=== PATIENT | female | born 1940 | race Caucasian/White ===

== ENCOUNTER → 2016-05-04 | Outpatient (CLI) | payer OTHER, BC ==
[~2016-05-04] MED LIST: ACET1TAB84 PO; ADVIN10/60 INH; ALBU0.08 INH; ALBU1AER9 INH; AMOX875T PO; ASPEC81 PO; CALC-5 PO; CIPR-255 PO; CMD2 PO; DEXL60CA4 PO; DONE10TA12 PO; DONE5TAB9 PO; HYZ/10015 PO; LVNIS100 SQ; NTRSLP4 SL; POTA10CA28 PO; PRAV20TA PO; PREG1CAP70 PO; SERT50TA PO; TAUR500C PO; VNTHFA/IN INH; WARF2TAB PO; WARF4TAB PO; WARF4TAB8 PO
[2016-05-04 13:30] LABS: BASO ABS # 0.06 K/uL (0-0.2); COMPLETE YES; EOS % 0.9 %; HEMATOCRIT 40.6 % (37-47); IG% 0.3 %; LYMPH ABS # 1.05 K/uL (1.2-3.4); MEAN CELL VOLUME 86.2 fL (80-100); MEAN CORPUSCULAR HEMOGLOBIN 28.9 pg (25-34); MEAN CORPUSCULAR HGB CONC 33.5 g/dl (32-36); MEAN PLATELET VOLUME 10.4 fL (7.4-10.4); MONO % 10.5 %; NEUT % 69.3 %; PLATELET COUNT 269 K/uL (130-400); RED BLOOD COUNT 4.71 M/uL (4.2-5.4); WHITE BLOOD COUNT 5.83 K/uL (4.8-10.8)
[2016-05-04 14:28] LABS: ALB/GLOB RATIO 0.8 (0.9-2); ALKALINE PHOSPHATASE 95 U/L (45-117); ALT/SGPT 22 U/L (12-78); AST/SGOT 16 U/L (15-37); BLOOD UREA NITROGEN 18 mg/dl (7-18); BUN/CREATININE RATIO 23.5 (10-20); CALCIUM 9.1 mg/dl (8.5-10.1); CARBON DIOXIDE 30 mmol/L (21-32); CHLORIDE 104 mmol/L (98-107); CHOLESTEROL 250 mg/dl (0-200); CHOLESTEROL/HDL RATIO 4.1; CREATININE 0.76 mg/dl (0.60-1.20); GLUCOSE 80 mg/dl (70-99); HDL CHOLESTEROL 61 mg/dl; LDL CHOLESTEROL CALCULATED 174 mg/dl; POTASSIUM 3.6 mmol/L (3.5-5.1); SODIUM 142 mmol/L (136-145); TRIGLYCERIDES 73 mg/dl (0-150); VERY LOW DENSITY LIPOPROT CALC 15 mg/dl
== END | disposition home or self-care (01) ==
LOC: C.LABMFLN 07:54
PROVIDERS: ATTEND Family Medicine
DX: J45.909 Unspecified asthma, uncomplicated (principal); E78.5 Hyperlipidemia, unspecified

== ENCOUNTER → 2016-07-29 | Outpatient (CLI) | payer OTHER, BC ==
--- NOTE | 2016-07-29 13:28 | DIAGNOSTIC IMAGING REPORT ---
CT OF THE LEFT ANKLE CT DOSE: 160.61 mGy.cm HISTORY: Pain operative fusion TECHNIQUE: Multiaxial CT images of the left ankle were performed and reformatted in the sagittal and coronal plane without the use of contrast. COMPARISON: 11/17/2014 FINDINGS: Lungs consistent with considerable arthritic changes of the tibiotalar joint. Considerable subchondral cyst formation is present. There are operative changes consistent with a hindfoot fusion. It specifically is consistent with a tibiotalar fusion and cannulated screw positioning. Fusion appears to be solid. There are superimposed arthritic changes. This includes the base of the metatarsal. A well-defined fracture is not appreciated. There are considerable degenerative changes of the intertarsal as well as tarsometatarsal joints. IMPRESSION: 1. Operative changes consistent with a hindfoot fusion. 2. Considerable superimposed degenerative change. 3. No evidence for fracture. 4. Moderate generalized soft tissue edema Electronically signed by: Gordon Edouard M.D. 07/29/2016 1:27 PM Dictated Date/Time: 07/29/2016 1:18 PM
== END | disposition home or self-care (01) ==
LOC: C.CTS 12:38
PROVIDERS: ATTEND Orthopaedic Surgery Sports Medicine
DX: M25.572 Pain in left ankle and joints of left foot (principal)

== ENCOUNTER 2016-08-20 13:25 | Inpatient (IN) | payer OTHER, BC ==
[~2016-08-20] VITALS: Ht 167.6 cm; Wt 85.6 kg
[~2016-08-20 13:25] MED LIST changes: -AMOX875T PO; -ASPEC81 PO; -DONE5TAB9 PO; -LVNIS100 SQ; -NTRSLP4 SL; -PRAV20TA PO; -VNTHFA/IN INH; -WARF2TAB PO; -WARF4TAB8 PO
[2016-08-20] MEDS ORDERED: ONDANSETRON INJ 2 MG/ML 2 ML VIAL IV STA (13:43)
[2016-08-20] MEDS ORDERED: MoRPHine SULFATE 4 MG/ML 1 ML CARP\\VIAL IV STA (13:43)
[2016-08-20 13:52] LABS: BASO % 0.1 %; BASO ABS # 0.01 K/uL (0-0.2); COMPLETE YES; HEMATOCRIT 42.3 % (37-47); IG% 0.4 %; LYMPH % 11.1 %; LYMPH ABS # 1.12 K/uL (1.2-3.4); MEAN CELL VOLUME 87.4 fL (80-100); MEAN CORPUSCULAR HEMOGLOBIN 29.1 pg (25-34); MEAN CORPUSCULAR HGB CONC 33.3 g/dl (32-36); MEAN PLATELET VOLUME 9.9 fL (7.4-10.4); MONO % 6.3 %; NEUT % 82.1 %; PLATELET COUNT 264 K/uL (130-400); RED BLOOD COUNT 4.84 M/uL (4.2-5.4); WHITE BLOOD COUNT 10.08 K/uL (4.8-10.8)
[2016-08-20] MEDS ORDERED: DONE5TAB9 PO (13:52)
[2016-08-20] MEDS ORDERED: WARF2TAB PO (13:52)
[2016-08-20] MEDS ORDERED: VNTHFA/IN INH (13:52)
[2016-08-20 14:01] LABS: INR 2.6 (0.9-1.1); PARTIAL THROMBOPLASTIN RATIO 1.4; PROTHROMBIN TIME (PATIENT) 29.2 SECONDS (9.0-12.0)
--- NOTE | 2016-08-20 14:06 | DIAGNOSTIC IMAGING REPORT ---
CHEST ONE VIEW PORTABLE CLINICAL HISTORY: Atypical chest pain COMPARISON STUDY: 07/17/2015 FINDINGS: The heart is mildly enlarged. There is no failure. There is no focal pulmonary consolidation. There are no pleural effusions.[ IMPRESSION: No active disease in the chest. Electronically signed by: Edgard Diego M.D. 08/20/2016 2:04 PM Dictated Date/Time: 08/20/2016 2:03 PM
[2016-08-20 14:09] LABS: BUN/CREATININE RATIO 23.5 (10-20); CALCIUM 9.2 mg/dl (8.5-10.1); CREATININE 0.8 mg/dl (0.60-1.20); POTASSIUM 3.4 mmol/L (3.5-5.1)
--- NOTE | 2016-08-20 14:20 | DIAGNOSTIC IMAGING REPORT ---
CT HEAD WITHOUT CONTRAST (CT) CLINICAL HISTORY: Severe headache. COMPARISON STUDY: No previous studies for comparison. TECHNIQUE: Axial CT of the brain is performed from the vertex to the skull base. IV contrast was not administered for this examination. CT DOSE: 614.27 mGy.cm FINDINGS: No intra or extra-axial mass lesions are visualized. There is no CT evidence of acute cortical infarction. There is no evidence of midline shift. There is no acute hemorrhage. No calvarial fractures are visualized. There are patchy white matter hypodensities likely on a small vessel basis. There is moderate cortical atrophy. There is no evidence of pathologic ventricular dilatation. There is no evidence of acute sinusitis IMPRESSION: No acute intracranial findings Electronically signed by: Edgard Diego M.D. 08/20/2016 2:18 PM Dictated Date/Time: 08/20/2016 2:17 PM
[2016-08-20] MEDS ORDERED: MoRPHine SULFATE 2 MG/ML CARP IV STA (14:43)
[2016-08-20] MEDS ORDERED: ONDANSETRON INJ 2 MG/ML 2 ML VIAL IV PRN (15:15)
[2016-08-20] MEDS ORDERED: ACETAMINOPHEN 325 MG TAB PO PRN (15:15)
[2016-08-20] MEDS ORDERED: ZOLPIDEM TARTRATE 5 MG TAB PO PRN (15:15)
[2016-08-20] MEDS ORDERED: NITROGLYCERIN 0.4 MG SL PER TAB CHARGE SL PRN (15:15)
[2016-08-20] MEDS ORDERED: ACETAMINOPHEN IV 100 ML IV PRN (15:45)
--- NOTE | 2016-08-20 16:04 | EMERGENCY ROOM VISIT NOTE ---
History Report prepared by Alondra: [place] Under the Supervision of: Dr. Carlin Fish M.D. First contact with patient: 13:34 Chief Complaint: CHEST PAIN Stated Complaint: CHEST PAINS,HYPERTENSION,ROSS History of Present Illness The patient is a 75 year old female who presents to the Emergency Room with complaints of improving chest pain beginning 1.5 hours ago. She states that her pain began while she was watching her grandson's game. The patient denies any pain radiation. She denies any shortness of breath or abdominal pain. She also complains of lightheadedness, and nausea. The patient states that she has developed a severe headache as well. She states that the headache she has feels similarly to her previous hypertension induced headaches. She notes that she has some left ankle swelling that is unchanged from her baseline. She states "I need an ankle replacement". Per family, the patient has a history of cardiac catheterizations which have all been normal. Her most recent catheterization was around 10 years ago. Source of History: patient, family Onset: 1.5 hours ago Position: chest Quality: other (tightness) Timing: other (improving) Associated Symptoms: + headache, + nausea, No SOB, No abdominal pain Note: The patient also complains of lightheadedness. Review of Systems See HPI for pertinent positives & negatives. A total of 10 systems reviewed and were otherwise negative. Past Medical & Surgical Medical Problems: (1) Abdominal pain (2) Achilles tendon contracture, left (3) Bradycardia (4) Chest pain (5) Degenerative joint disease of left hindfoot (6) Foot pain, left (7) History of DVT (deep vein thrombosis) (8) History of pulmonary embolus (PE) (9) HTN (hypertension) (10) Intractable headache (11) Pes planus Surgical Problems: (1) Hx of hysterectomy Family History Blood clots Heart disease Hypertension Social History Smoking Status: Never Smoker Alcohol Use: none Drug Use: none Marital Status: Housing Status: lives with family Occupation Status: unemployed Current/Historical Medications Scheduled Albuterol Hfa (Ventolin Hfa), 2 PUFFS INH Q4H Calcium-Magnesium W/ Vitamin D (Calcium 500), 1,500 MG PO BID Donepezil HCl (Aricept), 5 MG PO HS Fluticasone Prop/Salmeterol (Advair Diskus 100/50 60 Dose), 1 PUFF INH BID Hctz/Losartan (Hyzaar 25MG/100MG), 1 TAB PO HS Potassium Chloride (Micro-K Ext Rel), 10 MEQ PO BID Pregabalin (Lyrica), 150 MG PO HS Sertraline (Zoloft), 50 MG PO DAILY Warfarin Sodium (Coumadin), 4 MG PO 2XWK Warfarin Sodium (Coumadin), 2 MG PO 5XWK Scheduled PRN Acetaminophen (Tylenol Arthritis Ext Rel), 1,300 MG PO for Pain Allergies Coded Allergies: Sulfamethoxazole w/Trimethoprim (Unverified Allergy, Severe, STOMACH SICKNESS, 08/20/16) Physical Exam Vital Signs Date Time Temp Pulse Resp B/P Pulse Ox O2 Delivery O2 Flow Rate FiO2 08/20/16 14:25 53 16 127/75 97 Room Air 08/20/16 13:38 58 08/20/16 13:33 58 21 164/91 97 Room Air 08/20/16 13:33 97 Room Air Physical Exam Constitutional: Vital signs reviewed. Eyes: Pupils are equal round reactive to light. Conjunctiva are noninjected. ENT: Pharynx is clear without erythema or exudate. Mucous membranes are moist. Neck supple without meningeal signs. Respiratory: Clear to auscultation bilaterally. Breath sounds are equal bilaterally. Cardiovascular: Regular rate and rhythm. No rubs or gallops. GI: Soft, nondistended and nontender. Bowel sounds are present. Musculoskeletal: No peripheral edema. No lower extremity tenderness. Brace on left lower extremity. Integumentary: No cyanosis. Neurological: The patient is awake and alert. Cranial nerves II-XII are intact. Motor is 5 out of 5 all extremities. Sensation is intact to light touch all extremities. Normal speech. No pronator drift. Psychiatric: Normal affect. Medical Decision & Procedures ER Provider Diagnostic Interpretation: X-ray results as stated below per interpretation by me and the radiologist. CT results as stated below per my review and the radiologist's interpretation: CT HEAD WITHOUT CONTRAST (CT) FINDINGS: No intra or extra-axial mass lesions are visualized. There is no CT evidence of acute cortical infarction. There is no evidence of midline shift. There is no acute hemorrhage. No calvarial fractures are visualized. There are patchy white matter hypodensities likely on a small vessel basis. There is moderate cortical atrophy. There is no evidence of pathologic ventricular dilatation. There is no evidence of acute sinusitis IMPRESSION: No acute intracranial findings Electronically signed by: Edgard Diego M.D. CHEST ONE VIEW PORTABLE FINDINGS: The heart is mildly enlarged. There is no failure. There is no focal pulmonary consolidation. There are no pleural effusions.[ IMPRESSION: No active disease in the chest. Electronically signed by: Edgard Diego M.D. Laboratory Results 08/20/16 13:39 Red Blood Count 4.84, Mean Corpuscular Volume 87.4, Mean Corpuscular Hemoglobin 29.1, Mean Corpuscular Hemoglobin Concent 33.3, Mean Platelet Volume 9.9, Neutrophils (%) (Auto) 82.1, Lymphocytes (%) (Auto) 11.1, Monocytes (%) (Auto) 6.3, Eosinophils (%) (Auto) 0.0, Basophils (%) (Auto) 0.1, Neutrophils # (Auto) 8.28, Lymphocytes # (Auto) 1.12, Monocytes # (Auto) 0.63, Eosinophils # (Auto) 0.00, Basophils # (Auto) 0.01 08/20/16 13:39 Test 08/20/16 13:39 08/20/16 13:43 White Blood Count 10.08 K/uL (4.8-10.8) Red Blood Count 4.84 M/uL (4.2-5.4) Hemoglobin 14.1 g/dL (12.0-16.0) Hematocrit 42.3 % (37-47) Mean Corpuscular Volume 87.4 fL (80-100) Mean Corpuscular Hemoglobin 29.1 pg (25-34) Mean Corpuscular Hemoglobin Concent 33.3 g/dl (32-36) Platelet Count 264 K/uL (130-400) Mean Platelet Volume 9.9 fL (7.4-10.4) Neutrophils (%) (Auto) 82.1 % Lymphocytes (%) (Auto) 11.1 % Monocytes (%) (Auto) 6.3 % Eosinophils (%) (Auto) 0.0 % Basophils (%) (Auto) 0.1 % Neutrophils # (Auto) 8.28 K/uL (1.4-6.5) Lymphocytes # (Auto) 1.12 K/uL (1.2-3.4) Monocytes # (Auto) 0.63 K/uL (0.11-0.59) Eosinophils # (Auto) 0.00 K/uL (0-0.5) Basophils # (Auto) 0.01 K/uL (0-0.2) RDW Standard Deviation 43.8 fL (36.4-46.3) RDW Coefficient of Variation 13.8 % (11.5-14.5) Immature Granulocyte % (Auto) 0.4 % Immature Granulocyte # (Auto) 0.04 K/uL (0.00-0.02) Prothrombin Time 29.2 SECONDS (9.0-12.0) Prothromb Time International Ratio 2.6 (0.9-1.1) Activated Partial Thromboplast Time 36.6 SECONDS (21.0-31.0) Partial Thromboplastin Ratio 1.4 Anion Gap 9.0 mmol/L (3-11) Est Creatinine Clear Calc Drug Dose 69.2 ml/min Estimated GFR () 83.6 Estimated GFR (Non- 72.1 BUN/Creatinine Ratio 23.5 (10-20) Calcium Level 9.2 mg/dl (8.5-10.1) Magnesium Level 2.0 mg/dl (1.8-2.4) Bedside Troponin I 0.000 ng/ml (0-0.045) Laboratory results as reviewed by me. Medications Administered Medications (Trade) Dose Ordered Sig/Martín Route Start Time Stop Time Status Last Admin Dose Admin Morphine Sulfate (MoRPHine SULFATE INJ) 4 mg NOW STAT IV 08/20/16 13:43 08/20/16 13:45 DC 08/20/16 14:20 4 MG Ondansetron HCl (Zofran Inj) 4 mg NOW STAT IV 08/20/16 13:43 08/20/16 13:45 DC 08/20/16 14:20 4 MG ECG Indication: chest pain Rate (beats per minute): 52 Rhythm: sinus bradycardia Findings: PAC, other (Slight depression in leads V4 and V5.) Change: Repeat ECG reveals a sinus bradycardia with PACs. No ST depressions or elevations seen. ED Course 1336: The patient was evaluated in room B5. A complete history and physical exam was performed. 1343: Ordered Zofran Inj 4 mg IV, Morphine Sulfate 4 mg IV. 1443: I reassessed the patient. She still has a headache, but her chest pain is nearly gone. I recommended that she stay in the hospital. The patient verbalized agreement and understanding of the treatment plan. Ordered Morphine Sulfate 2 mg IV. 1502: The patient will be evaluated for further management. Medical Decision This is a 75-year-old female who presents with chest discomfort and headache. Differential diagnosis includes unstable angina, [place], GERD, intracranial mass, intracranial hemorrhage. I did perform a limited focused review of portions of the patient's old chart on the electronic medical record. The patient has had no recent pertinent visits to this hospital. I did evaluate the patient as noted above. Patient is presenting with chest tightness about an hour and a half ago. She also developed a headache at that time. She is neurologically intact. IV access was established. The patient was placed on a continuous manager validation. I did order and personally review the patient's 12-lead EKG and chest x-ray as described above. Her twelve-lead EKG does show some less than [address] depressions in the precordial leads. I did treat the patient with morphine and Zofran IV. I did wish to avoid nitroglycerin because of her headache. I did order and review the patient's blood work as noted in the electronic medical record. Her troponin is negative. Her INR is therapeutic. I did order a CT of the head. I did review the images myself as well as the radiology report as described above. There is no evidence of intracranial hemorrhage. I did reassess the patient. She states her chest pain is almost completely gone. She does continue to have a headache although it is improved as well. I did repeat another twelve-lead EKG which did not show any ST depressions. She was given morphine 2 mg IV. I did recommend hospitalization for further evaluation of her symptoms that she has dynamic EKG changes. I did discuss the case with the hospitalist and mattress spring encaser. Consults Time Called: [id number] Consulting Physician: [place]. [place] [place] [phone] [place] [facility] [place] discussed the patient and her results. The patient will be further evaluated by [facility] [place] Impression Primary Impression: Precordial chest pain Additional Impressions: Headache Bradycardia Abnormal ECG Anticoagulated on Coumadin Scribe Attestation The scribe's documentation has been prepared under my direct and personally reviewed by me in its entirety. I confirm that the note above accurately reflects all work, treatment, procedures, and medical decision making performed by me. Departure Information Dispostion Being Evaluated By Hospitalist Referrals Ella Esquivel M.D. (PCP) Patient Instructions My [facility] Problem Qualifiers Additional Impressions: Headache Headache type: unspecified Headache chronicity pattern: acute headache
[2016-08-20 16:46] VITALS: Ht 167.6 cm; Wt 85.6 kg
[2016-08-20 18:29] VITALS: BP 120/74; PULSE 48; TEMP 36.4; O2SAT 96
[2016-08-20] MEDS: NSS + 20MEQ KCL 1000ML 1,000 ML IV SCH (19:07)
[2016-08-20 19:29] VITALS: BP 116/71; PULSE 54; TEMP 36.6; O2SAT 94
[2016-08-20] MEDS ORDERED: WARFARIN SOD 2 MG TAB PO ONE (20:15)
[2016-08-20] MEDS: ALBUTEROL HFA 8 GM INHALER INH SCH ×2 (20:35→20:40)
[2016-08-20] MEDS: FLUTICASONE/SALMETEROL 100/50 (ADVAIR) 14 PUFF/1 INHALER INH SCH (20:36)
[2016-08-20] MEDS: PREGABALIN 150 MG CAP PO SCH (20:38)
[2016-08-20] MEDS: DONEPEZIL HCL 5 MG TAB PO SCH (20:39)
[2016-08-20] MEDS: POTASSIUM CHLORIDE 10 MEQ TABCR PO SCH (20:39)
[2016-08-20] MEDS ORDERED: CALCIUM MAGNESIUM PO SCH (21:00)
[2016-08-20] MEDS ORDERED: VITAMIN D PO SCH (21:00)
[2016-08-20 21:20] VITALS: PULSE 55; O2SAT 93
--- NOTE | 2016-08-20 22:10 | History and Physical ---
History & Physical Date & Time of Service: Aug 20, 2016 at 22:10 Chief Complaint: Bradycardia, Intractable Headache Primary Care Physician: Ella Esquivel M.D. History of Present Illness Source: patient, spouse The patient is a 75-year-old female who presents to the emergency department with report of chest pain that developed about 1 1/2 hours ago while she was watching her grandson's baseball game, and also developed severe headache as well. She feels that the headache is related to hypertension induced headaches. Patient does have a history of cardiac catheterizations which have been normal, with the last catheterization being around 10 years ago. 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 (4) Foot pain, left Status: Resolved (5) History of DVT (deep vein thrombosis) Status: Resolved (6) History of pulmonary embolus (PE) Status: Resolved (7) HTN (hypertension) Status: Chronic (8) Pes planus Status: Resolved Surgical Problems: (1) Hx of hysterectomy Status: Resolved Family History Blood clots Heart disease Hypertension Social History Smoking Status: Former Smoker Smokeless Tobacco Use: No Alcohol Use: none Drug Use: none Marital Status: Housing status: lives with family Occupational Status: unemployed Multi-Drug Resistant Organisms History of MDRO: No Allergies Coded Allergies: Sulfamethoxazole w/Trimethoprim (Verified Adverse Reaction, Intermediate, STOMACH SICKNESS, 08/20/16) Home Medications Scheduled Albuterol Hfa (Ventolin Hfa), 2 PUFFS INH Q4H Calcium-Magnesium W/ Vitamin D (Calcium 500), 1,500 MG PO BID Donepezil HCl (Aricept), 5 MG PO HS Fluticasone Prop/Salmeterol (Advair Diskus 100/50 60 Dose), 1 PUFF INH BID Hctz/Losartan (Hyzaar 25MG/100MG), 1 TAB PO HS Potassium Chloride (Micro-K Ext Rel), 10 MEQ PO BID Pregabalin (Lyrica), 150 MG PO HS Sertraline (Zoloft), 50 MG PO DAILY Warfarin Sodium (Coumadin), 4 MG PO 2XWK Warfarin Sodium (Coumadin), 2 MG PO 5XWK Scheduled PRN Acetaminophen (Tylenol Arthritis Ext Rel), 1,300 MG PO for Pain Review of Systems The patient denies chest pain, shortness of breath, lower extremity swelling, vision change, hearing change, sore throat, fevers, chills, sweats, weight change, fatigue, nausea, vomiting, abdominal pain, pelvic pain, blood in urine or stool, dysuria, urinary frequency or urgency, lightheadedness, memory loss, rash, abnormal bruising or bleeding, imbalance, focal or generalized weakness, numbness or tingling in arms or legs, arthralgias or myalgias, back or neck pain , night sweats, or allergy symptoms. The review of systems is otherwise negative other than for that already noted above, and at least 10 systems have been reviewed. Physical Exam Vital Signs Date Time Temp Pulse Resp B/P Pulse Ox O2 Delivery O2 Flow Rate FiO2 08/20/16 21:20 55 93 08/20/16 20:14 Room Air 08/20/16 19:29 36.6 54 18 116/71 94 Room Air 08/20/16 18:29 36.4 48 16 120/74 96 Room Air 08/20/16 17:43 36.9 51 14 126/71 95 08/20/16 17:42 51 14 126/71 95 Room Air 08/20/16 17:00 51 14 132/71 95 08/20/16 16:46 Room Air 08/20/16 16:30 48 12 08/20/16 16:00 55 18 95 08/20/16 15:55 46 12 94 08/20/16 15:25 52 14 97 08/20/16 14:55 47 15 97 08/20/16 14:25 53 16 127/75 97 Room Air 08/20/16 14:25 51 15 94 08/20/16 14:23 127/75 08/20/16 13:55 52 19 94 08/20/16 13:38 58 08/20/16 13:33 58 21 164/91 97 Room Air 08/20/16 13:33 97 Room Air 08/20/16 13:32 164/91 The patient is awake, well-developed and adequately nourished, alert and oriented 3, normocephalic and atraumatic, lying in bed and in no acute distress. HEENT--PERRL, EOMI, mucous membranes and oropharynx dry. Neck--supple, no JVD or bruits, thyroid normal, trachea midline, no adenopathy. Heart--normal S1 and S2, no extra beats, no murmurs, rubs or gallops. Lungs--clear bilaterally, no respiratory distress, no accessory muscle use. Abdomen--normal bowel sounds and soft, nontender and nondistended, no hernias or masses, no organomegaly. Extremities--no cyanosis, clubbing or edema. There are good distal pulses b/l. Dermatologic--normal skin turgor, normal color, warm and dry, no abnormal lymph nodes, no rash. Neurologic--cranial nerves II through XII grossly intact, motor and sensory examination normal. Rheumatologic--normal range of motion, nontender, muscles and joints. Psychiatric--normal affect. Diagnostics Laboratory Results Results Past 24 Hours Test 08/20/16 13:39 08/20/16 13:43 Range/Units White Blood Count 10.08 4.8-10.8 K/uL Red Blood Count 4.84 4.2-5.4 M/uL Hemoglobin 14.1 12.0-16.0 g/dL Hematocrit 42.3 37-47 % Mean Corpuscular Volume 87.4 80-100 fL Mean Corpuscular Hemoglobin 29.1 25-34 pg Mean Corpuscular Hemoglobin Concent 33.3 32-36 g/dl Platelet Count 264 130-400 K/uL Mean Platelet Volume 9.9 7.4-10.4 fL Neutrophils (%) (Auto) 82.1 % Lymphocytes (%) (Auto) 11.1 % Monocytes (%) (Auto) 6.3 % Eosinophils (%) (Auto) 0.0 % Basophils (%) (Auto) 0.1 % Neutrophils # (Auto) 8.28 1.4-6.5 K/uL Lymphocytes # (Auto) 1.12 1.2-3.4 K/uL Monocytes # (Auto) 0.63 0.11-0.59 K/uL Eosinophils # (Auto) 0.00 0-0.5 K/uL Basophils # (Auto) 0.01 0-0.2 K/uL RDW Standard Deviation 43.8 36.4-46.3 fL RDW Coefficient of Variation 13.8 11.5-14.5 % Immature Granulocyte % (Auto) 0.4 % Immature Granulocyte # (Auto) 0.04 0.00-0.02 K/uL Prothrombin Time 29.2 9.0-12.0 SECONDS Prothromb Time International Ratio 2.6 0.9-1.1 Activated Partial Thromboplast Time 36.6 21.0-31.0 SECONDS Partial Thromboplastin Ratio 1.4 Sodium Level 143 136-145 mmol/L Potassium Level 3.4 3.5-5.1 mmol/L Chloride Level 104 98-107 mmol/L Carbon Dioxide Level 30 21-32 mmol/L Anion Gap 9.0 3-11 mmol/L Blood Urea Nitrogen 19 7-18 mg/dl Creatinine 0.80 0.60-1.20 mg/dl Est Creatinine Clear Calc Drug Dose 69.2 ml/min Estimated GFR () 83.6 Estimated GFR (Non- 72.1 BUN/Creatinine Ratio 23.5 10-20 Random Glucose 112 70-99 mg/dl Calcium Level 9.2 8.5-10.1 mg/dl Magnesium Level 2.0 1.8-2.4 mg/dl Total Bilirubin 0.4 0.2-1 mg/dl Direct Bilirubin 0.1 0-0.2 mg/dl Aspartate Amino Transf (AST/SGOT) 34 15-37 U/L Alanine Aminotransferase (ALT/SGPT) 37 12-78 U/L Alkaline Phosphatase 112 45-117 U/L Total Protein 7.9 6.4-8.2 gm/dl Albumin 3.7 3.4-5.0 gm/dl Bedside Troponin I 0.000 0-0.045 ng/ml Diagnostic Radiology Patient Name: TIA ALONZO Unit Number: [id number] Dictated: 08/20/161416 Transcribed: 08/20/161416 ARG Printed Date/Time: [~ rep prt dt]/[~ rep prt tm] [~ rep ct labl] - [~ rep ct ivnm] [facility] [place] [address] Dictated: 08/20/161416 Transcribed: 08/20/161416 ARG Printed Date/Time: [~ rep prt dt]/[~ rep prt tm] [~ rep ct labl] - [~ rep ct ivnm] [~ rep ct add3]] CT HEAD WITHOUT CONTRAST (CT) CLINICAL HISTORY: Severe headache. COMPARISON STUDY: No previous studies for comparison. TECHNIQUE: Axial CT of the brain is performed from the vertex to the skull base. IV contrast was not administered for this examination. CT DOSE: 614.27 mGy.cm FINDINGS: No intra or extra-axial mass lesions are visualized. There is no CT evidence of acute cortical infarction. There is no evidence of midline shift. There is no acute hemorrhage. No calvarial fractures are visualized. There are patchy white matter hypodensities likely on a small vessel basis. There is moderate cortical atrophy. There is no evidence of pathologic ventricular dilatation. There is no evidence of acute sinusitis IMPRESSION: No acute intracranial findings Electronically signed by: Edgard Diego M.D. 08/20/2016 2:18 PM Dictated Date/Time: 08/20/2016 2:17 PM The status of this report is Signed. Draft = Not yet reviewed or approved by Radiologist. Signed = Reviewed and approved by Radiologist. <AttendingPhy></AttendingPhy> <FamilyPhy>Ella Esquivel M.D.</FamilyPhy> < PrimaryPhy>Ella Esquivel M.D.</PrimaryPhy> <UnitNumber>[id number]</ UnitNumber> <VisitNumber>[id number]</VisitNumber> <PatientName>TIA ALONZO</PatientName> <DateOfBirth>1940</DateOfBirth> <Location>[facility]</ Location> <ServiceDate>08/20/16</ServiceDate> <MNE>ESINDI</MNE> <OrderingPhy> Carlin Fish MD</OrderingPhy> <OrderingPhyMNE>f rep ord dr austin</OrderingPhyMNE > <DictatingPhyMNE>f rep dict dr austin</DictatingPhyMNE> <CCListMNE>f rep ct geovanna</ CCListMNE> <AdmittingPhyMNE>f pt admit dr austin</AdmittingPhyMNE> <AttendingPhyMNE >f pt attend dr austin</AttendingPhyMNE> <ConsultingPhyMNE>f pt consult dr austin</ConsultingPhyMNE> <FamilyPhyMNE>f pt fam dr austin</FamilyPhyMNE> <OtherPhyMNE>f pt other dr austin</OtherPhyMNE> < PrimaryPhyMNE>f pt prim care dr austin</PrimaryPhyMNE> <ReferringPhyMNE>f pt referring dr austin</ReferringPhyMNE> Patient Name: TIA ALONZO Unit Number: [id number] Dictated: 08/20/161402 Transcribed: 08/20/161402 ARG Printed Date/Time: [~ rep prt dt]/[~ rep prt tm] [~ rep ct labl] - [~ rep ct ivnm] [facility] [place] [address] Dictated: 08/20/161402 Transcribed: 08/20/161402 ARG Printed Date/Time: [~ rep prt dt]/[~ rep prt tm] [~ rep ct labl] - [~ rep ct ivnm] [~ rep ct add3]] CHEST ONE VIEW PORTABLE CLINICAL HISTORY: Atypical chest pain COMPARISON STUDY: 07/17/2015 FINDINGS: The heart is mildly enlarged. There is no failure. There is no focal pulmonary consolidation. There are no pleural effusions.[ IMPRESSION: No active disease in the chest. Electronically signed by: Edgard Diego M.D. 08/20/2016 2:04 PM Dictated Date/Time: 08/20/2016 2:03 PM The status of this report is Signed. Draft = Not yet reviewed or approved by Radiologist. Signed = Reviewed and approved by Radiologist. <AttendingPhy></AttendingPhy> <FamilyPhy>Ella Esquivel M.D.</FamilyPhy> < PrimaryPhy>Ella Esquivel M.D.</PrimaryPhy> <UnitNumber>[id number]</ UnitNumber> <VisitNumber>[id number]</VisitNumber> <PatientName>TIA ALONZO</PatientName> <DateOfBirth>1940</DateOfBirth> <Location>[facility]</ Location> <ServiceDate>08/20/16</ServiceDate> <MNE>ESINDI</MNE> <OrderingPhy> Carlin Fish MD</OrderingPhy> <OrderingPhyMNE>f rep ord dr austin</OrderingPhyMNE > <DictatingPhyMNE>f rep dict dr austin</DictatingPhyMNE> <CCListMNE>f rep ct mne</ CCListMNE> <AdmittingPhyMNE>f pt admit dr austin</AdmittingPhyMNE> <AttendingPhyMNE >f pt attend dr austin</AttendingPhyMNE> <ConsultingPhyMNE>f pt consult dr austin</ConsultingPhyMNE> <FamilyPhyMNE>f pt fam dr austin</FamilyPhyMNE> <OtherPhyMNE>f pt other dr austin</OtherPhyMNE> < PrimaryPhyMNE>f pt prim care dr austin</PrimaryPhyMNE> <ReferringPhyMNE>f pt referring dr austin</ReferringPhyMNE> EKG EKG #1 shows sinus bradycardia at 52 bpm, with no acute ST-T changes. EKG #2 shows sinus bradycardia at 47 bpm, with no acute ST-T changes. Impression Assessment and Plan Chest pain/elevated blood pressure/headache/bradycardia--the patient will be admitted to the telemetry unit for serial cardiac enzymes, cardiac rhythm monitoring and a 2-D echocardiogram with Dopplers. We'll hold HCTZ 25 mg by mouth daily. Continue losartan 100 mg by mouth daily, potassium chloride 10 mEq by mouth twice a day and warfarin. Her bradycardia did become quite pronounced but asymptomatic while in the emergency department. Headache--patient feels that the headache began shortly after getting bilateral knee injections, and is advised to not have this done again. Dementia--continue donepezil 5 mg by mouth at bedtime. Depression/anxiety--continue sertraline 50 mg by mouth daily and Lyrica 150 mg by mouth at bedtime. Asthma--hold Advair Diskus and albuterol HFA. Level of Care Telemetry Advanced Directives Existing Advance Directive: No Existing Living Will: Yes Existing Power of Valet Service Attendant: Yes Resuscitation Status FULL RESUSCITATION VTE Prophylaxis VTE Risk Assessment Done? Y/N: Yes Risk Level: Moderate Given or contraindicated: Warfarin (Coumadin)
[2016-08-20 23:33] VITALS: BP 118/61; PULSE 53; TEMP 36.4; O2SAT 94
[2016-08-21] VITALS (7 sets, daily range): BP systolic 99–148; BP diastolic 58–87; PULSE 52–67; TEMP 36.4–36.9; O2SAT 93–96
[2016-08-21 00:11] LABS: CKMB/CK RATIO 3.1 (0-3.0)
[2016-08-21] MEDS: ALBUTEROL HFA 8 GM INHALER INH SCH ×7 (00:56→23:25)
[2016-08-21] MEDS: NSS + 20MEQ KCL 1000ML 1,000 ML IV SCH ×3 (04:20→23:24)
[2016-08-21 07:42] LABS: BASO % 0.4 %; BASO ABS # 0.03 K/uL (0-0.2); COMPLETE YES; EOS % 0.1 %; HEMATOCRIT 38.1 % (37-47); IG% 0.3 %; LYMPH % 17.9 %; MEAN CORPUSCULAR HEMOGLOBIN 28.5 pg (25-34); MEAN PLATELET VOLUME 9.7 fL (7.4-10.4); NEUT % 73.3 %; PLATELET COUNT 215 K/uL (130-400); RED BLOOD COUNT 4.28 M/uL (4.2-5.4); WHITE BLOOD COUNT 6.72 K/uL (4.8-10.8)
[2016-08-21 07:54] LABS: INR 2.3 (0.9-1.1); PARTIAL THROMBOPLASTIN RATIO 1.3; PROTHROMBIN TIME (PATIENT) 25.3 SECONDS (9.0-12.0)
[2016-08-21] MEDS: LOSARTAN POTASSIUM 50 MG TAB PO SCH (08:05)
[2016-08-21] MEDS: FLUTICASONE/SALMETEROL 100/50 (ADVAIR) 14 PUFF/1 INHALER INH SCH ×2 (08:05→20:43)
[2016-08-21] MEDS: SERTRALINE HCL 50 MG TAB PO SCH (08:06)
[2016-08-21] MEDS: POTASSIUM CHLORIDE 10 MEQ TABCR PO SCH ×2 (08:06→20:43)
[2016-08-21 08:13] LABS: BUN/CREATININE RATIO 24.6 (10-20); CREATININE 0.72 mg/dl (0.60-1.20); MAGNESIUM 1.9 mg/dl (1.8-2.4); POTASSIUM 4.2 mmol/L (3.5-5.1)
[2016-08-21 08:22] LABS: CKMB/CK RATIO 3.6 (0-3.0)
[2016-08-21 08:33] LABS: CALCIUM 8.6 mg/dl (8.5-10.1)
[2016-08-21] MEDS: WARFARIN SOD 2 MG TAB PO SCH (16:16)
--- NOTE | 2016-08-21 18:27 | Hospitalist Progress Note ---
Hospitalist Progress Note Date of Service Aug 21, 2016. Subjective Pt evaluation today including: conversation w/ patient, physical exam, chart review, lab review, review of studies patient denies any chest pressure at this time. She had yesterday when leaving her grandson's baseball game. the chest tightness lasted until she came to the hospital and received morphine. she has been free of chest tightness. All Other Systems: Reviewed and Negative Objective Vital Signs Date Time Temp Pulse Resp B/P Pulse Ox O2 Delivery O2 Flow Rate FiO2 08/21/16 15:35 Room Air 08/21/16 15:14 36.9 67 16 116/66 93 Room Air 08/21/16 12:04 Room Air 08/21/16 11:06 36.8 59 18 99/61 94 Room Air 08/21/16 08:47 Room Air 08/21/16 07:34 36.5 52 18 127/66 93 CPAP 08/21/16 04:16 36.4 55 18 105/58 95 BiPAP 08/21/16 04:00 Room Air 08/21/16 00:00 Room Air 08/20/16 23:33 36.4 53 18 118/61 94 BiPAP 08/20/16 21:20 55 93 08/20/16 20:14 Room Air 08/20/16 19:29 36.6 54 18 116/71 94 Room Air 08/20/16 18:29 36.4 48 16 120/74 96 Room Air Physical Exam General Appearance: no apparent distress Eyes: normal inspection ENT: hearing grossly normal Neck: supple, trachea midline Respiratory/Chest: lungs clear Cardiovascular: + irregularly irregular Abdomen: normal bowel sounds, non tender Extremities: normal range of motion Neurologic/Psychiatric: no motor/sensory deficits, alert, normal mood/affect Laboratory Results Last 24 Hours Test 08/20/16 23:15 08/21/16 07:17 Total Creatine Kinase 98 U/L 67 U/L Creatine Kinase MB 3.0 ng/ml 2.4 ng/ml Creatine Kinase MB Ratio 3.1 3.6 Troponin I 0.352 ng/ml 0.380 ng/ml White Blood Count 6.72 K/uL Red Blood Count 4.28 M/uL Hemoglobin 12.2 g/dL Hematocrit 38.1 % Mean Corpuscular Volume 89.0 fL Mean Corpuscular Hemoglobin 28.5 pg Mean Corpuscular Hemoglobin Concent 32.0 g/dl Platelet Count 215 K/uL Mean Platelet Volume 9.7 fL Neutrophils (%) (Auto) 73.3 % Lymphocytes (%) (Auto) 17.9 % Monocytes (%) (Auto) 8.0 % Eosinophils (%) (Auto) 0.1 % Basophils (%) (Auto) 0.4 % Neutrophils # (Auto) 4.92 K/uL Lymphocytes # (Auto) 1.20 K/uL Monocytes # (Auto) 0.54 K/uL Eosinophils # (Auto) 0.01 K/uL Basophils # (Auto) 0.03 K/uL RDW Standard Deviation 46.2 fL RDW Coefficient of Variation 14.2 % Immature Granulocyte % (Auto) 0.3 % Immature Granulocyte # (Auto) 0.02 K/uL Prothrombin Time 25.3 SECONDS Prothromb Time International Ratio 2.3 Activated Partial Thromboplast Time 33.9 SECONDS Partial Thromboplastin Ratio 1.3 Sodium Level 142 mmol/L Potassium Level 4.2 mmol/L Chloride Level 108 mmol/L Carbon Dioxide Level 29 mmol/L Anion Gap 5.0 mmol/L Blood Urea Nitrogen 18 mg/dl Creatinine 0.72 mg/dl Est Creatinine Clear Calc Drug Dose 76.8 ml/min Estimated GFR () 94.9 Estimated GFR (Non- 81.9 BUN/Creatinine Ratio 24.6 Random Glucose 109 mg/dl Calcium Level 8.6 mg/dl Magnesium Level 1.9 mg/dl Assessment and Plan (1) Unstable angina pectoris Assessment & Plan: trop are elevated and in the context of her story and the risk factor of advanced age I will ask Cardiology to see and order and Echo. Her last cath was 10 years ago and at that time had reportedly no disease. (2) Advance care planning (3) Anticoagulated on Coumadin Assessment & Plan: Patient states this is for atrial fibrillition however she also has history of PE. Will leave on coumadin and follow pt inr (4) HTN (hypertension) (5) History of pulmonary embolus (PE)
[2016-08-21] MEDS: DONEPEZIL HCL 5 MG TAB PO SCH (20:42)
[2016-08-21] MEDS: PREGABALIN 150 MG CAP PO SCH (20:42)
[2016-08-22] MEDS: ALBUTEROL HFA 8 GM INHALER INH SCH ×5 (03:50→20:32)
[2016-08-22 04:10] VITALS: BP 129/70; PULSE 52; TEMP 36.6; O2SAT 96
[2016-08-22 06:14] LABS: BASO % 0.5 %; BASO ABS # 0.03 K/uL (0-0.2); COMPLETE YES; EOS % 0.7 %; HEMATOCRIT 37.9 % (37-47); IG% 0.7 %; LYMPH % 22.4 %; LYMPH ABS # 1.36 K/uL (1.2-3.4); MEAN CELL VOLUME 89.4 fL (80-100); MEAN CORPUSCULAR HEMOGLOBIN 29.2 pg (25-34); MEAN CORPUSCULAR HGB CONC 32.7 g/dl (32-36); MEAN PLATELET VOLUME 9.8 fL (7.4-10.4); MONO % 9.2 %; NEUT % 66.5 %; PLATELET COUNT 195 K/uL (130-400); RED BLOOD COUNT 4.24 M/uL (4.2-5.4); WHITE BLOOD COUNT 6.08 K/uL (4.8-10.8)
[2016-08-22 06:24] LABS: INR 2.5 (0.9-1.1); PARTIAL THROMBOPLASTIN RATIO 1.3; PROTHROMBIN TIME (PATIENT) 27.4 SECONDS (9.0-12.0)
[2016-08-22 06:56] LABS: BUN/CREATININE RATIO 22.7 (10-20); CALCIUM 8.3 mg/dl (8.5-10.1); CREATININE 0.67 mg/dl (0.60-1.20); MAGNESIUM 2.2 mg/dl (1.8-2.4); POTASSIUM 4.6 mmol/L (3.5-5.1)
[2016-08-22] MEDS: POTASSIUM CHLORIDE 10 MEQ TABCR PO SCH ×2 (08:03→20:32)
[2016-08-22] MEDS: LOSARTAN POTASSIUM 50 MG TAB PO SCH (08:03)
[2016-08-22] MEDS: SERTRALINE HCL 50 MG TAB PO SCH (08:03)
[2016-08-22] MEDS: FLUTICASONE/SALMETEROL 100/50 (ADVAIR) 14 PUFF/1 INHALER INH SCH ×2 (08:03→20:32)
[2016-08-22] MEDS: NSS + 20MEQ KCL 1000ML 1,000 ML IV SCH (09:32)
--- NOTE | 2016-08-22 11:11 | ECHOCARDIOGRAM REPORT ---
*NOTICE TO RECEIVING REPUBLICAN AGENCY This information is strictly Confidential and protected under [place] law. [place] law prohibits you from making any further disclosure of this information unless further disclosure is expressly permitted by the written consent of the person to whom it pertains or is authorized by law. A general authorization for the release of medical or other information is not sufficient for this purpose. Hospital accepts no responsibility if the information is made available to any other person, INCLUDING THE PATIENT. Interpretation Summary * Name: TIA ALONZO Study Date: 08/21/2016 03:33 PM BP: 99/61 mmHg * Patient Location: .2E\S\E204\S\1 HR: 70 * : 1940 (M/d/yyyy) Gender: Female Height: 66 in * Age: 75 yrs Ethnicity: [place] Weight: 201 lb * Ordering Physician: Esau Jimenez * Referring Physician: Self, Referred * Performed By: Jose Ferrell RDCS * * Reason For Study: Bradycardia * BSA: 2.0 m2 * -- Conclusions -- * Left ventricular systolic function is normal. * Grade I diastolic dysfunction, (abnormal relaxation pattern). * The left atrium is mildly dilated. * Trace aortic regurgitation. * There is mild to moderate mitral regurgitation. * There is mild to moderate tricuspid regurgitation. * Right ventricular systolic pressure is elevated at 30-40mmHg. * Compared to an echocardiogram from 06/2015, there has been slight progression of the valvular disease Procedure Details * A complete two-dimensional transthoracic echocardiogram was performed (2D, M-mode, Doppler and color flow Doppler). * The study was technically adequate. Left Ventricle * The left ventricle is normal in size. * There is normal left ventricular wall thickness. * Left ventricular systolic function is normal. * Ejection Fraction = 60-65%. * Grade I diastolic dysfunction, (abnormal relaxation pattern). Right Ventricle * The right ventricle is normal in size and function. Atria * The left atrium is mildly dilated. * Right atrial size is normal. Mitral Valve * The mitral valve is grossly normal. * There is mild to moderate mitral regurgitation. Tricuspid Valve * The tricuspid valve is not well visualized, but is grossly normal. * There is mild to moderate tricuspid regurgitation. * Right ventricular systolic pressure is elevated at 30-40mmHg. Aortic Valve * The aortic valve is tricuspid. The leaflet thickness if normal. There is no aortic stenosis, and no significant insufficiency. * No hemodynamically significant valvular aortic stenosis. * Trace aortic regurgitation. Great Vessels * The aortic root is normal size. Pericardium/Pleural * There is no pericardial effusion. MMode 2D Measurements and Calculations IVSd 1.1 cm IVSs 1.7 cm LVIDd 4.3 cm LVIDs 2.7 cm LVPWd 1.1 cm LVPWs 1.7 cm IVS/LVPW 1.0 FS 36.3 % EDV(Teich) 81.4 ml ESV(Teich) 27.5 ml EF(Teich) 66.3 % EDV(cubed) 77.5 ml ESV(cubed) 20.1 ml EF(cubed) 74.1 % % IVS thick 51.2 % % LVPW thick 56.5 % LV mass(C)d 158.3 grams LV mass(C)dI 79.0 grams/m\S\2 LV mass(C)s 169.5 grams LV mass(C)sI 84.6 grams/m\S\2 SV(Teich) 54.0 ml SI(Teich) 26.9 ml/m\S\2 SV(cubed) 57.5 ml SI(cubed) 28.7 ml/m\S\2 EPSS 0.66 cm Ao root diam 3.1 cm Ao root area 7.7 cm\S\2 ACS 2.0 cm LA dimension 4.4 cm asc Aorta Diam 2.6 cm LA/Ao 1.4 LVOT diam 1.9 cm LVOT area 2.9 cm\S\2 LVAd ap4 20.6 cm\S\2 LVLd ap4 6.6 cm EDV(MOD-sp4) 53.0 ml LVAs ap4 11.0 cm\S\2 LVLs ap4 5.6 cm ESV(MOD-sp4) 18.0 ml EF(MOD-sp4) 66.0 % LVAd ap2 24.5 cm\S\2 LVLd ap2 7.4 cm EDV(MOD-sp2) 66.0 ml LVAs ap2 12.3 cm\S\2 LVLs ap2 5.5 cm ESV(MOD-sp2) 23.0 ml EF(MOD-sp2) 65.2 % SV(MOD-sp4) 35.0 ml SI(MOD-sp4) 17.5 ml/m\S\2 SV(MOD-sp2) 43.0 ml SI(MOD-sp2) 21.5 ml/m\S\2 Doppler Measurements and Calculations MV E max nick 75.7 cm/sec MV A max nick 66.9 cm/sec MV E/A 1.1 MV dec time 0.22 sec Ao V2 max 159.3 cm/sec Ao max PG 10.1 mmHg Ao max PG (full) 4.6 mmHg VIKY(V,A) 2.2 cm\S\2 VIKY(V,D) 2.2 cm\S\2 AI max nick 357.5 cm/sec AI max PG 51.1 mmHg AI dec slope 114.4 cm/sec\S\2 AI P1/2t 915.7 msec LV V1 max PG 5.6 mmHg LV V1 max 117.9 cm/sec PA V2 max 100.3 cm/sec PA max PG 4.0 mmHg PI end-d nick 129.4 cm/sec TR max nick 255.8 cm/sec
[2016-08-22 12:06] VITALS: BP 149/86; PULSE 66; TEMP 36.5; O2SAT 95
[2016-08-22 15:34] VITALS: BP 137/88; PULSE 59; TEMP 36.9; O2SAT 95
[2016-08-22] MEDS: WARFARIN SOD 2 MG TAB PO SCH ×2 (16:00→16:23)
[2016-08-22] MEDS ORDERED: MoRPHine SULFATE 2 MG/ML CARP ONE (16:24)
[2016-08-22] MEDS ORDERED: ONDANSETRON INJ 2 MG/ML 2 ML VIAL IV STA (16:27)
[2016-08-22] MEDS ORDERED: MoRPHine SULFATE 2 MG/ML CARP IV STA (16:27)
[2016-08-22] MEDS ORDERED: NURSING VERBAL MED ORDER ONE ×3 (16:30→18:15)
[2016-08-22] MEDS ORDERED: ASPIRIN/ALUM/MAGNES/CAL CARB 325 MG TAB PO STA (17:30)
--- NOTE | 2016-08-22 19:29 | Hospitalist Progress Note ---
Hospitalist Progress Note Date of Service Aug 22, 2016. Subjective Pt evaluation today including: conversation w/ patient, physical exam, lab review, conversation w/ showroom sales consultant (cardiology) Patient denies any further chest pain at the time I saw her this morning, however later in the day she was having some when seen by cardiology. She reports mild substernal chest pain every few days perhaps for years with a normal dobutamine stress echo in June 2015. However, the episode that brought her in here was much more severe of a substernal tightness and was associated with intractable headache. Constitutional: No fever Respiratory: No shortness of breath Cardiovascular: + chest pain, No edema, No palpitations Abdomen: No nausea, No pain All Other Systems: Reviewed and Negative Objective Vital Signs Date Time Temp Pulse Resp B/P Pulse Ox O2 Delivery O2 Flow Rate FiO2 08/22/16 16:00 Room Air 08/22/16 15:34 36.9 59 18 137/88 95 Room Air 08/22/16 12:06 36.5 66 20 149/86 95 Room Air 08/22/16 12:00 Room Air 08/22/16 08:00 Room Air 08/22/16 04:10 36.6 52 20 129/70 96 BiPAP 08/22/16 04:00 Room Air 08/22/16 00:00 Room Air 08/21/16 23:49 36.5 61 20 133/87 95 BiPAP 08/21/16 23:38 95 08/21/16 20:00 Room Air 08/21/16 19:45 36.7 60 18 148/80 96 Room Air Physical Exam General Appearance: WD/WN, no apparent distress Eyes: normal inspection, sclerae normal ENT: hearing grossly normal Neck: trachea midline Respiratory/Chest: lungs clear, normal breath sounds, no respiratory distress, no accessory muscle use Cardiovascular: regular rate, rhythm, no edema, no gallop, no murmur Abdomen: normal bowel sounds, non tender, soft, no organomegaly, no pulsatile mass Extremities: non-tender, normal inspection, no pedal edema, no calf tenderness Neurologic/Psychiatric: alert, normal mood/affect, oriented x 3 Skin: normal color, warm/dry, no rash Laboratory Results Last 24 Hours Test 08/22/16 05:35 White Blood Count 6.08 K/uL Red Blood Count 4.24 M/uL Hemoglobin 12.4 g/dL Hematocrit 37.9 % Mean Corpuscular Volume 89.4 fL Mean Corpuscular Hemoglobin 29.2 pg Mean Corpuscular Hemoglobin Concent 32.7 g/dl Platelet Count 195 K/uL Mean Platelet Volume 9.8 fL Neutrophils (%) (Auto) 66.5 % Lymphocytes (%) (Auto) 22.4 % Monocytes (%) (Auto) 9.2 % Eosinophils (%) (Auto) 0.7 % Basophils (%) (Auto) 0.5 % Neutrophils # (Auto) 4.05 K/uL Lymphocytes # (Auto) 1.36 K/uL Monocytes # (Auto) 0.56 K/uL Eosinophils # (Auto) 0.04 K/uL Basophils # (Auto) 0.03 K/uL RDW Standard Deviation 46.8 fL RDW Coefficient of Variation 14.2 % Immature Granulocyte % (Auto) 0.7 % Immature Granulocyte # (Auto) 0.04 K/uL Prothrombin Time 27.4 SECONDS Prothromb Time International Ratio 2.5 Activated Partial Thromboplast Time 35.0 SECONDS Partial Thromboplastin Ratio 1.3 Sodium Level 145 mmol/L Potassium Level 4.6 mmol/L Chloride Level 111 mmol/L Carbon Dioxide Level 28 mmol/L Anion Gap 6.0 mmol/L Blood Urea Nitrogen 15 mg/dl Creatinine 0.67 mg/dl Est Creatinine Clear Calc Drug Dose 82.3 ml/min Estimated GFR () 99.7 Estimated GFR (Non- 86.0 BUN/Creatinine Ratio 22.7 Random Glucose 101 mg/dl Calcium Level 8.3 mg/dl Magnesium Level 2.2 mg/dl Troponin I 0.189 ng/ml Assessment and Plan (1) Unstable angina pectoris (2) Advance care planning (3) Anticoagulated on Coumadin (4) HTN (hypertension) (5) History of pulmonary embolus (PE) Unstable angina pectoris/headache/bradycardia/mitral regurgitation/suspected pulmonary hypertension/chronic diastolic dysfunction/hypertension- Assessment & Plan: trops are elevated with peak at 0.38 and in the context of her story and the risk factor of advanced age, I discussed the case with Cardiology and plan is to perform cardiac catheterization when INR is less than 1.7. Blood pressures are within normal range. ECHO:Conclusions -- * Left ventricular systolic function is normal. * Grade I diastolic dysfunction, (abnormal relaxation pattern). * The left atrium is mildly dilated. * Trace aortic regurgitation. * There is mild to moderate mitral regurgitation. * There is mild to moderate tricuspid regurgitation. * Right ventricular systolic pressure is elevated at 30-40mmHg. * Compared to an echocardiogram from 06/2015, there has been slight progression of the valvular disease -Start heparin drip with no bolus now given recurrent chest pain -Hold Coumadin and follow INR in the morning -Morphine when necessary chest pain, hold on nitroglycerin given headaches -continue to hold HCTZ 25 mg by mouth daily. -Continue losartan 100 mg by mouth daily, potassium chloride 10 mEq by mouth twice a day -Start aspirin daily Anticoagulated on Coumadin Assessment & Plan: has history of multiple DVTs and PE. -Holding as above but will need to restart with a possible bridge of Lovenox after cardiac catheterization Dementia--continue donepezil 5 mg by mouth at bedtime. Depression/anxiety--continue sertraline 50 mg by mouth daily and Lyrica 150 mg by mouth at bedtime. Asthma--continue Advair Diskus and albuterol HFA. Prophylaxis-heparin drip Disposition-full code
[2016-08-22 19:41] VITALS: BP 130/73; PULSE 95; TEMP 36.5; O2SAT 95
[2016-08-22] MEDS: DONEPEZIL HCL 5 MG TAB PO SCH (20:31)
[2016-08-22] MEDS: PREGABALIN 150 MG CAP PO SCH (20:31)
[2016-08-22 22:02] VITALS: PULSE 54; O2SAT 96
[2016-08-22 23:39] VITALS: BP 131/84; PULSE 61; TEMP 36.8; O2SAT 94
[2016-08-23 01:44] LABS: PARTIAL THROMBOPLASTIN RATIO 2.3
--- NOTE | 2016-08-23 02:27 | CARDIOLOGY CONSULTATION ---
DATE OF CONSULTATION: 08/22/2016 REFERRING PHYSICIAN: Alejandrina Kent MD CHIEF COMPLAINT: Chest pain. HISTORY OF PRESENT ILLNESS: Mrs. Carmen Heredia is a 75-year-old woman, without a known history of coronary artery disease who was attending a baseball awards presentation for her grandson on Monday afternoon. The patient experienced the spontaneous onset of severe chest discomfort associated with a headache. This did not produce any significant visual changes and there was no radiation of her chest pain. This was precordial in nature. It did not appear to involve any significant breathing difficulties; there may have been an element of mild diaphoresis and nausea. The symptoms themselves persisted unabated for over an hour and a half before the patient sought medical attention at [facility]. Her symptoms had abated to some degree by the time of arrival. She was also given narcotics and ondansetron with eventual relief of her chest pain, but some persistence of her headache. A head CT performed at that time did not reveal any acute intracranial process. The patient's symptoms eventually abated entirely. At the time of the interview, the patient had recurrence of these symptoms; these were identical in character, but slightly less painful Overall. The intensity was less than that experienced during presentation. Once again, she did not have any significant breathing difficulty or there was no visual disturbance. There was no diaphoresis. There was some mild nausea, but no sense of vomiting. The patient also had an element of left flank pain. This seemed to improve with sitting upright and transferring to a chair. Once again, the administration of narcotics and ondansetron seemed to alleviate her chest pain with mild persistence of the headache afterwards. In general, the patient is a sedentary individual secondary to left ankle trouble. She is scheduled to undergo an ankle and possibly a knee surgery on the left side to improve her mobility. She is able to perform routine household activities without other limitations and does not report significant chest discomfort with these activities. It seems that approximately one year ago, she was also having some chest pain. She reports these have differed in character; however, they occurred on the left side of her chest and involved the left arm. She underwent an outpatient stress testing for this malady which was reportedly normal. 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 PAST SURGICAL HISTORY: Includes; surgery on the ankle, history of cataract surgery, nasal surgery and abdominal hysterectomy. FAMILY HISTORY: Significant for coronary artery disease in her brother. 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 No history of smoking or significant alcohol abuse. OUTPATIENT MEDICATIONS: Included Advair, albuterol, donepezil, losartan, Lyrica, potassium supplementation, sertraline and warfarin. MEDICAL ALLERGIES: INCLUDE BACTRIM. REVIEW OF SYSTEMS: A complete 10-system review of systems was performed and the pertinent positives are noted in the history of present illness; the remainder being negative. She denied any recent constitutional symptoms. She has not had any difficulty with eating. She denies significant heart burn. She has not had any notable change in her bowel or bladder habits. She does have discomfort involving the left ankle and knee which limits her mobility. There does not appear to be any pleuritic component associated with her current chest pain. PHYSICAL EXAMINATION: GENERAL: She appeared to be mildly uncomfortable at the time of the initial interview. She was alert and oriented; however and answered all questions appropriately. VITAL SIGNS: Include blood pressure 137/88 with a pulse of 59. HEENT: Her sclerae are anicteric. Pupils are equal and reactive to light and accommodation. Extraocular movements were intact. Palpation of submandibular region did not reveal any significant lymphadenopathy. The carotids are palpable bilaterally. There are no bruits on auscultation. I cannot appreciate any evidence of jugular venous distention. Thyroid is not enlarged. LUNGS: Auscultation of both lung hoskins revealed them to be clear. There were no rales, wheezes or rhonchi. It showed good respiratory effort without use of accessory muscles. CARDIAC: Revealed her to be in a regular rhythm. There was a holosystolic murmur that was soft, but heard best at the apex. S1-S2 were otherwise normal. PMI was not markedly displaced. ABDOMEN: Soft and nontender. EXTREMITIES: Evaluation of both wrists revealed radial pulses that were equal in intensity. There was no evidence of cyanosis or clubbing. Evaluation of lower extremities did not reveal any significant peripheral edema. I did not appreciate any rashes on exam today. LABORATORY STUDIES: Obtained today include a white cell count of 6, hemoglobin of 12.4, platelet count was 195. Sodium is 145, potassium of 4.3, BUN was 15 and creatinine was 0.67. Serial cardiac biomarkers that were drawn throughout the course of this admission include an initial 0.35 on the , 0.38 on the and 0.18 today. The patient did undergo echocardiogram earlier today which revealed preserved left ventricular systolic function and evidence of some [id number] mitral regurgitation, pulmonary pressures slightly elevated at [address] scan of the patient's head was done at the time of admission which did not reveal any intracranial abnormalities. Chest x-ray was also obtained which did not reveal any significant active cardiopulmonary disease. Serial 12-lead EKGs were also obtained; these were normal without notable T-wave or ST segment changes. ASSESSMENT AND PLAN: Non-ST elevation myocardial infarction. The patient had a fairly extended episode of severe chest pain and headache that lasted 1-1/2 to 2 hours on Monday. She did have elevation in cardiac biomarkers which are fairly minimal considering the severity and duration of her symptoms. EKG is unchanged. She has risk factors for coronary artery disease and has undergone coronary angiography remotely for symptoms of chest pain; this was reportedly normal one decade ago. She recently underwent noninvasive testing approximately one year ago, that did not demonstrate any inducible ischemia; however, given her presentation of elevated biomarkers I think it would reasonable to perform an invasive testing despite the presence of symptoms and absence of concurrent EKG changes, she could have a circumflex lesion producing symptoms which would not be as obvious on a standard 12-lead EKG. She does have a history of venous thrombosis and is fully anticoagulated currently and I think we should hold her warfarin and start heparin. I think she should be administered a daily aspirin and when her INR drops below 2, we can consider radial angiography for evaluation. In the interim, it will be prudent to treat her symptoms with either narcotics or nitrates. Nitrates have been avoided so far, as they may exacerbate any headaches type symptoms. What is unclear is whether her symptoms currently are related entirely to coronary artery disease or if there is another explanation for her symptoms in the presence of concurrent coronary artery disease. FINAL RECOMMENDATIONS: 1. Hold warfarin. 2. Start systemic heparinization. 3. Daily, aspirin including administered now. 4. Treatment of symptoms with narcotics and possibly nitrates if necessary. 5. Plan for coronary angiography. [facility] HOSPITALJoyce
[2016-08-23] MEDS: ALBUTEROL HFA 8 GM INHALER INH SCH ×5 (04:00→16:28)
[2016-08-23 04:02] VITALS: BP 142/82; PULSE 57; TEMP 36.3; O2SAT 96
[2016-08-23 06:19] LABS: BASO % 0.4 %; BASO ABS # 0.03 K/uL (0-0.2); COMPLETE YES; EOS % 1.9 %; HEMATOCRIT 38.7 % (37-47); IG% 0.6 %; LYMPH % 20.3 %; LYMPH ABS # 1.41 K/uL (1.2-3.4); MEAN CELL VOLUME 89.6 fL (80-100); MEAN CORPUSCULAR HEMOGLOBIN 28.7 pg (25-34); MEAN PLATELET VOLUME 9.7 fL (7.4-10.4); MONO % 9.9 %; NEUT % 66.9 %; PLATELET COUNT 193 K/uL (130-400); RED BLOOD COUNT 4.32 M/uL (4.2-5.4); WHITE BLOOD COUNT 6.96 K/uL (4.8-10.8)
[2016-08-23 06:54] LABS: BUN/CREATININE RATIO 16.4 (10-20); CALCIUM 8.6 mg/dl (8.5-10.1); CREATININE 0.76 mg/dl (0.60-1.20); INR 2.1 (0.9-1.1); MAGNESIUM 2.3 mg/dl (1.8-2.4); PARTIAL THROMBOPLASTIN RATIO 3.2; POTASSIUM 4.5 mmol/L (3.5-5.1); PROTHROMBIN TIME (PATIENT) 22.9 SECONDS (9.0-12.0)
[2016-08-23] MEDS ORDERED: PHYTONADIONE 5 MG TAB PO STA (07:45)
[2016-08-23] MEDS: FLUTICASONE/SALMETEROL 100/50 (ADVAIR) 14 PUFF/1 INHALER INH SCH ×2 (09:11→21:08)
[2016-08-23] MEDS: LOSARTAN POTASSIUM 50 MG TAB PO SCH (09:12)
[2016-08-23] MEDS: POTASSIUM CHLORIDE 10 MEQ TABCR PO SCH ×2 (09:12→21:10)
[2016-08-23] MEDS: ASPIRIN 81 MG ECTAB PO SCH (09:12)
[2016-08-23] MEDS: SERTRALINE HCL 50 MG TAB PO SCH (09:12)
[2016-08-23 11:28] VITALS: BP 111/66; PULSE 60; TEMP 36.7; O2SAT 95
[2016-08-23 14:21] LABS: PARTIAL THROMBOPLASTIN RATIO 2.8
[2016-08-23 15:34] VITALS: BP 129/75; PULSE 61; TEMP 36.7; O2SAT 97
[2016-08-23] MEDS ORDERED: WARFARIN SOD 4 MG TAB PO SCH (16:00)
[2016-08-23] MEDS: HEPARIN 25,000 UNIT/500ML D5W 500 ML IV PRN ×2 (16:41→16:59)
--- NOTE | 2016-08-23 17:46 | CARDIOLOGY PROGRESS NOTE ---
DATE: 08/23/2016 SUBJECTIVE: This morning, Mrs. Heredia says that her headache and chest pain from last evening have resolved. She had a very slight headache earlier today that was transient in nature and not as severe as that one she experienced yesterday. She has been ambulatory around the room, and expressed some frustration related to pending diagnosis. She has no further complaints. PHYSICAL EXAMINATION: GENERAL: She was alert and oriented, mood and affect appeared normal. She answered all questions appropriately. VITAL SIGNS: Her current blood pressure was 129/75 with a pulse of 61. LUNGS: Auscultation of the lung apices revealed them to be clear. CARDIAC: Revealed her to be in a regular rhythm. EXTREMITIES: Evaluation both wrists revealed radial pulses that were easily palpable bilaterally. There was no cyanosis or clubbing. LABORATORY STUDIES: Obtained today included a white cell count of 6.9, hemoglobin of 12.4 and a platelet count of 193. Sodium is 141, potassium is 4.5, BUN was 12, creatinine was 0.76. Cardiac troponin this morning was 0.076. Echocardiogram performed yesterday revealed preserved left ventricular systolic function and stage I diastolic dysfunction with some mild to moderate mitral regurgitation as well. ASSESSMENT AND PLAN: 1. Non-ST elevation myocardial infarction. The patient has not had any recurrent episodes of chest discomfort since yesterday evening and her cardiac biomarkers continue to trend downward. She has been placed on heparin and aspirin in the hopes that we can perform angiography tomorrow as her INR continues to trend downward. Would continue to hold her warfarin tonight in order to facilitate this procedure tomorrow. We have not initiated beta blockade due to some transient bradycardia that she experienced during initial hospitalization and present on her telemetry. I described the risks, benefits and alternatives to the patient in the presence of her family today. She signed a consent form and will plan on proceeding with angiography tomorrow. 2. Valvular heart disease. The patient does have an element of mitral regurgitation that is compromised her cardiac function nor produced any symptoms. This can be followed longitudinally. [facility]
[2016-08-23 19:52] VITALS: BP 131/69; PULSE 62; TEMP 37; O2SAT 96
[2016-08-23 21:07] LABS: PARTIAL THROMBOPLASTIN RATIO 1.9
[2016-08-23] MEDS: DONEPEZIL HCL 5 MG TAB PO SCH (21:09)
[2016-08-23] MEDS: SIMETHICONE 80 MG CHEW PO PRN (21:13)
--- NOTE | 2016-08-23 21:18 | Hospitalist Progress Note ---
Hospitalist Progress Note Date of Service Aug 23, 2016. Subjective Pt evaluation today including: conversation w/ patient, physical exam, lab review, review of inpatient medication list Patient is feeling well today. Had a mild headache this morning, but no substernal chest tightness. Cardiac catheterization was put on hold today due to her INR still being 2.1. All Other Systems: Reviewed and Negative Objective Vital Signs Date Time Temp Pulse Resp B/P Pulse Ox O2 Delivery O2 Flow Rate FiO2 08/23/16 19:52 37.0 62 18 131/69 96 Room Air 08/23/16 16:00 Room Air 08/23/16 15:34 36.7 61 18 129/75 97 Room Air 08/23/16 12:00 Room Air 08/23/16 11:28 36.7 60 20 111/66 95 Room Air 08/23/16 09:00 Room Air 08/23/16 04:02 36.3 57 16 142/82 96 BiPAP 08/23/16 04:00 Room Air 08/23/16 00:00 Room Air 08/22/16 23:39 36.8 61 20 131/84 94 BiPAP 08/22/16 22:02 54 96 Physical Exam General Appearance: WD/WN, no apparent distress Eyes: normal inspection, sclerae normal ENT: hearing grossly normal Neck: trachea midline Respiratory/Chest: lungs clear, normal breath sounds, no respiratory distress, no accessory muscle use Cardiovascular: regular rate, rhythm, no edema, no gallop, no murmur Abdomen: normal bowel sounds, non tender, soft Extremities: non-tender, normal inspection, no pedal edema, no calf tenderness Neurologic/Psychiatric: alert, normal mood/affect, oriented x 3 Skin: normal color, warm/dry, no rash Laboratory Results Last 24 Hours Test 08/23/16 01:15 08/23/16 06:00 08/23/16 13:45 08/23/16 20:35 Activated Partial Thromboplast Time 60.5 SECONDS 82.9 SECONDS 72.4 SECONDS 48.5 SECONDS Partial Thromboplastin Ratio 2.3 3.2 2.8 1.9 White Blood Count 6.96 K/uL Red Blood Count 4.32 M/uL Hemoglobin 12.4 g/dL Hematocrit 38.7 % Mean Corpuscular Volume 89.6 fL Mean Corpuscular Hemoglobin 28.7 pg Mean Corpuscular Hemoglobin Concent 32.0 g/dl Platelet Count 193 K/uL Mean Platelet Volume 9.7 fL Neutrophils (%) (Auto) 66.9 % Lymphocytes (%) (Auto) 20.3 % Monocytes (%) (Auto) 9.9 % Eosinophils (%) (Auto) 1.9 % Basophils (%) (Auto) 0.4 % Neutrophils # (Auto) 4.66 K/uL Lymphocytes # (Auto) 1.41 K/uL Monocytes # (Auto) 0.69 K/uL Eosinophils # (Auto) 0.13 K/uL Basophils # (Auto) 0.03 K/uL RDW Standard Deviation 47.5 fL RDW Coefficient of Variation 14.3 % Immature Granulocyte % (Auto) 0.6 % Immature Granulocyte # (Auto) 0.04 K/uL Prothrombin Time 22.9 SECONDS Prothromb Time International Ratio 2.1 Sodium Level 141 mmol/L Potassium Level 4.5 mmol/L Chloride Level 108 mmol/L Carbon Dioxide Level 30 mmol/L Anion Gap 3.0 mmol/L Blood Urea Nitrogen 12 mg/dl Creatinine 0.76 mg/dl Est Creatinine Clear Calc Drug Dose 71.7 ml/min Estimated GFR () 88.9 Estimated GFR (Non- 76.7 BUN/Creatinine Ratio 16.4 Random Glucose 102 mg/dl Calcium Level 8.6 mg/dl Magnesium Level 2.3 mg/dl Troponin I 0.076 ng/ml Assessment and Plan (1) Unstable angina pectoris (2) Advance care planning (3) Anticoagulated on Coumadin (4) HTN (hypertension) (5) History of pulmonary embolus (PE) Unstable angina pectoris/headache/bradycardia/mitral regurgitation/suspected pulmonary hypertension/chronic diastolic dysfunction/hypertension- Assessment & Plan: trops are elevated with peak at 0.38 and in the context of her story and the risk factor of advanced age, I discussed the case with Cardiology and plan is to perform cardiac catheterization when INR is less than 1.7. Blood pressures are within normal range. INR 2.1 today and vitamin K 2.5 mg by mouth 1 was given. ECHO:Conclusions -- * Left ventricular systolic function is normal. * Grade I diastolic dysfunction, (abnormal relaxation pattern). * The left atrium is mildly dilated. * Trace aortic regurgitation. * There is mild to moderate mitral regurgitation. * There is mild to moderate tricuspid regurgitation. * Right ventricular systolic pressure is elevated at 30-40mmHg. * Compared to an echocardiogram from 06/2015, there has been slight progression of the valvular disease -Continue heparin drip and continue to hold Coumadin -follow INR in the morning and proceed with cardiac catheterization when INR less than 1.7 -Morphine when necessary for chest pain, hold on nitroglycerin given headaches -continue to hold HCTZ 25 mg by mouth daily. -Continue losartan 100 mg by mouth daily, potassium chloride 10 mEq by mouth twice a day -Started aspirin daily -Cannot tolerate metoprolol due to bradycardia -Will need statin if CAD found on catheterization Anticoagulated on Coumadin Assessment & Plan: has history of multiple DVTs and PE. -Holding as above but will need to restart with a possible bridge of Lovenox after cardiac catheterization Mild cognitive impairment--stable -continue donepezil 5 mg by mouth at bedtime. Depression/anxiety-stable --continue sertraline 50 mg by mouth daily and Lyrica 150 mg by mouth at bedtime. Asthma--no issues -continue Advair Diskus and albuterol HFA. Prophylaxis-heparin drip Disposition-full code
[2016-08-23] MEDS: PREGABALIN 150 MG CAP PO SCH (21:20)
[2016-08-23 22:10] VITALS: O2SAT 96
[2016-08-23] MEDS: SODIUM CHLORIDE 0.9% 1000ML 1,000 ML IV SCH (23:30)
[2016-08-23 23:51] VITALS: BP 131/70; PULSE 56; TEMP 36.5; O2SAT 94
[2016-08-24] VITALS (16 sets, daily range): BP systolic 126–172; BP diastolic 61–95; PULSE 57–76; TEMP 36.2–37.2; O2SAT 95–97
[2016-08-24] MEDS: HEPARIN 25,000 UNIT/500ML D5W 500 ML IV PRN (00:11)
[2016-08-24 03:59] LABS: BASO % 0.3 %; BASO ABS # 0.02 K/uL (0-0.2); COMPLETE YES; LYMPH % 18.1 %; LYMPH ABS # 1.33 K/uL (1.2-3.4); MEAN CELL VOLUME 88.6 fL (80-100); MEAN CORPUSCULAR HEMOGLOBIN 29.8 pg (25-34); MEAN CORPUSCULAR HGB CONC 33.7 g/dl (32-36); MEAN PLATELET VOLUME 9.7 fL (7.4-10.4); MONO % 13.2 %; NEUT % 65.4 %; PLATELET COUNT 187 K/uL (130-400); RED BLOOD COUNT 4.29 M/uL (4.2-5.4); WHITE BLOOD COUNT 7.35 K/uL (4.8-10.8)
[2016-08-24 04:17] LABS: BUN/CREATININE RATIO 20.9 (10-20); CALCIUM 8.8 mg/dl (8.5-10.1); CREATININE 0.8 mg/dl (0.60-1.20); INR 1.2 (0.9-1.1); MAGNESIUM 2.2 mg/dl (1.8-2.4); PARTIAL THROMBOPLASTIN RATIO 1.9; POTASSIUM 4.5 mmol/L (3.5-5.1)
[2016-08-24] MEDS: POTASSIUM CHLORIDE 10 MEQ TABCR PO SCH ×2 (09:00→20:57)
[2016-08-24] MEDS: FLUTICASONE/SALMETEROL 100/50 (ADVAIR) 14 PUFF/1 INHALER INH SCH ×2 (10:08→20:57)
[2016-08-24] MEDS: ALBUTEROL HFA 8 GM INHALER INH SCH ×3 (10:08→20:56)
[2016-08-24] MEDS: SERTRALINE HCL 50 MG TAB PO SCH (10:09)
[2016-08-24] MEDS: ASPIRIN 81 MG ECTAB PO SCH (10:09)
[2016-08-24] MEDS: LOSARTAN POTASSIUM 50 MG TAB PO SCH (10:10)
[2016-08-24] MEDS: SODIUM CHLORIDE 0.9% 1000ML 1,000 ML IV SCH (10:10)
--- NOTE | 2016-08-24 12:03 | Clinical Documentation Query ---
MEENU Sanchez : CLINICAL DOCUMENTATION QUERY Patient is a 75 year old female admitted for the evaluation and treatment of chest pain. Subsequent documentation includes unstable angina pectoris. Cardiology consultation and progress note includes a diagnosis of NSTEMI. She has been placed on Heparin, ASA, and is pending cardiac catheterization with appropriate INR. As appropriate, please reconcile attending and career development consultant documentation so as to avoid analysis intern uncertainty at time of discharge. Thank you. In your clinical opinion is this patient being managed for: ( ) Non-ST elevation (NSTEMI) myocardial infarction ( ) Other explanation of clinical findings (Please Explain) ( ) Unable to determine (Please Define) ( ) Need to Discuss ( ) Not Agree The medical record reflects the following clinical findings, treatment, and risk factors. Clinical Indicators: Chest pain, positive biomarkers, Treatment: Telemetry, cardiac enzymes, ASA, Heparin, cardiology consultation, cardiac catheterization Risk Factors: Age, hyperlipidemia, hypertension, coagulopathy Please clarify and document your clinical opinion in the progress notes and discharge summary. Terms such as "probable", "suspected", "likely", "questionable", "possible", or "still to be ruled out" are acceptable. IF IN AGREEMENT, YOU MUST DOCUMENT ABOVE DIAGNOSTIC STATEMENT IN DAILY PROGRESS NOTES AND DISCHARGE SUMMARY. This document is not part of the patient's record. Thank You, Esau Claros RN [phone]
[2016-08-24] MEDS ORDERED: HEPARIN SOD (PORCINE) 1000 UNIT/ML 10 ML VIAL ONE (12:37)
[2016-08-24] MEDS ORDERED: NiCARDipine HCL INJ 2.5 MG/ML 10 ML AMP ONE (12:37)
[2016-08-24] MEDS ORDERED: MIDAZOLAM HCL 1 MG/ML 2ML VIAL ONE (12:38)
[2016-08-24] MEDS ORDERED: NITROGLYCERIN/D5W 100MCG/ML 20ML SYR ONE (12:38)
[2016-08-24] MEDS ORDERED: FENTANYL CITRATE INJ 50 MCG/1 ML 2 ML VIAL ONE (12:38)
--- NOTE | 2016-08-24 13:47 | Procedure Note ---
Pre-Mod Sedation Assessment General Date of Moderate Sedation: Aug 24, 2016. Vital Signs: Vital Signs Past 12 Hours Date Time Temp Pulse Resp B/P Pulse Ox O2 Delivery O2 Flow Rate FiO2 08/24/16 13:40 62 16 148/77 96 Room Air 08/24/16 12:14 36.7 66 18 132/78 96 Room Air 08/24/16 12:00 Room Air 08/24/16 11:26 36.7 64 20 137/74 97 Room Air 08/24/16 08:27 37.2 57 20 143/65 96 Room Air 08/24/16 08:00 97 Room Air 08/24/16 04:00 Room Air 08/24/16 03:55 36.2 62 18 141/95 97 BiPAP Review Cardiovascular: regular rate, rhythm Airway Class: III Pre-Sedation Airway Assessment Oral Cavity: WNL Able to Visualize Vocal Cords: No Short Thick Neck: Yes Hx of Sleep Apnea: Yes Smoking Status: Former Smoker Mallampati Classification: Class III ASA Classification: Class II Procedure Planning Contraindications-for Mod Sed: None Yes Notes The planned sedation has been discussed with the patient and consent obtained. I have identified the patient, determined the appropriateness of sedation and have assessed the patient immediately prior to the procedure. All medicine(s) and interventions are by my order.
[2016-08-24] MEDS ORDERED: SODIUM CHLORIDE 0.9% 1000ML 1,000 ML IV SCH (13:49)
--- NOTE | 2016-08-24 13:49 | Cardiology Procedure Brief Nt ---
Preliminary Cardiology Note Procedure Date Aug 24, 2016. Pre-Procedure Diagnosis nstemi Post-Procedure Diagnosis Normal coronaries Procedure(s) Performed LHC, coronary angiography Garden Tractor Mechanic Ryan Floor Director(s) None Estimated Blood Loss 10cc Medication(s) Fentanyl, versed Preliminary Findings Normal coronaries without obstruction or evidence of ACS Recommendations Continued aggressive primary prevention of CAD Complication(s) None Disposition PCU
[2016-08-24] MEDS ORDERED: WARFARIN SOD 5 MG TAB PO SCH (16:00)
--- NOTE | 2016-08-24 17:43 | Hospitalist Progress Note ---
Hospitalist Progress Note Date of Service Aug 24, 2016. Subjective Pt evaluation today including: conversation w/ patient Patient feeling well this morning, is awaiting cardiac catheterization when I saw her. No chest pain or shortness of breath. Constitutional: No fever Respiratory: No shortness of breath Cardiovascular: No chest pain Abdomen: + problem reported (abdominal bloating, feels like having gas pains ) All Other Systems: Reviewed and Negative Objective Vital Signs Date Time Temp Pulse Resp B/P Pulse Ox O2 Delivery O2 Flow Rate FiO2 08/24/16 15:21 36.9 62 18 139/78 95 Room Air 08/24/16 14:08 36.5 59 20 145/79 95 Room Air 08/24/16 13:55 68 16 152/72 96 Room Air 08/24/16 13:50 64 16 150/76 96 Room Air 08/24/16 13:40 62 16 148/77 96 Room Air 08/24/16 12:14 36.7 66 18 132/78 96 Room Air 08/24/16 12:00 Room Air 08/24/16 11:26 36.7 64 20 137/74 97 Room Air 08/24/16 08:27 37.2 57 20 143/65 96 Room Air 08/24/16 08:00 97 Room Air 08/24/16 04:00 Room Air 08/24/16 03:55 36.2 62 18 141/95 97 BiPAP 08/24/16 00:01 Room Air 08/23/16 23:51 36.5 56 18 131/70 94 Room Air 08/23/16 22:10 96 08/23/16 19:52 37.0 62 18 131/69 96 Room Air 08/23/16 19:12 Room Air Physical Exam General Appearance: WD/WN, no apparent distress Eyes: normal inspection, sclerae normal ENT: hearing grossly normal Neck: trachea midline Respiratory/Chest: lungs clear, normal breath sounds, no respiratory distress, no accessory muscle use Cardiovascular: regular rate, rhythm, no edema, no gallop, no murmur Abdomen: normal bowel sounds, non tender, soft Extremities: non-tender, normal inspection, no pedal edema, no calf tenderness Neurologic/Psychiatric: alert, normal mood/affect, oriented x 3 Skin: normal color, warm/dry, no rash Laboratory Results Last 24 Hours Test 08/23/16 20:35 08/24/16 03:45 Activated Partial Thromboplast Time 48.5 SECONDS 48.7 SECONDS Partial Thromboplastin Ratio 1.9 1.9 White Blood Count 7.35 K/uL Red Blood Count 4.29 M/uL Hemoglobin 12.8 g/dL Hematocrit 38.0 % Mean Corpuscular Volume 88.6 fL Mean Corpuscular Hemoglobin 29.8 pg Mean Corpuscular Hemoglobin Concent 33.7 g/dl Platelet Count 187 K/uL Mean Platelet Volume 9.7 fL Neutrophils (%) (Auto) 65.4 % Lymphocytes (%) (Auto) 18.1 % Monocytes (%) (Auto) 13.2 % Eosinophils (%) (Auto) 2.0 % Basophils (%) (Auto) 0.3 % Neutrophils # (Auto) 4.81 K/uL Lymphocytes # (Auto) 1.33 K/uL Monocytes # (Auto) 0.97 K/uL Eosinophils # (Auto) 0.15 K/uL Basophils # (Auto) 0.02 K/uL RDW Standard Deviation 46.4 fL RDW Coefficient of Variation 14.3 % Immature Granulocyte % (Auto) 1.0 % Immature Granulocyte # (Auto) 0.07 K/uL Prothrombin Time 13.0 SECONDS Prothromb Time International Ratio 1.2 Sodium Level 144 mmol/L Potassium Level 4.5 mmol/L Chloride Level 109 mmol/L Carbon Dioxide Level 34 mmol/L Anion Gap 1.0 mmol/L Blood Urea Nitrogen 17 mg/dl Creatinine 0.80 mg/dl Est Creatinine Clear Calc Drug Dose 68.1 ml/min Estimated GFR () 83.6 Estimated GFR (Non- 72.1 BUN/Creatinine Ratio 20.9 Random Glucose 114 mg/dl Calcium Level 8.8 mg/dl Magnesium Level 2.2 mg/dl Assessment and Plan (1) Unstable angina pectoris (2) Advance care planning (3) Anticoagulated on Coumadin (4) HTN (hypertension) (5) History of pulmonary embolus (PE) Unstable angina pectoris/headache/bradycardia/mitral regurgitation/suspected pulmonary hypertension/chronic diastolic dysfunction/hypertension- Assessment & Plan: trops are elevated with peak at 0.38 and in the context of her story and the risk factor of advanced age, I discussed the case with Cardiology and plan is to perform cardiac catheterization now that INR is less than 1.7. Blood pressures are within normal range. Vitamin K 2.5 mg by mouth 1 was given to reverse her anticoagulation. ECHO:Conclusions -- * Left ventricular systolic function is normal. * Grade I diastolic dysfunction, (abnormal relaxation pattern). * The left atrium is mildly dilated. * Trace aortic regurgitation. * There is mild to moderate mitral regurgitation. * There is mild to moderate tricuspid regurgitation. * Right ventricular systolic pressure is elevated at 30-40mmHg. * Compared to an echocardiogram from 06/2015, there has been slight progression of the valvular disease Cardiac catheterization-normal coronary arteries without evidence of obstruction -Restart heparin drip and restart Coumadin -Can discharge to home tomorrow with a Lovenox bridge -follow INR -Okay to restart HCTZ 25 mg by mouth daily. -Continue losartan 50 mg by mouth daily, potassium chloride 10 mEq by mouth twice a day -Started on aspirin 81 mg daily -Cannot tolerate metoprolol due to bradycardia -No statin needed at this time Anticoagulated on Coumadin Assessment & Plan: has history of multiple DVTs and PE. -Held Coumadin and reversed with vitamin K as above, will need to restart with a bridge of Lovenox upon discharge Mild cognitive impairment--stable -continue donepezil 5 mg by mouth at bedtime. Depression/anxiety-stable --continue sertraline 50 mg by mouth daily and Lyrica 150 mg by mouth at bedtime. Asthma--no issues -continue Advair Diskus and albuterol HFA. Prophylaxis-heparin drip Disposition-full code, to home tomorrow
[2016-08-24] MEDS ORDERED: HYDROCHLOROTHIAZIDE 25 MG TAB PO ONE (18:00)
[2016-08-24] MEDS ORDERED: *HEPARIN DRIP*STOP ORDER ONE (18:15)
[2016-08-24] MEDS: PREGABALIN 150 MG CAP PO SCH (20:57)
[2016-08-24] MEDS: DONEPEZIL HCL 5 MG TAB PO SCH (20:57)
[2016-08-24] MEDS: ENOXAPARIN 100 MG/1ML SYR SQ SCH (20:58)
[2016-08-24] MEDS: SIMETHICONE 80 MG CHEW PO PRN (22:03)
[2016-08-25 03:53] VITALS: BP 130/55; PULSE 64; TEMP 37.1; O2SAT 96
[2016-08-25] MEDS: ALBUTEROL HFA 8 GM INHALER INH SCH ×3 (04:00→08:36)
[2016-08-25 06:16] LABS: BUN/CREATININE RATIO 16.1 (10-20); CALCIUM 9.4 mg/dl (8.5-10.1); CREATININE 0.75 mg/dl (0.60-1.20); MAGNESIUM 2.2 mg/dl (1.8-2.4); POTASSIUM 4.1 mmol/L (3.5-5.1)
[2016-08-25 06:17] LABS: BASO % 0.4 %; BASO ABS # 0.03 K/uL (0-0.2); COMPLETE YES; EOS % 3.1 %; HEMATOCRIT 41.2 % (37-47); LYMPH % 14.9 %; LYMPH ABS # 1.22 K/uL (1.2-3.4); MEAN CELL VOLUME 88.4 fL (80-100); MEAN CORPUSCULAR HEMOGLOBIN 29.2 pg (25-34); MEAN PLATELET VOLUME 10.4 fL (7.4-10.4); MONO % 12.2 %; NEUT % 68.4 %; PLATELET COUNT 209 K/uL (130-400); RED BLOOD COUNT 4.66 M/uL (4.2-5.4); WHITE BLOOD COUNT 8.18 K/uL (4.8-10.8)
[2016-08-25 06:30] LABS: INR 1.1 (0.9-1.1); PROTHROMBIN TIME (PATIENT) 11.4 SECONDS (9.0-12.0)
[2016-08-25 07:11] VITALS: BP 128/74; PULSE 64; TEMP 36.8; O2SAT 93
[2016-08-25] MEDS: FLUTICASONE/SALMETEROL 100/50 (ADVAIR) 14 PUFF/1 INHALER INH SCH (08:36)
[2016-08-25] MEDS: ENOXAPARIN 100 MG/1ML SYR SQ SCH (08:37)
[2016-08-25] MEDS: ASPIRIN 81 MG ECTAB PO SCH (08:38)
[2016-08-25] MEDS: POTASSIUM CHLORIDE 10 MEQ TABCR PO SCH (08:38)
[2016-08-25] MEDS: SERTRALINE HCL 50 MG TAB PO SCH (08:38)
[2016-08-25] MEDS: SIMETHICONE 80 MG CHEW PO PRN (08:39)
[2016-08-25] MEDS: LOSARTAN POTASSIUM 50 MG TAB PO SCH (08:42)
[2016-08-25] MEDS ORDERED: HYDROCHLOROTHIAZIDE 25 MG TAB PO SCH (09:00)
[2016-08-25] MEDS ORDERED: LVNIS100 SQ (09:59)
[2016-08-25] MEDS ORDERED: ACET1TAB84 PO (09:59)
[2016-08-25] MEDS ORDERED: ASPEC81 PO (09:59)
[2016-08-25] MEDS ORDERED: NTRSLP4 SL (09:59)
[2016-08-25] MEDS ORDERED: WARF4TAB PO (09:59)
[2016-08-25] MEDS ORDERED: POLYETHYLENE (MIRALAX) 17 GM PACK ONE (10:01)
--- NOTE | 2016-08-25 10:13 | Discharge Instructions ---
Discharge Instructions Date of Service Aug 25, 2016. Admission Reason for Admission: Bradycardia, Intractable Headache Discharge Discharge Diagnosis / Problem: NSTEMI,Chest pain Discharge Goals Goal(s): Improve disease control, Diagnostic testing, Therapeutic intervention Activity Recommendations Activity Limitations: as noted below . Instructions / Follow-Up Instructions / Follow-Up You were admitted with chest pain and your heart muscle blood tests were mildly elevated indicating some mild damage to the heart. You had a cardiac catheterization which showed no significant blockages in the major arteries of the heart. You may have some minor blockages in the smaller vessels causing your pain and the elevated blood tests. You should take a baby aspirin daily. Your cholesterol from May 2016 was also quite high and because of your heart disease, you should start on a statin drug. Because of your history of severe muscle aches in the past, I will start you on pravastatin which has the least chance of causing you to have muscle aches. You will need to have your cholesterol and liver tests checked while on this medication. Your coumadin was held and you will need to inject yourself with Lovenox until your coumadin level is back up to where it should be. Please have your INR checked Saturday 08/26 and await instructions from your doctor on what to do with your dosage of coumadin. Continue the Lovenox injections until your INR is in the appropriate range and you are told to stop it as per your doctor's instructions. Home Care: * Take your medications exactly as directed. Don't skip doses. * Remember that recovery after a heart attack takes time. Plan to rest for at lease 4-8 weeks while you recover. Then return to normal activity when your doctor says it's okay. * Ask your doctor about joining a heart rehabilitation program. * Tell your doctor if you are feeling depressed. Feelings of sadness are common after a heart attack, but it is important that you speak to someone if you are feeling overwhelmed by these feelings. * If you are having chest pain, call 911 for an ambulance. Do NOT drive yourself to the hospital. * Ask your family members to learn CPR. * Learn to take your own blood pressure and pulse. Keep a record of your results. Ask your doctor when you should seek emergency medical attention. He or she will tell you which blood pressure reading is dangerous. Lifestyle Changes: * Maintain a healthy weight. Get help to lose any extra pounds. * Cut back on salt. * Limit canned, dried, packaged, and fast foods. * Don't add salt to your food. * Season foods with herbs instead of salt when you cook. * Limit fatty foods. * Check your lipid levels regularly. (Your doctor can show you how to do this.) * Build up your activity according to your doctor's recommendation. * Ask your doctor when it's okay to resume sexual activity. * Tell your doctor about any erectile dysfunction (ED) medication you are taking. Some ED medications are not safe if you take certain heart medications. * Try to manage stress. Follow Up: It is important for you to keep your follow up appointments with your medical provider. Please see your PCP within 1 week. Current Hospital Diet Patient's current hospital diet: AHA Diet (Heart Healthy) Discharge Diet Recommended Diet: AHA Diet (Heart Healthy) Procedures Procedures Performed: Cardiac catheterization Echocardiogram CT head Chest xray Pending Studies Studies pending at discharge: no Medical Emergencies . Who to Call and When: Medical Emergencies: If at any time you feel your situation is an emergency, please call 911 immediately. Call 911 immediately or go to your nearest Emergency Room if you experience any of the following: Warning Signs and Symptoms of a Heart Attack * Chest pain that is not relieved by medication * Shortness of breath . Non-Emergent Contact Non-Emergency issues call your: Primary Care Provider Call Non-Emergent contact if: your pain is not controlled, your pain is worsening, your pain is unusual for you, your pain is concerning you, you have any medication questions . . "Provider Documentation" section prepared by Alejandrina Kent. . AMI Core Measures Reason no ASA as I/P: Treatment provided - N/A Reason no ASA at D/C: Treatment provided - N/A Reason no statin as I/P: Drug intolerance Reason no statin at D/C: Treatment provided - N/A VTE Core Measure Inpt VTE Proph given/why not?: Enoxaparin (Lovenox)SQ, Unfractionated heparin SQ, Warfarin (Coumadin)
[2016-08-25] MEDS ORDERED: PRAV20TA PO (10:14)
[2016-08-25 11:21] VITALS: BP 128/74; PULSE 64; TEMP 36.8; O2SAT 93
--- NOTE | 2016-08-25 11:32 | Procedure Note ---
Post-Mod Sedation Assessment General Date of Moderate Sedation Aug 25, 2016. Vital Signs: Vital Signs Past 12 Hours Date Time Temp Pulse Resp B/P Pulse Ox O2 Delivery O2 Flow Rate FiO2 08/25/16 11:21 36.8 64 20 93 Room Air 08/25/16 08:00 Room Air 08/25/16 07:11 36.8 64 20 128/74 93 Room Air 08/25/16 04:00 Room Air 08/25/16 03:53 37.1 64 18 130/55 96 Room Air 08/24/16 23:59 Room Air 08/24/16 23:34 36.9 76 19 126/61 97 CPAP Review - Discharge Criteria Vital Signs Stable: Yes Alert/Oriented/Conversant: Yes Returned to Baseline Mental St: Yes Nausea Absent/Minimal: Yes Pain/Discomfort/Absent/Minimal: Yes Normal/Baseline Respirations: Yes Active Bleeding?: No Pt Received D/C Instructions: N/A Prescriptions Given: None Specific Proced. D/C Criteria Distal Pulses Present (Cardiac: Yes Groin site assessed-Card Cath: N/A Voided Prior To Discharge: N/A Discharged Patients Adult Escort/Transportation: N/A
--- NOTE | 2016-08-25 12:06 | CARDIOLOGY PROGRESS NOTE ---
DATE: 08/25/2016 DATE: 08/25/2016. SUBJECTIVE: This morning patient feels quite well. She was able to rest last evening and has not had any recurrence of headache or chest pain in the past 24 hours. She states that her right wrist and right arm feel good and she is having no pain or difficulty with use. PHYSICAL EXAMINATION: GENERAL: She was alert and oriented, mood and affect appeared normal. She answered all questions appropriately. CURRENT VITAL SIGNS: Include blood pressure 128/74 with pulse of 64. HEAD, EYES, EARS, NOSE, AND THROAT: Sclerae are anicteric. LUNGS: Auscultation of lungs reveal them to be clear. CARDIAC EXAMINATION: Revealed her to be in a regular rhythm. EXTREMITIES: Evaluation of her right wrist did not reveal any significant ecchymosis. It was warm to the touch and she has full range of motion. LABORATORY STUDIES: Today include a white cell count of 8, hemoglobin of 13.6, platelet count of 209. Sodium is 139, potassium is 4.1, BUN was 12, creatinine was 0.75. The patient underwent coronary angiography yesterday which did not reveal any significant obstructive disease or acute lesions. ASSESSMENT AND PLAN: 1. Non-ST elevation myocardial infarction. The etiology of her infarction is unclear. This may have been related to hypertensive urgency or perhaps a very small plaque rupture event involving a distal branch vessel. The constellation of symptoms is unusual with respect to headache and chest pain, both of which were severe at the time of presentation. At this point, she does not appear to require any coronary intervention and should simply be advised to continue aggressive primary prevention of coronary disease including management of her lipids, hypertension and perhaps a daily aspirin for 1 month given her elevated biomarkers. The patient has been restarted on oral anticoagulation and will be bridged with Lovenox. 2. Hypertension. The patient did have elevated blood pressures during this admission. She is continuing on losartan and was started on hydrochlorothiazide as well.
--- NOTE | 2016-08-25 14:14 | CARDIAC CATH REPORT ---
DATE OF SERVICE: 08/24/2016. PROCEDURE PERFORMED: Left heart catheterization, selective coronary angiography. STAFF SALES LEDGER CLERK: Dr. Esvin Davis. INDICATIONS: Mrs. Heredia is a 75-year-old woman without a known history of coronary disease who presented to [facility] with an episode of sustained chest discomfort. This was in the setting of a severe headache as well. The patient was noted to have elevated cardiac biomarkers and therefore had a non-ST elevation myocardial infarction. Based on her symptoms and elevated biomarkers she was felt to be a good candidate for coronary angiography. PROCEDURE IN DETAIL: The patient was informed of the risks, benefits and alternative to the intended procedure. She understands such and wished to proceed. She was taken to the cardiac catheterization suite in a fasting state. Conscious sedation was administered per protocol and the patient was monitored electrocardiographically throughout today's procedure. The right wrist area was prepped and draped in the usual sterile fashion. The right radial artery was subsequently accessed using modified Seldinger technique and a 5 Barbadian arterial sheath was placed at this site over a guidewire. This sheath was used to facilitate passage of the cardiac catheters for left heart catheterization and selective coronary angiography. Angiography was performed in multiple orthogonal views prior to removal of the sheaths and catheters. Hemostasis was achieved at the access site using manual pressure and a hemostasis device. The patient tolerated the procedure well. There were no immediate complications. EQUIPMENT USED: 5 Barbadian Melvin catheter. HEMODYNAMICS: Opening aortic pressure was 159/83. Left ventricular pressure was 157/10. Left ventricular end diastolic pressure was 13. CORONARY ANGIOGRAPHY: 1. LEFT MAIN. Left main coronary artery was normal in size and caliber. It essentially trifurcated into the left anterior descending over a large ramus intermedius and the circumflex vessel. 2. LEFT ANTERIOR DESCENDING. Left anterior descending artery was a large transapical vessel that produced 2 medium sized diagonal branches. This vessel was free of angiographically significant disease. 3. RAMUS INTERMEDIUS: There was a large ramus intermedius branch which produced to parallel relatively small vessels. The more medial vessel did have some tapering in its mid portion but the overall diameter of the vessel was relatively small. There were no discrete lesions. 4. LEFT CIRCUMFLEX. The left circumflex artery was a nondominant vessel. I produced essentially 1 large OM branch and its distribution was free of angiographically significant disease. There was evidence of hypertensive arteriopathy however. 5. RIGHT CORONARY ARTERY. The right coronary artery was a dominant vessel. It produced the PDA. It was essentially free of any significant obstructive disease however very distal branch was subtotally occluded but this was a very small vessel towards the apex measuring approximately 1 mm in greatest dimension. IMPRESSIONS: 1. No significant epicardial coronary disease. 2. Normal coronary anatomy. 3. Minimal disease in very small distal branch vessels. 4. Normal intracardiac pressures. PLAN: The patient will be returned to the loja where she will be advised to continue aggressive primary prevention of coronary disease. OSCAR
--- NOTE | 2016-08-29 10:15 | Discharge Summary ---
Discharge Summary Date of Service August 29, 2016. Discharge Summary Admission Date: Aug 20, 2016 at 15:36 Discharge Date: Aug 25, 2016 Discharge Disposition: Home Principal Diagnosis: NSTEMI Problems/Secondary Diagnoses: HTN Depression/anxiety Asthma MCI H/o DVTs/PE on nursing home anticoagulation Headache Sinus bradycardia Mitral regurgitation Suspected pulmonary hypertension Chronic diastolic dysfunction Trace aortic regurgitation Procedures: Left heart cardiac catheterization ECHO CT Head Chest xray Consultations: Cardiology Medication Reconciliation New Medications: Pravastatin (Pravachol ) 20 Mg Tab 20 MG PO HS for 30 Days, #30 TAB Aspirin (Aspirin EC Low Dose) 81 Mg Ectab 81 MG PO QAM for 30 Days Enoxaparin (Enoxaparin Sodium) 100 Mg/Ml Inj 90 MG SQ Q12H, #8 SYR 1 Refill Nitroglycerin (Nitrostat) 0.4 Mg/1 Tab Subl 0.4 MG SL Q5MIN PRN for Chest Pain, #15 TAKE EVERY 5 MIN X 3 DOSES FOR CHEST PAIN AND CALL YOUR DOCTOR OR 911 Changed Medications: Acetaminophen (Tylenol Arthritis Ext Rel) 650 Mg Cplt 650 MG PO Q6 PRN for Pain, #30 CAP (Changed from: 1300 MG) Warfarin Sodium (Coumadin) 4 Mg Tab 4 MG PO QPM for 30 Days, TAB (Changed from: 2XWK; ,TH) DAILY AND DOSE TO BE ADJUSTED BY YOUR MD BASED ON INR RESULTS Continued Medications: Albuterol Hfa (Ventolin Hfa) 200 Puffs/84543 Mcg Aers 2 PUFFS INH Q4H, #1 INHALER Calcium-Magnesium W/ Vitamin D (Calcium 500) 1 Tab Tab 1500 MG PO BID Donepezil HCl (Aricept) 5 Mg Tab 5 MG PO HS for 90 Days, TAB 3 Refills Fluticasone Prop/Salmeterol (Advair Diskus 100/50 60 Dose) 1 Ea Aerp 1 PUFF INH BID, INHALER Hctz/Losartan (Hyzaar 25MG/100MG) Tab 1 TAB PO HS, TAB Potassium Chloride (Micro-K Ext Rel) 10 Meq Cap 10 MEQ PO BID, CAP Pregabalin (Lyrica) 150 Mg Cap 150 MG PO HS, CAP Sertraline (Zoloft) 50 Mg Tab 50 MG PO DAILY, 0 Refills Discontinued Medications: Warfarin Sodium (Coumadin) 2 Mg Tab 2 MG PO 5XWK, TAB MON,WEDS,FRI,SAT,SUN Referrals At Discharge Follow up Referrals: Customer Retention Representative Referral - Within a Month with Esvin Davis MD Family Practice Referral - Within 1-2 Weeks with Ella Esquivel M.D. Discharge Exam Review of Systems: Constitutional: No fever Eyes: No problem reported ENT: No problem reported Respiratory: No problem reported Cardiovascular: No problem reported Abdomen: No problem reported Musculoskeletal: No problem reported Genitourinary - Female: No problem reported Neurologic: No problem reported Psychiatric: No problem reported Endocrine: No problem reported Hematologic / Lymphatic: No problem reported Integumentary: No problem reported Physical Exam: General Appearance: WD/WN, no apparent distress Eyes: normal inspection, sclerae normal ENT: hearing grossly normal, pharynx normal Neck: no JVD, trachea midline Respiratory/Chest: lungs clear, normal breath sounds, no respiratory distress, no accessory muscle use Cardiovascular: regular rate, rhythm, no edema, no gallop, no murmur, normal peripheral pulses Abdomen / GI: normal bowel sounds, non tender, soft, no organomegaly, no pulsatile mass Extremities: normal inspection, no calf tenderness, no pedal edema Neurologic/Psychiatric: alert, normal mood/affect, oriented x 3 Skin: normal color, warm/dry, no rash Lymphatic: no adenopathy Hospital Course (1) Unstable angina pectoris (2) Advance care planning (3) Anticoagulated on Coumadin (4) HTN (hypertension) (5) History of pulmonary embolus (PE) The patient is a 75-year-old female with a h/o HTN, depression/anxiety, asthma, MCI, h/o DVTs/PE, on tank terminal gauger AC, who presents to the emergency department with report of chest pain that developed 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 She feels that the headache is related to hypertension induced headaches. Patient does have a history of cardiac catheterizations which have been normal, with the last catheterization being around 10 years ago. NSTEMI/Unstable angina pectoris/headache/bradycardia/mitral regurgitation/ suspected pulmonary hypertension/chronic diastolic dysfunction/hypertension- Assessment & Plan: troponins are elevated with peak at 0.38 and in the context of her story and the risk factor of advanced age, I discussed the case with Cardiology and she underwent cardiac catheterization once her INR was less than 1.7. Blood pressures are within normal range. Vitamin K 2.5 mg by mouth 1 was given to reverse her anticoagulation. The etiology of her infarction is unclear. Possibly related to hypertensive urgency or perhaps a very small plaque rupture event involving a distal branch vessel. The constellation of symptoms is unusual with respect to headache and chest pain, both of which were severe at the time of presentation. At this point,she does not appear to require any coronary intervention. ECHO:Conclusions -- * Left ventricular systolic function is normal. * Grade I diastolic dysfunction, (abnormal relaxation pattern). * The left atrium is mildly dilated. * Trace aortic regurgitation. * There is mild to moderate mitral regurgitation. * There is mild to moderate tricuspid regurgitation. * Right ventricular systolic pressure is elevated at 30-40mmHg. * Compared to an echocardiogram from 06/2015, there has been slight progression of the valvular disease Cardiac catheterization-normal coronary arteries without evidence of obstruction -was on heparin drip while reversing coumadin prior to the cath, then started on Lovenox for bridging after catheterization until Coumadin at a therapeutic level INR at 1.1 on day of discharge -follow INR on Monday and stop Lovenox once INR between 2-3 -continue HCTZ 25 mg by mouth daily. -Continue losartan 50 mg by mouth daily, potassium chloride 10 mEq by mouth twice a day -Started on aspirin 81 mg daily -continue aggressive primary prevention of coronary disease including management of her lipids, hypertension and daily aspirin for 1 month given her elevated biomarkers -Cannot tolerate metoprolol due to bradycardia -start pravastatin 20mg daily as she was intolerant to unknown statin in the past -f/u with Cardiology within 1 month-Dr. Jori Davis [facility] Anticoagulated on Coumadin Assessment & Plan: has history of multiple DVTs and PE. -Held Coumadin and reversed with vitamin K as above, restart with a bridge of Lovenox upon discharge Mild cognitive impairment--stable -continue donepezil 5 mg by mouth at bedtime. Depression/anxiety-stable --continue sertraline 50 mg by mouth daily and Lyrica 150 mg by mouth at bedtime. Asthma--no issues -continue Advair Diskus and albuterol HFA. Prophylaxis-heparin drip, Lovenox Disposition-full code, to home today Total Time Spent: Greater than 30 minutes This includes examination of the patient, discharge planning, medication reconciliation, and communication with other providers. Discharge Instructions Please refer to the electronic Patient Visit Report (Discharge Instructions) for additional information. Follow-Up PCP within 1 week Cardiology within 1 month Additional Copies To Esvin Davis MD; Ella Esquivel M.D.
== END 2016-08-25 11:50 | disposition home or self-care (01) | DRG 282 ==
LOC: ENRESERVTM → ENRESERVDT → C.EDB 13:26 → C.2E 15:36
PROVIDERS: ADMIT Hospitalist; ATTEND Family Medicine
PROC: B2151ZZ Fluoroscopy of Left Heart using Low Osmolar Contrast (ICD-10-PCS; principal; 2016-08-25)
PROC: 4A023N7 Measurement of Cardiac Sampling and Pressure, Left Heart, Percutaneous Approach (ICD-10-PCS; principal; 2016-08-25)
PROC: B2111ZZ Fluoroscopy of Multiple Coronary Arteries using Low Osmolar Contrast (ICD-10-PCS; principal; 2016-08-25)
DX: I21.4 Non-ST elevation (NSTEMI) myocardial infarction (principal); R00.1 Bradycardia, unspecified; I10 Essential (primary) hypertension; Z86.718 Personal history of other venous thrombosis and embolism; Z86.711 Personal history of pulmonary embolism; Z90.710 Acquired absence of both cervix and uterus; Z82.49 Family history of ischemic heart disease and other diseases of the circulatory system; Z87.891 Personal history of nicotine dependence; Z88.2 Allergy status to sulfonamides; Z79.899 Other long term (current) drug therapy; Z79.01 Long term (current) use of anticoagulants; J45.909 Unspecified asthma, uncomplicated; G47.33 Obstructive sleep apnea (adult) (pediatric); F32.9 Major depressive disorder, single episode, unspecified; K21.9 Gastro-esophageal reflux disease without esophagitis; E78.5 Hyperlipidemia, unspecified; M19.90 Unspecified osteoarthritis, unspecified site; G62.9 Polyneuropathy, unspecified; I25.110 Atherosclerotic heart disease of native coronary artery with unstable angina pectoris; F03.90 Unspecified dementia, unspecified severity, without behavioral disturbance, psychotic disturbance, mood disturbance, and anxiety; I08.3 Combined rheumatic disorders of mitral, aortic and tricuspid valves

== ENCOUNTER 2017-01-08 08:57 | Emergency (ER) | payer OTHER, BC ==
[~2017-01-08] VITALS: Ht 167.6 cm; Wt 91.4 kg
[~2017-01-08 08:57] MED LIST changes: -ALBU0.08 INH; -ALBU1AER9 INH; +ASPEC81 PO; -CIPR-255 PO; -CMD2 PO; -DEXL60CA4 PO; -DONE10TA12 PO; +DONE5TAB9 PO; +LVNIS100 SQ; +NTRSLP4 SL; -TAUR500C PO; +VNTHFA/IN INH
[2017-01-08 09:00] VITALS: TEMP 36.7; Ht 167.6 cm; Wt 91.4 kg
[2017-01-08] MEDS ORDERED: WARF4TAB8 PO ×2 (09:33)
[2017-01-08] MEDS ORDERED: SODIUM CHLORIDE 0.9% 250ML 250 ML IV STA (09:45)
[2017-01-08] MEDS ORDERED: SODIUM CHLORIDE 0.9% 1000ML 1,000 ML IV STA (09:45)
[2017-01-08] MEDS ORDERED: OPTIRAY 320 IV PRN (10:00)
--- NOTE | 2017-01-08 10:12 | DIAGNOSTIC IMAGING REPORT ---
CHEST ONE VIEW PORTABLE CLINICAL HISTORY: abd pain, syncope, ROSS, coumadin COMPARISON STUDY: No previous studies for comparison. FINDINGS: The bones soft tissues and hemidiaphragms are normal. The cardiomediastinal silhouette is normal. The lungs are clear. The pulmonary vasculature is normal. IMPRESSION: Negative chest. The above report was generated using voice recognition software. It may contain grammatical, syntax or spelling errors. Electronically signed by: Gordon Edouard M.D. 01/08/2017 10:10 AM Dictated Date/Time: 01/08/2017 10:10 AM
[2017-01-08 10:20] LABS: ISTAT CREATININE 0.9 mg/dl (0.6-1.3); ISTAT HEMOGLOBIN 13.6 g/dl (12.0-16.0); ISTAT IONIZED CALCIUM 1.25 mmol/l (1.12-1.32)
[2017-01-08 10:30] LABS: BASO % 0.2 %; BASO ABS # 0.02 K/uL (0-0.2); COMPLETE YES; EOS % 0.5 %; HEMATOCRIT 39.5 % (37-47); IG% 0.4 %; LYMPH % 4.8 %; LYMPH ABS # 0.53 K/uL (1.2-3.4); MEAN CELL VOLUME 87.8 fL (80-100); MEAN CORPUSCULAR HEMOGLOBIN 28.9 pg (25-34); MEAN CORPUSCULAR HGB CONC 32.9 g/dl (32-36); MEAN PLATELET VOLUME 9.9 fL (7.4-10.4); MONO % 9.8 %; NEUT % 84.3 %; PLATELET COUNT 185 K/uL (130-400); WHITE BLOOD COUNT 10.93 K/uL (4.8-10.8)
[2017-01-08 10:41] LABS: INR 2.9 (0.9-1.1); PARTIAL THROMBOPLASTIN RATIO 1.7; PROTHROMBIN TIME (PATIENT) 32.7 SECONDS (9.0-12.0)
--- NOTE | 2017-01-08 10:41 | DIAGNOSTIC IMAGING REPORT ---
HEAD WITHOUT CONTRAST (CT) CT DOSE: HISTORY: Headache ROSS, coumadin TECHNIQUE: Multiaxial CT images of the head were performed without the use of intravenous contrast. A dose lowering technique was utilized adhering to the principles of ALARA. Comparison: None. Findings: The paranasal sinuses and mastoid air cells are clear. The calvarium and skull base are intact. The ventricles and sulci are within normal limits. There is no mass, hematoma, midline shift, or acute infarct. Age-related atrophy and chronic small vessel change Impression: No acute intracranial abnormality. Age-related change The above report was generated using voice recognition software. It may contain grammatical, syntax or spelling errors. Electronically signed by: Gordon Edouard M.D. 01/08/2017 10:40 AM Dictated Date/Time: 01/08/2017 10:39 AM
--- NOTE | 2017-01-08 10:45 | DIAGNOSTIC IMAGING REPORT ---
ABD/PELVIS IV CONTRAST ONLY CT DOSE: 1296.16 mGy.cm HISTORY: Pain abd pain, lower TECHNIQUE: Multiaxial CT images of the abdomen and pelvis were performed following the use of intravenous contrast. A dose lowering technique was utilized adhering to the principles of ALARA. COMPARISON STUDY: None. FINDINGS: Minimal basilar dependent atelectasis. Liver spleen and pancreas are unremarkable. Several renal as well as hepatic cysts. The bowel pattern overall is nonobstructive. There are findings of wall thickening and infiltrative change of the pericolonic fat involving the distal transverse colon. This consistent with that of focal diverticulitis. No evidence for drainable abscess or collection. Mild chronic descending colonic diverticulosis. Bladder is midline. No significant free fluid within the cul-de-sac. IMPRESSION: 1. Acute distal transverse colonic diverticulitis with moderate pericolonic infiltrative change. 2. No evidence for abscess collection or obstruction. 3. Several hepatic as well as renal cysts. The above report was generated using voice recognition software. It may contain grammatical, syntax or spelling errors. Electronically signed by: Gordon Edouard M.D. 01/08/2017 10:44 AM Dictated Date/Time: 01/08/2017 10:40 AM
[2017-01-08 10:47] LABS: BUN/CREATININE RATIO 19.3 (10-20); CALCIUM 9.1 mg/dl (8.5-10.1); CREATININE 0.85 mg/dl (0.60-1.20); MAGNESIUM 1.9 mg/dl (1.8-2.4); POTASSIUM 3.8 mmol/L (3.5-5.1)
--- NOTE | 2017-01-08 11:29 | EMERGENCY ROOM VISIT NOTE ---
History Report prepared by Alondra: Liana Ricks Under the Supervision of: Dr. Shanti Salvador M.D. First contact with patient: 09:36 Chief Complaint: HEADACHE Stated Complaint: BACK PAIN/HEADACHE History of Present Illness The patient is a 76 year old female who presents to the Emergency Room with complaints of persistent headache starting this morning. She present to the ED by EMS. She was given morphine in route. She had an oxycodone prior to EMS. She notes that she had a headache prior to her previous HI 4 months ago. Her daughter reports that the patient passed out this morning. Her eyes seemed into rolled back into her head. The patient does not remember this happening. She has also has lower abdominal pain which started last evening. She states that her abdomen feels sore. The pain worsens with movement. Her last bowel movement was this morning. It was espinoza than usual. She has pain in the back of her neck. She denies any chest pain. The patient slept later than usual last night, but otherwise well. She is on Coumadin. She has a history of DVT and PE. Source of History: patient, family Onset: this morning Position: head Quality: ache Timing: other (persistent) Associated Symptoms: + neck pain, + abdominal pain, No chest pain Review of Systems See HPI for pertinent positives & negatives. A total of 10 systems reviewed and were otherwise negative. Past Medical & Surgical Medical Problems: (1) Abdominal pain (2) Achilles tendon contracture, left (3) Advance care planning (4) Bradycardia (5) Chest pain (6) Degenerative joint disease of left hindfoot (7) Foot pain, left (8) History of DVT (deep vein thrombosis) (9) History of pulmonary embolus (PE) (10) HTN (hypertension) (11) Intractable headache (12) NSTEMI (non-ST elevated myocardial infarction) (13) Pes planus (14) Unstable angina pectoris Surgical Problems: (1) Hx of hysterectomy Family History Blood clots Heart disease Hypertension Social History Smoking Status: Never Smoker Alcohol Use: none Drug Use: none Marital Status: Housing Status: lives with family Occupation Status: retired Current/Historical Medications Scheduled Albuterol Hfa (Ventolin Hfa), 2 PUFFS INH Q4H Amoxicillin & Pot Clavulanate (Augmentin 875-125 mg), 875 MG PO BID Calcium-Magnesium W/ Vitamin D (Calcium 500), 1,500 MG PO BID Donepezil HCl (Aricept), 5 MG PO HS Fluticasone Prop/Salmeterol (Advair Diskus 100/50 60 Dose), 1 PUFF INH BID Hctz/Losartan (Hyzaar 25MG/100MG), 1 TAB PO HS Potassium Chloride (Micro-K Ext Rel), 10 MEQ PO BID Pregabalin (Lyrica), 150 MG PO HS Sertraline (Zoloft), 50 MG PO DAILY Warfarin Sod (Jantoven), 4 MG PO 3XWK Warfarin Sod (Jantoven), 2 MG PO 4XWK Scheduled PRN Acetaminophen (Tylenol Arthritis Ext Rel), 650 MG PO Q6 PRN for Pain Nitroglycerin (Nitrostat), 0.4 MG SL Q5MIN PRN for Chest Pain Allergies Coded Allergies: Sulfamethoxazole w/Trimethoprim (Verified Adverse Reaction, Intermediate, STOMACH SICKNESS, 01/08/17) Physical Exam Vital Signs Date Time Temp Pulse Resp B/P (MAP) Pulse Ox O2 Delivery O2 Flow Rate FiO2 01/08/17 12:39 68 17 127/79 96 Room Air 01/08/17 11:27 67 13 140/82 97 01/08/17 10:57 72 22 97 01/08/17 10:47 72 17 143/86 96 Room Air 01/08/17 10:44 143/86 01/08/17 10:16 70 24 143/85 99 Room Air 01/08/17 10:10 143/85 01/08/17 09:57 71 10 96 01/08/17 09:27 69 15 94 01/08/17 09:01 133/73 01/08/17 09:00 36.7 70 16 133/73 95 Room Air Physical Exam Vital signs reviewed. General: Well-appearing female, in no significant distress. HEENT: No scleral icterus, pupils are 3 mm and reactive bilaterally, neck supple. No meningeal signs. Atraumatic. Cardiovascular: Regular rate and rhythm, no extra sounds. Pulmonary: Clear to auscultation bilaterally, normal work of breathing. Abdomen: Soft, mild diffuse abdominal tenderness, no rebound, no guarding, no tympany, nondistended, positive bowel sounds. Musculoskeletal: Atraumatic, no peripheral edema. Neurologic: Patient awake alert and oriented x 3, full strength in all 4 extremities. Cranial nerves 2 through 12 grossly intact. Skin: Warm, dry, no rash Medical Decision & Procedures ER Provider Diagnostic Interpretation: X-ray results as stated below per interpretation by me and the radiologist. Radiology results as stated below per my review and radiologist interpretation: CHEST ONE VIEW PORTABLE CLINICAL HISTORY: abd pain, syncope, ROSS, coumadin COMPARISON STUDY: No previous studies for comparison. FINDINGS: The bones soft tissues and hemidiaphragms are normal. The cardiomediastinal silhouette is normal. The lungs are clear. The pulmonary vasculature is normal. IMPRESSION: Negative chest. The above report was generated using voice recognition software. It may contain grammatical, syntax or spelling errors. Electronically signed by: Gordon Edouard M.D. 01/08/2017 10:10 AM Dictated Date/Time: 01/08/2017 10:10 AM HEAD WITHOUT CONTRAST (CT) CT DOSE: HISTORY: Headache ROSS, coumadin TECHNIQUE: Multiaxial CT images of the head were performed without the use of intravenous contrast. A dose lowering technique was utilized adhering to the principles of ALARA. Comparison: None. Findings: The paranasal sinuses and mastoid air cells are clear. The calvarium and skull base are intact. The ventricles and sulci are within normal limits. There is no mass, hematoma, midline shift, or acute infarct. Age-related atrophy and chronic small vessel change Impression: No acute intracranial abnormality. Age-related change The above report was generated using voice recognition software. It may contain grammatical, syntax or spelling errors. Electronically signed by: Gordon Edouard M.D. 01/08/2017 10:40 AM Dictated Date/Time: 01/08/2017 10:39 AM ABD/PELVIS IV CONTRAST ONLY CT DOSE: 1296.16 mGy.cm HISTORY: Pain abd pain, lower TECHNIQUE: Multiaxial CT images of the abdomen and pelvis were performed following the use of intravenous contrast. A dose lowering technique was utilized adhering to the principles of ALARA. COMPARISON STUDY: None. FINDINGS: Minimal basilar dependent atelectasis. Liver spleen and pancreas are unremarkable. Several renal as well as hepatic cysts. The bowel pattern overall is nonobstructive. There are findings of wall thickening and infiltrative change of the pericolonic fat involving the distal transverse colon. This consistent with that of focal diverticulitis. No evidence for drainable abscess or collection. Mild chronic descending colonic diverticulosis. Bladder is midline. No significant free fluid within the cul-de-sac. IMPRESSION: 1. Acute distal transverse colonic diverticulitis with moderate pericolonic infiltrative change. 2. No evidence for abscess collection or obstruction. 3. Several hepatic as well as renal cysts. The above report was generated using voice recognition software. It may contain grammatical, syntax or spelling errors. Electronically signed by: Gordon Edouard M.D. 01/08/2017 10:44 AM Dictated Date/Time: 01/08/2017 10:40 AM Laboratory Results 01/08/17 10:01 Red Blood Count 4.50, Mean Corpuscular Volume 87.8, Mean Corpuscular Hemoglobin 28.9, Mean Corpuscular Hemoglobin Concent 32.9, Mean Platelet Volume 9.9, Neutrophils (%) (Auto) 84.3, Lymphocytes (%) (Auto) 4.8, Monocytes (%) (Auto) 9.8, Eosinophils (%) (Auto) 0.5, Basophils (%) (Auto) 0.2, Neutrophils # (Auto) 9.22, Lymphocytes # (Auto) 0.53, Monocytes # (Auto) 1.07, Eosinophils # (Auto) 0.05, Basophils # (Auto) 0.02 01/08/17 10:01 Test 01/08/17 10:01 01/08/17 10:07 White Blood Count 10.93 K/uL (4.8-10.8) Red Blood Count 4.50 M/uL (4.2-5.4) Hemoglobin 13.0 g/dL (12.0-16.0) Hematocrit 39.5 % (37-47) Mean Corpuscular Volume 87.8 fL (80-100) Mean Corpuscular Hemoglobin 28.9 pg (25-34) Mean Corpuscular Hemoglobin Concent 32.9 g/dl (32-36) Platelet Count 185 K/uL (130-400) Mean Platelet Volume 9.9 fL (7.4-10.4) Neutrophils (%) (Auto) 84.3 % Lymphocytes (%) (Auto) 4.8 % Monocytes (%) (Auto) 9.8 % Eosinophils (%) (Auto) 0.5 % Basophils (%) (Auto) 0.2 % Neutrophils # (Auto) 9.22 K/uL (1.4-6.5) Lymphocytes # (Auto) 0.53 K/uL (1.2-3.4) Monocytes # (Auto) 1.07 K/uL (0.11-0.59) Eosinophils # (Auto) 0.05 K/uL (0-0.5) Basophils # (Auto) 0.02 K/uL (0-0.2) RDW Standard Deviation 43.7 fL (36.4-46.3) RDW Coefficient of Variation 13.7 % (11.5-14.5) Immature Granulocyte % (Auto) 0.4 % Immature Granulocyte # (Auto) 0.04 K/uL (0.00-0.02) Prothrombin Time 32.7 SECONDS (9.0-12.0) Prothromb Time International Ratio 2.9 (0.9-1.1) Activated Partial Thromboplast Time 44.3 SECONDS (21.0-31.0) Partial Thromboplastin Ratio 1.7 Est Creatinine Clear Calc Drug Dose 64.1 ml/min Estimated GFR () 77.1 Estimated GFR (Non- 66.6 BUN/Creatinine Ratio 19.3 (10-20) Calcium Level 9.1 mg/dl (8.5-10.1) Magnesium Level 1.9 mg/dl (1.8-2.4) Total Bilirubin 0.5 mg/dl (0.2-1) Direct Bilirubin 0.1 mg/dl (0-0.2) Aspartate Amino Transf (AST/SGOT) 25 U/L (15-37) Alanine Aminotransferase (ALT/SGPT) 26 U/L (12-78) Alkaline Phosphatase 111 U/L (45-117) Total Creatine Kinase 140 U/L (26-192) Creatine Kinase MB 1.4 ng/ml (0.5-3.6) Creatine Kinase MB Ratio 1.0 (0-3.0) Total Protein 7.0 gm/dl (6.4-8.2) Albumin 3.2 gm/dl (3.4-5.0) Lipase 162 U/L (73-393) Bedside Hemoglobin 13.6 g/dl (12.0-16.0) Bedside Hematocrit 40 % (37-47) Bedside Sodium 140 mEq/L (135-144) Bedside Potassium 3.7 mEq/L (3.3-5.0) Bedside Chloride 102 mEq/L (101-112) Bedside Total CO2 27 mEq/l (24-31) Anion Gap 17.0 mmol/L (16-25) Bedside Blood Urea Nitrogen 17 mg/dl (7-18) Bedside Creatinine 0.9 mg/dl (0.6-1.3) Bedside Glucose (other) 107 mg/dl (70-99) Bedside Ionized Calcium (Serjio) 1.25 mmol/l (1.12-1.32) Laboratory results per my review. Medications Administered Medications (Trade) Dose Ordered Sig/Martín Route Start Time Stop Time Status Last Admin Dose Admin Sodium Chloride 250 ml @ 999 mls/hr Q16M STAT IV 01/08/17 09:45 01/08/17 10:00 DC 01/08/17 10:44 999 MLS/HR Sodium Chloride 1,000 ml @ 125 mls/hr Q8H STAT IV 01/08/17 09:45 01/08/17 13:37 DC 01/08/17 09:45 125 MLS/HR Ampicillin Sodium/ Sulbactam Sodium 3000 mg/Sodium Chloride 108 ml @ 200 mls/hr ONE ONCE IV 01/08/17 11:45 01/08/17 12:17 DC 01/08/17 11:42 200 MLS/HR ECG Indication: back/shoulder pain Rate (beats per minute): 67 Rhythm: normal sinus Findings: no acute ischemic change, no ectopy Change: Repeat EKG: NSR, 67, no acute ischemia, no ectopy. ED Course 0940: Past medical records reviewed. The patient was evaluated in room B4B. A complete history and physical examination was performed. 0945: NSS 1000 ml @ 125 mls/hr IV, NSS 250 ml @ 999 mls/hr IV. 1132: I reevaluated the patient. She is now having chest pain. She will have a repeat EKG. 1145: Ampicillin Sodium/Sulbactam Sodium 3000 mg/Sodium Chloride 108 ml @ 200 mls/hr IV. 1223: Upon reevaluation, the patient was resting comfortably. I discussed findings with her. She verbalized agreement of the treatment plan. She was discharged home. Medical Decision Differential diagnosis: Etiologies such as appendicitis, diverticulitis, PUD, biliary pathology, UTI, pancreatitis, obstruction, mesenteric ischemia, aortic pathology, infections, inflammatory bowel disease, renal colic, intracranial hemorrhage, intracranial mass, migraine headache as well as others were entertained. This patient was evaluated and appeared to be in no significant distress. IV access was obtained and laboratory work was drawn. Patient was placed on the environmental monitoring specialist and found to be in no distress. EKG reveals a normal sinus rhythm without anemia or dysrhythmia. Patient was hydrated with normal saline solution. The patient has multiple complaints therefore CT scan of the head reveals no evidence of acute intracranial pathology. CT scan abdomen and pelvis was performed and reveals acute diverticulitis. INR is 2.9. Patient was given Unasyn 3.0 g IV. My findings were explained to the patient. She was placed on Augmentin 875 mg twice daily for 7 days. She will follow-up with her primary care physician this week and return to the ER for worsening of symptoms or any medical concerns. Medication Reconcilliation Current Medication List: was personally reviewed by me Blood Pressure Screening Patient's blood pressure: Elevated blood pressure Blood pressure disposition: Elevated BP felt to be situational Impression Primary Impression: Diverticulitis Additional Impression: Headache Scribe Attestation The scribe's documentation has been prepared under my direction and personally reviewed by me in its entirety. I confirm that the note above accurately reflects all work, treatment, procedures, and medical decision making performed by me. Departure Information Dispostion Home / Self-Care Prescriptions Amoxicillin & Pot Clavulanate (Augmentin 875-125 mg) 1 Tab Tab 875 MG PO BID for 7 Days, #14 TAB Prov: Shanti Salvador M.D. 01/08/17 Referrals Ella Esquivel M.D. (PCP) Forms HOME CARE DOCUMENTATION FORM, IMPORTANT VISIT INFORMATION Patient Instructions Diverticulitis Volodymyr, My [facility] Additional Instructions Diagnosis: Diverticulitis, headache Augmentin 875 mg twice daily for 7 days. Drink plenty of clear fluids. Eat a low fiber diet for the next week, then resume your regular diet as tolerated. Follow-up with your physician this week for reevaluation. Return to the ER for worsening of symptoms or any medical concerns. Problem Qualifiers
[2017-01-08] MEDS ORDERED: AMPICILLIN/SULBACTAM SOD INJ 3,000 MG in SODIUM CHLORIDE 0.9% 100ML 100 ML IV ONE (11:45)
[2017-01-08 12:39] VITALS: BP 127/79; PULSE 68; O2SAT 96
[2017-01-08] MEDS ORDERED: AMOX875T PO (12:43)
== END 2017-01-08 12:52 | disposition home or self-care (01) ==
LOC: EDBD 08:57 → C.EDB 08:58
DX: K57.92 Diverticulitis of intestine, part unspecified, without perforation or abscess without bleeding (principal); R51 Headache; I10 Essential (primary) hypertension; I21.4 Non-ST elevation (NSTEMI) myocardial infarction; Z82.49 Family history of ischemic heart disease and other diseases of the circulatory system; Z79.01 Long term (current) use of anticoagulants

== ENCOUNTER → 2017-05-26 | Outpatient (CLI) | payer OTHER, BC ==
[~2017-05-26] MED LIST changes: -ASPEC81 PO; -LVNIS100 SQ; -WARF4TAB PO; +WARF4TAB8 PO
--- NOTE | 2017-05-26 13:26 | MAMMOGRAPHY REPORT ---
BILATERAL DIGITAL SCREENING MAMMOGRAM TOMOSYNTHESIS WITH CAD: 05/26/2017 CLINICAL HISTORY: Routine screening. TECHNIQUE: Breast tomosynthesis in addition to standard 2D mammography was performed. Current study was also evaluated with a Computer Aided Detection (CAD) system. COMPARISON: Comparison is made to exams dated: 11/09/2015 mammogram - [facility], mammogram, 04/14/2015 mammogram - [facility], 11/09/2015 ultrasound - [facility], and 05/11/2015 ultrasound - [facility]. BREAST COMPOSITION: The tissue of both breasts is heterogeneously dense, which may obscure small mas ses. FINDINGS: No suspicious masses, calcifications, or areas of architectural distortion are noted in ei ther breast. There has been no significant interval change compared to prior exams. IMPRESSION: ACR BI-RADS CATEGORY 1: NEGATIVE There is no mammographic evidence of malignancy. A 1 year screening mammogram is recommended. The pa tient will receive written notification of the results. Approximately 10% of breast cancers are not detected with mammography. A negative mammographic report should not delay biopsy if a clinically suggestive mass is present. Bharti Juarez M.D. /:05/26/2017 12:38:02 Radio Station Operator: Saúl ALVARADO(R)(Danya), [facility] letter sent: Normal 1/2 BI-RADS Code: ACR BI-RADS Category 1: Negative
== END | disposition home or self-care (01) ==
LOC: C.MAMM 11:59
PROVIDERS: ATTEND Family Medicine
DX: Z12.31 Encounter for screening mammogram for malignant neoplasm of breast (principal)

== ENCOUNTER → 2017-07-27 | Outpatient (CLI) | payer OTHER, BC | END | disposition home or self-care (01) | LOC: C.PATHSPEC 13:12 | PROVIDERS: ATTEND Dermatology | DX: H02.826 Cysts of left eye, unspecified eyelid (principal) ==

== ENCOUNTER 2020-03-24 11:26 | Inpatient (IN) ==
[2020-03-24] MEDS ORDERED: ONDANSETRON INJ 2 MG/ML 2 ML VIAL IV STA (11:55)
[2020-03-24] MEDS ORDERED: MoRPHine SULFATE 2 MG/ML CARP IV STA (11:55)
--- NOTE | 2020-03-24 12:02 | Emergency Department Note ---
History of Present Illness General Chief complaint: Abdominal Pain Stated complaint: DIVERTICULITIS Time Seen by Provider: 03/24/20 11:36 Source: patient Mode of arrival: ambulatory Limitations: no limitations History of Present Illness Maximum Pain Intensity: 6 This patient comes in with abdominal pain been going on for about 2 weeks. She had seen her primary provider about a week ago and had a CAT scan done here which showed diverticulitis she was started on Augmentin and says she has not gotten any better and she is felt significantly worse last couple days the pain is in her lower abdomen hurts worse when she eats she got nauseated last night when eating no vomiting no diarrhea no fever no Covid exposure no respiratory symptoms. No chest pain shortness of breath or cough. She has been on Coumadin for 25 years and her INR checked recently was 2.4. She does have a history of rheumatoid arthritis as well as a clotting disorder Home Medications Medication Instructions Recorded Confirmed Type calcium carbonate 600 mg (1,500 1 tab PO QAM tab 10/19/18 03/24/20 History mg)-vitamin D3 200 unit tablet albuterol sulfate 90 mcg/actuation 2 puffs INH Q6H PRN #18 gm 10/28/18 03/24/20 Rx aerosol inhaler nitroglycerin 0.4 mg sublingual 0.4 mg SL Q5M tab 10/28/18 03/24/20 History tablet folic acid 1 mg tablet 2 mg PO QDD tab 02/26/19 03/24/20 History potassium chloride 10 mEq 10 meq PO BID #180 cap 10/28/19 03/24/20 Rx capsule,extended release warfarin 2 mg tablet See Rx Instructions PO DAILY #120 12/19/19 03/24/20 Rx tab methotrexate sodium 2.5 mg tablet 15 mg PO .WE@QDD tab 01/20/20 03/24/20 History Oxygenic G 1 cap PO BIDM 03/24/20 03/24/20 History cholecalciferol (vitamin D3) 25 mcg PO BID 03/24/20 03/24/20 History [Vitamin D3] donepezil 5 mg PO HS 03/24/20 03/24/20 History losartan-hydrochlorothiazide 1 tab PO HS 03/24/20 03/24/20 History prednisone 1 mg PO QAM 03/24/20 03/24/20 History sertraline 50 mg PO HS 03/24/20 03/24/20 History vitamin B complex 1 tab PO QAM 03/24/20 03/24/20 History Allergies Allergy/AdvReac Type Severity Reaction Status Date / Time [id number] Reductase Allergy Verified 03/24/20 12:49 Inhibitor tramadol Allergy Verified 03/24/20 12:49 Bactrim AdvReac Intermediate STOMACH Verified 01/08/17 09:31 SICKNESS sulfamethoxazole AdvReac Intermediate STOMACH Verified 03/24/20 12:49 SICKNESS trimethoprim AdvReac Intermediate STOMACH Verified 03/24/20 12:49 SICKNESS Past Med/Surg History Medical History Allergic rhinitis Anticoagulant long-term use Asthma Atypical nevi Degenerative joint disease of left hindfoot (07/17/13) Depression Esophageal reflux Generalized osteoarthritis of multiple sites Heart attack History of blood clots History of bronchitis History of pulmonary embolus (PE) HTN (hypertension) Hyperlipidemia Hypokalemia Memory loss Non-occlusive coronary artery disease NSTEMI (non-ST elevated myocardial infarction) Obstructive sleep apnea Osteoarthritis of both knees Osteoporosis Peripheral neuropathy Polymyalgia rheumatica Primary hypercoagulable state Recurrent deep vein thrombosis (DVT) Stomach ulcer Surgical History History of ankle surgery Hx of hysterectomy S/P cardiac cath S/P cataract extraction S/P colonoscopy Status post mastoidectomy Family History Unknown Pulmonary embolism Brother Coronary heart disease Myocardial infarction Stroke Mother Myocardial infarction Father Stroke Denies family history of Ovarian cancer Prostate cancer Breast cancer Lung cancer Colorectal cancer Social History Smoking Status: Former smoker Age Started Using Tobacco: 18; Age Quit Using Tobacco: 28; Years Smoked: 10; Cigarettes Per Day: 1-2; Second Hand Exposure: No; Hx Alcohol Use: No Hx Substance Use: No Preferred Language: Macedonian Communication Ability: Effective Visual Impairment: Partially Limited Hearing Ability: Normal Gas Prover Required: No Beliefs That Will Affect Care: None marital status: Current Living Situation: Spouse current occupational status: retired How many Children do You have: 3 Feels Safe at Home: Yes Childhood Exposure to Second-Hand Smoke: Yes Diet Comment: Regular caffeine: Yes (2 cups of coffee a day) during the past year weight has: remained stable Dental Care, Regularly: Yes Physical Activity Frequency: Daily Physical Activity Frequency Comment: light household activity Seatbelt Use: always Sunscreen Use: No (Doesn't go out much) Do you think of yourself as: straight/heterosexual Assistive Devices: Walker Review of Systems A total of 10 systems reviewed and were otherwise negative Physical Exam Vital Signs Vital Signs - 24 hr 03/24/20 11:31 03/24/20 11:43 03/24/20 11:45 Temperature 36.8 C Temperature Source Oral Pulse Rate 58 L 68 Pulse Rate [Apical] 68 Pulse Rate from SpO2 Sensor 68 Pulse Rhythm Regular Pulse Strength Normal Respiratory Rate 20 18 20 Respiratory Effort / Characteristics Non-Labored Spontaneous Non-Labored Spontaneous Respiratory Depth Normal Normal Respiratory Pattern Regular Regular Blood Pressure 119/71 131/71 Blood Pressure [Right Arm] 131/71 Blood Pressure Mean 87 82 Blood Pressure Mean [Right Arm] 91 Blood Pressure Position Sitting Pulse Oximetry 94 94 99 Oxygen Delivery Method Room Air Room Air Sepsis Recent Fever Within 48 Hours No Sepsis New/Unexplained Change in Mental Status No Sepsis Action Taken by Nursing No Action Required 03/24/20 11:54 03/24/20 11:56 03/24/20 12:00 Temperature Temperature Source Pulse Rate 67 70 67 Pulse Rate [Apical] Pulse Rate from SpO2 Sensor 70 67 Pulse Rhythm Pulse Strength Respiratory Rate 20 18 14 Respiratory Effort / Characteristics Respiratory Depth Respiratory Pattern Blood Pressure 137/74 Blood Pressure [Right Arm] Blood Pressure Mean 81 Blood Pressure Mean [Right Arm] Blood Pressure Position Pulse Oximetry 95 96 97 Oxygen Delivery Method Room Air Sepsis Recent Fever Within 48 Hours Sepsis New/Unexplained Change in Mental Status Sepsis Action Taken by Nursing 03/24/20 12:01 03/24/20 12:30 03/24/20 12:31 Temperature Temperature Source Pulse Rate 67 61 65 Pulse Rate [Apical] Pulse Rate from SpO2 Sensor 68 62 64 Pulse Rhythm Pulse Strength Respiratory Rate 17 13 14 Respiratory Effort / Characteristics Respiratory Depth Respiratory Pattern Blood Pressure 129/75 Blood Pressure [Right Arm] Blood Pressure Mean 83 Blood Pressure Mean [Right Arm] Blood Pressure Position Pulse Oximetry 97 94 95 Oxygen Delivery Method Sepsis Recent Fever Within 48 Hours Sepsis New/Unexplained Change in Mental Status Sepsis Action Taken by Nursing 03/24/20 13:09 03/24/20 13:10 03/24/20 13:30 Temperature Temperature Source Pulse Rate 70 72 64 Pulse Rate [Apical] Pulse Rate from SpO2 Sensor 68 72 64 Pulse Rhythm Pulse Strength Respiratory Rate 16 18 12 Respiratory Effort / Characteristics Respiratory Depth Respiratory Pattern Blood Pressure 137/88 136/80 Blood Pressure [Right Arm] Blood Pressure Mean 117 100 Blood Pressure Mean [Right Arm] Blood Pressure Position Pulse Oximetry 96 98 94 Oxygen Delivery Method Sepsis Recent Fever Within 48 Hours Sepsis New/Unexplained Change in Mental Status Sepsis Action Taken by Nursing 03/24/20 13:31 Temperature Temperature Source Pulse Rate 65 Pulse Rate [Apical] Pulse Rate from SpO2 Sensor 65 Pulse Rhythm Pulse Strength Respiratory Rate 15 Respiratory Effort / Characteristics Respiratory Depth Respiratory Pattern Blood Pressure Blood Pressure [Right Arm] Blood Pressure Mean Blood Pressure Mean [Right Arm] Blood Pressure Position Pulse Oximetry 96 Oxygen Delivery Method Sepsis Recent Fever Within 48 Hours Sepsis New/Unexplained Change in Mental Status Sepsis Action Taken by Nursing General: Well developed well nourished not ill-appearing older female who appears in no acute distress, breathing comfortably on room air. Normal speech HEENT: Normal cephalic atraumatic. Pupils are equal round and reactive to light. Extraocular movements are intact. Oropharynx is pink with moist mucous membranes. No swelling of the mouth lips or tongue. Neck: Supple with a midline trachea. No meningeal signs or stiffness, no JVD or bruits. No Stridor. Chest: Clear to auscultation bilaterally. No wheezes or rhonchi. No increased work of breathing. Heart: Regular rate and rhythm without murmurs or gallops. Abdomen: Soft, moderately tender in the lower abdomen bilaterally nondistended without rebound guarding or rigidity. Extremities: No cyanosis clubbing or edema. No calf tenderness or assymetry Spine/Back. Non tender to palpation. No CVA tenderness Skin: Good turgor without rashes. Neurologic exam: Cranial nerves two through 12 are intact. Motor and sensation are intact and symmetrical throughout. Course Administered Medications Metronidazole (Flagyl) 500 mg in 100 mls @ 100 mls/hr IV NOW STA Stop: 03/24/20 14:24 Last Admin: 03/24/20 13:43 Dose: 100 mls/hr Documented by: [id number] Discontinued Medications Cefepime HCl (Cefepime 2,000 Mg/20 Ml Vial) Confirm Administered Dose 2,000 mg .ROUTE .STK-MED ONE Stop: 03/24/20 13:41 Last Admin: 03/24/20 13:43 Dose: 2,000 mg Documented by: [id number] Cefepime HCl 2,000 mg/ Syringe 20 mls @ 5 mls/min IV NOW STA; Protocol Stop: 03/24/20 13:28 Last Admin: 03/24/20 13:42 Dose: Not Given Documented by: [id number] Ioversol (Optiray 320 125ml) 94 ml IV ONCE ONE Stop: 03/24/20 12:54 Last Admin: 03/24/20 12:53 Dose: 94 ml Documented by: [id number] Morphine Sulfate (Morphine Sulfate 2 Mg/Ml Carp) 2 mg IV NOW STA Stop: 03/24/20 11:56 Last Admin: 03/24/20 12:11 Dose: 2 mg Documented by: [id number] Ondansetron HCl (Ondansetron Inj 2 Mg/Ml 2 Ml Vial) 4 mg IV NOW STA Stop: 03/24/20 11:56 Last Admin: 03/24/20 12:11 Dose: 4 mg Documented by: [id number] Medical Decision Making Differential Diagnosis Diverticulitis, diverticular abscess, colitis, bowel obstruction, hernia, electrolyte or metabolic abnormality, Covid, coagulopathy Medical Records Attestation: I reviewed the patient's medical records. Home Medications Current Medication List: was personally reviewed by me Laboratory Data Attestation: I reviewed the patient's lab results. Result diagrams: 03/24/20 12:02 03/24/20 12:02 Lab Results 03/24/20 03/24/20 03/24/20 Range/Units 12:02 12:02 13:07 WBC 8.64 (4.8-10.8) K/uL RBC 4.31 (4.2-5.4) M/uL Hgb 13.3 (12.0-16.0) g/dL Hct 40.6 (37-47) % MCV 94.2 (80-100) fL MCH 30.9 (25-34) pg MCHC 32.8 (32-36) g/dL RDW Std Deviation 48.5 H (36.4-46.3) fL RDW Coeff of Wilfredo 14.4 (11.5-14.5) % Plt Count 237 (130-400) K/uL MPV 10.3 (7.4-10.4) fL Immature Gran % (Auto) 0.2 % Neut % (Auto) 78.1 % Lymph % (Auto) 10.3 % [place] % (Auto) 10.2 % Eos % (Auto) 0.9 % Baso % (Auto) 0.3 % Neut # (Auto) 6.74 H (1.4-6.5) K/uL Lymph # (Auto) 0.89 L (1.2-3.4) K/uL [place] # (Auto) 0.88 H (0.11-0.59) K/uL Eos # (Auto) 0.08 (0-0.5) K/uL Baso # (Auto) 0.03 (0-0.2) K/uL Immature Gran # (Auto) 0.02 (0.00-0.02) K/uL Sodium 138 (136-145) mmol/L Potassium 3.3 L (3.5-5.1) mmol/L Chloride 104 (98-107) mmol/L Carbon Dioxide 28 (21-32) mmol/L Anion Gap 6.0 (3-11) BUN 15 (7-18) mg/dl Creatinine 0.87 (0.6-1.2) mg/dl Est Cr Clr Drug Dosing 57.4 ml/min Est GFR ( Amer) 73.4 Est GFR (Non-Af Amer) 63.4 BUN/Creatinine Ratio 17.6 (10-20) Glucose 92 (70-99) mg/dl Calcium 8.9 (8.5-10.1) mg/dl Total Bilirubin 0.6 (0.2-1) mg/dl AST 23 (15-37) U/L ALT 26 (12-78) U/L Alkaline Phosphatase 106 (45-117) U/L Total Protein 7.3 (6.4-8.2) gm/dl Albumin 3.3 L (3.4-5.0) gm/dl Globulin 4.0 (2.5-4.0) gm/dl Albumin/Globulin Ratio 0.8 L (0.9-2) Lipase 141 (73-393) U/L Urine Color Yellow Urine Appearance Clear (Clear) Urine pH 6.5 (4.5-7.5) Ur Specific [place] 1.016 (1.000-1.030) Urine Protein Negative (Negative) Urine Glucose (UA) Negative (Negative) Urine Ketones Negative (Negative) Urine Blood Trace H (Negative) Urine Nitrite Negative (Negative) Urine Bilirubin Negative (Negative) Urine Urobilinogen Negative (Negative) Ur Leukocyte Esterase 1+ H (Negative) Urine WBC (Auto) 1-5 (0-5) /hpf Urine RBC (Auto) 0-4 (0-4) /hpf U Hyaline Cast (Auto) 0 (0-5) /lpf U Epithel Cells (Auto) 0-5 (0-5) /lpf Urine Bacteria (Auto) Negative (Negative) Imaging Data Radiologist's Impression: ABDOMEN AND PELVIS CT WITH IV CONTRAST CT DOSE: 798.96 mGy.cm HISTORY: Acute left lower quadrant abdominal pain eval for diverticulits/abcess TECHNIQUE: Multiaxial CT images of the abdomen and pelvis were performed following the IV administration of 94 cc of Optiray 320, A dose lowering technique was utilized adhering to the principles of ALARA. COMPARISON STUDY: CT abdomen and pelvis 03/11/2020, 01/08/2017. FINDINGS: 4 mm solid nodule of the basal right lower lobe. Minimal dependent subsegmental bibasilar atelectasis. No pneumatosis or pneumoperitoneum. Imaged inferior cardiac chambers are unremarkable. The spleen, pancreas and adrenal glands are unremarkable. The gallbladder is also within normal limits. Calcifications of the right hepatic lobe. Right hepatic lobe cysts measure up to 2.7 cm. Indeterminate hypodensity of the left hepatic lobe, 4 mm may reflect additional cysts. Patency of the hepatic and portal veins. Left renal cysts measure up to 4.6 cm. Additional tiny hypodensities of the kidneys are too small to characterize. Possible punctate calculus of the inferior pole right kidney. No ureteral calculi or obstructive uropathy. Unremarkable urinary bladder. Calcifications of the uterus are suggestive of calcified uterine fibroids. Calcified plaque the abdominal aorta without aneu rysm. Unremarkable IVC. No adenopathy. Small fat filled right inguinal hernia contains a small nonobstructed loop of small bowel. Tiny hiatal hernia. There is no bowel obstruction. Severe colonic div erticulosis. Progressively worsened acute sigmoid diverticulitis with associated colonic wall thickening and pericolonic stranding with trace free fluid. The area of inflamed colon is now noted to be more distal compared to the prior area of acute inflammation. No discrete fluid collection or perforation. Terminal ileum is unremarkable. Visualized appendix appears noninflamed. Unremarkable soft tissues. Degenerative changes of the spine, pelvis and hips. Probable bone island of the left sacral ala. IMPRESSION: 1. Acute sigmoid diverticulitis, progressively worsened from comparison. No evidence of perforation or abscess. 2. No bowel obstruction. 3. Small right inguinal hernia containing mesenteric fat and a small loop of nonobstructed small bowel redemonstrated. 4. Additional findings as above. MDM Narrative This patient comes in as described above. She was placed on a painter drum in room B6. IV access established and she was hydrated with IV normal saline bolus. She is not driving. She seems uncomfortable and offered pain m edication. She tells me she had morphine before without any difficulties. She was given morphine 2 mg IV and Zofran 4 mg IV. Blood testing was obtained as well as a repeat CAT scan with IV contrast. She was feeling better with the morphine. Her white count is not elevated. She has no significant electrolyte or metabolic abnormalities. Her CAT scan does show worsening of diverticulitis compared to the previous however she has no diverticular abscess. Given the fact that she has been on outpatient therapy for over a week and she has immunocompromise state with prednisone and Coumadin, I do think she needs to be admitted for IV antibiotics. She was given IV cefepime as well as IV Flagyl for broad-spectrum coverage. I have consulted Dr. Petit to see her in the ER for admission. Continuous cardiac monitoring. An order was placed in the EMR for continuous cardiac monitoring. 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, Failure of outpatient treatment Forms Stand Alone Forms: My [facility] Prescriptions Prescriptions: No Action potassium chloride 10 mEq capsule, extended release 10 meq PO BID Qty: 180 RF: 3 warfarin 2 mg tablet See Rx Instructions mg PO DAILY Qty: 120 RF: 3 calcium carbonate-vitamin D3 600 mg(1,500mg) -200 unit tablet 1 tab PO QAM RF: 0 nitroglycerin 0.4 mg tablet, sublingual 0.4 mg SL Q5M RF: 0 albuterol sulfate [ProAir HFA] 90 mcg/actuation HFA aerosol inhaler 2 puffs INH Q6H PRN (Reason: shortness of breath or wheezing) Qty: 18 RF: 0 methotrexate sodium 2.5 mg tablet 15 mg PO .WE@QDD RF: 0 folic acid 1 mg tablet 2 mg PO QDD RF: 0 prednisone 1 mg Tablet 1 mg PO QAM RF: 0 vitamin B complex Tablet 1 tab PO QAM RF: 0 cholecalciferol (vitamin D3) [Vitamin D3] 25 mcg (1,000 unit) Tablet 25 mcg PO BID RF: 0 Oxygenic G 1 cap PO BIDM RF: 0 donepezil 5 mg tablet 5 mg PO HS RF: 0 losartan-hydrochlorothiazide 100-25 mg tablet 1 tab PO HS RF: 0 sertraline 50 mg tablet 50 mg PO HS RF: 0 Discharge Problem: Abdominal pain Qualifiers: Abdominal location: lower abdomen, unspecified Qualified Code(s): R10.30 - Lower abdominal pain, unspecified
[2020-03-24 12:13] LABS: Basophils # (auto) 0.03 K/uL (0-0.2); Basophils % (auto) 0.3 %; Eosinophils # (auto) 0.08 K/uL (0-0.5); Eosinophils % (auto) 0.9 %; Hematocrit (blood only) 40.6 % (37-47); Hemoglobin 13.3 g/dL (12.0-16.0); Immature Granulocytes # (auto) 0.02 K/uL (0.00-0.02); Immature Granulocytes % (auto) 0.2 %; Lymphocytes # (auto) 0.89 K/uL (1.2-3.4); Lymphocytes % (auto) 10.3 %; Mean Corpuscular Hemoglobin 30.9 pg (25-34); Mean Corpuscular Hgb Conc 32.8 g/dL (32-36); Mean Corpuscular Volume 94.2 fL (80-100); Mean Platelet Volume 10.3 fL (7.4-10.4); Monocytes # (auto) 0.88 K/uL (0.11-0.59); Monocytes % (auto) 10.2 %; Neutrophils # (auto) 6.74 K/uL (1.4-6.5); Neutrophils % (auto) 78.1 %; Platelet Count 237 K/uL (130-400); RDW Coefficient of Variation 14.4 % (11.5-14.5); RDW Standard Deviation 48.5 fL (36.4-46.3); Red Blood Count 4.31 M/uL (4.2-5.4); White Blood Count 8.64 K/uL (4.8-10.8)
[2020-03-24 12:30] LABS: Albumin Level 3.3 gm/dl (3.4-5.0); BUN Creatinine Ratio 17.6 (10-20); Calcium 8.9 mg/dl (8.5-10.1); Creatinine Clr Calc Pharmacy 57.4 ml/min; Est GFR (African American) 73.4; Est GFR (Non-African American) 63.4; Potassium 3.3 mmol/L (3.5-5.1)
[2020-03-24 12:32] LABS: Albumin Globulin Ratio 0.8 (0.9-2); Bilirubin,Total 0.6 mg/dl (0.2-1); Total Protein 7.3 gm/dl (6.4-8.2)
[2020-03-24] MEDS ORDERED: OPTIRAY 320 125ml IV ONE (12:53)
--- NOTE | 2020-03-24 13:19 | CT Scan Report ---
ABDOMEN AND PELVIS CT WITH IV CONTRAST CT DOSE: 798.96 mGy.cm HISTORY: Acute left lower quadrant abdominal pain eval for diverticulits/abcess TECHNIQUE: Multiaxial CT images of the abdomen and pelvis were performed following the IV administrat ion of 94 cc of Optiray 320, A dose lowering technique was utilized adhering to the principles of AL ANATOLY. COMPARISON STUDY: CT abdomen and pelvis 03/11/2020, 01/08/2017. FINDINGS: 4 mm solid nodule of the basal right lower lobe. Minimal dependent subsegmental bibasilar a telectasis. No pneumatosis or pneumoperitoneum. Imaged inferior cardiac chambers are unremarkable. Th e spleen, pancreas and adrenal glands are unremarkable. The gallbladder is also within normal limits. Calcifications of the right hepatic lobe. Right hepatic lobe cysts measure up to 2.7 cm. Indetermina te hypodensity of the left hepatic lobe, 4 mm may reflect additional cysts. Patency of the hepatic an d portal veins. Left renal cysts measure up to 4.6 cm. Additional tiny hypodensities of the kidneys are too small to characterize. Possible punctate calculus of the inferior pole right kidney. No ureteral calculi or ob structive uropathy. Unremarkable urinary bladder. Calcifications of the uterus are suggestive of calc ified uterine fibroids. Calcified plaque the abdominal aorta without aneurysm. Unremarkable IVC. No a denopathy. Small fat filled right inguinal hernia contains a small nonobstructed loop of small bowel. Tiny hiatal hernia. There is no bowel obstruction. Severe colonic diverticulosis. Progressively worse [place] acute sigmoid diverticulitis with associated colonic wall thickening and pericolonic stranding wi th trace free fluid. The area of inflamed colon is now noted to be more distal compared to the prior area of acute inflammation. No discrete fluid collection or perforation. Terminal ileum is unremarkab le. Visualized appendix appears noninflamed. Unremarkable soft tissues. Degenerative changes of the s pine, pelvis and hips. Probable bone island of the left sacral ala. IMPRESSION: 1. Acute sigmoid diverticulitis, progressively worsened from comparison. No evidence of perforation o r abscess. 2. No bowel obstruction. 3. Small right inguinal hernia containing mesenteric fat and a small loop of nonobstructed small kristel l redemonstrated. 4. Additional findings as above. ACT 112: Negative or not required by law. The above report was generated using voice recognition software. It may contain grammatical, syntax o r spelling errors. Electronically signed by: Kobi Aguirre M.D. 03/24/2020 1:17 PM
[2020-03-24] MEDS ORDERED: metroNIDAZOLE 500 MG/100 ML BAG IV STA (13:25)
[2020-03-24] MEDS ORDERED: CEFEPIME 2,000 MG in SYRINGE 0 ML IV STA (13:25)
[2020-03-24 13:27] LABS: Appearance Urine Clear (Clear); Bacteria Urine Automated Negative (Negative); Bilirubin Urine Negative (Negative); Blood Urine Trace (Negative); Cast Urine Automated 0 /lpf (0-5); Color Urine Yellow; Epithelial Cell Urine Auto 0-5 /lpf (0-5); Glucose Urine UA Negative (Negative); Ketones Urine Negative (Negative); Leukocyte Esterase Urine 1+ (Negative); Nitrite Urine Negative (Negative); Protein Urine Negative (Negative); RBC Urine Automated 0-4 /hpf (0-4); Specific Gravity Urine 1.016 (1.000-1.030); Urobilinogen Urine Negative (Negative); pH Urine 6.5 (4.5-7.5)
[2020-03-24] MEDS ORDERED: CEFEPIME 2,000 MG/20 ML VIAL ONE (13:40)
--- NOTE | 2020-03-24 14:11 | History & Physical Report ---
Date of Service March 24, 2020 Assessment & Plan (1) Acute diverticulitis: Continue cefepime and metronidazole started in ER. Failed outpatient Augmentin. NPO except meds, ice chips and sips (2) Polymyalgia rheumatica: Continue prednisone 1mg PO daily Continue methotrexate 15mg PO weekly with folic acid supplementation (3) HTN (hypertension): Continue lisinopril/HCTZ home dosing (4) Sleep apnea: May use own CPAP (5) Peripheral neuropathy: Pregabalin 75mg PO BID (6) Recurrent deep vein thrombosis (DVT): Continue warfarin at reduced 2mg PO daily dosing. Monitor INR daily as likely to increased with metronidazole use. (7) Depression: Continue sertraline 50mg PO HS (8) DVT prophylaxis: Continue warfarin dosing and monitor INR closely with metronidazole use Admission and Anticipated Discharge Date Admission Date: 03/24/2020 History of Present Illness Primary Care Provider: Ella Esquivel MD Codi Heredia is a 79 year old female who presents to the ER with lower abdominal pain. Symptoms approximately 1 month intermittently. Last 2 weeks pain has been more constant ache. Across lower abdomen (not one sided), no radiation. No change with bowel movements or urination. No dysuria. No melena, bright red blood in stool, nausea or vomiting. She notes problems with chronic constipation which is no worse than usual which she treats herself with a laxative capsule over the counter (unknown exactly which). She initially presented to her PCP and underwent CT on showing mild acute diverticulitis and right inguinal hernia. She was started on Augmentin due to concern for interaction of metronidazole with her warfarin, despite completing a course of this her pain has increased therefore decided to come to the ER today. 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 In the ER repeat CT was concerning for worsening diverticulitis. WBC within normal limits. UA not concerning for infection. She was referred to medicine for failed outpatient management for acute diverticulitis. Allergies Allergy/AdvReac Type Severity Reaction Status Date / Time Riylzys-Fsa-Spy Reductase Allergy Verified 03/24/20 12:49 Inhibitor tramadol Allergy Verified 03/24/20 12:49 Bactrim AdvReac Intermediate STOMACH Verified 01/08/17 09:31 SICKNESS sulfamethoxazole AdvReac Intermediate STOMACH Verified 03/24/20 12:49 SICKNESS trimethoprim AdvReac Intermediate STOMACH Verified 03/24/20 12:49 SICKNESS Home Medications Medication Instructions Recorded Confirmed Type calcium carbonate 600 mg (1,500 1 tab PO QAM tab 10/19/18 03/24/20 History mg)-vitamin D3 200 unit tablet albuterol sulfate 90 mcg/actuation 2 puffs INH Q6H PRN #18 gm 10/28/18 03/24/20 Rx aerosol inhaler nitroglycerin 0.4 mg sublingual 0.4 mg SL Q5M tab 10/28/18 03/24/20 History tablet folic acid 1 mg tablet 2 mg PO QDD tab 02/26/19 03/24/20 History potassium chloride 10 mEq 10 meq PO BID #180 cap 10/28/19 03/24/20 Rx capsule,extended release warfarin 2 mg tablet See Rx Instructions PO DAILY #120 12/19/19 03/24/20 Rx tab methotrexate sodium 2.5 mg tablet 15 mg PO .WE@QDD tab 01/20/20 03/24/20 History Oxygenic G 1 cap PO BIDM 03/24/20 03/24/20 History cholecalciferol (vitamin D3) 25 mcg PO BID 03/24/20 03/24/20 History [Vitamin D3] donepezil 5 mg PO HS 03/24/20 03/24/20 History losartan-hydrochlorothiazide 1 tab PO HS 03/24/20 03/24/20 History prednisone 1 mg PO QAM 03/24/20 03/24/20 History pregabalin 75 mg PO BID 03/24/20 03/24/20 History sertraline 50 mg PO HS 03/24/20 03/24/20 History vitamin B complex 1 tab PO QAM 03/24/20 03/24/20 History Past Med/Surg History Medical History Allergic rhinitis Anticoagulant long-term use Asthma Atypical nevi Degenerative joint disease of left hindfoot (07/17/13) Depression Esophageal reflux Generalized osteoarthritis of multiple sites Heart attack History of blood clots History of bronchitis History of pulmonary embolus (PE) HTN (hypertension) Hyperlipidemia Hypokalemia Memory loss Non-occlusive coronary artery disease NSTEMI (non-ST elevated myocardial infarction) Obstructive sleep apnea Osteoarthritis of both knees Osteoporosis Peripheral neuropathy Polymyalgia rheumatica Primary hypercoagulable state Recurrent deep vein thrombosis (DVT) Stomach ulcer Surgical History History of ankle surgery Hx of hysterectomy S/P cardiac cath S/P cataract extraction S/P colonoscopy Status post mastoidectomy Family History Unknown Pulmonary embolism Brother Coronary heart disease Myocardial infarction Stroke Mother Myocardial infarction Father Stroke Denies family history of Ovarian cancer Prostate cancer Breast cancer Lung cancer Colorectal cancer Social History Smoking Status: Former smoker Age Started Using Tobacco: 18; Age Quit Using Tobacco: 28; Years Smoked: 10; Cigarettes Per Day: 1-2; Smoking End Date: 40 years ago; Second Hand Exposure: No; Hx Alcohol Use: No Hx Substance Use: No Preferred Language: Irish Communication Ability: Effective Visual Impairment: Partially Limited Hearing Ability: Normal Esl Instructor Required: No Beliefs That Will Affect Care: None marital status: Current Living Situation: Spouse current occupational status: retired How many Children do You have: 3 Other Information That Helps Us Care for You: No Feels Safe at Home: Yes Safety Concerns: Feels Safe At This Time Childhood Exposure to Second-Hand Smoke: Yes Diet Comment: Regular caffeine: Yes (2 cups of coffee a day) during the past year weight has: remained stable Dental Care, Regularly: Yes Physical Activity Frequency: Daily Physical Activity Frequency Comment: light household activity Seatbelt Use: always Sunscreen Use: No (Doesn't go out much) Do you think of yourself as: straight/heterosexual Assistive Devices: Cane Review of Systems Review of Systems: All systems reviewed & are unremarkable except as noted in HPI & below Physical Exam Constitutional: well developed and well nourished; no acute distress Eyes: + anicteric sclerae; normal pupil size Neck: trachea midline, no thyromegaly Respiratory: normal respiratory effort, lungs clear to auscultation Cardiovascular: RRR, no murmur, no edema Gastrointestinal (Abdomen): Inspection/Auscultation: abdomen normal to inspection and normal bowel sounds; abdomen not distended Percussion/Palpation: + abdomen tender (lower abdomen) and abdomen soft; no guarding and abdomen not rigid Musculoskeletal: no cyanosis or clubbing, extremities motor strength 5/5 Skin: no rashes, warm and dry Neurologic: moves all extremities and awake; not confused Psychiatric: A+Ox3, euthymic affect Genitourinary: no CVA tenderness Results & Data Results & Data ([facility]) Vital Signs (Past 12 Hours) Vital Signs Temp Pulse Pulse Resp BP BP Pulse Ox 03/24/20 13:31 65 15 96 03/24/20 13:30 64 12 136/80 94 03/24/20 13:10 72 18 98 03/24/20 13:09 70 16 137/88 96 03/24/20 12:31 65 14 95 03/24/20 12:30 61 13 129/75 94 03/24/20 12:01 67 17 97 03/24/20 12:00 67 14 137/74 97 03/24/20 11:56 70 18 96 03/24/20 11:54 67 20 95 03/24/20 11:45 68 20 131/71 99 03/24/20 11:43 68 18 131/71 94 03/24/20 11:31 36.8 C 58 L 20 119/71 94 Diagnostic Findings ABDOMEN AND PELVIS CT WITH IV CONTRAST IMPRESSION: 1. Acute sigmoid diverticulitis, progressively worsened from comparison. No evidence of perforation or abscess. 2. No bowel obstruction. 3. Small right inguinal hernia containing mesenteric fat and a small loop of nonobstructed small bowel redemonstrated. 4. Additional findings as above. Medications Administered ER medications given: Metronidazole 500 mg IV Morphine 2 mg IV Ondansetron 4 mg IV Cefepime 2 g IV Code Status & VTE Plan Code Status Full VTE Prophylaxis Plan VTE Prophylaxis will be ordered: Yes PG Care Time/CCT Total # of Minutes Spent Total Time Spent with Patient: Total time spent is greater than 50% in coordination of care (as documented) at patient's floor/unit and/or counseling patient: Coding Level of Care Code 22580 Initial Inpt Care Lvl 2 Diagnoses Acute diverticulitis K57.92 Polymyalgia rheumatica M35.3 HTN (hypertension) I10 Sleep apnea G47.30 Peripheral neuropathy G62.9 Recurrent deep vein thrombosis (DVT) I82.409 Depression F32.9 DVT prophylaxis Z29.9
[2020-03-24 14:48] LABS: INR 3.3 (0.9-1.1); Partial Thromboplastin Ratio 1.9; Prothrombin Time 32.6 Seconds (9.0-12.0)
[2020-03-24 14:50] LABS: Partial Thromboplastin Time 51.8 Seconds (21.0-31.0)
[2020-03-24] MEDS ORDERED: CEFEPIME CONSULT ACTIVE PRN (16:26)
[2020-03-24] MEDS ORDERED: PNEUMOCOCCAL POLYSACCHARIDES 25 MCG/0.5 ML VIAL/SYR IM ONE (16:40)
[2020-03-24] MEDS ORDERED: PNEUMOCOCCAL ADMINISTRATION CHARGE ONE (16:40)
[2020-03-24] MEDS: ACETAMINOPHEN 325 MG TAB PO PRN ×2 (16:50→21:05)
[2020-03-24] MEDS ORDERED: metroNIDAZOLE 500 MG/100 ML BAG IV SCH (17:00)
[2020-03-24] MEDS: POTASSIUM CHLORIDE 30 MEQ in SODIUM CHLORIDE 0.45 % 1,000 ML IV SCH (18:21)
[2020-03-24] MEDS ORDERED: MoRPHine SULFATE 2 MG/ML CARP IV PRN (20:21)
[2020-03-24] MEDS: SERTRALINE HCL 50 MG TABLET PO SCH (20:56)
[2020-03-24] MEDS: LOSARTAN/HCTZ 50/12.5MG TAB PO SCH (20:58)
[2020-03-24] MEDS: CEFEPIME 2,000 MG in SYRINGE 0 ML IV SCH (20:59)
[2020-03-24] MEDS: metroNIDAZOLE 500 MG/100 ML BAG IV SCH (20:59)
[2020-03-24] MEDS: PREGABALIN 75 MG CAP PO SCH (21:06)
[2020-03-25] MEDS: POTASSIUM CHLORIDE 30 MEQ in SODIUM CHLORIDE 0.45 % 1,000 ML IV SCH ×2 (02:25→11:17)
[2020-03-25] MEDS: metroNIDAZOLE 500 MG/100 ML BAG IV SCH ×3 (05:46→22:10)
[2020-03-25] MEDS: predniSONE 1 MG TAB PO SCH (07:40)
[2020-03-25] MEDS: CEFEPIME 2,000 MG in SYRINGE 0 ML IV SCH ×2 (07:41→20:38)
[2020-03-25] MEDS: ACETAMINOPHEN 325 MG TAB PO PRN ×2 (07:41→20:43)
[2020-03-25 08:50] LABS: Basophils # (auto) 0.02 K/uL (0-0.2); Basophils % (auto) 0.3 %; Eosinophils # (auto) 0.11 K/uL (0-0.5); Eosinophils % (auto) 1.5 %; Hemoglobin 12.8 g/dL (12.0-16.0); Immature Granulocytes # (auto) 0.02 K/uL (0.00-0.02); Immature Granulocytes % (auto) 0.3 %; Lymphocytes # (auto) 0.59 K/uL (1.2-3.4); Lymphocytes % (auto) 7.8 %; Mean Corpuscular Hemoglobin 31.1 pg (25-34); Mean Corpuscular Hgb Conc 32.8 g/dL (32-36); Mean Corpuscular Volume 94.7 fL (80-100); Mean Platelet Volume 10.1 fL (7.4-10.4); Monocytes # (auto) 1.05 K/uL (0.11-0.59); Neutrophils # (auto) 5.73 K/uL (1.4-6.5); Neutrophils % (auto) 76.1 %; Platelet Count 220 K/uL (130-400); RDW Coefficient of Variation 14.5 % (11.5-14.5); RDW Standard Deviation 48.9 fL (36.4-46.3); Red Blood Count 4.12 M/uL (4.2-5.4); White Blood Count 7.52 K/uL (4.8-10.8)
[2020-03-25 09:15] LABS: INR 3.9 (0.9-1.1); Prothrombin Time 37.8 Seconds (9.0-12.0)
[2020-03-25 09:26] LABS: BUN Creatinine Ratio 16.4 (10-20); Calcium 9.1 mg/dl (8.5-10.1); Creatinine Clr Calc Pharmacy 63.7 ml/min; Est GFR (African American) 86.5; Est GFR (Non-African American) 74.6; Magnesium 1.8 mg/dl (1.8-2.4); Potassium 3.7 mmol/L (3.5-5.1)
--- NOTE | 2020-03-25 10:03 | Hospitalist Progress Note ---
Date of Service March 25, 2020 Assessment & Plan (1) Acute diverticulitis: Codi Heredia is a 79 year old female who presents to the ER with lower abdominal pain. Symptoms approximately 1 month. She went to her PCP and underwent CT on 03/11 showing mild acute diverticulitis and right inguinal hernia. She was started on Augmentin due to concern for interaction of metronidazole with her warfarin. 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 In the ER repeat CT was concerning for worsening diverticulitis. WBC within normal limits. UA not concerning for infection. Acute diverticulitis - Failed outpt treatment with Augmentin--concern for metronidazole interaction with metronidazole - CT in ER concerning for worsening sigmoid diverticulitis - Started on cefepime 2g IV daily & metronidazole 500mg IV q8h - Was made NPO on admission--diet advanced to clear liquids this AM, tolerated well - Advance diet as tolerated - PRN pain meds ordered - Will likely be d/c home with oral abx (cipor + flagyl)--will need to monitor INR closely DVT prophylaxis - Pt with h/o DVT/PE on chronic Coumadin - INR 3.9 today--on hold per hospital protocol - She will probably go home with cipro and flagyl--will likely lower coumadin dose to 1mg while being treated Right inguinal hernia - CT on 03/11 showed right inguinal hernia - She was evaluated by surgery--Dr. Carroll recommended holding off on surgical intervention - Per patient, plan is to reevaluate in May Hypertension - Normotensive today - Continue Hyzaar 50/12.5mg PO HS Polymyalgia Rheumatica - Continue home prednisone 1mg PO daily FENGI: Clear liquid, advance as tolerated DVT ppx: Coumadin 2mg PO daily--currently on hold due to elevated INR Dispo: Med/surg Code: Full Code (2) DVT prophylaxis: (3) HTN (hypertension): (4) Right inguinal hernia: (5) Polymyalgia rheumatica: Admission and Anticipated Discharge Date Admission Date: March 24, 2020 Supervising Physician Co-Signing Physician Notes Resident Physician Supervision Note: I was present with Dr. Best Ortiz during the history and exam. I discussed the case with the resident and agree with the findings and plan as documented in the note. Any exceptions or clarifications are listed here: none Patient is here with diverticulitis failing outpatient therapy. Her white blood cell count was not significant elevated on presentation but she is on chronic prednisone therapy which might suppress her white blood cell response. Patient was having a liquid diet in the morning but throughout the later morning hours was complaining of some abdominal pain which likely means we will not pursue advancement of her diet. Patient was placed on cefepime as an intravenous antibiotic choice due to concerns of metronidazole may interact with her Coumadin. However this makes outpatient antibiotic choices more challenging. We discussed various options during rounds about how we can manage her Coumadin will have her on medications that may affect her INR. Patient appeared comfortable she is having no abdominal distress at this time although however as a mention later the nurses had called and stated that she was having increased abdominal pain. We will continue cefepime dosing parenteral and oral pain medications and evaluate her clinically to determine when she improves to go home Documented By: Carlin Garcia MD Subjective Patient is overall doing well this morning. Still does complain of some mild lower abdominal pain but denies fever, chills, n/v, diarrhea, constipation. Has not had any cardiac or respiratory symptoms. She is eager to advance her diet and after starting clear liquids she is tolerating well. Review of Systems Review of Systems: All systems reviewed & are unremarkable except as noted in Subjective Physical Exam Constitutional: WD/WN, vitals as above no acute distress Respiratory: normal respiratory effort, lungs clear to auscultation Cardiovascular: RRR, no murmur, no edema Heart Sounds: normal S1 and normal S2 Gastrointestinal (Abdomen): Inspection/Auscultation: normal bowel sounds; abdomen not distended Percussion/Palpation: + abdomen tender (mild, at lower abdomen) Results & Data Results & Data ([facility]) Vital Signs (Past 12 Hours) Vital Signs Temp Pulse Resp BP Pulse Ox 03/25/20 07:26 37.0 C 73 18 110/72 95 03/24/20 23:12 36.6 C 56 L 16 124/68 93 Resident Activity Tracking Resident Involvement: Resident Care Provided Care Provided: Adult Hospital Medicine
[2020-03-25] MEDS ORDERED: Nursing to Pharmacy Communication SCH (10:15)
[2020-03-25] MEDS: PREGABALIN 75 MG CAP PO SCH ×3 (11:17→20:38)
[2020-03-25] MEDS ORDERED: oxyCODONE HCL SOLN 5 MG/5 ML UDC PO PRN (11:24)
--- NOTE | 2020-03-25 12:40 | Billing Data ---
Date of Service March 25, 2020 Coding Level of Care Code 62103 Subseq Hosp Care Lvl 2
[2020-03-25] MEDS ORDERED: WARFARIN SOD 2 MG TAB PO SCH ×2 (16:00)
[2020-03-25] MEDS: ONDANSETRON INJ 2 MG/ML 2 ML VIAL IV PRN (17:08)
[2020-03-25] MEDS: LOSARTAN/HCTZ 50/12.5MG TAB PO SCH (20:38)
[2020-03-25] MEDS: SERTRALINE HCL 50 MG TABLET PO SCH (20:39)
[2020-03-26] MEDS: metroNIDAZOLE 500 MG/100 ML BAG IV SCH ×3 (05:33→22:30)
[2020-03-26 07:06] LABS: Basophils # (auto) 0.02 K/uL (0-0.2); Basophils % (auto) 0.3 %; Eosinophils # (auto) 0.14 K/uL (0-0.5); Eosinophils % (auto) 2.3 %; Hematocrit (blood only) 37.1 % (37-47); Immature Granulocytes # (auto) 0.02 K/uL (0.00-0.02); Immature Granulocytes % (auto) 0.3 %; Lymphocytes # (auto) 0.95 K/uL (1.2-3.4); Lymphocytes % (auto) 15.9 %; Mean Corpuscular Hemoglobin 30.7 pg (25-34); Mean Corpuscular Hgb Conc 32.3 g/dL (32-36); Mean Corpuscular Volume 94.9 fL (80-100); Mean Platelet Volume 10.2 fL (7.4-10.4); Monocytes # (auto) 0.85 K/uL (0.11-0.59); Monocytes % (auto) 14.3 %; Neutrophils # (auto) 3.98 K/uL (1.4-6.5); Neutrophils % (auto) 66.9 %; Platelet Count 235 K/uL (130-400); RDW Coefficient of Variation 14.3 % (11.5-14.5); RDW Standard Deviation 48.5 fL (36.4-46.3); Red Blood Count 3.91 M/uL (4.2-5.4); White Blood Count 5.96 K/uL (4.8-10.8)
[2020-03-26 07:26] LABS: INR 4.8 (0.9-1.1); Prothrombin Time 46.8 Seconds (9.0-12.0)
[2020-03-26 08:05] LABS: Calcium 8.5 mg/dl (8.5-10.1); Creatinine Clr Calc Pharmacy 62.8 ml/min; Est GFR (African American) 85.1; Est GFR (Non-African American) 73.4; Potassium 2.9 mmol/L (3.5-5.1)
[2020-03-26] MEDS: CEFEPIME 2,000 MG in SYRINGE 0 ML IV SCH (08:36)
[2020-03-26] MEDS: predniSONE 1 MG TAB PO SCH (08:36)
[2020-03-26] MEDS ORDERED: POTASSIUM CHLORIDE / WTR 10 MEQ/100 ML PLCT IV SCH (10:00)
[2020-03-26] MEDS ORDERED: POTASSIUM CHLORIDE 20 MEQ/15 ML UDC PO STA (10:23)
[2020-03-26] MEDS ORDERED: POLYETHYLENE (MIRALAX) 17 GM PACK PO ONE (11:32)
[2020-03-26] MEDS ORDERED: POLYETHYLENE (MIRALAX) 17 GM PACK PO PRN (11:32)
--- NOTE | 2020-03-26 13:16 | Hospitalist Progress Note ---
Date of Service March 26, 2020 Assessment & Plan (1) Acute diverticulitis: Codi Heredia is a 79 year old female who presents to the ER with lower abdominal pain. Symptoms approximately 1 month. She went to her PCP and underwent CT on 03/11 showing mild acute diverticulitis and right inguinal hernia. She was started on Augmentin due to concern for interaction of metronidazole with her warfarin. 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 In the ER repeat CT was concerning for worsening diverticulitis. WBC within normal limits. UA not concerning for infection. Acute diverticulitis - Failed outpt treatment with Augmentin--concern for metronidazole interaction with metronidazole - CT in ER concerning for worsening sigmoid diverticulitis - Started on cefepime 2g IV daily & metronidazole 500mg IV q8h - Was made NPO on admission--diet advanced to clear liquids, tolerating well - Abdominal CT repeated due to worsening abd pain: 1. Acute uncomplicated sigmoid diverticulitis appears unchanged from the study obtained two days prior on 03/24/2020. No evidence of perforation or abscess. 2. No bowel obstruction. 3. Small right inguinal hernia contains mesenteric fat and a small loop of nonobstructed small bowel. - Given Miralax for softening rebekah, will reevaluate after BM to see if constipation may be the cause of her pain - Advance diet as tolerated - PRN pain meds ordered - Will likely be d/c home with oral abx (cipro + flagyl)--will need to monitor INR closely DVT prophylaxis - Pt with h/o DVT/PE on chronic Coumadin - INR 4.8 today--Coumadin on hold - She will probably go home with Cipro and Flagyl--will likely lower Coumadin dose to 1mg while being treated, possibly held altogether Right inguinal hernia - CT on 03/11 showed right inguinal hernia - She was evaluated by surgery--Dr. Carroll recommended holding off on surgical intervention - Per patient, plan is to reevaluate in May Hypertension - Normotensive today - Continue Hyzaar 50/12.5mg PO HS Polymyalgia Rheumatica - Continue home prednisone 1mg PO daily FENGI: Clear liquid, advance as tolerated DVT ppx: Coumadin 2mg PO daily--currently on hold due to elevated INR Dispo: Med/surg Code: Full Code (2) DVT prophylaxis: (3) HTN (hypertension): (4) Right inguinal hernia: (5) Polymyalgia rheumatica: Admission and Anticipated Discharge Date Admission Date: March 24, 2020 Supervising Physician Co-Signing Physician Notes Resident Physician Supervision Note: I was present with Dr. Best Ortiz during the history and exam. I discussed the case with the resident and agree with the findings and plan as documented in the note. Any exceptions or clarifications are listed here: None pt is uncomfortable, did repeat CT abd/pelvis, without progression of diverticulitis, will however change antibiotics to traditional quinalone and flagyl cautiously while watching her INR, and consider low dose vitamin K if INR continues to rise exam of abdomen shows focal pain in LLQ no guarding Documented By: Carlin Garcia MD Subjective Patient having more abdominal pain today than yesterday. She complains of pain in the lower abdomen and does have rebound tenderness. She mentions that she had hard BM yesterday and feels somewhat constipated. Requests stool softener to help. Denies fever, chills, n/v, diarrhea, CP, SOB. Review of Systems Review of Systems: All systems reviewed & are unremarkable except as noted in Subjective Physical Exam Constitutional: WD/WN, vitals as above + in distress (abdominal pain) Respiratory: normal respiratory effort, lungs clear to auscultation Cardiovascular: RRR, no murmur, no edema Heart Sounds: normal S1 and normal S2 Gastrointestinal (Abdomen): Inspection/Auscultation: normal bowel sounds; abdomen not distended Percussion/Palpation: + abdomen tender (lower abdomen, rebound on left side) Skin: no rashes, warm and dry Psychiatric: A+Ox3, euthymic affect Results & Data Results & Data ([facility]) Vital Signs (Past 12 Hours) Vital Signs Temp Pulse Resp BP Pulse Ox 03/26/20 07:51 36.7 C 52 L 18 103/68 91 Resident Activity Tracking Resident Involvement: Resident Care Provided Care Provided: Adult Hospital Medicine
--- NOTE | 2020-03-26 14:57 | CT Scan Report ---
ABDOMEN AND PELVIS CT WITH ORAL CONTRAST CT DOSE: 804.96 mGy.cm HISTORY: Acute left lower quadrant abdominal pain. Acute sigmoid diverticulitis. Abd pain TECHNIQUE: Multiaxial CT images of the abdomen and pelvis were performed following the use of oral co ntrast. A dose lowering technique was utilized adhering to the principles of ALARA. COMPARISON STUDY: CT abdomen and pelvis 03/24/2020, 03/11/2020. FINDINGS: Minimal dependent subsegmental bibasilar atelectasis. No pneumatosis or pneumoperitoneum. Imaged infe rior cardiac chambers are unremarkable. Small pericardial effusion. The spleen, pancreas and adrenal glands are unremarkable. The gallbladder is also within normal limits. Calcifications of the right he patic lobe. Right hepatic lobe cysts measure up to 2.7 cm. There are additional tiny hypodensities of the liver which may reflect additional cysts however too small to characterize. Left renal cysts measure up to 4.6 cm. Additional tiny hypodensities of the kidneys are too small to characterize. No definite urolith or obstructive uropathy. Partial distention of the urinary bladder. Calcifications of the uterus are suggestive of calcified uterine fibroids. Calcified plaque of the a bdominal aorta without aneurysm. Unremarkable IVC. No adenopathy. Small fat filled right inguinal her chrissy contains a small nonobstructed loop of small bowel. Tiny hiatal hernia. There is no bowel obstruction. Severe colonic diverticulosis. There is unchanged sigmoid colon wall thickening with associated pericolonic stranding and trace free fluid. No discrete fluid collection or perforation. Terminal ileum is unremarkable. Visualized appendix appears noninfl colin. Unremarkable soft tissues. Degenerative changes of the spine, pelvis and hips. Probable bone is land of the left sacral ala. Tarlov cysts of the sacrum. IMPRESSION: 1. Acute uncomplicated sigmoid diverticulitis appears unchanged from the study obtained two days prio r on 03/24/2020. No evidence of perforation or abscess. 2. No bowel obstruction. 3. Small right inguinal hernia contains mesenteric fat and a small loop of nonobstructed small bowel. 4. Additional findings as above. ACT 112: Negative or not required by law. The above report was generated using voice recognition software. It may contain grammatical, syntax o r spelling errors. Electronically signed by: Kobi Aguirre M.D. 03/26/2020 2:55 PM
[2020-03-26] MEDS ORDERED: WARFARIN SOD 4 MG TAB PO SCH (16:00)
--- NOTE | 2020-03-26 16:18 | Billing Data ---
Date of Service March 26, 2020 Coding Level of Care Code 29212 Subseq Hosp Care Lvl 2
[2020-03-26] MEDS ORDERED: POTASSIUM CHLORIDE 20 MEQ/15 ML UDC PO ONE (17:00)
[2020-03-26] MEDS: CIPROFLOXACIN / D5W 400 MG/200 ML BAG IV SCH (17:23)
[2020-03-26] MEDS: ONDANSETRON INJ 2 MG/ML 2 ML VIAL IV PRN (17:42)
[2020-03-26] MEDS ORDERED: LORATADINE 10 MG TAB PO ONE (18:17)
[2020-03-26] MEDS: PREGABALIN 75 MG CAP PO SCH ×2 (18:21→22:21)
[2020-03-26] MEDS: SERTRALINE HCL 50 MG TABLET PO SCH (22:21)
[2020-03-26] MEDS: LOSARTAN/HCTZ 50/12.5MG TAB PO SCH (22:21)
[2020-03-26] MEDS: ACETAMINOPHEN 325 MG TAB PO PRN (22:26)
[2020-03-27] MEDS: CIPROFLOXACIN / D5W 400 MG/200 ML BAG IV SCH (03:52)
[2020-03-27] MEDS: metroNIDAZOLE 500 MG/100 ML BAG IV SCH ×2 (06:08→14:07)
[2020-03-27] MEDS: predniSONE 1 MG TAB PO SCH (08:20)
[2020-03-27 10:20] LABS: Basophils # (auto) 0.02 K/uL (0-0.2); Basophils % (auto) 0.3 %; Eosinophils # (auto) 0.07 K/uL (0-0.5); Eosinophils % (auto) 0.9 %; Hematocrit (blood only) 35.5 % (37-47); Hemoglobin 11.7 g/dL (12.0-16.0); Immature Granulocytes # (auto) 0.01 K/uL (0.00-0.02); Immature Granulocytes % (auto) 0.1 %; Lymphocytes # (auto) 0.57 K/uL (1.2-3.4); Lymphocytes % (auto) 7.2 %; Mean Corpuscular Hemoglobin 31.5 pg (25-34); Mean Corpuscular Volume 95.4 fL (80-100); Mean Platelet Volume 10.2 fL (7.4-10.4); Monocytes # (auto) 1.17 K/uL (0.11-0.59); Monocytes % (auto) 14.7 %; Neutrophils # (auto) 6.12 K/uL (1.4-6.5); Neutrophils % (auto) 76.8 %; Platelet Count 241 K/uL (130-400); RDW Coefficient of Variation 14.3 % (11.5-14.5); RDW Standard Deviation 48.6 fL (36.4-46.3); Red Blood Count 3.72 M/uL (4.2-5.4); White Blood Count 7.96 K/uL (4.8-10.8)
[2020-03-27 10:37] LABS: BUN Creatinine Ratio 8.2 (10-20); Calcium 8.4 mg/dl (8.5-10.1); Creatinine Clr Calc Pharmacy 56.3 ml/min; Est GFR (African American) 74.5; Est GFR (Non-African American) 64.3; Magnesium 1.7 mg/dl (1.8-2.4)
[2020-03-27 10:38] LABS: INR 3.8 (0.9-1.1); Prothrombin Time 37.4 Seconds (9.0-12.0)
[2020-03-27] MEDS: MAGNESIUM SULFATE / D5W 1 GM/100 ML BAG IV SCH ×2 (11:58→15:19)
--- NOTE | 2020-03-27 13:10 | Hospitalist Progress Note ---
Date of Service March 27, 2020 Assessment & Plan (1) Acute diverticulitis: Codi Heredia is a 79 year old female who presents to the ER with lower abdominal pain. Symptoms approximately 1 month. She went to her PCP and underwent CT on 03/11 showing mild acute diverticulitis and right inguinal hernia. She was started on Augmentin due to concern for interaction of metronidazole with her warfarin. 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 In the ER repeat CT was concerning for worsening diverticulitis. WBC within normal limits. UA not concerning for infection. Acute diverticulitis - Failed outpt treatment with Augmentin--concern for metronidazole interaction with Coumadin - CT in ER concerning for worsening sigmoid diverticulitis - Abdominal CT repeated 03/26 due to worsening abd pain: 1. Acute uncomplicated sigmoid diverticulitis appears unchanged from the study obtained two days prior on 03/24/2020. No evidence of perforation or abscess. 2. No bowel obstruction. 3. Small right inguinal hernia contains mesenteric fat and a small loop of nonobstructed small bowel. - Was switched from IV cefepime to IV ciprofloxacin 400mg IV q8h on 03/26 due to unchanged symptoms and imaging - Switched both cipro and Flagyl to oral as patient is tolerating PO intake well - Diet advanced--will monitor how she does with solid food tonight, anticipate d/c tomorrow if no problems Hypokalemia & hypomagnesemia - Patient had hypokalemia at 2.9 on 03/26 with normal magnesium level - Repleted with 40 mEq KCl - This AM potassium is 3.4 - Magnesium is low at 1.7--repleted with Mag sulfate 1g x2 bags - Will check levels tomorrow to check need for continued repletion of both DVT prophylaxis - Pt with h/o DVT/PE on chronic Coumadin - INR 3.8 today--Coumadin on hold - She will probably go home with Cipro and Flagyl--will likely lower Coumadin dose to 1mg while being treated, possibly held altogether Right inguinal hernia - CT on 03/11 showed right inguinal hernia - She was evaluated by surgery--Dr. Carroll recommended holding off on surgical intervention - Per patient, plan is to reevaluate in May Hypertension - Normotensive today - Continue Hyzaar 50/12.5mg PO HS Polymyalgia Rheumatica - Continue home prednisone 1mg PO daily FENGI: Clear liquid, advance as tolerated DVT ppx: Coumadin 2mg PO daily--currently on hold due to elevated INR Dispo: Med/surg Code: Full Code (2) DVT prophylaxis: (3) HTN (hypertension): (4) Right inguinal hernia: (5) Polymyalgia rheumatica: Admission and Anticipated Discharge Date Admission Date: March 24, 2020 Supervising Physician Co-Signing Physician Notes I personally examined the patient and verified all najera points of history and exam, discussed case, and agree with decision making with Dr Ortiz. feeling better wonders about going home tomorrow pain still there but much better tolerated liquid diet well feels she could probably tolerate regular vitals noted nad heent nc at mmm abd tender LLQ and epigastric more than elsewhere but no guarding/rebound/rigidity and she notes that this is far better than it was diverticulitis - suspect chronic steroid use led to more difficult course of treatment/slower turnaround. improving. regular diet, trial PO abx - if all goes well/continues to show improvement then hopefully home tomorrow labile INR - treatment for recurrent DVT but does not have acute clot at this time. follow in AM. hold coumadin for now. otherwise as above Subjective Patient reports feeling much better this morning. She says there is still some lower abdominal pain but much better than yesterday. Denies fever, chills, n/v, diarrhea, constipation, SOB, CP, palpitations. Review of Systems Review of Systems: All systems reviewed & are unremarkable except as noted in Subjective Physical Exam Constitutional: WD/WN, vitals as above no acute distress Respiratory: normal respiratory effort, lungs clear to auscultation Cardiovascular: RRR, no murmur, no edema Heart Sounds: normal S1 and normal S2 Gastrointestinal (Abdomen): Inspection/Auscultation: abdomen normal to inspection and normal bowel sounds; abdomen not distended Percussion/Palpation: + abdomen tender (mild lower abdominal tenderness) and abdomen soft; no guarding Skin: no rashes, warm and dry Psychiatric: A+Ox3, euthymic affect Results & Data Results & Data ([facility]) Vital Signs (Past 12 Hours) Vital Signs Temp Pulse Resp BP Pulse Ox 03/27/20 07:17 37.1 C 61 16 93/54 L 93 Resident Activity Tracking Resident Involvement: Resident Care Provided Care Provided: Adult [facility] Medicine
[2020-03-27 13:15] LABS: Potassium 3.4 mmol/L (3.5-5.1)
--- NOTE | 2020-03-27 16:35 | Billing Data ---
Date of Service March 27, 2020 Coding Level of Care Code 97098 Subseq Hosp Care Lvl 3
[2020-03-27] MEDS: PREGABALIN 75 MG CAP PO SCH ×2 (17:08→20:19)
[2020-03-27] MEDS: CIPROFLOXACIN 500 MG TAB PO SCH (20:19)
[2020-03-27] MEDS: LOSARTAN/HCTZ 50/12.5MG TAB PO SCH (20:19)
[2020-03-27] MEDS: SERTRALINE HCL 50 MG TABLET PO SCH (20:20)
[2020-03-27] MEDS: metroNIDAZOLE 500 MG TAB PO SCH (21:21)
[2020-03-28] MEDS: metroNIDAZOLE 500 MG TAB PO SCH (05:22)
[2020-03-28] MEDS: predniSONE 1 MG TAB PO SCH (07:46)
[2020-03-28] MEDS: CIPROFLOXACIN 500 MG TAB PO SCH (07:46)
[2020-03-28 08:05] LABS: Basophils # (auto) 0.02 K/uL (0-0.2); Basophils % (auto) 0.3 %; Eosinophils # (auto) 0.07 K/uL (0-0.5); Eosinophils % (auto) 0.9 %; Hematocrit (blood only) 37.4 % (37-47); Hemoglobin 12.2 g/dL (12.0-16.0); Lymphocytes # (auto) 0.79 K/uL (1.2-3.4); Lymphocytes % (auto) 10.3 %; Mean Corpuscular Hemoglobin 30.9 pg (25-34); Mean Corpuscular Hgb Conc 32.6 g/dL (32-36); Mean Corpuscular Volume 94.7 fL (80-100); Monocytes # (auto) 1.23 K/uL (0.11-0.59); Neutrophils # (auto) 5.57 K/uL (1.4-6.5); Neutrophils % (auto) 72.5 %; Platelet Count 251 K/uL (130-400); RDW Coefficient of Variation 14.2 % (11.5-14.5); RDW Standard Deviation 48.3 fL (36.4-46.3); Red Blood Count 3.95 M/uL (4.2-5.4); White Blood Count 7.68 K/uL (4.8-10.8)
[2020-03-28 08:14] LABS: INR 2.7 (0.9-1.1); Prothrombin Time 27.1 Seconds (9.0-12.0)
[2020-03-28 08:21] LABS: BUN Creatinine Ratio 9.2 (10-20); Calcium 8.7 mg/dl (8.5-10.1); Creatinine Clr Calc Pharmacy 63.7 ml/min; Est GFR (African American) 86.5; Est GFR (Non-African American) 74.6; Potassium 3.4 mmol/L (3.5-5.1)
--- NOTE | 2020-03-28 10:33 | Discharge Summary ---
Date of Service March 28, 2020 Admission HPI Per Admitting Provider Codi Heredia is a 79 year old female who presents to the ER with lower abdominal pain. Symptoms approximately 1 month intermittently. Last 2 weeks pain has been more constant ache. Across lower abdomen (not one sided), no radiation. No change with bowel movements or urination. No dysuria. No melena, bright red blood in stool, nausea or vomiting. She notes problems with chronic constipation which is no worse than usual which she treats herself with a laxative capsule over the counter (unknown exactly which). She initially presented to her PCP and underwent CT on showing mild acute diverticulitis and right inguinal hernia. She was started on Augmentin due to concern for interaction of metronidazole with her warfarin, despite completing a course of this her pain has increased therefore decided to come to the ER today. 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 In the ER repeat CT was concerning for worsening diverticulitis. WBC within normal limits. UA not concerning for infection. She was referred to medicine for failed outpatient management for acute diverticulitis. Admission Exam Per Admitting Provider Constitutional: well developed and well nourished; no acute distress Eyes:+ anicteric sclerae; normal pupil size Neck: trachea midline, no thyromegaly Respiratory:normal respiratory effort, lungs clear to auscultation Cardiovascular: RRR, no murmur, no edema Gastrointestinal (Abdomen): Inspection/Auscultation: abdomen normal to inspection and normal bowel sounds; abdomen not distended Percussion/Palpation: + abdomen tender (lower abdomen) and abdomen soft; no guarding and abdomen not rigid Musculoskeletal: no cyanosis or clubbing, extremities motor strength 5/5 Skin:no rashes, warm and dry Neurologic: moves all extremities and awake; not confused Psychiatric: A+Ox3, euthymic affect Genitourinary: no CVA tenderness Principal Diagnosis Acute diverticulitis Discharge Exam Constitutional WD/WN, vitals as above no acute distress Respiratory normal respiratory effort, lungs clear to auscultation Cardiovascular RRR, no murmur, no edema Heart Sounds: normal S1 and normal S2 Gastrointestinal (Abdomen) normal bowel sounds, soft, nontender, no hepatosplenomegaly Skin no rashes, warm and dry Psychiatric A+Ox3, euthymic affect Discharge Data Allergies Allergy/AdvReac Type Severity Reaction Status Date / Time [id number] Reductase Allergy Verified 03/24/20 12:49 Inhibitor tramadol Allergy Verified 03/24/20 12:49 Bactrim AdvReac Intermediate STOMACH Verified 01/08/17 09:31 SICKNESS sulfamethoxazole AdvReac Intermediate STOMACH Verified 03/24/20 12:49 SICKNESS trimethoprim AdvReac Intermediate STOMACH Verified 03/24/20 12:49 SICKNESS Consultations 03/24/20 13:26 ED Decision to Admit Stat Ordered Studies 03/24/20 11:53 CT abd pelvis IV con only Stat 03/26/20 11:34 CT abd pelvis oral con only Stat Hospital Course (1) Acute diverticulitis: Codi Heredia is a 79 year old female who presents to the ER with lower abdominal pain. Symptoms approximately 1 month. She went to her PCP and underwent CT on 03/11 showing mild acute diverticulitis and right inguinal hernia. She was started on Augmentin due to concern for interaction of metronidazole with her warfarin. 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 In the ER repeat CT was concerning for worsening diverticulitis. WBC within normal limits. UA not concerning for infection. Acute diverticulitis - Failed outpt treatment with Augmentin--concern for metronidazole interaction with Coumadin - CT in ER concerning for worsening sigmoid diverticulitis - Abdominal CT repeated 03/26 due to worsening abd pain: 1. Acute uncomplicated sigmoid diverticulitis appears unchanged from the study obtained two days prior on 03/24/2020. No evidence of perforation or abscess. 2. No bowel obstruction. 3. Small right inguinal hernia contains mesenteric fat and a small loop of nonobstructed small bowel. - Was switched from IV cefepime to IV ciprofloxacin 400mg IV q8h on 03/26 due to unchanged symptoms and imaging - Switched both cipro and Flagyl to oral as patient tolerating PO intake well - Tolerated full diet well, tolerating PO abx well--fit for d/c today - Patient discharged on PO cipro and flagyl to complete 14 total days of these antibiotics as her recovery was somewhat slow - Recommend f/u with PCP for further eval DVT prophylaxis - Pt with h/o DVT/PE on chronic Coumadin - INR 2.7 today--Coumadin on hold throughout admission - Pt home on Cipro and Flagyl for 12 additional days - Recommended lowering Coumadin dose to 1mg while being treated - Close follow-up with PCP to keep eye on INR Right inguinal hernia - CT on 03/11 showed right inguinal hernia - She was evaluated by surgery--Dr. Carroll recommended holding off on surgical intervention - Per patient, plan is to reevaluate in May Hypertension - Normotensive today - Continue Hyzaar 50/12.5mg PO HS Polymyalgia Rheumatica - Continue home prednisone 1mg PO daily FENGI: Heart healthy Dispo: Home Code: Full Code (2) DVT prophylaxis: (3) HTN (hypertension): (4) Right inguinal hernia: (5) Polymyalgia rheumatica: Total Time Total Time Spent Total Time Spent (In Minutes): <30 Discharge Plan Discharge Items Patient Disposition: Home - Self-Care Reason For Visit: ACUTE DIVERTICULITIS Discharge Diagnosis: Acute diverticulitis Activity: Per Instructions section Non-emergency contact: Primary Care Provider Call non-emergency contact if: you have any medication questions, your symptoms worsen and your temperature is above 101 Follow-up/Referrals: Ella Esquivel MD [Primary Care Provider] - Diet: Heart Healthy Addtl Attending Provider Instructions: You were admitted to [facility] due to worsening of your diverticulitis. You were treated with intravenous antibiotics and progressed well. Your diet was advanced and you tolerated food well. As such, you are stable to return home and finish your course of antibiotics as an outpatient. The antibiotics you will be sent home with may interact with your Coumadin. Additionally, while you were admitted, your INR was elevated and the Coumadin was held. Due to these facts, it is recommended that while you are taking the antibiotics you take half of your Coumadin dose. You should have your blood drawn on Monday or Monday to check your INR. Please follow up with the provider who manages your Coumadin to discuss when to resume your regular dosing. If your symptoms worsen or new ones develop, please seek emergency care. Pending Studies at Discharge: No Stand-Alone Forms: My [employer], Smoking Cessation Medications and DC Order Prescriptions: New ciprofloxacin HCl 500 mg tablet 500 mg PO Q12H 12 Days Qty: 24 RF: 0 metronidazole 500 mg tablet 500 mg PO Q8H 12 Days Qty: 36 RF: 0 Continued potassium chloride 10 mEq capsule, extended release 10 meq PO BID Qty: 180 RF: 3 warfarin 2 mg tablet See Rx Instructions mg PO DAILY Qty: 120 RF: 3 calcium carbonate-vitamin D3 600 mg(1,500mg) -200 unit tablet 1 tab PO QAM RF: 0 nitroglycerin 0.4 mg tablet, sublingual 0.4 mg SL Q5M RF: 0 albuterol sulfate [ProAir HFA] 90 mcg/actuation HFA aerosol inhaler 2 puffs INH Q6H PRN (Reason: shortness of breath or wheezing) Qty: 18 RF: 0 methotrexate sodium 2.5 mg tablet 15 mg PO .WE@QDD RF: 0 folic acid 1 mg tablet 2 mg PO QDD RF: 0 prednisone 1 mg Tablet 1 mg PO QAM RF: 0 vitamin B complex Tablet 1 tab PO QAM RF: 0 cholecalciferol (vitamin D3) [Vitamin D3] 25 mcg (1,000 unit) Tablet 25 mcg PO BID RF: 0 Oxygenic G 1 cap PO BIDM RF: 0 donepezil 5 mg tablet 5 mg PO HS RF: 0 losartan-hydrochlorothiazide 100-25 mg tablet 1 tab PO HS RF: 0 sertraline 50 mg tablet 50 mg PO HS RF: 0 pregabalin 75 mg Capsule 75 mg PO BID RF: 0 Discharge Orders: Discharge Order (Routine); Ordered 03/28/20 Ordered By: Best Sullivan/Other Patient Handouts: Diverticulosis Diverticulitis Admission Data Admit Date/Time: 03/24/20 14:00 Attending Provider: Isaias Fisher Admit Provider: Lee Petit Primary Care Provider: Ella Esquivel Other Providers: Lee Petit Other Interventions: Discharge Summary Assessment (RN) Last Done: 03/28/20 10:51 Supervising Physician Co-Signing Physician Notes I personally examined the patient and verified all najera points of history and exam, discussed case, and agree with decision making with Dr Ortiz. feeling better tolerated PO abx ok tolerated regular food ok feels up to going home vitals noted nad heent nc at mmm abd mild tender llq no guarding no rebound diverticulitis - suspect chronic steroid use led to more difficult course of treatment/slower turnaround. improving. stable for home on cipro/flagyl. (chose this regimen due to immune suppression and how slow she was to get better, felt that augmentin or lesser regimen may not be enough to reduce risk of further possible complications) labile INR - treatment for recurrent DVT but does not have acute clot at this time. home on temporarily altered coumadin regimen and close f/u. otherwise as above Resident Activity Tracking Resident Involvement: Resident Care Provided Care Provided: Adult Hospital Medicine
== END 2020-03-28 14:37 | disposition home or self-care (01) | DRG 392 ==
LOC: ED 11:26 → 3N 14:00 → SUATTDRO 14:00 → 3N 15:53 → 3W 03-28 05:36

== ENCOUNTER 2021-05-03 10:46 | Inpatient (IN) ==
[2021-05-03] MEDS ORDERED: ONDANSETRON INJ 2 MG/ML 2 ML VIAL IV STA (11:20)
[2021-05-03] MEDS ORDERED: SODIUM CHLORIDE 0.9% 1000ML 1,000 ML IV STA (11:20)
[2021-05-03] MEDS ORDERED: MoRPHine SULFATE 4 MG/ML 1 ML CARP\\VIAL IV STA (11:20)
--- NOTE | 2021-05-03 11:24 | Emergency Department Note ---
History of Present Illness General Chief complaint: Fall Time Seen by Provider: 05/03/21 11:13 History of Present Illness Maximum Pain Intensity: 7 80-year-old female presents to the ED with a chief complaint of weakness and collapsing this morning as well as some lower abdominal pain. The patient states that she has had some lower abdominal pain primarily on the left and suprapubic region that waxes and wanes over the past 10 days or so. She reports that she has had a decreased appetite and has not eaten for the last couple of days. She states that she tries to drink but does not drink adequately. This morning when she got up to go to the bathroom, she states that she was very weak and collapsed. For this reason her called the ambulance and she was brought in for evaluation. The patient denies any vomiting. She denies any upper respiratory complaints. Denies any injury related to her collapse. She has not taken anything for symptoms. Her symptoms are worse with movement and pushing on the abdomen. Home Medications Medication Instructions Recorded Confirmed Type albuterol sulfate 90 mcg/actuation 2 puffs INH Q6H PRN #18 gm 10/28/18 05/03/21 Rx aerosol inhaler (ProAir HFA) nitroglycerin 0.4 mg sublingual 0.4 mg SL Q5M PRN tab 10/28/18 05/03/21 History tablet folic acid 1 mg tablet 2 mg PO QPM tab 02/26/19 05/03/21 History methotrexate sodium 2.5 mg tablet 15 mg PO WK tab 01/20/20 05/03/21 History cholecalciferol (vitamin D3) 25 25 mcg PO BID 03/24/20 05/03/21 History mcg (1,000 unit) tablet (Vitamin D3) pregabalin 75 mg capsule 75 mg PO BID 03/24/20 05/03/21 History polyethylene glycol 3350 17 17 g PO DAILY PRN 05/06/20 05/03/21 History gram/dose oral powder (Miralax) psyllium husk 3.4 gram/5.4 gram 1 tbsp PO DAILY PRN 05/06/20 05/03/21 History oral powder (Metamucil) losartan 100 1 tab PO HS #90 tab 07/24/20 05/03/21 Rx mg-hydrochlorothiazide 25 mg tablet potassium chloride 10 mEq 10 meq PO BID #180 cap 11/04/20 05/03/21 Rx capsule,extended release sertraline 50 mg tablet 50 mg PO HS #90 tab 11/05/20 05/03/21 Rx alendronate 70 mg tablet 70 mg PO WK 12/21/20 05/03/21 History docusate sodium 100 mg capsule 100 mg PO DAILY PRN 12/21/20 05/03/21 History (Stool Softener) golimumab 50 mg/0.5 mL 50 mg SUBCUT Q90M 12/21/20 05/03/21 History subcutaneous pen injector (Simponi) turmeric 400 mg capsule 400 mg PO QAM 12/21/20 05/03/21 History donepezil 10 mg tablet (Aricept) 10 mg PO HS #90 tab 01/05/21 05/03/21 Rx warfarin 2 mg tablet 2 mg PO UD #110 tab 04/01/21 05/03/21 Rx amoxicillin 875 mg-potassium 1 tab PO BID 10 Days #20 tab 04/27/21 05/03/21 Rx clavulanate 125 mg tablet (Augmentin) Allergies Allergy/AdvReac Type Severity Reaction Status Date / Time [id number] Reductase AdvReac Severe Muscle Pain Verified 05/03/21 11:24 Inhibitor [Xqfedus-Jjx-Ohe Reductase Inhibitor] Bactrim AdvReac Intermediate STOMACH Verified 01/08/17 09:31 SICKNESS sulfamethoxazole AdvReac Intermediate STOMACH Verified 05/03/21 11:24 SICKNESS trimethoprim AdvReac Intermediate STOMACH Verified 05/03/21 11:24 SICKNESS tramadol AdvReac Unknown no pain Verified 05/03/21 11:24 relief Past Med/Surg History Medical History Allergic rhinitis Anticoagulant long-term use Asthma well controlled. 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 HTN (hypertension) Hyperlipidemia Non-occlusive coronary artery disease NSTEMI (non-ST elevated myocardial infarction) (~2015) Obstructive sleep apnea uses a cpap Osteoporosis Peripheral neuropathy Polymyalgia rheumatica Follows with rheum- takes methotrexate- no significant relief Recently stated on infusions Recurrent deep vein thrombosis (DVT) Last occurred ~20 years ago. Justus have IVC filter placed 3-4 days prior to surgery Stomach ulcer Hx - no recent issues Surgical History History of ankle surgery left History of esophagogastroduodenoscopy (EGD) Hx of hysterectomy with RSO S/P cardiac cath (~2015) no stents. [facility] July 2016 minimal disease in small distal vessels S/P cataract extraction bilateral S/P colonoscopy Status post mastoidectomy Right Family History Unknown Pulmonary embolism Brother Coronary heart disease Myocardial infarction Stroke Mother Myocardial infarction Father Stroke Family/Other Family history of reaction to anesthesia 40yrs ago cousin had lump removed on her breast and during surgery, was told "she was given too much anesthesia and never woke up" Denies family history of Ovarian cancer Prostate cancer Breast cancer Lung cancer Colorectal cancer Social History Smoking Status: Former smoker Age Started Using Tobacco: 18; Age Quit Using Tobacco: 28; Years Smoked: 10; Second Hand Exposure: No; Hx Alcohol Use: No Hx Substance Use: No Preferred Language: Serbian Communication Ability: Effective Visual Impairment: Partially Limited Hearing Ability: Normal [employer] Required: No Beliefs That Will Affect Care: None marital status: Current Living Situation: Spouse current occupational status: retired How many Children do You have: 3 Feels Safe at Home: Yes Childhood Exposure to Second-Hand Smoke: Yes Diet Comment: Regular caffeine: Yes (2 cups of coffee a day) during the past year weight has: remained stable Dental Care, Regularly: Yes Physical Activity Frequency: Does not Exercise Seatbelt Use: always Sunscreen Use: No (Doesn't go out much) Do you think of yourself as: straight/heterosexual Assistive Devices: CPAP, Glasses and Walker Review of Systems A total of 10 systems reviewed and were otherwise negative Physical Exam Vital Signs Vital Signs - 24 hr 05/03/21 10:56 05/03/21 10:57 05/03/21 11:00 Pulse Rate 64 86 68 Pulse Rate from SpO2 Sensor 72 68 Pulse Rhythm Respiratory Rate 20 20 20 Respiratory Effort / Characteristics Spontaneous Blood Pressure 128/59 L Blood Pressure Mean 82 Blood Pressure Position Sitting Pulse Oximetry 95 95 96 Oxygen Delivery Method Room Air Room Air Room Air Sepsis Recent Fever Within 48 Hours No Sepsis New/Unexplained Change in Mental Status No Sepsis Action Taken by Nursing No Action Required 05/03/21 11:04 05/03/21 11:10 05/03/21 11:20 Pulse Rate 69 64 Pulse Rate from SpO2 Sensor 68 68 Pulse Rhythm Respiratory Rate 17 12 Respiratory Effort / Characteristics Blood Pressure Blood Pressure Mean Blood Pressure Position Pulse Oximetry 96 94 96 Oxygen Delivery Method Room Air Room Air Room Air Sepsis Recent Fever Within 48 Hours Sepsis New/Unexplained Change in Mental Status Sepsis Action Taken by Nursing 05/03/21 11:28 05/03/21 11:30 05/03/21 11:40 Pulse Rate 64 66 71 Pulse Rate from SpO2 Sensor 66 69 Pulse Rhythm Regular Respiratory Rate 18 16 22 Respiratory Effort / Characteristics Blood Pressure Blood Pressure Mean Blood Pressure Position Pulse Oximetry 94 95 95 Oxygen Delivery Method Room Air Room Air Room Air Sepsis Recent Fever Within 48 Hours Sepsis New/Unexplained Change in Mental Status Sepsis Action Taken by Nursing 05/03/21 11:50 05/03/21 12:00 05/03/21 12:02 Pulse Rate 68 68 75 Pulse Rate from SpO2 Sensor 68 68 72 Pulse Rhythm Respiratory Rate 18 13 16 Respiratory Effort / Characteristics Blood Pressure 122/70 122/70 Blood Pressure Mean 87 87 Blood Pressure Position Pulse Oximetry 95 94 93 Oxygen Delivery Method Room Air Room Air Sepsis Recent Fever Within 48 Hours Sepsis New/Unexplained Change in Mental Status Sepsis Action Taken by Nursing 05/03/21 12:10 05/03/21 12:20 05/03/21 12:34 Pulse Rate 67 66 Pulse Rate from SpO2 Sensor 67 67 Pulse Rhythm Respiratory Rate 18 18 18 Respiratory Effort / Characteristics Blood Pressure Blood Pressure Mean Blood Pressure Position Pulse Oximetry 94 94 94 Oxygen Delivery Method Sepsis Recent Fever Within 48 Hours Sepsis New/Unexplained Change in Mental Status Sepsis Action Taken by Nursing 05/03/21 12:40 Pulse Rate 71 Pulse Rate from SpO2 Sensor 70 Pulse Rhythm Respiratory Rate 22 Respiratory Effort / Characteristics Blood Pressure Blood Pressure Mean Blood Pressure Position Pulse Oximetry 92 Oxygen Delivery Method Room Air Sepsis Recent Fever Within 48 Hours Sepsis New/Unexplained Change in Mental Status Sepsis Action Taken by Nursing CONSTITUTIONAL/VITAL SIGNS: Reviewed / noted above. GENERAL: Non-toxic in appearance. INTEGUMENTARY: Warm, dry, and [place]. HEAD: Normocephalic. EYES: without scleral icterus or trauma. ENT/OROPHARYNX: clear and moist. LYMPHADENOPATHY/NECK: Is supple without lymphadenopathy or meningismus. RESPIRATORY: Clear to auscultation bilaterally. No increased work of breathing. CARDIOVASCULAR: Regular rate and rhythm. GI/ABDOMEN: Soft and tender in the suprapubic area and left lower quadrant. No organomegaly or pulsatile mass. EXTREMITIES: Warm and well perfused. BACK: No CVA tenderness. NEUROLOGICAL: Intact without focal deficits. PSYCHIATRIC: normal affect. MUSCULOSKELETAL: Normally developed with good muscle tone. TRIAGE NURSING DOCUMENTATION REVIEWED. Course Administered Medications Discontinued Medications Sodium Chloride (Nss 1000ml) 1,000 mls @ 999 mls/hr IV .Q1H1M STA Stop: 05/03/21 12:20 Last Infusion: 05/03/21 12:42 Dose: 0 mls/hr Documented by: [id number] Admin: 05/03/21 11:41 Dose: 999 mls/hr Documented by: [id number] Ampicillin Sodium/Sulbactam Sodium 3,000 mg/ Sodium Chloride 108 mls @ 200 mls/hr IV NOW STA; Protocol Stop: 05/03/21 13:04 Last Admin: 05/03/21 13:09 Dose: 200 mls/hr Documented by: [id number] Ioversol (Optiray 320 100ml) 94 ml IV ONCE ONE Stop: 05/03/21 12:27 Last Admin: 05/03/21 12:30 Dose: 94 ml Documented by: [id number] Morphine Sulfate (Morphine Sulfate 4 Mg/Ml 1 Ml Carp\\Vial) 2 mg IV NOW STA Stop: 05/03/21 11:21 Last Admin: 05/03/21 11:43 Dose: 2 mg Documented by: [id number] Ondansetron HCl (Ondansetron Inj 2 Mg/Ml 2 Ml Vial) 4 mg IV NOW STA Stop: 05/03/21 11:21 Last Admin: 05/03/21 11:42 Dose: 4 mg Documented by: [id number] Medical Decision Making Differential Diagnosis Differential includes acute coronary syndrome, myocardial infarction, CVA, TIA, anemia, infection, pneumonia, UTI, pyelonephritis, poor nutrition, dehydration, electrolyte disturbance,hypoglycemia. Differential considered: pancreatitis, hepatitis, acute cholecystitis, AAA, UTI, pyelonephritis, kidney stones, appendicitis, diverticulitis, shingles, bowel obstruction, mesenteric ischemia, intussusception,hernia. Medical Records Attestation: I reviewed the patient's medical records. Home Medications Current Medication List: was personally reviewed by me Laboratory Data Attestation: I reviewed the patient's lab results. Result diagrams: 05/03/21 11:05 05/03/21 11:05 Lab Results 05/03/21 05/03/21 05/03/21 Range/Units 11:05 11:05 11:05 WBC 15.41 H (4.8-10.8) K/uL RBC 4.56 (4.2-5.4) M/uL Hgb 14.5 (12.0-16.0) g/dL Hct 42.6 (37-47) % MCV 93.4 (80-100) fL MCH 31.8 (25-34) pg MCHC 34.0 (32-36) g/dL RDW Std Deviation 45.1 (36.4-46.3) fL RDW Coeff of Wilfredo 13.4 (11.5-14.5) % Plt Count 231 (130-400) K/uL MPV 10.7 H (7.4-10.4) fL Immature Gran % (Auto) 0.5 % Neut % (Auto) 84.1 % Lymph % (Auto) 4.6 % Page % (Auto) 10.6 % Eos % (Auto) 0.1 % Baso % (Auto) 0.1 % Neut # (Auto) 12.97 H (1.4-6.5) K/uL Lymph # (Auto) 0.71 L (1.2-3.4) K/uL Page # (Auto) 1.63 H (0.11-0.59) K/uL Eos # (Auto) 0.01 (0-0.5) K/uL Baso # (Auto) 0.02 (0-0.2) K/uL Immature Gran # (Auto) 0.07 H (0.00-0.02) K/uL PT 36.6 H (9.0-12.0) Seconds INR 4.0 H (0.9-1.1) Sodium 135 L (136-145) mmol/L Potassium 3.2 L (3.5-5.1) mmol/L Chloride 101 (98-107) mmol/L Carbon Dioxide 26 (21-32) mmol/L Anion Gap 8.0 (3-11) BUN 9 (7-18) mg/dl Creatinine 0.87 (0.6-1.2) mg/dl Est Cr Clr Drug Dosing 57.2 ml/min Est GFR ( Amer) 72.9 ml/min Est GFR (Non-Af Amer) 62.9 ml/min BUN/Creatinine Ratio 10.7 (10-20) Glucose 114 H (70-99) mg/dl Calcium 9.5 (8.5-10.1) mg/dl Total Bilirubin 0.9 (0.2-1) mg/dl AST 16 (15-37) U/L ALT 20 (12-78) Alkaline Phosphatase 93 (45-117) U/L Troponin I < 0.015 (0-0.045) ng/ml Total Protein 7.6 (6.4-8.2) gm/dl Albumin 3.2 L (3.4-5.0) gm/dl Globulin 4.4 H (2.5-4.0) gm/dl Albumin/Globulin Ratio 0.7 L (0.9-2) Lipase 110 (73-393) U/L Urine Color Urine Appearance (Clear) Urine pH (4.5-7.5) Ur Specific [place] (1.000-1.030) Urine Protein (Negative) Urine Glucose (UA) (Negative) Urine Ketones (Negative) Urine Blood (Negative) Urine Nitrite (Negative) Urine Bilirubin (Negative) Urine Urobilinogen (Negative) Ur Leukocyte Esterase (Negative) Urine WBC (Auto) (0-5) /hpf Urine RBC (Auto) (0-4) /hpf U Hyaline Cast (Auto) (0-5) /lpf U Epithel Cells (Auto) (0-5) /lpf Urine Bacteria (Auto) (Negative) 05/03/21 Range/Units 11:09 WBC (4.8-10.8) K/uL RBC (4.2-5.4) M/uL Hgb (12.0-16.0) g/dL Hct (37-47) % MCV (80-100) fL MCH (25-34) pg MCHC (32-36) g/dL RDW Std Deviation (36.4-46.3) fL RDW Coeff of Wilfredo (11.5-14.5) % Plt Count (130-400) K/uL MPV (7.4-10.4) fL Immature Gran % (Auto) % Neut % (Auto) % Lymph % (Auto) % Page % (Auto) % Eos % (Auto) % Baso % (Auto) % Neut # (Auto) (1.4-6.5) K/uL Lymph # (Auto) (1.2-3.4) K/uL Page # (Auto) (0.11-0.59) K/uL Eos # (Auto) (0-0.5) K/uL Baso # (Auto) (0-0.2) K/uL Immature Gran # (Auto) (0.00-0.02) K/uL PT (9.0-12.0) Seconds INR (0.9-1.1) Sodium (136-145) mmol/L Potassium (3.5-5.1) mmol/L Chloride (98-107) mmol/L Carbon Dioxide (21-32) mmol/L Anion Gap (3-11) BUN (7-18) mg/dl Creatinine (0.6-1.2) mg/dl Est Cr Clr Drug Dosing ml/min Est GFR ( Amer) ml/min Est GFR (Non-Af Amer) ml/min BUN/Creatinine Ratio (10-20) Glucose (70-99) mg/dl Calcium (8.5-10.1) mg/dl Total Bilirubin (0.2-1) mg/dl AST (15-37) U/L ALT (12-78) Alkaline Phosphatase (45-117) U/L Troponin I (0-0.045) ng/ml Total Protein (6.4-8.2) gm/dl Albumin (3.4-5.0) gm/dl Globulin (2.5-4.0) gm/dl Albumin/Globulin Ratio (0.9-2) Lipase (73-393) U/L Urine Color Yellow Urine Appearance Clear (Clear) Urine pH 7.5 (4.5-7.5) Ur Specific [place] 1.014 (1.000-1.030) Urine Protein Trace H (Negative) Urine Glucose (UA) Negative (Negative) Urine Ketones Negative (Negative) Urine Blood Negative (Negative) Urine Nitrite Negative (Negative) Urine Bilirubin Negative (Negative) Urine Urobilinogen Negative (Negative) Ur Leukocyte Esterase Negative (Negative) Urine WBC (Auto) 1-5 (0-5) /hpf Urine RBC (Auto) 5-10 H (0-4) /hpf U Hyaline Cast (Auto) 5-10 H (0-5) /lpf U Epithel Cells (Auto) >30 H (0-5) /lpf Urine Bacteria (Auto) Negative (Negative) Imaging Data Radiologist's Impression: Abdomen/Pelvis CT 05/03/21 11:20 CT SCAN OF THE ABDOMEN AND PELVIS WITH IV CONTRAST CLINICAL HISTORY: Left lower quadrant abdominal pain. COMPARISON STUDY: Abdominal CT dated 04/26/2021. TECHNIQUE: Following the IV administration of 94 cc of Optiray 320, CT scan of the abdomen and pelvis is performed from the lung bases to the proximal femora. Images are reviewed in the axial, sagittal, and coronal planes. IV contrast was administered without complication. A dose lowering technique was utilized adhering to the principles of ALARA. CT DOSE: 807.78 mGy.cm FINDINGS: Lung bases: The heart is normal in size and without pericardial effusion. A fat- containing Bochdalek hernia is seen at the left lung base. The lung bases are clear noting bibasilar scarring/atelectasis. There is a small hiatal hernia. Liver: The contrast-enhanced liver is normal in size, contour, and attenuation. There is no intrahepatic biliary ductal dilatation. The hepatic veins and portal veins are patent. Scattered hepatic cysts measure up to 2.6 cm. There are scattered calcified hepatic granulomas. Gallbladder: Unremarkable. Spleen: Normal in size and attenuation. Pancreas: Unremarkable. Adrenal glands: Unremarkable. Kidneys: The contrast enhanced kidneys are normal in size and without hydronephrosis. The kidneys enhance symmetrically. Left renal cysts measure up t o 5 cm. Abdominal vasculature: The abdominal aorta is normal in course and caliber noting advanced atherosclerotic calcification. Bowel: There is moderate to advanced colonic diverticulosis. There is significant wall thickening with pericolonic inflammation and fluid involving the proximal sigmoid colon consistent with severe acute diverticulitis. No organized fluid collection is identified to indicate abscess. No bowel obstruction is seen. The appendix is well-visualized and normal. Peritoneum: There is a small volume of free fluid tracking along the left paracolic gutter and in the pelvis. No intraperitoneal free air is identified. Lymphadenopathy: None. Pelvic viscera: The bladder is normal as visualized. There are calcified uterine fibroids. No adnexal lesion is seen. There are small bilateral fat-containing inguinal hernias. Skeletal structures: The skeletal structures are osteopenic. There is mild to moderate lumbosacral spondylosis. 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 No lytic or blastic lesions are seen. IMPRESSION: 1. Findings are consistent with severe acute diverticulitis of the sigmoid colon. This has significantly worsened as compared to 04/26/2021. 2. No intraperitoneal free air is identified and there is no organized fluid collections suggest abscess. 3. Free fluid in the left paracolic gutter and pelvis is likely reactive. 4. Additional findings as above. ACT 112: Negative or not required by law. Electronically signed by: Adolfo Odell M.D. 05/03/2021 12:48 PM Chest X-Ray 05/03/21 11:21 XR chest 1V portable HISTORY: 80 years-old Female abd pain acute chest and abdominal pain COMPARISON: Chest radiograph 12/23/2020 TECHNIQUE: Portable AP view of the chest FINDINGS: The cardiac silhouette is enlarged. Calcified plaque of the thoracic aorta. No pneumothorax, pleural effusion, airspace consolidation or overt pulmonary edema. Minimal opacities of the lateral left lung base suggest atelectasis. Degenerative changes of the shoulders and spine. Mild sigmoidal thoracolumbar scoliosis. IMPRESSION: No acute process. ACT 112: Negative or not required by law. The above report was generated using voice recognition software. It may contain grammatical, syntax or spelling errors. Electronically signed by: Gregorio Aguirre M.D. 05/03/2021 12:09 PM ECG Data Attestation: I personally reviewed and interpreted this ECG as follows: Additional Comments: Twelve-lead EKG: Per my interpretation there is a normal sinus rhythm at a rate of 63. No ST elevation. No PVCs. Normal QTC MDM Narrative Patient presents with 10 days of left lower quadrant abdominal pain and suprapubic abdominal pain with decreased appetite and decreased p.o. intake over the past couple of days. This morning she collapsed because of weakness. Denies injury related to her flaps but has tenderness in the lower quadrant on the left and suprapubic area on my exam. Her vital signs are normal. The white blood cell count is 15. INR is 4. Complete metabolic panel was unremarkable. Troponin was negative. Urine did not show infection. A chest x-ray was negative for acute disease. EKG shows normal sinus rhythm at a rate of 63. CT scan of the abdomen shows severe acute diverticulitis. The patient was given IV fluids as well as IV Unasyn. She was also given some IV morphine for pain. She was given Zofran for nausea. She will be seen by the hospitalist for further inpatient evaluation and care. Impression & Plan Diverticulitis, Collapse Discharge Plan Visit Data Chief Complaint: Fall ED Provider: Jamil Parra Discharge Problem: Diverticulitis, Collapse Patient Disposition: Being Evaluated by Hospitalist Forms Stand Alone Forms: [facility] Prescriptions Prescriptions: No Action losartan-hydrochlorothiazide 100-25 mg tablet 1 tab PO HS Qty: 90 RF: 3 potassium chloride 10 mEq capsule, extended release 10 meq PO BID Qty: 180 RF: 3 donepezil [Aricept] 10 mg tablet 10 mg PO HS Qty: 90 RF: 3 warfarin 2 mg tablet 2 mg PO UD Qty: 110 RF: 3 amoxicillin-pot clavulanate [Augmentin] 875-125 mg tablet 1 tab PO BID 10 Days Qty: 20 RF: 0 nitroglycerin 0.4 mg tablet, sublingual 0.4 mg SL Q5M PRN (Reason: Chest Pain) RF: 0 albuterol sulfate [ProAir HFA] 90 mcg/actuation HFA aerosol inhaler 2 puffs INH Q6H PRN (Reason: shortness of breath or wheezing) Qty: 18 RF: 0 methotrexate sodium 2.5 mg tablet 15 mg PO WK RF: 0 sertraline 50 mg tablet 50 mg PO HS Qty: 90 RF: 3 folic acid 1 mg tablet 2 mg PO QPM RF: 0 Metamucil 3.4 gram/5.4 gram powder 1 tbsp PO DAILY PRN (Reason: Constipation) RF: 0 polyethylene glycol 3350 [Miralax] 17 gram/dose powder 17 g PO DAILY PRN (Reason: constipation) RF: 0 cholecalciferol (vitamin D3) [Vitamin D3] 25 mcg (1,000 unit) Tablet 25 mcg PO BID RF: 0 pregabalin 75 mg Capsule 75 mg PO BID RF: 0 docusate sodium [Stool Softener] 100 mg Capsule 100 mg PO DAILY PRN (Reason: Constipation) RF: 0 turmeric 400 mg Capsule 400 mg PO QAM RF: 0 alendronate 70 mg tablet 70 mg PO WK RF: 0 Simponi 50 mg/0.5 mL pen injector 50 mg subcut Q90M RF: 0 Referrals Referrals: Ella Esquivel MD [Primary Care Provider] -
[2021-05-03 11:46] LABS: Basophils # (auto) 0.02 K/uL (0-0.2); Basophils % (auto) 0.1 %; Eosinophils # (auto) 0.01 K/uL (0-0.5); Eosinophils % (auto) 0.1 %; Hematocrit (blood only) 42.6 % (37-47); Hemoglobin 14.5 g/dL (12.0-16.0); Immature Granulocytes # (auto) 0.07 K/uL (0.00-0.02); Immature Granulocytes % (auto) 0.5 %; Lymphocytes # (auto) 0.71 K/uL (1.2-3.4); Lymphocytes % (auto) 4.6 %; Mean Corpuscular Hemoglobin 31.8 pg (25-34); Mean Corpuscular Volume 93.4 fL (80-100); Mean Platelet Volume 10.7 fL (7.4-10.4); Monocytes # (auto) 1.63 K/uL (0.11-0.59); Monocytes % (auto) 10.6 %; Neutrophils # (auto) 12.97 K/uL (1.4-6.5); Neutrophils % (auto) 84.1 %; Platelet Count 231 K/uL (130-400); RDW Coefficient of Variation 13.4 % (11.5-14.5); RDW Standard Deviation 45.1 fL (36.4-46.3); Red Blood Count 4.56 M/uL (4.2-5.4); White Blood Count 15.41 K/uL (4.8-10.8)
[2021-05-03 11:47] LABS: Prothrombin Time 36.6 Seconds (9.0-12.0)
[2021-05-03 11:50] LABS: Appearance Urine Clear (Clear); Bacteria Urine Automated Negative (Negative); Bilirubin Urine Negative (Negative); Blood Urine Negative (Negative); Color Urine Yellow; Epithelial Cell Urine Auto >30 /lpf (0-5); Glucose Urine UA Negative (Negative); Ketones Urine Negative (Negative); Leukocyte Esterase Urine Negative (Negative); Nitrite Urine Negative (Negative); Specific Gravity Urine 1.014 (1.000-1.030); Urobilinogen Urine Negative (Negative); pH Urine 7.5 (4.5-7.5)
[2021-05-03 11:52] LABS: Protein Urine Trace (Negative)
[2021-05-03 11:59] LABS: Alanine Aminotransferase 20 (12-78); Albumin Level 3.2 gm/dl (3.4-5.0); Aspartate Aminotransferase 16 U/L (15-37); BUN Creatinine Ratio 10.7 (10-20); Blood Urea Nitrogen 9 mg/dl (7-18); Calcium 9.5 mg/dl (8.5-10.1); Carbon Dioxide 26 mmol/L (21-32); Chloride 101 mmol/L (98-107); Creatinine Clr Calc Pharmacy 57.2 ml/min; Est GFR (African American) 72.9 ml/min; Est GFR (Non-African American) 62.9 ml/min; Glucose 114 mg/dl (70-99); Lipase 110 U/L (73-393); Potassium 3.2 mmol/L (3.5-5.1); Sodium 135 mmol/L (136-145)
[2021-05-03 12:03] LABS: Albumin Globulin Ratio 0.7 (0.9-2); Alkaline Phosphatase 93 U/L (45-117); Bilirubin,Total 0.9 mg/dl (0.2-1); Globulin 4.4 gm/dl (2.5-4.0); Total Protein 7.6 gm/dl (6.4-8.2); Troponin I < 0.015 ng/ml (0-0.045)
--- NOTE | 2021-05-03 12:11 | XRay Report ---
XR chest 1V portable HISTORY: 80 years-old Female abd pain acute chest and abdominal pain COMPARISON: Chest radiograph 12/23/2020 TECHNIQUE: Portable AP view of the chest FINDINGS: The cardiac silhouette is enlarged. Calcified plaque of the thoracic aorta. No pneumothorax, pleural effusion, airspace consolidation or overt pulmonary edema. Minimal opacities of the lateral left lung base suggest atelectasis. Degenerative changes of the shoulders and spine. Mild sigmoidal thoracolum bar scoliosis. IMPRESSION: No acute process. ACT 112: Negative or not required by law. The above report was generated using voice recognition software. It may contain grammatical, syntax o r spelling errors. Electronically signed by: Gregorio Aguirre M.D. 05/03/2021 12:09 PM
[2021-05-03] MEDS ORDERED: OPTIRAY 320 100ml IV ONE (12:26)
[2021-05-03] MEDS ORDERED: AMPICILLIN/SULBACTAM SOD 3,000 MG in 0.9 % SODIUM CHLORIDE 100 ML IV STA (12:32)
--- NOTE | 2021-05-03 12:49 | CT Scan Report ---
CT SCAN OF THE ABDOMEN AND PELVIS WITH IV CONTRAST CLINICAL HISTORY: Left lower quadrant abdominal pain. COMPARISON STUDY: Abdominal CT dated 04/26/2021. TECHNIQUE: Following the IV administration of 94 cc of Optiray 320, CT scan of the abdomen and pelvi s is performed from the lung bases to the proximal femora. Images are reviewed in the axial, sagittal , and coronal planes. IV contrast was administered without complication. A dose lowering technique wa s utilized adhering to the principles of ALARA. CT DOSE: 807.78 mGy.cm FINDINGS: Lung bases: The heart is normal in size and without pericardial effusion. A fat-containing Bochdalek hernia is seen at the left lung base. The lung bases are clear noting bibasilar scarring/atelectasis. There is a small hiatal hernia. Liver: The contrast-enhanced liver is normal in size, contour, and attenuation. There is no intrahepa tic biliary ductal dilatation. The hepatic veins and portal veins are patent. Scattered hepatic cysts measure up to 2.6 cm. There are scattered calcified hepatic granulomas. Gallbladder: Unremarkable. Spleen: Normal in size and attenuation. Pancreas: Unremarkable. Adrenal glands: Unremarkable. Kidneys: The contrast enhanced kidneys are normal in size and without hydronephrosis. The kidneys enh ance symmetrically. Left renal cysts measure up to 5 cm. Abdominal vasculature: The abdominal aorta is normal in course and caliber noting advanced atheroscle rotic calcification. Bowel: There is moderate to advanced colonic diverticulosis. There is significant wall thickening wit h pericolonic inflammation and fluid involving the proximal sigmoid colon consistent with severe acut e diverticulitis. No organized fluid collection is identified to indicate abscess. No bowel obstructi on is seen. The appendix is well-visualized and normal. Peritoneum: There is a small volume of free fluid tracking along the left paracolic gutter and in the pelvis. No intraperitoneal free air is identified. Lymphadenopathy: None. Pelvic viscera: The bladder is normal as visualized. There are calcified uterine fibroids. No adnexal lesion is seen. There are small bilateral fat-containing inguinal hernias. Skeletal structures: The skeletal structures are osteopenic. There is mild to moderate lumbosacral sp ondylosis. 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 No lytic or blastic lesions are seen. IMPRESSION: 1. Findings are consistent with severe acute diverticulitis of the sigmoid colon. This has significan tly worsened as compared to 04/26/2021. 2. No intraperitoneal free air is identified and there is no organized fluid collections suggest absc ess. 3. Free fluid in the left paracolic gutter and pelvis is likely reactive. 4. Additional findings as above. ACT 112: Negative or not required by law. Electronically signed by: Adolfo Odell M.D. 05/03/2021 12:48 PM
--- NOTE | 2021-05-03 13:36 | History & Physical Report ---
Date of Service May 03, 2021 Assessment & Plan (1) Diverticulitis: Plan: With severe acute sigmoid diverticulitis without perforation or abscess, progressively worsening over the last 7 to 10 days, failed outpatient antibiotic therapy with Augmentin With leukocytosis, significant left lower quadrant abdominal pain, afebrile and normal blood pressure, but did present with weakness and collapse without syncope -Admit to medical floor with telemetry given collapse, but if no events on telemetry and blood pressures remain normal, can downgrade to medical/surgical floor after 24 hours -Was given IV Unasyn in the ER, but will switch over to IV Zosyn as she already failed p.o. Augmentin as an outpatient -Keep n.p.o. except small sips with necessary medications -IV morphine and Tylenol as needed for pain -IV Zofran as needed for nausea -Hydrate with normal saline with 20 mEq of potassium chloride at 80 mL's per hour -Follow CBC, CMP, magnesium, phosphorus in the morning (2) Collapse: Plan: -Patient does not think that she lost consciousness, but is just generally weak and had very poor p.o. intake for several days in a row -Likely presyncope and generalized weakness from dehydration and illness -Monitor on telemetry for now, but can downgrade to medical/surgical if no events in 24 hours and blood pressures are stable -Check orthostatic vital signs in the morning -Hydrating with IV fluids -Needs assistance with getting out of bed, fall precautions -No murmur on examination, no need for echocardiogram (3) Hypokalemia: Plan: Secondary to poor p.o. intake Replaced with IV potassium chloride 40 mEq now Also giving normal saline with 20 mEq of potassium chloride Follow BMP magnesium in the morning (4) Recurrent deep vein thrombosis (DVT): Plan: With history of multiple DVTs and PE, on Coumadin INR 4.0 on admission Hold Coumadin for today Follow INR in the morning Restart Coumadin once INR less than 3.5 (5) Non-occlusive coronary artery disease: Plan: No stents in place On no specific therapy for this as an outpatient (6) Depression: Plan: Continue home sertraline, no acute issues (7) Esophageal reflux: Plan: With a history of ulcer as per records, but not on antacid as an outpatient Will give IV Pepcid while hospitalized (8) Hyperlipidemia: Plan: Is not on medication for this (9) Memory loss: Plan: Continue donepezil (10) Obstructive sleep apnea: Plan: Can bring in CPAP from home-supposed to be on 7 cm H2O with nasal mask as per sleep report from 08/2020 (11) Osteoporosis: Plan: Hold home Fosamax (12) Peripheral neuropathy: Plan: Continue home Lyrica Follows with neurology in [place] (13) Polymyalgia rheumatica: Plan: Initially diagnosed with PMR, but rheumatology notes from 12/2020 now diagnosed her with seronegative rheumatoid arthritis, polyarthritis She is no longer taking any prednisone and has not for months so therefore no stress dose steroids needed She has not taken her weekly methotrexate since she has been ill the last 2 weeks She is also due for her upcoming infusion of Simponi, but she will also reschedule this for after her infection is cleared Continue folic acid (14) Asthma: Plan: No acute issues Albuterol as needed (15) HTN (hypertension): Plan: Hold home losartan HCT while she is acutely dehydrated and ill Plan: DVT prophylaxis-Coumadin, follow daily INR Disposition-admit to medical/telemetry unit, but can downgrade after 24 hours if blood pressure stable and no events on telemetry given presyncope Full code I discussed her care with her on the phone at the time of admission History of Present Illness Chief Complaint: Collapse, abdominal pain Primary Care Provider: Ella Esquivel MD This patient is an 80-year-old female with a history of recurrent DVT/PE on Coumadin, nonobstructive CAD, HTN, seronegative rheumatoid arthritis, asthma, GERD with PUD, MAGGY, hyperlipidemia, depression, peripheral neuropathy, and osteoporosis, who presents to the ER with ongoing left lower quadrant abdominal pain causing her to have significant weakness and collapsed on the ground this morning. The pain in the abdomen has been waxing and waning over the past 10 days or so and she had a CT of the abdomen/pelvis on 04/26 which showed acute diverticulitis. It appears she was started on Augmentin as an outpatient. She was brought in by EMS after collapsing on the ground and her could not get her off the floor as she was too weak. She does not think that she passed out, but just felt so weak she could not stay on her feet when she was trying to walk to the bathroom after getting out of bed. She did not hit her head and has no pain or injuries that are acute anywhere. In the ER, she was found to have severe acute sigmoid diverticulitis without perforation or abscess-this had radiographically progressed since previous CT 1 week prior. She had an elevated WBC count of 15,000,And hypokalemia with potassium 3.2. Sodium was mildly low at 135. Labs were otherwise fairly unremarkable except her INR was supratherapeutic at 4.0. Chest x-ray was negative and a Covid test was pending at the time of admission. She was given IV Unasyn, 1 L of normal saline, IV morphine, and IV Zofran x1 in the ER. She will be admitted for acute sigmoid diverticulitis. Allergies Allergy/AdvReac Type Severity Reaction Status Date / Time Gvthzfa-OIH-OyJ Reductase AdvReac Severe Muscle Pain Verified 05/03/21 11:24 Inhibitor [Qhluahc-Njm-Fgo Reductase Inhibitor] Bactrim AdvReac Intermediate STOMACH Verified 01/08/17 09:31 SICKNESS sulfamethoxazole AdvReac Intermediate STOMACH Verified 05/03/21 11:24 SICKNESS trimethoprim AdvReac Intermediate STOMACH Verified 05/03/21 11:24 SICKNESS tramadol AdvReac Unknown no pain Verified 05/03/21 11:24 relief Home Medications Medication Instructions Recorded Confirmed Type albuterol sulfate 90 mcg/actuation 2 puffs INH Q6H PRN #18 gm 10/28/18 05/03/21 Rx aerosol inhaler (ProAir HFA) nitroglycerin 0.4 mg sublingual 0.4 mg SL Q5M PRN tab 10/28/18 05/03/21 History tablet folic acid 1 mg tablet 2 mg PO QPM tab 02/26/19 05/03/21 History methotrexate sodium 2.5 mg tablet 15 mg PO WK tab 01/20/20 05/03/21 History cholecalciferol (vitamin D3) 25 25 mcg PO BID 03/24/20 05/03/21 History mcg (1,000 unit) tablet (Vitamin D3) pregabalin 75 mg capsule 75 mg PO BID 03/24/20 05/03/21 History polyethylene glycol 3350 17 17 g PO DAILY PRN 05/06/20 05/03/21 History gram/dose oral powder (Miralax) psyllium husk 3.4 gram/5.4 gram 1 tbsp PO DAILY PRN 05/06/20 05/03/21 History oral powder (Metamucil) losartan 100 1 tab PO HS #90 tab 07/24/20 05/03/21 Rx mg-hydrochlorothiazide 25 mg tablet potassium chloride 10 mEq 10 meq PO BID #180 cap 11/04/20 05/03/21 Rx capsule,extended release sertraline 50 mg tablet 50 mg PO HS #90 tab 11/05/20 05/03/21 Rx alendronate 70 mg tablet 70 mg PO WK 12/21/20 05/03/21 History docusate sodium 100 mg capsule 100 mg PO DAILY PRN 12/21/20 05/03/21 History (Stool Softener) golimumab 50 mg/0.5 mL 50 mg SUBCUT Q90M 12/21/20 05/03/21 History subcutaneous pen injector (Simponi) turmeric 400 mg capsule 400 mg PO QAM 12/21/20 05/03/21 History donepezil 10 mg tablet (Aricept) 10 mg PO HS #90 tab 01/05/21 05/03/21 Rx warfarin 2 mg tablet 2 mg PO UD #110 tab 04/01/21 05/03/21 Rx amoxicillin 875 mg-potassium 1 tab PO BID 10 Days #20 tab 04/27/21 05/03/21 Rx clavulanate 125 mg tablet (Augmentin) Past Med/Surg History Medical History Allergic rhinitis Anticoagulant long-term use Asthma well controlled. 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 HTN (hypertension) Hyperlipidemia Non-occlusive coronary artery disease NSTEMI (non-ST elevated myocardial infarction) (~2015) Obstructive sleep apnea uses a cpap Osteoporosis Peripheral neuropathy Polymyalgia rheumatica Follows with rheum- takes methotrexate- no significant relief Recently stated on infusions Recurrent deep vein thrombosis (DVT) Last occurred ~20 years ago. Justus have IVC filter placed 3-4 days prior to surgery Stomach ulcer Hx - no recent issues Surgical History History of ankle surgery left History of esophagogastroduodenoscopy (EGD) Hx of hysterectomy with RSO S/P cardiac cath (~2015) no stents. [facility] July 2016 minimal disease in small distal vessels S/P cataract extraction bilateral S/P colonoscopy Status post mastoidectomy Right Family History Unknown Pulmonary embolism Brother Coronary heart disease Myocardial infarction Stroke Mother Myocardial infarction Father Stroke Family/Other Family history of reaction to anesthesia 40yrs ago cousin had lump removed on her breast and during surgery, was told "she was given too much anesthesia and never woke up" Denies family history of Ovarian cancer Prostate cancer Breast cancer Lung cancer Colorectal cancer Social History Smoking Status: Former smoker Age Started Using Tobacco: 18; Age Quit Using Tobacco: 28; Years Smoked: 10; Second Hand Exposure: No; Hx Alcohol Use: No Hx Substance Use: No Preferred Language: Sinhala Communication Ability: Effective Visual Impairment: Partially Limited Hearing Ability: Normal [place] Required: No Beliefs That Will Affect Care: None marital status: Current Living Situation: Spouse current occupational status: retired How many Children do You have: 3 Feels Safe at Home: Yes Childhood Exposure to Second-Hand Smoke: Yes Diet Comment: Regular caffeine: Yes (2 cups of coffee a day) during the past year weight has: remained stable Dental Care, Regularly: Yes Physical Activity Frequency: Does not Exercise Seatbelt Use: always Sunscreen Use: No (Doesn't go out much) Do you think of yourself as: straight/heterosexual Assistive Devices: CPAP, Glasses and Walker Review of Systems Review of Systems: All systems reviewed & are unremarkable except as noted in HPI & below No fevers or chills, no shortness of breath, no chest pain, no urinary symptoms, no blood in her stool, no vomiting, last bowel movement was 2 days ago. Has chronic joint pains all over but nothing acute. Physical Exam Constitutional: WD/WN, vitals as above + obese Eyes: PERRL, conjunctivae normal, anicteric sclerae ENMT: external ear and nose normal, oropharynx normal Neck: trachea midline, no thyromegaly Respiratory: normal respiratory effort, lungs clear to auscultation Cardiovascular: RRR, no murmur, no edema Chest (Breasts): Chest: normal inspection of chest Gastrointestinal (Abdomen): Inspection/Auscultation: abdomen normal to inspection and + hypoactive bowel sounds; abdomen not distended Per cussion/Palpation: + abdomen tender (Across lower abdomen but worse in LLQ without guarding or rebound tendernes) and abdomen soft; abdomen not rigid and no hepatosplenomegaly Musculoskeletal: Extremities: extremities normal to inspection; no cyanosis and no clubbing Skin: no rashes, warm and dry Neurologic: moves all extremities and awake; no focal motor deficits Psychiatric: A+Ox3, euthymic affect Lymphatic: no lymphedema Results & Data Results & Data ([facility]) Vital Signs (Past 12 Hours) Vital Signs Pulse Resp BP Pulse Ox 05/03/21 13:10 73 18 90 05/03/21 13:00 72 20 91 05/03/21 12:50 72 21 92 05/03/21 12:40 71 22 92 05/03/21 12:34 18 94 05/03/21 12:20 66 18 94 05/03/21 12:10 67 18 94 05/03/21 12:02 75 16 122/70 93 05/03/21 12:00 68 13 122/70 94 05/03/21 11:50 68 18 95 05/03/21 11:40 71 22 95 05/03/21 11:30 66 16 95 05/03/21 11:28 64 18 94 05/03/21 11:20 64 12 96 05/03/21 11:10 69 17 94 05/03/21 11:04 96 05/03/21 11:00 68 20 96 05/03/21 10:57 86 20 95 05/03/21 10:56 64 20 128/59 L 95 Laboratory Results 05/03/21 05/03/21 05/03/21 Range/Units 11:09 11:05 11:05 WBC (4.8-10.8) K/uL RBC (4.2-5.4) M/uL Hgb (12.0-16.0) g/dL Hct (37-47) % MCV (80-100) fL MCH (25-34) pg MCHC (32-36) g/dL RDW Std Deviation (36.4-46.3) fL RDW Coeff of Wilfredo (11.5-14.5) % Plt Count (130-400) K/uL MPV (7.4-10.4) fL Immature Gran % (Auto) % Neut % (Auto) % Lymph % (Auto) % Winston % (Auto) % Eos % (Auto) % Baso % (Auto) % Neut # (Auto) (1.4-6.5) K/uL Lymph # (Auto) (1.2-3.4) K/uL Winston # (Auto) (0.11-0.59) K/uL Eos # (Auto) (0-0.5) K/uL Baso # (Auto) (0-0.2) K/uL Immature Gran # (Auto) (0.00-0.02) K/uL PT 36.6 H (9.0-12.0) Seconds INR 4.0 H (0.9-1.1) Sodium 135 L (136-145) mmol/L Potassium 3.2 L (3.5-5.1) mmol/L Chloride 101 (98-107) mmol/L Carbon Dioxide 26 (21-32) mmol/L Anion Gap 8.0 (3-11) BUN 9 (7-18) mg/dl Creatinine 0.87 (0.6-1.2) mg/dl Est Cr Clr Drug Dosing 57.2 ml/min Est GFR ( Amer) 72.9 ml/min Est GFR (Non-Af Amer) 62.9 ml/min BUN/Creatinine Ratio 10.7 (10-20) Glucose 114 H (70-99) mg/dl Calcium 9.5 (8.5-10.1) mg/dl Total Bilirubin 0.9 (0.2-1) mg/dl AST 16 (15-37) U/L ALT 20 (12-78) Alkaline Phosphatase 93 (45-117) U/L Troponin I < 0.015 (0-0.045) ng/ml Total Protein 7.6 (6.4-8.2) gm/dl Albumin 3.2 L (3.4-5.0) gm/dl Globulin 4.4 H (2.5-4.0) gm/dl Albumin/Globulin Ratio 0.7 L (0.9-2) Lipase 110 (73-393) U/L Urine Color Yellow Urine Appearance Clear (Clear) Urine pH 7.5 (4.5-7.5) Ur Specific [place] 1.014 (1.000-1.030) Urine Protein Trace H (Negative) Urine Glucose (UA) Negative (Negative) Urine Ketones Negative (Negative) Urine Blood Negative (Negative) Urine Nitrite Negative (Negative) Urine Bilirubin Negative (Negative) Urine Urobilinogen Negative (Negative) Ur Leukocyte Esterase Negative (Negative) Urine WBC (Auto) 1-5 (0-5) /hpf Urine RBC (Auto) 5-10 H (0-4) /hpf U Hyaline Cast (Auto) 5-10 H (0-5) /lpf U Epithel Cells (Auto) >30 H (0-5) /lpf Urine Bacteria (Auto) Negative (Negative) 05/03/21 Range/Units 11:05 WBC 15.41 H (4.8-10.8) K/uL RBC 4.56 (4.2-5.4) M/uL Hgb 14.5 (12.0-16.0) g/dL Hct 42.6 (37-47) % MCV 93.4 (80-100) fL MCH 31.8 (25-34) pg MCHC 34.0 (32-36) g/dL RDW Std Deviation 45.1 (36.4-46.3) fL RDW Coeff of Wilfredo 13.4 (11.5-14.5) % Plt Count 231 (130-400) K/uL MPV 10.7 H (7.4-10.4) fL Immature Gran % (Auto) 0.5 % Neut % (Auto) 84.1 % Lymph % (Auto) 4.6 % Winston % (Auto) 10.6 % Eos % (Auto) 0.1 % Baso % (Auto) 0.1 % Neut # (Auto) 12.97 H (1.4-6.5) K/uL Lymph # (Auto) 0.71 L (1.2-3.4) K/uL Winston # (Auto) 1.63 H (0.11-0.59) K/uL Eos # (Auto) 0.01 (0-0.5) K/uL Baso # (Auto) 0.02 (0-0.2) K/uL Immature Gran # (Auto) 0.07 H (0.00-0.02) K/uL PT (9.0-12.0) Seconds INR (0.9-1.1) Sodium (136-145) mmol/L Potassium (3.5-5.1) mmol/L Chloride (98-107) mmol/L Carbon Dioxide (21-32) mmol/L Anion Gap (3-11) BUN (7-18) mg/dl Creatinine (0.6-1.2) mg/dl Est Cr Clr Drug Dosing ml/min Est GFR ( Amer) ml/min Est GFR (Non-Af Amer) ml/min BUN/Creatinine Ratio (10-20) Glucose (70-99) mg/dl Calcium (8.5-10.1) mg/dl Total Bilirubin (0.2-1) mg/dl AST (15-37) U/L ALT (12-78) Alkaline Phosphatase (45-117) U/L Troponin I (0-0.045) ng/ml Total Protein (6.4-8.2) gm/dl Albumin (3.4-5.0) gm/dl Globulin (2.5-4.0) gm/dl Albumin/Globulin Ratio (0.9-2) Lipase (73-393) U/L Urine Color Urine Appearance (Clear) Urine pH (4.5-7.5) Ur Specific [place] (1.000-1.030) Urine Protein (Negative) Urine Glucose (UA) (Negative) Urine Ketones (Negative) Urine Blood (Negative) Urine Nitrite (Negative) Urine Bilirubin (Negative) Urine Urobilinogen (Negative) Ur Leukocyte Esterase (Negative) Urine WBC (Auto) (0-5) /hpf Urine RBC (Auto) (0-4) /hpf U Hyaline Cast (Auto) (0-5) /lpf U Epithel Cells (Auto) (0-5) /lpf Urine Bacteria (Auto) (Negative) Diagnostic Findings Abdomen/Pelvis CT 05/03/21 11:20 CT SCAN OF THE ABDOMEN AND PELVIS WITH IV CONTRAST CLINICAL HISTORY: Left lower quadrant abdominal pain. COMPARISON STUDY: Abdominal CT dated 04/26/2021. TECHNIQUE: Following the IV administration of 94 cc of Optiray 320, CT scan of the abdomen and pelvis is performed from the lung bases to the proximal femora. Images are reviewed in the axial, sagittal, and coronal planes. IV contrast was administered without complication. A dose lowering technique was utilized adhering to the principles of ALARA. CT DOSE: 807.78 mGy.cm FINDINGS: Lung bases: The heart is normal in size and without pericardial effusion. A fat- containing Bochdalek hernia is seen at the left lung base. The lung bases are clear noting bibasilar scarring/atelectasis. There is a small hiatal hernia. Liver: The contrast-enhanced liver is normal in size, contour, and attenuation. There is no intrahepatic biliary ductal dilatation. The hepatic veins and portal veins are patent. Scattered hepatic cysts measure up to 2.6 cm. There are scattered calcified hepatic granulomas. Gallbladder: Unremarkable. Spleen: Normal in size and attenuation. Pancreas: Unremarkable. Adrenal glands: Unremarkable. Kidneys: The contrast enhanced kidneys are normal in size and without hydronephrosis. The kidneys enhance symmetrically. Left renal cysts measure up to 5 cm. Abdominal vasculature: The abdominal aorta is normal in course and caliber noting advanced atherosclerotic calcification. Bowel: There is moderate to advanced colonic diverticulosis. There is significant wall thickening with pericolonic inflammation and fluid involving the proximal sigmoid colon consistent with severe acute diverticulitis. No organized fluid collection is identified to indicate abscess. No bowel obstruction is seen. The appendix is well-visualized and normal. Peritoneum: There is a small volume of free fluid tracking along the left paracolic gutter and in the pelvis. No intraperitoneal free air is identified. Lymphadenopathy: None. Pelvic viscera: The bladder is normal as visualized. There are calcified uterine fibroids. No adnexal lesion is seen. There are small bilateral fat-containing inguinal hernias. Skeletal structures: The skeletal structures are osteopenic. There is mild to moderate lumbosacral spondylosis. 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 No lytic or blastic lesions are seen. IMPRESSION: 1. Findings are consistent with severe acute diverticulitis of the sigmoid colon. This has significantly worsened as compared to 04/26/2021. 2. No intraperitoneal free air is identified and there is no organized fluid collections suggest abscess. 3. Free fluid in the left paracolic gutter and pelvis is likely reactive. 4. Additional findings as above. ACT 112: Negative or not required by law. Electronically signed by: Adolfo Odell M.D. 05/03/2021 12:48 PM Chest X-Ray 05/03/21 11:21 XR chest 1V portable HISTORY: 80 years-old Female abd pain acute chest and abdominal pain COMPARISON: Chest radiograph 12/23/2020 TECHNIQUE: Portable AP view of the chest FINDINGS: The cardiac silhouette is enlarged. Calcified plaque of the thoracic aorta. No pneumothorax, pleural effusion, airspace consolidation or overt pulmonary edema. Minimal opacities of the lateral left lung base suggest atelectasis. Degenerative changes of the shoulders and spine. Mild sigmoidal thoracolumbar scoliosis. IMPRESSION: No acute process. ACT 112: Negative or not required by law. The above report was generated using voice recognition software. It may contain grammatical, syntax or spelling errors. Electronically signed by: Gregorio Aguirre M.D. 05/03/2021 12:09 PM ECG Additional Comments: EKG on 05/03/2021 at 11:39 AM with normal sinus rhythm, rate 63, nonspecific flattening of T waves in leads III and aVF, no acute changes Code Status & VTE Plan Code Status Full code VTE Prophylaxis Plan VTE Prophylaxis will be ordered: Yes PG Care Time/CCT Total # of Minutes Spent Total Time Spent with Patient: Total time spent is greater than 50% in coordination of care (as documented) at patient's floor/unit and/or counseling patient: Coding Level of Care Code 11121 Initial Inpt Care Lvl 3 Diagnoses Diverticulitis K57.92 Collapse R55 Recurrent deep vein thrombosis (DVT) I82.409 Non-occlusive coronary artery disease I25.10 Depression F32.9 Esophageal reflux K21.9 Hyperlipidemia E78.5 Memory loss R41.3 Obstructive sleep apnea G47.33 Osteoporosis M81.0 Peripheral neuropathy G62.9 Polymyalgia rheumatica M35.3 Asthma J45.909 HTN (hypertension) I10 Hypokalemia E87.6
[2021-05-03] MEDS ORDERED: POTASSIUM CHLORIDE / WTR 10 MEQ/100 ML PLCT IV STA (13:54)
--- NOTE | 2021-05-03 14:19 | Electrocardiogram Report ---
Test Reason : Blood Pressure : / mmHG Vent. Rate : 063 BPM Atrial Rate : 063 BPM P-R Int : 158 ms QRS Dur : 098 ms QT Int : 418 ms P-R-T Axes : 086 -24 027 degrees QTc Int : 427 ms Normal sinus rhythm Nonspecific ST and T wave abnormality Abnormal ECG When compared with ECG of 23-DEC-2020 12:30, Premature atrial complexes are no longer Present Confirmed by Marlon Duque ([id number]) on 05/03/2021 2:18:55 PM Referred By: REFERRED SELF Confirmed By:Marlon Duque
[2021-05-03] MEDS: POTASSIUM CHLORIDE / WTR 10 MEQ/100 ML PLCT IV SCH ×3 (15:30→17:50)
[2021-05-03] MEDS ORDERED: ACETAMINOPHEN 325 MG TAB PO PRN (18:21)
[2021-05-03] MEDS ORDERED: PIPERACILL/TAZOBAC CONSULT ACTIVE PRN (18:21)
[2021-05-03] MEDS ORDERED: PIPERACILLIN/TAZOBACTAM 3.375 GM in DEXTROSE 5% 100 ML IV SCH (18:21)
[2021-05-03] MEDS ORDERED: MoRPHine SULFATE 2 MG/ML CARP IV PRN (18:21)
[2021-05-03] MEDS ORDERED: ONDANSETRON INJ 2 MG/ML 2 ML VIAL IV PRN (18:21)
[2021-05-03] MEDS ORDERED: ALBUTEROL HFA 8 GM INHALER INH PRN (18:37)
[2021-05-03] MEDS ORDERED: PIPERACILLIN/TAZOBACTAM 4.5 GM in DEXTROSE 5% 100 ML IV ONE (18:45)
[2021-05-03] MEDS: NSS + 20MEQ KCL 20 MEQ/1,000 ML BAG IV SCH (19:52)
[2021-05-03] MEDS: FOLIC ACID 1 MG TAB PO SCH (21:20)
[2021-05-03] MEDS: SERTRALINE HCL 50 MG TABLET PO SCH (21:22)
[2021-05-03] MEDS: DONEPEZIL HCL 10 MG TAB PO SCH (21:22)
[2021-05-03] MEDS: PREGABALIN 75 MG CAP PO SCH (21:34)
[2021-05-03] MEDS: FAMOTIDINE 20 MG in SYRINGE 3 ML IV SCH (21:46)
[2021-05-04] MEDS: PIPERACILLIN/TAZOBACTAM 4.5 GM in DEXTROSE 5% 100 ML IV SCH ×3 (01:13→16:39)
[2021-05-04 05:44] LABS: Basophils # (auto) 0.02 K/uL (0-0.2); Basophils % (auto) 0.3 %; Eosinophils # (auto) 0.08 K/uL (0-0.5); Eosinophils % (auto) 1.1 %; Hemoglobin 12.1 g/dL (12.0-16.0); Immature Granulocytes # (auto) 0.03 K/uL (0.00-0.02); Immature Granulocytes % (auto) 0.4 %; Lymphocytes # (auto) 1.08 K/uL (1.2-3.4); Lymphocytes % (auto) 14.5 %; Mean Corpuscular Hemoglobin 31.3 pg (25-34); Mean Corpuscular Hgb Conc 32.7 g/dL (32-36); Mean Corpuscular Volume 95.9 fL (80-100); Mean Platelet Volume 10.4 fL (7.4-10.4); Monocytes # (auto) 1.02 K/uL (0.11-0.59); Monocytes % (auto) 13.7 %; Neutrophils # (auto) 5.21 K/uL (1.4-6.5); Platelet Count 203 K/uL (130-400); RDW Coefficient of Variation 13.6 % (11.5-14.5); Red Blood Count 3.86 M/uL (4.2-5.4); White Blood Count 7.44 K/uL (4.8-10.8)
[2021-05-04 06:01] LABS: INR 4.7 (0.9-1.1); Prothrombin Time 42.4 Seconds (9.0-12.0)
[2021-05-04 06:20] LABS: Albumin Level 2.4 gm/dl (3.4-5.0); BUN Creatinine Ratio 10.8 (10-20); Calcium 8.1 mg/dl (8.5-10.1); Creatinine Clr Calc Pharmacy 75.4 ml/min; Est GFR (African American) 96.7 ml/min; Est GFR (Non-African American) 83.4 ml/min; Magnesium 1.9 mg/dl (1.8-2.4); Potassium 3.3 mmol/L (3.5-5.1)
[2021-05-04 06:22] LABS: Albumin Globulin Ratio 0.6 (0.9-2); Bilirubin,Total 0.6 mg/dl (0.2-1); Globulin 3.7 gm/dl (2.5-4.0); Phosphorus 2.4 mg/dl (2.5-4.9); Total Protein 6.1 gm/dl (6.4-8.2)
[2021-05-04] MEDS: NSS + 20MEQ KCL 20 MEQ/1,000 ML BAG IV SCH ×2 (08:35→20:58)
[2021-05-04] MEDS: PREGABALIN 75 MG CAP PO SCH ×2 (09:18→21:00)
[2021-05-04] MEDS: FAMOTIDINE 20 MG in SYRINGE 3 ML IV SCH ×2 (10:01→21:30)
--- NOTE | 2021-05-04 13:20 | Hospitalist Progress Note ---
Date of Service May 04, 2021 Reviewed case with Marisabel Muniz PA-C Assessment & Plan (1) Diverticulitis: Plan: With severe acute sigmoid diverticulitis without perforation or abscess, progressively worsening over the last 7 to 10 days, failed outpatient antibiotic therapy with Augmentin With leukocytosis, significant left lower quadrant abdominal pain, afebrile and normal blood pressure, but did present with weakness and collapse without syncope -Admit to medical floor with telemetry given collapse, will monitor but currently no arrhythmia noted and suspect collapse more related to generalized weakness from illness/poor oral intake -Was given IV Unasyn in the ER, but swithched to IV Zosyn as she already failed p.o. Augmentin as an outpatient -Advance to clear liquid diet -IV morphine and Tylenol as needed for pain -IV Zofran as needed for nausea -Hydrate with normal saline with 20 mEq of potassium chloride at 80 mL's per hour -Follow labs - leukocytosis resolved; remains afebrile (2) Collapse: Plan: -Patient does not think that she lost consciousness, but is just generally weak and had very poor p.o. intake for several days in a row -Likely presyncope and generalized weakness from dehydration and illness -Monitor on telemetry for now, but can downgrade to medical/surgical if no events and blood pressures are stable -Check orthostatic pressures -Hydrating with IV fluids -Needs assistance with getting out of bed, fall precautions -No murmur on examination, no need for echocardiogram - Will do PT/OT when feeling a bit better (3) Hypokalemia: Plan: Secondary to poor p.o. intake Replete as necessary Follow BMP/magnesium (4) Recurrent deep vein thrombosis (DVT): Plan: With history of multiple DVTs and PE, on Coumadin INR 4.0 on admission and increased to 4.7 Continue to hold Coumadin and restart when less than 3.5 Follow INR (5) Non-occlusive coronary artery disease: Plan: No stents in place On no specific therapy for this as an outpatient (6) Depression: Plan: Continue home sertraline, no acute issues (7) Esophageal reflux: Plan: With a history of ulcer as per records, but not on antacid as an outpatient Will give IV Pepcid while hospitalized (8) Hyperlipidemia: Plan: Is not on medication for this (9) Memory loss: Plan: Continue donepezil (10) Obstructive sleep apnea: Plan: Can bring in CPAP from home-supposed to be on 7 cm H2O with nasal mask as per sleep report from 08/2020 (11) Osteoporosis: Plan: Hold home Fosamax (12) Peripheral neuropathy: Plan: Continue home Lyrica Follows with neurology in [place] (13) Polymyalgia rheumatica: Plan: Initially diagnosed with PMR, but rheumatology notes from 12/2020 now diagnosed her with seronegative rheumatoid arthritis, polyarthritis She is no longer taking any prednisone and has not for months so therefore no stress dose steroids needed She has not taken her weekly methotrexate since she has been ill the last 2 weeks She is also due for her upcoming infusion of Simponi, but she will also reschedule this for after her infection is cleared Continue folic acid (14) Asthma: Plan: No acute issues Albuterol as needed (15) HTN (hypertension): Plan: Hold home losartan HCT while she is acutely dehydrated and ill Plan: DVT prophylaxis-Coumadin, follow daily INR Disposition-admit to medical/telemetry unit, but can downgrade if blood pressure stable and no events on telemetry given presyncope Full code Will discuss with her and provide update per patient request Admission and Anticipated Discharge Date Admission Date: May 03, 2021 Subjective No acute events overnight. Reviewed tele with no abnormal arrhythmias noted. She reports maybe slight improvement but still with abdominal pain and feeling fatigued. She does reports a bit of an appetite and would like to try some clear liquids. Review of Systems Review of Systems: All systems reviewed & are unremarkable except as noted in Subjective Physical Exam Physical Exam: PHYSICAL EXAM General Appearance: WDWN in NAD who is A&O x 3 HEENT: Head is normocephalic/atraumatic; Hearing grossly intact; Mucous membranes moist Neck: Supple; Trachea midline; Neg JVD Heart: RRR with no M/G/R Lungs: CTA in all lung hoskins bilaterally; Respirations unlabored; Neg accessory muscle use Abdomen: Soft, non-distended; mild tenderness bilateral lower quadrants without guarding or rigidity; hypoactive BS x 4 quadrants Extremities: Neg cyanosis or edema Neurological: Speech clear; Gross motor/sensory function intact; Neg focal neurologic deficits Psychiatric: Appropriate mood/affect Skin: Normal Color; Warm/Dry Results & Data Results & [facility] ([facility]) Vital Signs (Past 12 Hours) Vital Signs Temp Pulse Resp BP Pulse Ox 05/04/21 11:33 95 05/04/21 11:18 55 L 17 117/63 93 05/04/21 07:22 66 18 118/75 97 05/04/21 03:00 36.6 C 66 15 107/61 96 PG Care Time/CCT Total # of Minutes Spent Total Time Spent with Patient: Total time spent is greater than 50% in coordination of care (as documented) at patient's floor/unit and/or counseling patient: Coding Level of Care Code 64569 Subseq Hosp Care Lvl 3 Diagnoses Diverticulitis K57.92 Collapse R55 Hypokalemia E87.6 Recurrent deep vein thrombosis (DVT) I82.409 Non-occlusive coronary artery disease I25.10 Depression F32.9 Esophageal reflux K21.9 Hyperlipidemia E78.5 Memory loss R41.3 Obstructive sleep apnea G47.33 Osteoporosis M81.0 Peripheral neuropathy G62.9 Polymyalgia rheumatica M35.3 Asthma J45.909 HTN (hypertension) I10
[2021-05-04] MEDS: SERTRALINE HCL 50 MG TABLET PO SCH (21:00)
[2021-05-04] MEDS: DONEPEZIL HCL 10 MG TAB PO SCH (21:00)
[2021-05-04] MEDS: FOLIC ACID 1 MG TAB PO SCH (21:01)
[2021-05-05] MEDS: PIPERACILLIN/TAZOBACTAM 4.5 GM in DEXTROSE 5% 100 ML IV SCH ×3 (01:42→17:48)
[2021-05-05 06:47] LABS: INR 4.2 (0.9-1.1); Prothrombin Time 38.4 Seconds (9.0-12.0)
[2021-05-05 06:51] LABS: Creatinine Clr Calc Pharmacy 69.7 ml/min; Est GFR (African American) 94.8 ml/min; Est GFR (Non-African American) 81.8 ml/min
[2021-05-05] MEDS: PREGABALIN 75 MG CAP PO SCH ×2 (07:58→20:48)
[2021-05-05] MEDS: FAMOTIDINE 20 MG in SYRINGE 3 ML IV SCH ×2 (07:58→20:46)
[2021-05-05] MEDS: NSS + 20MEQ KCL 20 MEQ/1,000 ML BAG IV SCH ×2 (10:28→22:37)
--- NOTE | 2021-05-05 11:51 | Hospitalist Progress Note ---
Date of Service May 05, 2021 Assessment & Plan (1) Diverticulitis: Plan: With severe acute sigmoid diverticulitis without perforation or abscess, progressively worsening over the last 7 to 10 days, failed outpatient antibiotic therapy with Augmentin With leukocytosis, significant left lower quadrant abdominal pain, afebrile and normal blood pressure, but did present with weakness and collapse without syncope -Admit to medical floor with telemetry given collapse - currently no arrhythmia noted and suspect collapse more related to generalized weakness from illness/poor oral intake -Was given IV Unasyn in the ER, but swithched to IV Zosyn as she already failed p.o. Augmentin as an outpatient -Advance to low fiber diet -IV morphine and Tylenol as needed for pain -IV Zofran as needed for nausea -Hydrate with normal saline with 20 mEq of potassium chloride at 80 mL's per hour -Follow labs - leukocytosis resolved; remains afebrile (2) Collapse: Plan: -Patient does not think that she lost consciousness, but is just generally weak and had very poor p.o. intake for several days in a row -Likely presyncope and generalized weakness from dehydration and illness -Can downgrade to medical/surgical -Check orthostatic pressures -Hydrating with IV fluids -Needs assistance with getting out of bed, fall precautions -No murmur on examination, no need for echocardiogram - Will do PT/OT (3) Hypokalemia: Plan: Secondary to poor p.o. intake Replete as necessary Follow BMP/magnesium (4) Recurrent deep vein thrombosis (DVT): Plan: With history of multiple DVTs and PE, on Coumadin INR 4.2 Continue to hold Coumadin and restart when less than 3.5 Follow INR (5) Non-occlusive coronary artery disease: Plan: No stents in place On no specific therapy for this as an outpatient (6) Depression: Plan: Continue home sertraline, no acute issues (7) Esophageal reflux: Plan: With a history of ulcer as per records, but not on antacid as an outpatient Will give IV Pepcid while hospitalized (8) Hyperlipidemia: Plan: Is not on medication for this (9) Memory loss: Plan: Continue donepezil (10) Obstructive sleep apnea: Plan: Can bring in CPAP from home-supposed to be on 7 cm H2O with nasal mask as per sleep report from 08/2020 (11) Osteoporosis: Plan: Hold home Fosamax (12) Peripheral neuropathy: Plan: Continue home Lyrica Follows with neurology in [place] (13) Polymyalgia rheumatica: Plan: Initially diagnosed with PMR, but rheumatology notes from 12/2020 now diagnosed her with seronegative rheumatoid arthritis, polyarthritis She is no longer taking any prednisone and has not for months so therefore no stress dose steroids needed She has not taken her weekly methotrexate since she has been ill the last 2 weeks She is also due for her upcoming infusion of Simponi, but she will also reschedule this for after her infection is cleared Continue folic acid (14) Asthma: Plan: No acute issues Albuterol as needed (15) HTN (hypertension): Plan: Hold home losartan HCT while she is acutely dehydrated and ill Plan: DVT prophylaxis-Coumadin, follow daily INR Disposition-Downgrade to medical; requires acute management at this time Full code Discussed with her on 05/04 and provided update per patient request; will call this afternoon Admission and Anticipated Discharge Date Admission Date: May 03, 2021 Subjective No acute events overnight. Reports ongoing lower abdominal pain but not requiring much in regards to pain medication. She does report having more of an appetite and will advance her diet. She feels like she can move her bowels and would like to get up to the toilet to try. She objectively is looking at bit better today. She has been sinus on the monitor without any irregular rhythms to explain the collapse and feel that was in the setting of weakness from illness instead of cardiac. Review of Systems Review of Systems: All systems reviewed & are unremarkable except as noted in Subjective Physical Exam Physical Exam: PHYSICAL EXAM General Appearance: WDWN in NAD who is A&O x 3 HEENT: Head is normocephalic/atraumatic; Hearing grossly intact; Mucous membranes moist Neck: Supple; Trachea midline; Neg JVD Heart: RRR with no M/G/R Lungs: CTA in all lung hoskins bilaterally; Respirations unlabored; Neg accessory muscle use Abdomen: Mildly bloated but soft; mild tenderness bilateral lower quadrants without guarding or rigidity; normoactive BS x 4 quadrants Extremities: Neg cyanosis or edema Neurological: Speech clear; Gross motor/sensory function intact; Neg focal neurologic deficits Psychiatric: Appropriate mood/affect Skin: Normal Color; Warm/Dry Results & Data Results & Data ([facility]) Vital Signs (Past 12 Hours) Vital Signs Temp Pulse Resp BP BP Pulse Ox 05/05/21 11:00 36.7 C 58 L 20 125/75 96 05/05/21 07:52 36.8 C 63 24 131/82 94 05/05/21 04:11 36.7 C 72 18 117/70 93 PG Care Time/CCT Total # of Minutes Spent Total Time Spent with Patient: Total time spent is greater than 50% in coordination of care (as documented) at patient's floor/unit and/or counseling patient: Coding Level of Care Code 20468 Subseq Hosp Care Lvl 3 Diagnoses Diverticulitis K57.92 Collapse R55 Hypokalemia E87.6 Recurrent deep vein thrombosis (DVT) I82.409 Non-occlusive coronary artery disease I25.10 Depression F32.9 Esophageal reflux K21.9 Hyperlipidemia E78.5 Memory loss R41.3 Obstructive sleep apnea G47.33 Osteoporosis M81.0 Peripheral neuropathy G62.9 Polymyalgia rheumatica M35.3 Asthma J45.909 HTN (hypertension) I10
[2021-05-05] MEDS ORDERED: DICYCLOMINE HCL 10 MG CAP PO PRN (18:30)
[2021-05-05] MEDS: SERTRALINE HCL 50 MG TABLET PO SCH (20:48)
[2021-05-05] MEDS: FOLIC ACID 1 MG TAB PO SCH (20:48)
[2021-05-05] MEDS: DONEPEZIL HCL 10 MG TAB PO SCH (20:49)
[2021-05-06] MEDS: PIPERACILLIN/TAZOBACTAM 4.5 GM in DEXTROSE 5% 100 ML IV SCH ×3 (02:33→15:53)
[2021-05-06 07:52] LABS: Hematocrit (blood only) 36.7 % (37-47); Hemoglobin 11.9 g/dL (12.0-16.0); Mean Corpuscular Hemoglobin 30.6 pg (25-34); Mean Corpuscular Hgb Conc 32.4 g/dL (32-36); Mean Corpuscular Volume 94.3 fL (80-100); Mean Platelet Volume 10.1 fL (7.4-10.4); Platelet Count 239 K/uL (130-400); RDW Coefficient of Variation 13.5 % (11.5-14.5); RDW Standard Deviation 46.2 fL (36.4-46.3); Red Blood Count 3.89 M/uL (4.2-5.4); White Blood Count 5.43 K/uL (4.8-10.8)
[2021-05-06 08:01] LABS: INR 3.2 (0.9-1.1); Prothrombin Time 29.8 Seconds (9.0-12.0)
[2021-05-06 08:20] LABS: BUN Creatinine Ratio 7.7 (10-20); Creatinine Clr Calc Pharmacy 79.8 ml/min; Est GFR (African American) 98.7 ml/min; Est GFR (Non-African American) 85.2 ml/min; Potassium 3.4 mmol/L (3.5-5.1)
[2021-05-06] MEDS: PREGABALIN 75 MG CAP PO SCH ×2 (08:32→20:40)
[2021-05-06] MEDS ORDERED: POTASSIUM CHLORIDE CRTAB 20 MEQ TABCR PO STA (08:35)
[2021-05-06] MEDS: FAMOTIDINE 20 MG in SYRINGE 3 ML IV SCH ×2 (09:11→20:42)
[2021-05-06] MEDS: NSS + 20MEQ KCL 20 MEQ/1,000 ML BAG IV SCH (11:32)
[2021-05-06] MEDS ORDERED: POLYETHYLENE (MIRALAX) 17 GM PACK PO ONE (12:47)
[2021-05-06] MEDS ORDERED: POLYETHYLENE (MIRALAX) 17 GM PACK PO PRN (12:48)
--- NOTE | 2021-05-06 12:58 | Hospitalist Progress Note ---
Date of Service May 06, 2021 Assessment & Plan (1) Diverticulitis: Plan: With severe acute sigmoid diverticulitis without perforation or abscess, progressively worsening over the last 7 to 10 days, failed outpatient antibiotic therapy with Augmentin With leukocytosis, significant left lower quadrant abdominal pain, afebrile and normal blood pressure, but did present with weakness and collapse without syncope -Admited to medical floor with telemetry initially given collapse - no arrhythmia noted and suspect collapse more related to generalized weakness from illness/poor oral intake -Was given IV Unasyn in the ER, but swithched to IV Zosyn as she already failed p.o. Augmentin as an outpatient -- Likely change to Cipro/Flagyl on D/C -Low fiber diet -IV morphine and Tylenol as needed for pain -IV Zofran as needed for nausea -Hydrated with normal saline with 20 mEq of potassium chloride at 80 mL's per hour - will stop fluids now as she is talking in orally -Follow labs - leukocytosis resolved; remains afebrile (2) Collapse: Plan: -Patient does not think that she lost consciousness, but is just generally weak and had very poor p.o. intake for several days in a row -Likely presyncope and generalized weakness from dehydration and illness - Downgraded to medical/surgical -Check orthostatic pressures -No murmur on examination, no need for echocardiogram - Will do PT/OT - seems to be doing well (3) Hypokalemia: Plan: Secondary to poor p.o. intake Replete as necessary Follow BMP/magnesium (4) Recurrent deep vein thrombosis (DVT): Plan: With history of multiple DVTs and PE, on Coumadin INR 3.2 - Resume Coumadin at home dosing -- suspect due to poor intake this caused the elevation on admission - Follow INR (5) Non-occlusive coronary artery disease: Plan: No stents in place On no specific therapy for this as an outpatient (6) Depression: Plan: Continue home sertraline, no acute issues (7) Esophageal reflux: Plan: With a history of ulcer as per records, but not on antacid as an outpatient Will give IV Pepcid while hospitalized (8) Hyperlipidemia: Plan: Is not on medication for this (9) Memory loss: Plan: Continue donepezil (10) Obstructive sleep apnea: Plan: Can bring in CPAP from home-supposed to be on 7 cm H2O with nasal mask as per sleep report from 08/2020 (11) Osteoporosis: Plan: Hold home Fosamax (12) Peripheral neuropathy: Plan: Continue home Lyrica Follows with neurology in [place] (13) Polymyalgia rheumatica: Plan: Initially diagnosed with PMR, but rheumatology notes from 12/2020 now diagnosed her with seronegative rheumatoid arthritis, polyarthritis She is no longer taking any prednisone and has not for months so therefore no stress dose steroids needed She has not taken her weekly methotrexate since she has been ill the last 2 weeks She is also due for her upcoming infusion of Simponi, but she will also reschedule this for after her infection is cleared Continue folic acid (14) Asthma: Plan: No acute issues Albuterol as needed (15) HTN (hypertension): Plan: Hold home losartan HCT while she is acutely dehydrated and ill - can resume on D/C Plan: DVT prophylaxis-Coumadin, follow daily INR Disposition- Plan for D/C home, possibly as early as tomorrow pending assessment Full code Discussed with her on 05/05 and provided update per patient request; will call this afternoon Admission and Anticipated Discharge Date Admission Date: May 03, 2021 Supervising Physician Co-Signing Physician Notes Attending Attestation - Chart reviewed in detail, care plan d/w JEANNE Muniz. I agree w/ the najera components of her documentation. Uncomplicated sigmoid diverticulitis, refractory to outpatient oral antibiotic Rx. Now improving with IV zosyn & supportive care. Consider outpatient f/u with GI for consideration of colonoscopy in about 6-8 weeks. Lee Dinero MD Subjective No acute events overnight. Reporting no pain which she said has been a first in awhile. Objectively looks better. Remains afebrile. Did have a lot of gas and bloating with dinner last night but breakfast went well and lunch just arrived. She has been more mobile and feeling stronger. Only had a small BM and feels like she needs to move her bowels more. Review of Systems Review of Systems: All systems reviewed & are unremarkable except as noted in Subjective Physical Exam Physical Exam: PHYSICAL EXAM General Appearance: WDWN in NAD who is A&O x 3 HEENT: Head is normocephalic/atraumatic; Hearing grossly intact; Mucous membranes moist Neck: Supple; Trachea midline; Neg JVD Heart: RRR with no M/G/R Lungs: CTA in all lung hoskins bilaterally; Respirations unlabored; Neg accessory muscle use Abdomen: Mildly bloated but soft; mild tenderness bilateral lower quadrants without guarding or rigidity; normoactive BS x 4 quadrants Extremities: Neg cyanosis or edema Neurological: Speech clear; Gross motor/sensory function intact; Neg focal neurologic deficits Psychiatric: Appropriate mood/affect Skin: Normal Color; Warm/Dry Results & Data Results & Data ([facility]) Vital Signs (Past 12 Hours) Vital Signs Temp Pulse Resp BP BP Pulse Ox 05/06/21 08:00 36.7 C 50 L 18 126/86 95 05/06/21 03:03 36.5 C 55 L 16 121/71 94 PG Care Time/CCT Total # of Minutes Spent Total Time Spent with Patient: Total time spent is greater than 50% in coordination of care (as documented) at patient's floor/unit and/or counseling patient: Coding Level of Care Code 87303 Subseq Hosp Care Lvl 3 Diagnoses Diverticulitis K57.92 Collapse R55 Hypokalemia E87.6 Recurrent deep vein thrombosis (DVT) I82.409 Non-occlusive coronary artery disease I25.10 Depression F32.9 Esophageal reflux K21.9 Hyperlipidemia E78.5 Memory loss R41.3 Obstructive sleep apnea G47.33 Osteoporosis M81.0 Peripheral neuropathy G62.9 Polymyalgia rheumatica M35.3 Asthma J45.909 HTN (hypertension) I10
[2021-05-06] MEDS ORDERED: WARFARIN SOD 2 MG TAB PO SCH (13:00)
[2021-05-06] MEDS ORDERED: WARFARIN SOD 4 MG TAB PO SCH (16:00)
[2021-05-06] MEDS ORDERED: SIMETHICONE 80 MG CHEW PO ONE (16:56)
[2021-05-06] MEDS ORDERED: SIMETHICONE 80 MG CHEW PO PRN (16:56)
[2021-05-06] MEDS: FOLIC ACID 1 MG TAB PO SCH (20:40)
[2021-05-06] MEDS: DONEPEZIL HCL 10 MG TAB PO SCH (20:40)
[2021-05-06] MEDS: SERTRALINE HCL 50 MG TABLET PO SCH (20:41)
[2021-05-07] MEDS: PIPERACILLIN/TAZOBACTAM 4.5 GM in DEXTROSE 5% 100 ML IV SCH ×2 (01:20→08:44)
[2021-05-07] MEDS: PREGABALIN 75 MG CAP PO SCH (07:59)
[2021-05-07] MEDS: FAMOTIDINE 20 MG in SYRINGE 3 ML IV SCH (08:44)
[2021-05-07 09:17] LABS: Hematocrit (blood only) 36.7 % (37-47); Mean Corpuscular Hemoglobin 30.8 pg (25-34); Mean Corpuscular Hgb Conc 32.7 g/dL (32-36); Mean Corpuscular Volume 94.1 fL (80-100); Mean Platelet Volume 10.4 fL (7.4-10.4); Platelet Count 263 K/uL (130-400); RDW Coefficient of Variation 13.6 % (11.5-14.5); RDW Standard Deviation 46.3 fL (36.4-46.3); White Blood Count 4.36 K/uL (4.8-10.8)
[2021-05-07 09:26] LABS: INR 3.5 (0.9-1.1); Prothrombin Time 32.1 Seconds (9.0-12.0)
[2021-05-07 09:43] LABS: BUN Creatinine Ratio 11.5 (10-20); Calcium 8.5 mg/dl (8.5-10.1); Creatinine Clr Calc Pharmacy 66.9 ml/min; Est GFR (African American) 88.7 ml/min; Est GFR (Non-African American) 76.5 ml/min; Potassium 3.6 mmol/L (3.5-5.1)
[2021-05-07] MEDS ORDERED: CIPROFLOXACIN 500 MG TAB PO SCH (10:30)
--- NOTE | 2021-05-07 13:53 | Discharge Summary ---
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 The pain in the abdomen has been waxing and waning over the past 10 days or so and she had a CT of the abdomen/pelvis on 04/26 which showed acute diverticulitis. It appears she was started on Augmentin as an outpatient. She was brought in by EMS after collapsing on the ground and her could not get her off the floor as she was too weak. She does not think that she passed out, but just felt so weak she could not stay on her feet when she was trying to walk to the bathroom after getting out of bed. She did not hit her head and has no pain or injuries that are acute anywhere. In the ER, she was found to have severe acute sigmoid diverticulitis without perforation or abscess-this had radiographically progressed since previous CT 1 week prior. She had an elevated WBC count of 15,000,And hypokalemia with potassium 3.2. Sodium was mildly low at 135. Labs were otherwise fairly unremarkable except her INR was supratherapeutic at 4.0. Chest x-ray was negative and a Covid test was pending at the time of admission. She was given IV Unasyn, 1 L of normal saline, IV morphine, and IV Zofran x1 in the ER. She will be admitted for acute sigmoid diverticulitis. Principal Diagnosis Acute Sigmoid Diverticulitis Discharge Exam PHYSICAL EXAM General Appearance: WDWN in NAD who is A&O x 3 HEENT: Head is normocephalic/atraumatic;Hearing grossly intact; Mucous membranes moist Neck: Supple; Trachea midline; Neg JVD; Neg lymphadenopathy Heart: RRR with no M/G/R Lungs: CTA in all lung hoskins bilaterally; Respirations unlabored; Neg accessory muscle use Abdomen: Soft, non-tender, non-distended; Positive BS x 4 quadrants Extremities: Neg cyanosis or edema; +brace Neurological: Speech clear; Gross motor/sensory function intact; Neg focal neurologic deficits Psychiatric: Appropriate mood/affect Skin: Normal Color; Warm/Dry Discharge Data Allergies Allergy/AdvReac Type Severity Reaction Status Date / Time [id number] Reductase AdvReac Severe Muscle Pain Verified 05/03/21 11:24 Inhibitor [Brurpep-Pqw-Stk Reductase Inhibitor] Bactrim AdvReac Intermediate STOMACH Verified 01/08/17 09:31 SICKNESS sulfamethoxazole AdvReac Intermediate STOMACH Verified 05/03/21 11:24 SICKNESS trimethoprim AdvReac Intermediate STOMACH Verified 05/03/21 11:24 SICKNESS tramadol AdvReac Unknown no pain Verified 05/03/21 11:24 relief Consultations 05/03/21 13:15 ED Decision to Admit Stat Ordered Studies Abdomen/Pelvis CT 05/03/21 11:20 CT SCAN OF THE ABDOMEN AND PELVIS WITH IV CONTRAST CLINICAL HISTORY: Left lower quadrant abdominal pain. COMPARISON STUDY: Abdominal CT dated 04/26/2021. TECHNIQUE: Following the IV administration of 94 cc of Optiray 320, CT scan of the abdomen and pelvis is performed from the lung bases to the proximal femora. Images are reviewed in the axial, sagittal, and coronal planes. IV contrast was administered without complication. A dose lowering technique was utilized adhering to the principles of ALARA. CT DOSE: 807.78 mGy.cm FINDINGS: Lung bases: The heart is normal in size and without pericardial effusion. A fat- containing Bochdalek hernia is seen at the left lung base. The lung bases are clear noting bibasilar scarring/atelectasis. There is a small hiatal hernia. Liver: The contrast-enhanced liver is normal in size, contour, and attenuation. There is no intrahepatic biliary ductal dilatation. The hepatic veins and portal veins are patent. Scattered hepatic cysts measure up to 2.6 cm. There are scattered calcified hepatic granulomas. Gallbladder: Unremarkable. Spleen: Normal in size and attenuation. Pancreas: Unremarkable. Adrenal glands: Unremarkable. Kidneys: The contrast enhanced kidneys are normal in size and without hydronephrosis. The kidneys enhance symmetrically. Left renal cysts measure up to 5 cm. Abdominal vasculature: The abdominal aorta is normal in course and caliber noting advanced atherosclerotic calcification. Bowel: There is moderate to advanced colonic diverticulosis. There is significant wall thickening with pericolonic inflammation and fluid involving the proximal sigmoid colon consistent with severe acute diverticulitis. No organized fluid collection is identified to indicate abscess. No bowel obstruction is seen. The appendix is well-visualized and normal. Peritoneum: There is a small volume of free fluid tracking along the left paracolic gutter and in the pelvis. No intraperitoneal free air is identified. Lymphadenopathy: None. Pelvic viscera: The bladder is normal as visualized. There are calcified uterine fibroids. No adnexal lesion is seen. There are small bilateral fat-containing inguinal hernias. Skeletal structures: The skeletal structures are osteopenic. There is mild to moderate lumbosacral spondylosis. 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 No lytic or blastic lesions are seen. IMPRESSION: 1. Findings are consistent with severe acute diverticulitis of the sigmoid colon. This has significantly worsened as compared to 04/26/2021. 2. No intraperitoneal free air is identified and there is no organized fluid collections suggest abscess. 3. Free fluid in the left paracolic gutter and pelvis is likely reactive. 4. Additional findings as above. ACT 112: Negative or not required by law. Electronically signed by: Adolfo Odell M.D. 05/03/2021 12:48 PM Chest X-Ray 05/03/21 11:21 XR chest 1V portable HISTORY: 80 years-old Female abd pain acute chest and abdominal pain COMPARISON: Chest radiograph 12/23/2020 TECHNIQUE: Portable AP view of the chest FINDINGS: The cardiac silhouette is enlarged. Calcified plaque of the thoracic aorta. No pneumothorax, pleural effusion, airspace consolidation or overt pulmonary edema. Minimal opacities of the lateral left lung base suggest atelectasis. Degenerative changes of the shoulders and spine. Mild sigmoidal thoracolumbar scoliosis. IMPRESSION: No acute process. ACT 112: Negative or not required by law. The above report was generated using voice recognition software. It may contain grammatical, syntax or spelling errors. Electronically signed by: Gregorio Aguirre M.D. 05/03/2021 12:09 PM Hospital Course (1) Diverticulitis: With severe acute sigmoid diverticulitis without perforation or abscess, progressively worsening over the last 7 to 10 days, failed outpatient antibiotic therapy with Augmentin With leukocytosis, significant left lower quadrant abdominal pain, afebrile and normal blood pressure, but did present with weakness and collapse without syncope -Admited to medical floor with telemetry initially given collapse - no arrhythmia noted and suspect collapse more related to generalized weakness from illness/poor oral intake -Was given IV Unasyn in the ER, but swithched to IV Zosyn as she already failed p.o. Augmentin as an outpatient -- Converted to Cipro/Flagyl to complete a 14 day total course. Instructions provided in regards to INR/Coumadin and advised that these medications may cause her INR to run a little high with her normal dosing -Low fiber diet for 1-2 weeks then promote high fiber -Can use Tylenol as needed for pain -Hydrated with normal saline with 20 mEq of potassium chloride at 80 mL's per hour - but stopped fluids - Leukocytosis resolved, remained afebrile, pain resolved, moving bowels, and tolerating a diet. She was discharged home with treatment as above. Instructions given on red flags and reasons to return (2) Collapse: -Patient does not think that she lost consciousness, but is just generally weak and had very poor p.o. intake for several days in a row -Likely presyncope and generalized weakness from dehydration and illness -No murmur on examination, no need for echocardiogram -PT/OT - did well and able to return home (3) Hypokalemia: - Secondary to poor p.o. intake - repleted as necessary (4) Recurrent deep vein thrombosis (DVT): With history of multiple DVTs and PE, on Coumadin INR 3.5 - Recommended to hold Coumadin today and tomorrow then resume the 2 mg on Monday and INR check on Monday - likely to run higher given Abx and may need lower dosing than normal while on treatment - Follow INR (5) Non-occlusive coronary artery disease: No stents in place On no specific therapy for this as an outpatient (6) Depression: Continue home sertraline, no acute issues (7) Esophageal reflux: With a history of ulcer as per records, but not on antacid as an outpatient - Feels the Pepcid really helped and will prescribe (8) Hyperlipidemia: Is not on medication for this (9) Memory loss: Continue donepezil (10) Obstructive sleep apnea: CPAP-supposed to be on 7 cm H2O with nasal mask as per sleep report from 08/2020 (11) Osteoporosis: Fosamax (12) Peripheral neuropathy: Continue home Lyrica Follows with neurology in [place] (13) Polymyalgia rheumatica: Initially diagnosed with PMR, but rheumatology notes from 12/2020 now diagnosed her with seronegative rheumatoid arthritis, polyarthritis She is no longer taking any prednisone and has not for months so therefore no stress dose steroids needed She has not taken her weekly methotrexate since she has been ill the last 2 weeks She is also due for her upcoming infusion of Simponi, but she will also reschedule this for after her infection is cleared Continue folic acid Advised to discuss with treating provider when to resume given infection/illness (14) Asthma: No acute issues Albuterol as needed (15) HTN (hypertension): losartan/HCTZ DVT prophylaxis-Coumadin Disposition- D/C to home Full code Total Time Total Time Spent Total Time Spent (In Minutes): Spent greater than 30 minutes preparing patient for discharge. This includes discussion with patient/family, assessment, intervention, medication reconciliation, and coordination of care. Discharge Plan Discharge Items Patient Disposition: Home - Home Health Services Reason For Visit: ACUTE DIVERTICULITIS, COLLAPSE Discharge Diagnosis: Diverticulitis Activity: Resume your previous activity Non-emergency contact: Primary Care Provider Call non-emergency contact if: you have any medication questions, your symptoms worsen and you have a fever Follow-up/Referrals: Ella Esquivel MD [Primary Care Provider] - 05/24/21 8:00 am Diet: Low Fiber Ambulatory Orders: Prothrombin Time INR (Routine) Timeframe: [id number] Location: Determined by Patient Ordered By: Marisabel Barnhart Attending Provider Instructions: Diverticulitis: - You were admitted for sigmoid diverticulitis and thankfully no abscess (pocket of infection) or perforation (popping of the diverticulum). Unfortunately the Augment did not work. Normally this can be good antibiotic coverage but sometimes for unknown reasons it just doesn't work. - You were treated with IV antibiotic called Zosyn and responded very well to this - We are going to change this over to Ciprofloxacin and Flagyl which are oral antibiotics to treat this infection. Given the length of symptoms we are going to cover for a total of 14 days. This includes the time in the hospital -- Starting this evening on 05/07 take one dose of Ciprofloxacin 500 mg. Then on 05/08 start taking this twice a day until completed -- Starting this evening on 05/07 take one dose of Flagyl 500 mg. Then on 1/8 start taking this three times a day until completed - Recommend a low fiber diet for 1-2 weeks and a hand out will be given. However no major restrictions - Can continue Miralax as needed to help with your bowels and use Colace (Docusate Sodium) as a stool softener - Can also your Gas-X as needed for bloating and gas - You seemed to do well with an antacid and will prescribed Pepcid to take - With antibiotics this should continue to get better. However, sometimes people can worsen even when on antibiotics. If you start developing worsening abdominal pain, feeling more ill, develop a fever, or not tolerating food please get evaluated immediately. Sometimes even with antibiotics infections can worsen and pockets of infection (abscesses) can develop and need more involved treatment. - ANTIBIOTICS CAN INFLUENCE YOUR INR (COUMADIN LEVEL) IT CAN CAUSE YOU TO HAVE HIGHER COUMADIN LEVELS AND THEREFORE WILL NEED TO WATCH THIS A BIT CLOSER THAN YOU NORMALLY HAVE TO AND MAY REQUIRE LESS OF A DOSE TO STAY THERAPEUTIC UNTIL YOU FINISH ANTIBIOTICS. WILL GIVE A SLIP TO HAVE YOUR INR CHECKED ON MONDAY AND YOU CAN GO WHERE YOU NORMALLY DO TO HAVE THIS DRAWN HOLD YOUR COUMADIN TONIGHT ON 05/07 AND AGAIN ON 05/08. TAKE COUMADIN 2 MG ON MONDAY AND GET YOUR INR CHECKED ON MONDAY AND FURTHER ADJUSTMENTS BASED ON THAT READING. Collapse: - We did not find any irregular heart rhythms on the monitor thankfully. Suspect this fall was due to poor oral intake and illness and you have done well with therapy Methotrexate and Simponi: - Recommend talking to your prescribing doctor when to resume these medications. We sometimes hold them when acutely ill. Pending Studies at Discharge: No Stand-Alone Forms: [facility], Smoking Cessation Medications and DC Order Prescriptions: New simethicone [Mi-Acid Gas Relief(simethicon)] 80 mg Tablet,Chewable 80 mg PO Q6H PRN (Reason: abdominal distention) 7 Days Qty: 28 RF: 0 famotidine [Pepcid] 20 mg tablet 20 mg PO BID 30 Days Qty: 60 RF: 0 metronidazole 500 mg Tablet 500 mg PO TID Qty: 28 RF: 0 ciprofloxacin HCl 500 mg Tablet 500 mg PO BID Qty: 19 RF: 0 Continued losartan-hydrochlorothiazide 100-25 mg tablet 1 tab PO HS Qty: 90 RF: 3 potassium chloride 10 mEq capsule, extended release 10 meq PO BID Qty: 180 RF: 3 donepezil [Aricept] 10 mg tablet 10 mg PO HS Qty: 90 RF: 3 warfarin 2 mg tablet 2 mg PO UD Qty: 110 RF: 3 nitroglycerin 0.4 mg tablet, sublingual 0.4 mg SL Q5M PRN (Reason: Chest Pain) RF: 0 albuterol sulfate [ProAir HFA] 90 mcg/actuation HFA aerosol inhaler 2 puffs INH Q6H PRN (Reason: shortness of breath or wheezing) Qty: 18 RF: 0 methotrexate sodium 2.5 mg tablet 15 mg PO WK RF: 0 sertraline 50 mg tablet 50 mg PO HS Qty: 90 RF: 3 folic acid 1 mg tablet 2 mg PO QPM RF: 0 Metamucil 3.4 gram/5.4 gram powder 1 tbsp PO DAILY PRN (Reason: Constipation) RF: 0 polyethylene glycol 3350 [Miralax] 17 gram/dose powder 17 g PO DAILY PRN (Reason: constipation) RF: 0 cholecalciferol (vitamin D3) [Vitamin D3] 25 mcg (1,000 unit) Tablet 25 mcg PO BID RF: 0 pregabalin 75 mg Capsule 75 mg PO BID RF: 0 docusate sodium [Stool Softener] 100 mg Capsule 100 mg PO DAILY PRN (Reason: Constipation) RF: 0 turmeric 400 mg Capsule 400 mg PO QAM RF: 0 alendronate 70 mg tablet 70 mg PO WK RF: 0 Simponi 50 mg/0.5 mL pen injector 50 mg subcut Q90M RF: 0 Discontinued amoxicillin-pot clavulanate [Augmentin] 875-125 mg tablet 1 tab PO BID 10 Days Qty: 20 RF: 0 Discharge Orders: Discharge Order (Routine); Ordered 05/07/21 Ordered By: Cory Sullivan/Other Patient Handouts: Low-Fiber Diet, Diverticulitis Dc Admission Data Admit Date/Time: 05/03/21 13:54 Attending Provider: Cory Gillis Admit Provider: Alejandrina Kent Primary Care Provider: Ella Esquivel Other Providers: Alejandrina Kent Other Interventions: Discharge Summary Assessment (RN) Last Done: 05/07/21 12:30 Supervising Physician Co-Signing Physician Notes Attending note: patient seen and examined with Marisabel Muniz PA-C. I agree with her discharge summary. I personally reviewed the labs and imaging findings. patient feeling much better, no LLQ pain, eating well, moving her bowels, no fever, she will follow up with PCP and her surgeon Dr Carroll - Acute sigmoid diverticulitis: no large bowel perforation treated with Zosyn IV, responded well, she had failed Augmentin prior to admission, will send home on Cipro/Flagyl Coding Level of Care Code D/C DAY MANAGEMENT >30 MINS Diagnoses Diverticulitis K57.92 Collapse R55 Hypokalemia E87.6 Recurrent deep vein thrombosis (DVT) I82.409 Non-occlusive coronary artery disease I25.10 Depression F32.9 Esophageal reflux K21.9 Hyperlipidemia E78.5 Memory loss R41.3 Obstructive sleep apnea G47.33 Osteoporosis M81.0 Peripheral neuropathy G62.9 Polymyalgia rheumatica M35.3 Asthma J45.909 HTN (hypertension) I10
[2021-05-07] MEDS ORDERED: metroNIDAZOLE 500 MG TAB PO SCH (14:00)
[2021-05-07] MEDS ORDERED: WARFARIN SOD 2 MG TAB PO SCH (16:00)
--- NOTE | 2021-05-21 08:50 | Coding Query ---
CODING QUERY To promote full compliance with coding requirements relating to patient care, provider participation is requested in all cases of medical records coder uncertainty. Please assist us with the question(s) below: Coding Question(s): Patient admitted with sigmoid diverticulitis. Discharge Summary, progress notes documented recurrent DVT'. Seeking to clarify acuity of DVT's. Pt with history of clotting disorder, Factor I (as per History). Please check the appropriate phrase that describes the DVT. Thanks for your help. Pelon Webb [facility] Physician's Response(s): Patient has a history of DVT' Patient has recurrent DVT' Cannot clinically correlate if patient has a DVT Other: please document: Principal Diagnosis: "that condition established after study, to be chiefly responsible for occasioning the admission of the patient to the hospital for care." Co-Existing Principal Diagnosis: "when two or more diagnoses equally meet the criteria for principal diagnosis as determined by the circumstances of admission, diagnostic work up, and/or therapy provided, and the Alphabetic Index, Tabular List, or another coding guideline does not provide sequencing direction, any one of the diagnoses may be sequenced first." "When the physician has documented what appears to be a current diagnosis in the body of the record, but has not included the diagnosis in the final diagnostic statement, the physician should be asked whether the diagnosis should be added." (Source Coding [facility] 2 QTR90. p3-4) [facility]
== END 2021-05-07 13:45 | disposition home health service (06) | DRG 392 ==
LOC: ED 10:46 → SUATTDRO 13:54 → EDINP 13:54 → 2N 05-04 18:34 → 3N 05-06 21:55

== ENCOUNTER 2021-10-19 19:05 | Inpatient (IN) ==
[2021-10-19 19:47] LABS: Basophils # (auto) 0.02 K/uL (0-0.2); Basophils % (auto) 0.2 %; Eosinophils # (auto) 0.05 K/uL (0-0.5); Eosinophils % (auto) 0.5 %; Hematocrit (blood only) 34.8 % (37-47); Hemoglobin 11.5 g/dL (12.0-16.0); Immature Granulocytes # (auto) 0.01 K/uL (0.00-0.02); Immature Granulocytes % (auto) 0.1 %; Lymphocytes # (auto) 0.68 K/uL (1.2-3.4); Lymphocytes % (auto) 6.5 %; Mean Corpuscular Hemoglobin 31.2 pg (25-34); Mean Corpuscular Volume 94.3 fL (80-100); Mean Platelet Volume 10.1 fL (7.4-10.4); Monocytes # (auto) 0.97 K/uL (0.11-0.59); Monocytes % (auto) 9.3 %; Neutrophils # (auto) 8.67 K/uL (1.4-6.5); Neutrophils % (auto) 83.4 %; Platelet Count 247 K/uL (130-400); RDW Coefficient of Variation 14.5 % (11.5-14.5); RDW Standard Deviation 49.1 fL (36.4-46.3); Red Blood Count 3.69 M/uL (4.2-5.4)
[2021-10-19 20:11] LABS: INR 2.3 (0.9-1.1); Partial Thromboplastin Ratio 1.4; Partial Thromboplastin Time 38.4 Seconds (21.0-31.0); Prothrombin Time 23.1 Seconds (9.0-12.0)
[2021-10-19 20:26] LABS: Alanine Aminotransferase 14 U/L (7-52); Albumin Globulin Ratio 1.2 (0.9-2); Albumin Level 3.8 gm/dl (3.4-5.0); Alkaline Phosphatase 113 U/L (34-104); Anion Gap 8 (3-11); Aspartate Aminotransferase 20 U/L (13-39); BUN Creatinine Ratio 22.7 (10-20); Bilirubin,Total 0.5 mg/dl (0.2-1.0); Blood Urea Nitrogen 20 mg/dl (6-23); Calcium 9.2 mg/dl (8.5-10.1); Carbon Dioxide 25 mmol/L (21-32); Chloride 106 mmol/L (98-107); Est GFR (African American) 71.4 ml/min; Est GFR (Non-African American) 61.6 ml/min; Globulin 3.2 gm/dl (2.5-4.0); Glucose 110 mg/dl (70-99(Fasting)); Magnesium 1.6 mg/dl (1.7-2.4); Potassium 3.8 mmol/L (3.5-5.1); Sodium 139 mmol/L (136-145)
[2021-10-19 20:31] LABS: Troponin I High Sensitivity 10.7 pg/ml (0-14)
[2021-10-19] MEDS ORDERED: ONDANSETRON INJ 2 MG/ML 2 ML VIAL IV STA (20:37)
[2021-10-19] MEDS ORDERED: SODIUM CHLORIDE 0.9% 1000ML 500 ML IV ONE (20:37)
[2021-10-19] MEDS ORDERED: MoRPHine SULFATE 2 MG/ML CARP IV PRN (20:37)
[2021-10-19] MEDS ORDERED: MoRPHine SULFATE 2 MG/ML CARP IV STA (20:37)
[2021-10-19] MEDS ORDERED: ACETAMINOPHEN 1000 MG/100 ML IV IV STA (20:38)
--- NOTE | 2021-10-19 20:43 | Emergency Department Note ---
Impression & Plan Left sided abdominal pain, Weakness, SOB (shortness of breath), Acute diverticulitis, Hypomagnesemia ED Provider Note NAME: TIA ALONZO AGE: 81 SEX: F : 1940 ARRIVES VIA: Walk-In INFORMANT: [Patient] ED PROVIDER(S): [Adolfo Cooley MD] CHIEF COMPLAINT: Shortness of breath, abdominal pain HISTORY OF PRESENT ILLNESS: The patient is an 81-year-old female who presents with 5 days of symptoms. She initially felt a bit short of breath with a cough and just sort of week. The cough seemed to get somewhat better. No fever although she has had some chills. 2 days ago, she ate a lot at an outing and ever since then, has had left lower quadrant abdominal pain and bloating. The patient states that she feels even worse today and she is concerned that she might now have diverticulitis. There have been no urinary complaints. She is moving her bowels. No black stool. She had a bit of blood on the toilet tissue when she moved her bowels but she states she does have hemorrhoids. The patient denies any chest pain. She has not had any recent sick contacts. The abdominal pain is moderate in severity. The pain is mostly in the left lower quadrant. Palpation makes the pain worse. REVIEW OF SYSTEMS: See HPI for pertinent positives and negatives. A total of ten systems were reviewed and were otherwise negative. PMHx/PSHx: See Below SOCIAL HISTORY: See Below. PHYSICAL EXAM: GENERAL: Patient is in no acute distress. HEENT: No acute trauma, normocephalic atraumatic, mucous membranes moist, no nasal congestion, no scleral icterus. NECK: No stridor, no adenopathy, no meningismus, trachea is midline. LUNGS: Clear to auscultation bilaterally, no wheeze, no rhonchi, breath sounds equal. HEART: Without murmurs gallops or rubs, regular rate and rhythm. ABDOMEN: Soft, moderately tender in the left lower quadrant, no peritonitis. EXTREMITIES: No cyanosis or edema, full range of motion of all the joints without pain or difficulty, no signs for acute trauma. NEUROLOGIC: Oriented x 3, no acute motor or sensory deficits, no focal weakness. SKIN: No rash, no jaundice, no diaphoresis. DIFFERENTIAL DIAGNOSIS: Appendicitis, ovarian cyst, ovarian torsion, diverticulitis, UTI, obstruction, mesenteric ischemia, aortic pathology, inflammatory bowel disease, renal colic, PUD, pancreatitis, biliary pathology, hernia, volvulus, constipation, pneumonia, COVID-19, influenza, as well as other pathologies. EMERGENCY DEPARTMENT COURSE/PROCEDURES: ECG: Indication was shortness of breath and abdominal pain. The ECG shows a sinus rhythm with a PAC. The rate is 66. There is no ST elevation, no PVCs. The QTc is 394. Continuous Cardiac Monitoring: An order was placed for continuous cardiac monitoring. The monitor shows a rate of 83 with normal sinus rhythm. MEDICAL DECISION MAKING: There is no leukocytosis. A very mild anemia was seen. There was a normal platelet count. INR was therapeutic for someone using Coumadin. Magnesium slightly low at 1.6, no renal failure. No concerning liver enzyme elevation. The patient appeared to be in a euthyroid state. ECG shows a sinus rhythm, no ischemia. Cardiac enzyme testing x1 is not consistent with acute cardiac injury. COVID, influenza and RSV test were negative. Chest x-ray did not show pneumonia or CHF. Abdominal and pelvis CT does show diverticulitis without perforation. On exam, the patient was tender in the left lower quadrant. She was not toxic, no true peritonitis. The patient was given IV morphine for pain, IV Zofran for nausea, she received IV saline. She was given IV magnesium. She received IV Unasyn as antibiotic coverage. She was given some IV Tylenol for additional pain control. The patient presents with shortness of breath, weakness, abdominal pain. She appears to have diverticulitis. She has not done well as an outpatient and I do think a hospital stay would be warranted and in her best interest. I spoke with the patient and case management. The on-call hospitalist was consulted. 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 On Coumadin Depression Esophageal reflux History of pulmonary embolus (PE) HTN (hypertension) Hyperlipidemia Non-occlusive coronary artery disease NSTEMI (non-ST elevated myocardial infarction) (~2016) Obstructive sleep apnea uses cpap Osteoporosis Peripheral neuropathy Recurrent deep vein thrombosis (DVT) Seronegative rheumatoid arthritis Stomach ulcer Hx Surgical History History of ankle surgery History of esophagogastroduodenoscopy (EGD) History of total right knee replacement Hx of hysterectomy S/P cardiac cath (~2015) S/P cataract extraction S/P colonoscopy Status post mastoidectomy Family History Unknown Pulmonary embolism Brother Coronary heart disease Myocardial infarction Stroke Mother Myocardial infarction Father Stroke Family/Other Family history of reaction to anesthesia Denies family history of Ovarian cancer Prostate cancer Breast cancer Lung cancer Colorectal cancer Social History Smoking Status: Never smoker Age Started Using Tobacco: 18; Age Quit Using Tobacco: 28; Years Smoked: 10; Second Hand Exposure: No; Hx Alcohol Use: No Hx Substance Use: No Preferred Language: Latvian Communication Ability: Effective Visual Impairment: Partially Limited Hearing Ability: Normal Skimmer Required: No Beliefs That Will Affect Care: None marital status: Current Living Situation: Spouse current occupational status: retired How many Children do You have: 3 Feels Safe at Home: Yes Childhood Exposure to Second-Hand Smoke: Yes Diet Comment: Regular caffeine: Yes (2 cups of coffee a day) during the past year weight has: remained stable Dental Care, Regularly: Yes Physical Activity Frequency: Does not Exercise Seatbelt Use: always Sunscreen Use: No (Doesn't go out much) Do you think of yourself as: straight/heterosexual Assistive Devices: Cane Allergies Allergies Allergy/AdvReac Type Severity Reaction Status Date / Time Jfhhtal-HJX-InM Reductase AdvReac Severe Muscle Pain Verified 10/19/21 22:17 Inhibitor [Fiksdjm-Wgt-Enh Reductase Inhibitor] sulfamethoxazole AdvReac Intermediate STOMACH Verified 10/19/21 22:17 SICKNESS trimethoprim AdvReac Intermediate STOMACH Verified 10/19/21 22:17 SICKNESS tramadol AdvReac Unknown no pain Verified 10/19/21 22:17 relief Home Meds Home Medications Medication Instructions Recorded Confirmed nitroglycerin 0.4 mg sublingual 0.4 mg SL Q5M PRN tab 10/28/18 10/19/21 tablet folic acid 1 mg tablet 2 mg PO QPM tab 02/26/19 10/19/21 methotrexate sodium 2.5 mg tablet 15 mg PO WK tab 01/20/20 10/19/21 pregabalin 75 mg capsule 75 mg PO BID 03/24/20 10/19/21 docusate sodium 100 mg capsule 100 mg PO DAILY 12/21/20 10/19/21 (Stool Softener) acetaminophen 650 mg 650 mg PO Q12H PRN 07/09/21 10/19/21 tablet,extended release alendronate 70 mg tablet 70 mg PO WK 09/14/21 10/19/21 multivitamin 1 tab PO DAILY 09/14/21 10/19/21 polyethylene glycol 3350 17 17 g PO DAILY 10/19/21 10/19/21 gram/dose oral powder (Miralax) vitamin E 400 unit capsule 1,200 unit PO DAILY 10/19/21 10/19/21 warfarin 2 mg tablet See Rx Instructions .ROUTE .COMPLEX 10/19/21 10/19/21 Previous Rx's Medication Instructions Recorded albuterol sulfate 90 mcg/actuation 2 puffs INH Q6H PRN #18 gm 10/28/18 aerosol inhaler (ProAir HFA) sertraline 50 mg tablet 50 mg PO HS #90 tab 11/05/20 donepezil 10 mg tablet (Aricept) 10 mg PO HS #90 tab 01/05/21 potassium chloride 10 mEq 10 meq PO TID #360 cap 05/25/21 capsule,extended release losartan 100 1 tab PO HS #90 tab 06/04/21 mg-hydrochlorothiazide 25 mg tablet Results & Data (ED) Vital Signs Vital Signs - 24 hr 10/19/21 19:08 10/19/21 22:20 10/19/21 22:21 Temperature 37.5 C Temperature Source Temporal Artery Scan Pulse Rate 83 Pulse Rate [Apical] 73 Respiratory Rate 16 18 Respiratory Effort / Characteristics Non-Labored Spontaneous Respiratory Depth Normal Blood Pressure 116/69 Blood Pressure [Right Arm] 107/64 Blood Pressure Mean 84 Blood Pressure Mean [Right Arm] 78 Pulse Oximetry 95 94 93 Oxygen Delivery Method Room Air Room Air Room Air Sepsis Recent Fever Within 48 Hours No Sepsis New/Unexplained Change in Mental Status No Sepsis Action Taken by Nursing No Action Required Oxygen Flow Rate - Titration 10/19/21 22:27 Temperature Temperature Source Pulse Rate Pulse Rate [Apical] Respiratory Rate Respiratory Effort / Characteristics Respiratory Depth Blood Pressure Blood Pressure [Right Arm] Blood Pressure Mean Blood Pressure Mean [Right Arm] Pulse Oximetry 93 Oxygen Delivery Method Room Air Sepsis Recent Fever Within 48 Hours Sepsis New/Unexplained Change in Mental Status Sepsis Action Taken by Nursing Oxygen Flow Rate - Titration 0 Home Medications Current Medication List: was personally reviewed by me Laboratory Data Attestation: I reviewed the patient's lab results. Result diagrams: 10/19/21 19:37 10/19/21 19:37 Lab Results 10/19/21 10/19/21 10/19/21 Range/Units 19:37 19:37 19:37 WBC 10.40 (4.8-10.8) K/uL RBC 3.69 L (4.2-5.4) M/uL Hgb 11.5 L (12.0-16.0) g/dL Hct 34.8 L (37-47) % MCV 94.3 (80-100) fL MCH 31.2 (25-34) pg MCHC 33.0 (32-36) g/dL RDW Std Deviation 49.1 H (36.4-46.3) fL RDW Coeff of Wilfredo 14.5 (11.5-14.5) % Plt Count 247 (130-400) K/uL MPV 10.1 (7.4-10.4) fL Immature Gran % (Auto) 0.1 % Neut % (Auto) 83.4 % Lymph % (Auto) 6.5 % Edwards % (Auto) 9.3 % Eos % (Auto) 0.5 % Baso % (Auto) 0.2 % Neut # (Auto) 8.67 H (1.4-6.5) K/uL Lymph # (Auto) 0.68 L (1.2-3.4) K/uL Edwards # (Auto) 0.97 H (0.11-0.59) K/uL Eos # (Auto) 0.05 (0-0.5) K/uL Baso # (Auto) 0.02 (0-0.2) K/uL Immature Gran # (Auto) 0.01 (0.00-0.02) K/uL PT 23.1 H (9.0-12.0) Seconds INR 2.3 H (0.9-1.1) APTT 38.4 H (21.0-31.0) Seconds PTT Ratio 1.4 Sodium 139 (136-145) mmol/L Potassium 3.8 (3.5-5.1) mmol/L Chloride 106 (98-107) mmol/L Carbon Dioxide 25 (21-32) mmol/L Anion Gap 8 (3-11) BUN 20 (6-23) mg/dl Creatinine 0.88 (0.6-1.2) mg/dl Est Cr Clr Drug Dosing Not Reportable Est GFR ( Amer) 71.4 ml/min Est GFR (Non-Af Amer) 61.6 ml/min BUN/Creatinine Ratio 22.7 H (10-20) Glucose 110 H (70-99(Fasting)) mg/dl Calcium 9.2 (8.5-10.1) mg/dl Magnesium 1.6 L (1.7-2.4) mg/dl Total Bilirubin 0.5 (0.2-1.0) mg/dl AST 20 (13-39) U/L ALT 14 (7-52) U/L Alkaline Phosphatase 113 H (34-104) U/L Troponin I High Sens 10.7 (0-14) pg/ml Total Protein 7.0 (6.0-8.3) gm/dl Albumin 3.8 (3.4-5.0) gm/dl Globulin 3.2 (2.5-4.0) gm/dl Albumin/Globulin Ratio 1.2 (0.9-2) TSH (0.300-4.500) uIu/ml SARS-CoV-2 (PCR) (Negative) Influenza Type A (PCR) (Neg) Influenza Type B (PCR) (Neg) RSV (RT-PCR) (Neg) 10/19/21 10/19/21 Range/Units 19:37 21:00 WBC (4.8-10.8) K/uL RBC (4.2-5.4) M/uL Hgb (12.0-16.0) g/dL Hct (37-47) % MCV (80-100) fL MCH (25-34) pg MCHC (32-36) g/dL RDW Std Deviation (36.4-46.3) fL RDW Coeff of Wilfredo (11.5-14.5) % Plt Count (130-400) K/uL MPV (7.4-10.4) fL Immature Gran % (Auto) % Neut % (Auto) % Lymph % (Auto) % Edwards % (Auto) % Eos % (Auto) % Baso % (Auto) % Neut # (Auto) (1.4-6.5) K/uL Lymph # (Auto) (1.2-3.4) K/uL Edwards # (Auto) (0.11-0.59) K/uL Eos # (Auto) (0-0.5) K/uL Baso # (Auto) (0-0.2) K/uL Immature Gran # (Auto) (0.00-0.02) K/uL PT (9.0-12.0) Seconds INR (0.9-1.1) APTT (21.0-31.0) Seconds PTT Ratio Sodium (136-145) mmol/L Potassium (3.5-5.1) mmol/L Chloride (98-107) mmol/L Carbon Dioxide (21-32) mmol/L Anion Gap (3-11) BUN (6-23) mg/dl Creatinine (0.6-1.2) mg/dl Est Cr Clr Drug Dosing Est GFR ( Amer) ml/min Est GFR (Non-Af Amer) ml/min BUN/Creatinine Ratio (10-20) Glucose (70-99(Fasting)) mg/dl Calcium (8.5-10.1) mg/dl Magnesium (1.7-2.4) mg/dl Total Bilirubin (0.2-1.0) mg/dl AST (13-39) U/L ALT (7-52) U/L Alkaline Phosphatase (34-104) U/L Troponin I High Sens (0-14) pg/ml Total Protein (6.0-8.3) gm/dl Albumin (3.4-5.0) gm/dl Globulin (2.5-4.0) gm/dl Albumin/Globulin Ratio (0.9-2) TSH 1.626 (0.300-4.500) uIu/ml SARS-CoV-2 (PCR) NEGATIVE (Negative) Influenza Type A (PCR) Negative (Neg) Influenza Type B (PCR) Negative (Neg) RSV (RT-PCR) Negative (Neg) Administered Medications Discontinued Medications Acetaminophen (Acetaminophen 1000 Mg/100 Ml Iv) 1,000 mg IV NOW STA Stop: 10/19/21 20:39 Last Admin: 10/19/21 20:54 Dose: 1,000 mg Documented by: [id number] Sodium Chloride (Nss 1000ml) 500 mls @ 999 mls/hr IV .Q31M ONE Stop: 10/19/21 21:07 Last Infusion: 10/19/21 22:23 Dose: 0 mls/hr Documented by: [id number] Admin: 10/19/21 20:54 Dose: 999 mls/hr Documented by: [id number] Magnesium Sulfate/Dextrose (Magnesium Sulfate / D5w) 1 gm in 100 mls @ 100 mls/hr IV NOW STA Stop: 10/19/21 21:50 Last Admin: 10/19/21 22:15 Dose: 100 mls/hr Documented by: [id number] Ioversol (Optiray 320 100ml) 95 ml IV ONCE ONE Stop: 10/19/21 21:12 Last Admin: 10/19/21 21:13 Dose: 95 ml Documented by: [id number] Morphine Sulfate (Morphine Sulfate 2 Mg/Ml Carp) 2 mg IV NOW STA Stop: 10/19/21 20:38 Last Admin: 10/19/21 20:54 Dose: 2 mg Documented by: [id number] Ondansetron HCl (Ondansetron Inj 2 Mg/Ml 2 Ml Vial) 4 mg IV NOW STA Stop: 10/19/21 20:38 Last Admin: 10/19/21 20:54 Dose: 4 mg Documented by: [id number] Imaging Data Radiologist's Impression: Chest X-Ray 10/19/21 19:12 XR chest 1V portable CLINICAL HISTORY: Shortness of breath. COMPARISON STUDY: Chest CT September 15, 2021. FINDINGS: Lung volumes are normal. Linear left basilar opacities reflect atelectasis. There is no pneumothorax or pleural effusion. Mild cardiomegaly is unchanged. Mediastinal contours are normal. There is no evidence for pulmonary edema. IMPRESSION: No acute cardiopulmonary findings. No change in appearance of the chest. ACT 112: Negative or not required by law. Electronically signed by: Jose Alejandro Vidales M.D. 10/19/2021 8:48 PM Abdominal and pelvis CT: There is acute diverticulitis of the descending colon. No perforation or abscess. Mild inflammatory changes seen. Discharge Plan Visit Data Chief Complaint: Shortness of Breath/Dyspnea Stated Complaint: SOB, BACK PAIN, ABDOMINAL PAIN ED Provider: Adolfo Cooley Discharge Problem: Left sided abdominal pain, Weakness, SOB (shortness of breath), Acute diverticulitis, Hypomagnesemia Patient Disposition: Admitted As Inpatient Condition: Fair Discharge Instructions Interventions: ED Discharge Assessment Last Done: 10/19/21 22:41 Forms Stand Alone Forms: Stuffle Prescriptions Prescriptions: No Action donepezil [Aricept] 10 mg tablet 10 mg PO HS Qty: 90 RF: 3 potassium chloride 10 mEq capsule, extended release 10 meq PO TID Qty: 360 RF: 3 losartan-hydrochlorothiazide 100-25 mg tablet 1 tab PO HS Qty: 90 RF: 3 nitroglycerin 0.4 mg tablet, sublingual 0.4 mg SL Q5M PRN (Reason: Chest Pain) RF: 0 albuterol sulfate [ProAir HFA] 90 mcg/actuation HFA aerosol inhaler 2 puffs INH Q6H PRN (Reason: shortness of breath or wheezing) Qty: 18 RF: 0 methotrexate sodium 2.5 mg tablet 15 mg PO WK RF: 0 sertraline 50 mg tablet 50 mg PO HS Qty: 90 RF: 3 folic acid 1 mg tablet 2 mg PO QPM RF: 0 multivitamin Tablet 1 tab PO DAILY RF: 0 alendronate 70 mg tablet 70 mg PO WK RF: 0 pregabalin 75 mg Capsule 75 mg PO BID RF: 0 docusate sodium [Stool Softener] 100 mg Capsule 100 mg PO DAILY RF: 0 polyethylene glycol 3350 [Miralax] 17 gram/dose Powder 17 g PO DAILY RF: 0 vitamin E 400 unit Capsule 1,200 unit PO DAILY RF: 0 warfarin 2 mg tablet See Rx Instructions mg .ROUTE .COMPLEX RF: 0 acetaminophen [Tylenol Arthritis] 650 mg Tablet Extended Release 650 mg PO Q12H PRN (Reason: Pain) RF: 0 Referrals Referrals: Ella Esquivel MD [Primary Care Provider] -
--- NOTE | 2021-10-19 20:49 | XRay Report ---
XR chest 1V portable CLINICAL HISTORY: Shortness of breath. COMPARISON STUDY: Chest CT September 15, 2021. FINDINGS: Lung volumes are normal. Linear left basilar opacities reflect atelectasis. There is no pne umothorax or pleural effusion. Mild cardiomegaly is unchanged. Mediastinal contours are normal. There is no evidence for pulmonary edema. IMPRESSION: No acute cardiopulmonary findings. No change in appearance of the chest. ACT 112: Negative or not required by law. Electronically signed by: Jose Alejandro Vidales M.D. 10/19/2021 8:48 PM
[2021-10-19] MEDS ORDERED: MAGNESIUM SULFATE / D5W 1 GM/100 ML BAG IV STA (20:51)
[2021-10-19] MEDS ORDERED: OPTIRAY 320 100ml IV ONE (21:11)
[2021-10-19] MEDS ORDERED: AMPICILLIN/SULBACTAM SOD 3,000 MG in 0.9 % SODIUM CHLORIDE 100 ML IV STA (21:37)
[2021-10-19 21:52] LABS: Influenza A virus by PCR Negative (Neg); Influenza B virus by PCR Negative (Neg); RSV by PCR Negative (Neg); SARS CoV2 RNA(COVID-19) InHosp NEGATIVE (Negative)
--- NOTE | 2021-10-19 22:20 | History & Physical Report ---
Date of Service October 19, 2021 Assessment & Plan (1) Acute diverticulitis: Plan: CT suggestive of acute diverticulitis in descending colon N.p.o. except essential medications Continue Unasyn 3 g IV every 6 hours begun in the ED Zofran 4 mg IV every 6 hours as needed Lactated Ringer's at 80 mils per hour (2) Recurrent deep vein thrombosis (DVT): Plan: Recurrent DVT/history of PE/long-term anticoagulant use- INR therapeutic at 2.3 If able to take p.o. in the morning, will continue warfarin, however, if still unable to take p.o., will place on Lovenox therapeutically in the interim (3) Anticoagulant long-term use: Plan: See above Resume warfarin if able to take PO in the AM, if not, and INR<2, start therapeutic lovenox (4) Esophageal reflux: Plan: While n.p.o. placed on famotidine 20 mg IV every 12 hours (5) Memory loss: Plan: Hold donepezil until able to take p.o. (6) Non-occlusive coronary artery disease: Plan: CAD/hypertension/NSTEMI- Hold losartan HCTZ, potassium chloride while n.p.o. and relatively hypotensive (7) HTN (hypertension): Plan: See above (8) NSTEMI (non-ST elevated myocardial infarction): Plan: See above (9) Seronegative rheumatoid arthritis: Plan: On methotrexate as outpatient (10) Depression: Plan: Resume sertraline when able to take p.o. (11) Asthma: Plan: Continue inhalers as needed (12) Obstructive sleep apnea: Plan: CPAP adjust as needed History of Present Illness Chief Complaint: The patient presents to the emergency department with complaint of 5 days of not feeling well in general, including mildly short of breath, cough, generalized weakness. She ate too much at a family gathering yesterday, and since that time has developed left lower quadrant abdominal pain, bloating and worsening of the above symptoms. The patient and family were concerned that she may have diverticulitis, and presented to the ED for assessment Primary Care Provider: Ella Esquivel MD The patient is an 81-year-old female with a past medical history including osteoporosis, constipation, recurrent DVT, generalized osteoarthritis, primary hypercoagulable state, seronegative RA, GERD, asthma, PE, hypertension, NSTEMI, hyperlipidemia, depression and memory loss. She presents with symptoms as noted above. She is status post [facility], and has had less activity recently due to pain caused by overdoing her PT a week or so ago Work-up in the emergency department included a CT scan of abdomen pelvis which showed diverticulitis of descending colon, and was started on Unasyn 3 g IV by the ED. Allergies Allergy/AdvReac Type Severity Reaction Status Date / Time Natjvcp-FZB-YfC Reductase AdvReac Severe Muscle Pain Verified 10/19/21 22:17 Inhibitor [Aiimakg-Eyf-Rpc Reductase Inhibitor] sulfamethoxazole AdvReac Intermediate STOMACH Verified 10/19/21 22:17 SICKNESS trimethoprim AdvReac Intermediate STOMACH Verified 10/19/21 22:17 SICKNESS tramadol AdvReac Unknown no pain Verified 10/19/21 22:17 relief Home Medications Medication Instructions Recorded Confirmed Type albuterol sulfate 90 mcg/actuation 2 puffs INH Q6H PRN #18 gm 10/28/18 10/19/21 Rx aerosol inhaler (ProAir HFA) nitroglycerin 0.4 mg sublingual 0.4 mg SL Q5M PRN tab 10/28/18 10/19/21 History tablet folic acid 1 mg tablet 2 mg PO QPM tab 02/26/19 10/19/21 History methotrexate sodium 2.5 mg tablet 15 mg PO WK tab 01/20/20 10/19/21 History pregabalin 75 mg capsule 75 mg PO BID 03/24/20 10/19/21 History sertraline 50 mg tablet 50 mg PO HS #90 tab 11/05/20 10/19/21 Rx docusate sodium 100 mg capsule 100 mg PO DAILY 12/21/20 10/19/21 History (Stool Softener) donepezil 10 mg tablet (Aricept) 10 mg PO HS #90 tab 01/05/21 10/19/21 Rx potassium chloride 10 mEq 10 meq PO TID #360 cap 05/25/21 10/19/21 Rx capsule,extended release losartan 100 1 tab PO HS #90 tab 06/04/21 10/19/21 Rx mg-hydrochlorothiazide 25 mg tablet acetaminophen 650 mg 650 mg PO Q12H PRN 07/09/21 10/19/21 History tablet,extended release alendronate 70 mg tablet 70 mg PO WK 09/14/21 10/19/21 History multivitamin 1 tab PO DAILY 09/14/21 10/19/21 History polyethylene glycol 3350 17 17 g PO DAILY 10/19/21 10/19/21 History gram/dose oral powder (Miralax) vitamin E 400 unit capsule 1,200 unit PO DAILY 10/19/21 10/19/21 History warfarin 2 mg tablet See Rx Instructions .ROUTE .COMPLEX 10/19/21 10/19/21 History Past Med/Surg History Medical History Abnormal chest xray Allergic rhinitis Anticoagulant long-term use Asthma Blood clotting disorder 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 On Coumadin Depression Esophageal reflux History of pulmonary embolus (PE) HTN (hypertension) Hyperlipidemia Non-occlusive coronary artery disease NSTEMI (non-ST elevated myocardial infarction) (~2015) Obstructive sleep apnea uses cpap Osteoporosis Peripheral neuropathy Recurrent deep vein thrombosis (DVT) Seronegative rheumatoid arthritis Stomach ulcer Hx Surgical History History of ankle surgery History of esophagogastroduodenoscopy (EGD) History of total right knee replacement Hx of hysterectomy S/P cardiac cath (~2015) S/P cataract extraction S/P colonoscopy Status post mastoidectomy Family History Unknown Pulmonary embolism Brother Coronary heart disease Myocardial infarction Stroke Mother Myocardial infarction Father Stroke Family/Other Family history of reaction to anesthesia Denies family history of Ovarian cancer Prostate cancer Breast cancer Lung cancer Colorectal cancer Social History Smoking Status: Never smoker Age Started Using Tobacco: 18; Age Quit Using Tobacco: 28; Years Smoked: 10; Second Hand Exposure: No; Hx Alcohol Use: No Hx Substance Use: No Preferred Language: Romanian Communication Ability: Effective Visual Impairment: Partially Limited Hearing Ability: Normal Senior Database Programmer Required: No Beliefs That Will Affect Care: None marital status: Current Living Situation: Spouse current occupational status: retired How many Children do You have: 3 Feels Safe at Home: Yes Safety Concerns: Feels Safe At This Time Childhood Exposure to Second-Hand Smoke: Yes Diet Comment: Regular caffeine: Yes (2 cups of coffee a day) during the past year weight has: remained stable Dental Care, Regularly: Yes Physical Activity Frequency: Does not Exercise Seatbelt Use: always Sunscreen Use: No (Doesn't go out much) Do you think of yourself as: straight/heterosexual Assistive Devices: Walker Review of Systems Review of Systems: The patient denies chest pain, palpitations, lower extremity swelling, sore throat, fevers, chills, sweats, vomiting, blood in urine or stool, dysuria, urinary frequency or urgency, lightheadedness, dizziness, headache, memory loss, loss of consciousness, rash, abnormal bruising or bleeding, imbalance, focal or generalized weakness, numbness or tingling in arms or legs, generalized arthralgias or myalgias, back or neck pain, or night sweats. The review of systems is otherwise negative other than for that already noted above, and at least 10 systems have been reviewed. Physical Exam Physical Exam: The patient is awake, alert and oriented 3, well developed and well nourished, normocephalic and atraumatic, lying in bed and in no acute d istress. HEENT--PERRL, EOMI, mucous membranes and oropharynx dry. Neck--supple. No JVD. No bruits. Thyroid normal, trachea midline, no adenopathy. Heart--normal S1 and S2. No murmurs, rubs or gallops. Lungs--clear bilaterally, no respiratory distress, no accessory muscle use. Abdomen--normal bowel sounds and soft. Mildly tender left lower quadrant Extremities--no cyanosis or clubbing. No edema. Dermatologic--normal skin turgor, normal color, no abnormal lymph nodes, no rash. Neurologic--cranial nerves II through XII grossly intact. Rheumatologic--limited exam Psychiatric--normal affect. Results & Data Results & Data ([facility]) Vital Signs (Past 12 Hours) Vital Signs Temp Pulse Resp BP Pulse Ox 10/19/21 19:08 37.5 C 83 16 116/69 95 Laboratory Results Laboratory Results WBC 10.40 K/uL (4.8-10.8) 10/19/21 19:37 RBC 3.69 M/uL (4.2-5.4) L 10/19/21 19:37 Hgb 11.5 g/dL (12.0-16.0) L 10/19/21 19:37 Hct 34.8 % (37-47) L 10/19/21 19:37 MCV 94.3 fL (80-100) 10/19/21 19:37 MCH 31.2 pg (25-34) 10/19/21 19:37 MCHC 33.0 g/dL (32-36) 10/19/21 19:37 RDW Std Deviation 49.1 fL (36.4-46.3) H 10/19/21 19:37 RDW Coeff of Wilfredo 14.5 % (11.5-14.5) 10/19/21 19:37 Plt Count 247 K/uL (130-400) 10/19/21 19:37 MPV 10.1 fL (7.4-10.4) 10/19/21 19:37 Immature Gran % (Auto) 0.1 % 10/19/21 19:37 Neut % (Auto) 83.4 % 10/19/21 19:37 Lymph % (Auto) 6.5 % 10/19/21 19:37 [place] % (Auto) 9.3 % 10/19/21 19:37 Eos % (Auto) 0.5 % 10/19/21 19:37 Baso % (Auto) 0.2 % 10/19/21 19:37 Neut # (Auto) 8.67 K/uL (1.4-6.5) H 10/19/21 19:37 Lymph # (Auto) 0.68 K/uL (1.2-3.4) L 10/19/21 19:37 [place] # (Auto) 0.97 K/uL (0.11-0.59) H 10/19/21 19:37 Eos # (Auto) 0.05 K/uL (0-0.5) 10/19/21 19:37 Baso # (Auto) 0.02 K/uL (0-0.2) 10/19/21 19:37 Immature Gran # (Auto) 0.01 K/uL (0.00-0.02) 10/19/21 19:37 PT 23.1 Seconds (9.0-12.0) H 10/19/21 19:37 INR 2.3 (0.9-1.1) H 10/19/21 19:37 APTT 38.4 Seconds (21.0-31.0) H 10/19/21 19:37 PTT Ratio 1.4 10/19/21 19:37 Sodium 139 mmol/L (136-145) 10/19/21 19:37 Potassium 3.8 mmol/L (3.5-5.1) 10/19/21 19:37 Chloride 106 mmol/L (98-107) 10/19/21 19:37 Carbon Dioxide 25 mmol/L (21-32) 10/19/21 19:37 Anion Gap 8 (3-11) 10/19/21 19:37 BUN 20 mg/dl (6-23) 10/19/21 19:37 Creatinine 0.88 mg/dl (0.6-1.2) 10/19/21 19:37 Est Cr Clr Drug Dosing Not Reportable 10/19/21 19:37 Est GFR ( Amer) 71.4 ml/min 10/19/21 19:37 Est GFR (Non-Af Amer) 61.6 ml/min 10/19/21 19:37 BUN/Creatinine Ratio 22.7 (10-20) H 10/19/21 19:37 Glucose 110 mg/dl (70-99(Fasting)) H 10/19/21 19:37 Calcium 9.2 mg/dl (8.5-10.1) 10/19/21 19:37 Magnesium 1.6 mg/dl (1.7-2.4) L 10/19/21 19:37 Total Bilirubin 0.5 mg/dl (0.2-1.0) 10/19/21 19:37 AST 20 U/L (13-39) 10/19/21 19:37 ALT 14 U/L (7-52) 10/19/21 19:37 Alkaline Phosphatase 113 U/L (34-104) H 10/19/21 19:37 Troponin I High Sens 10.7 pg/ml (0-14) 10/19/21 19:37 Total Protein 7.0 gm/dl (6.0-8.3) 10/19/21 19:37 Albumin 3.8 gm/dl (3.4-5.0) 10/19/21 19:37 Globulin 3.2 gm/dl (2.5-4.0) 10/19/21 19:37 Albumin/Globulin Ratio 1.2 (0.9-2) 10/19/21 19:37 TSH 1.626 uIu/ml (0.300-4.500) 10/19/21 19:37 SARS-CoV-2 (PCR) NEGATIVE (Negative) 10/19/21 21:00 Influenza Type A (PCR) Negative (Neg) 10/19/21 21:00 Influenza Type B (PCR) Negative (Neg) 10/19/21 21:00 RSV (RT-PCR) Negative (Neg) 10/19/21 21:00 Impressions Chest X-Ray 10/19/21 19:12 XR chest 1V portable CLINICAL HISTORY: Shortness of breath. COMPARISON STUDY: Chest CT September 15, 2021. FINDINGS: Lung volumes are normal. Linear left basilar opacities reflect atelectasis. There is no pneumothorax or pleural effusion. Mild cardiomegaly is unchanged. Mediastinal contours are normal. There is no evidence for pulmonary edema. IMPRESSION: No acute cardiopulmonary findings. No change in appearance of the chest. ACT 112: Negative or not required by law. Electronically signed by: Jose Alejandro Vidales M.D. 10/19/2021 8:48 PM Diagnostic Findings [facility] Patient: TIA ALONZO (Female) : 40 Status: ER Date: 10/19/21 21:22 Room #: History: PT. REPORTS MID TO LLQ PAIN; NAUSEA PT. REPORTS APPENDIX PRESENT OPTI 320 95 CC Slices: [id number] Priors: Tech: Lora Alonzo @ [phone] Exams: CT ABDOMEN & PELVIS With Contrast Contrast: IV Amt: opti 320 95 cc Accession Numbers: [id number] Referring Physician: REFERRED SELF Preliminary Findings Only See Final Report For Complete Findings CT ABDOMEN & PELVIS With Contrast: Acute diverticulitis of the descending colon. No perforation or abscess. Mild inflammatory changes. Radiologist: Ryan Giordano MD Study ready at 21:28 and initial results transmitted at 21:34 *This report constitutes a preliminary interpretation only. Non-acute findings felt to be unrelated to the clinical presentation may not be discussed in this report. The study will be interpreted and a final report will be generated by the local Radiologist the following shift. To reach the [facility] radiology department call [phone]. If a discrepancy is found between the preliminary and final interpretations of this study, please notify us via our Client Portal at [email or web address], under QA Exams. You can also fax this report with a description of the discrepancy, or include the final report, to our daytime fax number [phone]. If faxing, please indicate the severity of discrepancy using one of the following categories: [ ] 1 - Agree/Informational [ ] 2 - Unlikely to Affect Management [ ] 3 - Possible Eventual Change of Management [ ] 4 - Probable Immediate Change of Management For all other patient related information, please fax us at [phone]. [id number] Code Status & VTE Plan Code Status Full code VTE Prophylaxis Plan VTE Prophylaxis will be ordered: Yes PG Care Time/CCT Total # of Minutes Spent Total Time Spent with Patient: Total time spent is greater than 50% in coordination of care (as documented) at patient's floor/unit and/or counseling patient: Coding Level of Care Code 06376 Initial Inpt Care Lvl 3 Diagnoses Acute diverticulitis K57.92 Seronegative rheumatoid arthritis M06.00 Recurrent deep vein thrombosis (DVT) I82.409 Anticoagulant long-term use Z79.01 Esophageal reflux K21.9 Depression F32.9 Memory loss R41.3 Obstructive sleep apnea G47.33 Asthma J45.909 HTN (hypertension) I10 NSTEMI (non-ST elevated myocardial infarction) I21.4 Non-occlusive coronary artery disease I25.10
[2021-10-19] MEDS ORDERED: ENOXAPARIN INJ 40 MG/0.4 ML SYR SQ SCH (23:31)
[2021-10-20] MEDS: LACTATED RINGER'S 1,000 ML IV SCH ×2 (02:04→11:49)
[2021-10-20] MEDS: FAMOTIDINE 20 MG in SYRINGE 3 ML IV SCH ×3 (02:38→20:48)
[2021-10-20 03:13] LABS: Appearance Urine Clear (Clear); Bacteria Urine Automated Negative (Negative); Bilirubin Urine Negative (Negative); Blood Urine 1+ (Negative); Color Urine Yellow; Epithelial Cell Urine Auto 20-30 /lpf (0-5); Glucose Urine UA Negative (Negative); Ketones Urine Negative (Negative); Leukocyte Esterase Urine 1+ (Negative); Nitrite Urine Negative (Negative); Protein Urine Negative (Negative); RBC Urine Automated 0-4 /hpf (0-4); Specific Gravity Urine > 1.045 (1.000-1.030); Urobilinogen Urine Negative (Negative)
[2021-10-20] MEDS: AMPICILLIN/SULBACTAM SOD 3,000 MG in 0.9 % SODIUM CHLORIDE 100 ML IV SCH ×3 (06:07→17:40)
--- NOTE | 2021-10-20 08:21 | CT Scan Report ---
CT abd pelvis IV con only CLINICAL HISTORY: llq abd pain TECHNIQUE: Helical axial images of the abdomen and pelvis were obtained and displayed. Automated dose lowering techniques and/or adjustment according to patient size were utilized for this exam. This e xam was performed with intravenous contrast. CT DOSE: 642.98 mGy.cm COMPARISON: None available at the time of this dictation. FINDINGS: Lower chest: No acute abnormality Liver: Multiple hepatic cysts are seen, additional smaller densities are too small to characterize bu t favored to represent cysts. Gallbladder and biliary tree: No calcified gallstones. Normal caliber wall. No intra- or extrahepatic biliary ductal dilation. Pancreas: Unremarkable, no focal lesions. Spleen: Unremarkable. Adrenals: Unremarkable. Kidneys and ureters: Left superior pole cyst is seen. Additional smaller hypodensities are noted. Bladder: Unremarkable. Reproductive organs: Unremarkable. Bowel: Bowel wall thickening and surrounding fat stranding is seen in the descending colon compatible with diverticulitis. Extensive diverticula are noted throughout the colon. A hiatal hernia is seen. Lymph nodes Retroperitoneal: Unremarkable. Mesenteric: Unremarkable. Pelvic: Unremarkable. Peritoneum: Normal. Vessels: Atherosclerotic calcifications are seen. Abdominal wall: Right fat-containing inguinal hernia. Bones: Degenerative changes in the visualized spine. Grade 1 anterolisthesis is seen at L4-L5. IMPRESSION: Findings are compatible with diverticulitis without evidence of perforation or abscess formation. ACT 112: Negative or not required by law. Electronically signed by: Cory Meaz M.D. 10/20/2021 8:19 AM
[2021-10-20 11:20] LABS: INR 2.7 (0.9-1.1); Prothrombin Time 27.1 Seconds (9.0-12.0)
[2021-10-20 11:38] LABS: BUN Creatinine Ratio 20.3 (10-20); Calcium 8.3 mg/dl (8.5-10.1); Creatinine Clr Calc Pharmacy 68.3 ml/min; Est GFR (African American) 94.6 ml/min; Est GFR (Non-African American) 81.6 ml/min; Magnesium 1.9 mg/dl (1.7-2.4); Potassium 3.7 mmol/L (3.5-5.1)
--- NOTE | 2021-10-20 11:49 | Electrocardiogram Report ---
Test Reason : Blood Pressure : / mmHG Vent. Rate : 066 BPM Atrial Rate : 066 BPM P-R Int : 160 ms QRS Dur : 090 ms QT Int : 376 ms P-R-T Axes : 079 -28 011 degrees QTc Int : 394 ms Poor data quality, interpretation may be adversely affected Sinus rhythm with Premature supraventricular complexes Otherwise normal ECG When compared with ECG of 03-MAY-2021 11:39, Premature supraventricular complexes are now Present Confirmed by Marlon Duque ([id number]) on 10/20/2021 11:49:32 AM Referred By: REFERRED SELF Confirmed By:Marlon Duque
[2021-10-20 12:13] LABS: Basophils # (auto) 0.01 K/uL (0-0.2); Basophils % (auto) 0.2 %; Eosinophils # (auto) 0.07 K/uL (0-0.5); Eosinophils % (auto) 1.4 %; Hematocrit (blood only) 32.2 % (37-47); Hemoglobin 10.3 g/dL (12.0-16.0); Immature Granulocytes # (auto) 0.01 K/uL (0.00-0.02); Immature Granulocytes % (auto) 0.2 %; Lymphocytes # (auto) 1.15 K/uL (1.2-3.4); Mean Corpuscular Volume 93.9 fL (80-100); Neutrophils # (auto) 3.05 K/uL (1.4-6.5); Neutrophils % (auto) 61.2 %; Platelet Count 212 K/uL (130-400); RDW Coefficient of Variation 14.8 % (11.5-14.5); Red Blood Count 3.43 M/uL (4.2-5.4); White Blood Count 4.99 K/uL (4.8-10.8)
[2021-10-20] MEDS ORDERED: ACETAMINOPHEN 1000 MG/100 ML IV IV PRN (15:02)
--- NOTE | 2021-10-20 20:10 | XRay Report ---
XR chest 2V PA/lateral CLINICAL HISTORY: chills, dyspnea; eval pneumonia. COMPARISON STUDY: 10/19/2021 TECHNIQUE: 2 views of the chest FINDINGS: Frontal and lateral radiographs of the chest demonstrates the heart to again be enlarged. The aorta i s atherosclerotic and ectatic. The lungs are clear of alveolar opacities. There is no evidence for ef fusion bilaterally. There is no evidence for vascular congestion. There is no acute osseous pathology . IMPRESSION: 1. No acute cardiopulmonary disease. ACT 112: Negative or not required by law. Electronically signed by: Kvng Kimball M.D. 10/20/2021 8:07 PM
--- NOTE | 2021-10-20 20:23 | Hospitalist Progress Note ---
Date of Service October 20, 2021 Assessment & Plan (1) Acute diverticulitis: Plan: Uncomplicated descending colon diverticulitis. No micro/macro perforation, abscess or phlegmon. Remains on IV Unasyn. Still with considerable pain, no appetite - will continue NPO status. Morphine and tylenol IV prn pain. Cont IV fluids - increase rate to 100cc/hr. Repeat labs in am. I did obtain blood cultures given her c/o severe coldness/chills to r/o bacteremia, especially given her immunocompromised status. Of note - patient had radiographic confirmed diverticulitis in 2016, 2019, and 03/2021. Most episodes have been descending colon and sigmoid colon. She denies taking a fiber supplement. Her last colonoscopy was 10+ years ago performed at [facility]. Given the repetitive nature of her diverticulitis episodes strongly consider, at minimum, colonoscopy and/or colorectal surgery referral (2) Recurrent deep vein thrombosis (DVT): Plan: Recurrent DVT/history of PE/long-term anticoagulant use- INR remains therapeutic today at 2.7. Hold coumadin today but plan to resume tomorrow. Repeat INR am. (3) Anticoagulant long-term use: Plan: coumadin for h/o recurrent VTE events (4) Esophageal reflux: Plan: famotidine 20 mg IV every 12 hours (5) Memory loss: Plan: Hold donepezil for now (6) Non-occlusive coronary artery disease: Plan: no evidence of any ACS (7) HTN (hypertension): Plan: BPs are low-normal in setting of #1 above Hold HCTZ Hold losartan (8) NSTEMI (non-ST elevated myocardial infarction): Plan: h/o noted no ACS while here (9) Seronegative rheumatoid arthritis: Plan: On methotrexate as outpatient Hold such this medication on chronic basis certainly will set her up for recurrent episodes of diverticultiis and other infections I checked her pharmacy records - she is NOT on chronic prednisone therapy for RA (10) Depression: Plan: Resume sertraline when able to take PO - hopefully tomorrow (11) Asthma: Plan: No exacerbation at this time (12) Obstructive sleep apnea: Plan: CPAP have family bring unit from home Plan: updated pt's by phone this evening given the severe chills - checked procal (negative), blood cx's, and cortisol level check cxr - r/o any pneumonia COVID/flu/RSV noted to be neg at admission Admission and Anticipated Discharge Date Admission Date: October 19, 2021 Subjective patient continues to feel "cold" - needing numerous blankets to stay warm she has left sided abdominal pain mainly with moving about the room she has a little nausea no appetite hasn't passed any stool or significant flatus since admission very tired Review of Systems Review of Systems: gen - no fever, but had severe rigors yesterday, followed by generalized coldness today; very tired & fatigued cv - no chest pain, no orthopnea pulm - no cough; did have dyspnea yesterday GI - no vomiting; no bleeding per rectum - no dysuria or foul-smelling urine musculo - no myalgias Physical Exam Physical Exam: gen - looks ill but not toxic, wrapped in large # of blankets; awake, alert mouth - MM dry neck - no JVD heart - RRR, s1 s2 lungs - CTA b/l abd - soft, slightly distended, BS+, tender junction of LUQ with LLQ, no peritoneal signs ext - no edema, pulses 2+ b/l psych - awake, alert, oriented x 2 Results & Data Results & Data ([facility]) Vital Signs (Past 12 Hours) Vital Signs Temp Pulse Resp BP Pulse Ox 10/20/21 15:55 36.4 C L 62 18 120/60 97 10/20/21 15:30 36.8 C 69 18 112/68 92 Laboratory Results Laboratory Results - last 24 hr 10/20/21 10/20/21 10/20/21 10:49 10:49 10:49 WBC 4.99 D RBC 3.43 L Hgb 10.3 L Hct 32.2 L MCV 93.9 MCH 30.0 MCHC 32.0 RDW Std Deviation 50.0 H RDW Coeff of Wilfredo 14.8 H Plt Count 212 MPV 10.0 Immature Gran % (Auto) 0.2 Neut % (Auto) 61.2 Lymph % (Auto) 23.0 [place] % (Auto) 14.0 Eos % (Auto) 1.4 Baso % (Auto) 0.2 Neut # (Auto) 3.05 Lymph # (Auto) 1.15 L [place] # (Auto) 0.70 H Eos # (Auto) 0.07 Baso # (Auto) 0.01 Immature Gran # (Auto) 0.01 PT 27.1 H INR 2.7 H Sodium 142 Potassium 3.7 Chloride 110 H Carbon Dioxide 28 Anion Gap 4 BUN 14 Creatinine 0.69 Est Cr Clr Drug Dosing 68.3 Est GFR ( Amer) 94.6 Est GFR (Non-Af Amer) 81.6 BUN/Creatinine Ratio 20.3 H Glucose 94 Calcium 8.3 L Magnesium 1.9 Procalcitonin Random Cortisol 10/20/21 10/20/21 16:13 16:13 WBC RBC Hgb Hct MCV MCH MCHC RDW Std Deviation RDW Coeff of Wilfredo Plt Count MPV Immature Gran % (Auto) Neut % (Auto) Lymph % (Auto) [place] % (Auto) Eos % (Auto) Baso % (Auto) Neut # (Auto) Lymph # (Auto) [place] # (Auto) Eos # (Auto) Baso # (Auto) Immature Gran # (Auto) PT INR Sodium Potassium Chloride Carbon Dioxide Anion Gap BUN Creatinine Est Cr Clr Drug Dosing Est GFR ( Amer) Est GFR (Non-Af Amer) BUN/Creatinine Ratio Glucose Calcium Magnesium Procalcitonin < 0.05 Random Cortisol 11.76 Diagnostic Findings blood cx's obtained PG Care Time/CCT Total # of Minutes Spent Total Time Spent with Patient: Total time spent is greater than 50% in coordination of care (as documented) at patient's floor/unit and/or counseling patient: Coding Level of Care Code 27969 Subseq Hosp Care Lvl 3 Diagnoses Acute diverticulitis K57.92 Recurrent deep vein thrombosis (DVT) I82.409 Anticoagulant long-term use Z79.01 Esophageal reflux K21.9 Memory loss R41.3 Non-occlusive coronary artery disease I25.10 HTN (hypertension) I10 NSTEMI (non-ST elevated myocardial infarction) I21.4 Seronegative rheumatoid arthritis M06.00 Depression F32.9 Asthma J45.909 Obstructive sleep apnea G47.33
[2021-10-20] MEDS: MoRPHine SULFATE 2 MG/ML CARP IV PRN (21:47)
[2021-10-21] MEDS: AMPICILLIN/SULBACTAM SOD 3,000 MG in 0.9 % SODIUM CHLORIDE 100 ML IV SCH ×4 (00:48→17:51)
[2021-10-21] MEDS: LACTATED RINGER'S 1,000 ML IV SCH ×2 (00:48→12:09)
[2021-10-21] MEDS: FAMOTIDINE 20 MG in SYRINGE 3 ML IV SCH ×2 (07:48→20:09)
[2021-10-21 09:03] LABS: Hematocrit (blood only) 31.9 % (37-47); Hemoglobin 10.4 g/dL (12.0-16.0); Mean Corpuscular Hemoglobin 30.9 pg (25-34); Mean Corpuscular Hgb Conc 32.6 g/dL (32-36); Mean Corpuscular Volume 94.7 fL (80-100); Mean Platelet Volume 9.8 fL (7.4-10.4); Platelet Count 200 K/uL (130-400); RDW Coefficient of Variation 14.4 % (11.5-14.5); RDW Standard Deviation 49.2 fL (36.4-46.3); Red Blood Count 3.37 M/uL (4.2-5.4)
[2021-10-21 09:27] LABS: INR 2.5 (0.9-1.1); Prothrombin Time 25.1 Seconds (9.0-12.0)
[2021-10-21 09:29] LABS: BUN Creatinine Ratio 15.5 (10-20); Calcium 8.5 mg/dl (8.5-10.1); Creatinine Clr Calc Pharmacy 66.4 ml/min; Est GFR (African American) 92.6 ml/min; Est GFR (Non-African American) 79.9 ml/min; Potassium 3.4 mmol/L (3.5-5.1)
[2021-10-21] MEDS: POTASSIUM CHLORIDE 20 MEQ in LACTATED RINGER'S 1,000 ML IV SCH ×2 (12:51→22:11)
[2021-10-21] MEDS ORDERED: ONDANSETRON INJ 2 MG/ML 2 ML VIAL IV PRN (18:25)
[2021-10-21] MEDS ORDERED: PANTOprazole 40 MG in SYRINGE 0 ML IV ONE (19:00)
--- NOTE | 2021-10-21 21:19 | Hospitalist Progress Note ---
Date of Service October 21, 2021 Assessment & Plan (1) Acute diverticulitis: Plan: Uncomplicated descending colon diverticulitis. No micro/macro perforation, abscess or phlegmon. Remains on IV Unasyn. IMPROVED today. Start clear liquid diet. Review of records - this is her 4th episode of radiological-confirmed diverticulitis since 2017. Most recent episode was 03/2021 - 05/2021. Most episodes are descending colon/sigmoid. At minimum, after discharge, should see GI and have consideration for colonoscopy. Also - elective resection given frequency of the episodes?? Mtx use for RA likely contributing to frequency of episodes. (2) Recurrent deep vein thrombosis (DVT): Plan: Recurrent DVT/history of PE/long-term anticoagulant use- INR remains therapeutic. Hold coumadin today but plan to resume tomorrow. Repeat INR am. (3) Anticoagulant long-term use: Plan: coumadin for h/o recurrent VTE events (4) Esophageal reflux: Plan: famotidine 20 mg IV every 12 hours (5) Memory loss: Plan: Hold donepezil for now (6) Non-occlusive coronary artery disease: Plan: no evidence of any ACS (7) HTN (hypertension): Plan: BPs still are low-normal in setting of #1 above Hold HCTZ Hold losartan re-eval tomorrow to see if these need to be restarted (8) NSTEMI (non-ST elevated myocardial infarction): Plan: h/o noted no ACS while here (9) Seronegative rheumatoid arthritis: Plan: On methotrexate as outpatient Hold such this medication on chronic basis certainly will set her up for recurrent episodes of diverticultiis and other infections (10) Depression: Plan: Resume sertraline when able to take PO reliably wait 1 more day on this (11) Asthma: Plan: No exacerbation at this time (12) Obstructive sleep apnea: Plan: CPAP have family bring unit from home if available Plan: updated pt's by phone yesterday evening blood cx's remain negative cxr yesterday neg procal neg PT, OT Admission and Anticipated Discharge Date Admission Date: October 19, 2021 Subjective patient feeling better abd pain improved was able to walk around the room this am without abd pain still feeling "cold" but not as bad no nausea or emesis no blood per rectum Review of Systems Review of Systems: gen - no fever cv - no chest pain pulm - no cough or dyspnea GI - see HPI musculo - right knee pain controlled Physical Exam Physical Exam: gen - looks better today, NAD mouth - MMM neck - no JVD heart - RRR, s1 s2 lungs - CTA b/l abd - soft, BS+, nontender, nondistended, no HSM, no peritoneal signs ext - no edema, pulses 2+ b/l psych - awake, alert, more coherent today Results & Data Results [facility]) Vital Signs (Past 12 Hours) Vital Signs Temp Pulse Resp BP Pulse Ox 10/21/21 15:32 36.7 C 58 L 16 131/68 95 Laboratory Results Laboratory Results - last 24 hr 10/21/21 10/21/21 10/21/21 08:25 08:25 08:25 WBC 4.30 L RBC 3.37 L Hgb 10.4 L Hct 31.9 L MCV 94.7 MCH 30.9 MCHC 32.6 RDW Std Deviation 49.2 H RDW Coeff of Wilfredo 14.4 Plt Count 200 MPV 9.8 PT 25.1 H INR 2.5 H Sodium 142 Potassium 3.4 L Chloride 108 H Carbon Dioxide 27 Anion Gap 7 BUN 11 Creatinine 0.71 Est Cr Clr Drug Dosing 66.4 Est GFR ( Amer) 92.6 Est GFR (Non-Af Amer) 79.9 BUN/Creatinine Ratio 15.5 Glucose 84 Calcium 8.5 PG Care Time/CCT Total # of Minutes Spent Total Time Spent with Patient: Total time spent is greater than 50% in coordination of care (as documented) at patient's floor/unit and/or counseling patient: Coding Level of Care Code 02175 Subseq Hosp Care Lvl 2 Diagnoses Acute diverticulitis K57.92 Recurrent deep vein thrombosis (DVT) I82.409 Anticoagulant long-term use Z79.01 Esophageal reflux K21.9 Memory loss R41.3 Non-occlusive coronary artery disease I25.10 HTN (hypertension) I10 NSTEMI (non-ST elevated myocardial infarction) I21.4 Seronegative rheumatoid arthritis M06.00 Depression F32.9 Asthma J45.909 Obstructive sleep apnea G47.33
[2021-10-21] MEDS: MELATONIN 3 MG TAB PO SCH (22:12)
[2021-10-22] MEDS: AMPICILLIN/SULBACTAM SOD 3,000 MG in 0.9 % SODIUM CHLORIDE 100 ML IV SCH ×4 (00:22→17:52)
[2021-10-22] MEDS: MoRPHine SULFATE 2 MG/ML CARP IV PRN (03:42)
[2021-10-22 08:52] LABS: INR 2.1 (0.9-1.1); Prothrombin Time 21.6 Seconds (9.0-12.0)
[2021-10-22] MEDS: FAMOTIDINE 20 MG in SYRINGE 3 ML IV SCH ×2 (08:54→21:04)
[2021-10-22] MEDS: POTASSIUM CHLORIDE 20 MEQ in LACTATED RINGER'S 1,000 ML IV SCH ×2 (08:54→18:59)
[2021-10-22 08:56] LABS: BUN Creatinine Ratio 11.4 (10-20); Calcium 8.3 mg/dl (8.5-10.1); Creatinine Clr Calc Pharmacy 67.3 ml/min; Est GFR (African American) 94.2 ml/min; Est GFR (Non-African American) 81.3 ml/min; Hematocrit (blood only) 31.7 % (37-47); Hemoglobin 10.2 g/dL (12.0-16.0); Magnesium 1.7 mg/dl (1.7-2.4); Mean Corpuscular Hemoglobin 30.1 pg (25-34); Mean Corpuscular Hgb Conc 32.2 g/dL (32-36); Mean Corpuscular Volume 93.5 fL (80-100); Mean Platelet Volume 9.8 fL (7.4-10.4); Platelet Count 204 K/uL (130-400); Potassium 3.7 mmol/L (3.5-5.1); RDW Coefficient of Variation 14.4 % (11.5-14.5); RDW Standard Deviation 49.3 fL (36.4-46.3); Red Blood Count 3.39 M/uL (4.2-5.4)
[2021-10-22] MEDS ORDERED: MAGNESIUM SULFATE / D5W 1 GM/100 ML BAG IV ONE (09:45)
--- NOTE | 2021-10-22 12:56 | Hospitalist Progress Note ---
Date of Service October 22, 2021 Assessment & Plan (1) Acute diverticulitis: Plan: Uncomplicated descending colon diverticulitis. No micro/macro perforation, abscess or phlegmon. Remains on IV Unasyn. again IMPROVED today. Advance diet to full liquids. cut fluid rate to 50cc/hr. Review of records - this is her 4th episode of radiological-confirmed diverticulitis since 2017. Most recent episode was 03/2021 - 05/2021. Most episodes are descending colon/sigmoid. At minimum, after discharge, should see GI and have consideration for colonoscopy. Also - elective resection given frequency of the episodes?? Mtx use for RA likely contributing to frequency of episodes. (2) Recurrent deep vein thrombosis (DVT): Plan: Recurrent DVT/history of PE/long-term anticoagulant use- INR remains therapeutic. Resume coumadin today. Repeat INR am. (3) Anticoagulant long-term use: Plan: resume coumadin today for h/o recurrent VTE events (4) Esophageal reflux: Plan: stop famotidine 20 mg IV every 12 hours change to PPI (5) Memory loss: Plan: can resume donepezil (6) Non-occlusive coronary artery disease: Plan: no evidence of any ACS (7) HTN (hypertension): Plan: BPs starting to rise resume BP meds (8) NSTEMI (non-ST elevated myocardial infarction): Plan: h/o noted no ACS while here (9) Seronegative rheumatoid arthritis: Plan: On methotrexate as outpatient Hold such this medication on chronic basis certainly will set her up for recurrent episodes of diverticultiis and other infections (10) Depression: Plan: Resume sertraline (11) Asthma: Plan: No exacerbation at this time (12) Obstructive sleep apnea: Plan: CPAP have family bring unit from home if available Plan: left message for pt's on his answering machine this evening d/c on Monday?? Admission and Anticipated Discharge Date Admission Date: October 19, 2021 Subjective patient feeling much better today abd pain essentially resolved no nausea or emesis stools are a bit loose right knee pain is acceptable Review of Systems Review of Systems: gen - chills/coldness resolved; tolerating clears cv - no cp, no orthopnea pulm - no dyspnea Physical Exam Physical Exam: gen - looks very good today; NAD mouth - MMM neck - no JVD heart - RRR, s1 s2 lungs - CTA b/l abd - soft, BS+, nontender, nondistended, no HSM, no peritoneal signs ext - no edema, pulses 2+ b/l musculo - right knee incision c/d/i; nontender to palpation Results & Data Results & Data ([facility]) Vital Signs (Past 12 Hours) Vital Signs Temp Pulse Resp BP Pulse Ox 10/22/21 07:57 36.6 C 58 L 16 134/77 94 Laboratory Results Laboratory Results - last 24 hr 10/22/21 10/22/21 10/22/21 08:05 08:05 08:05 WBC 4.10 L RBC 3.39 L Hgb 10.2 L Hct 31.7 L MCV 93.5 MCH 30.1 MCHC 32.2 RDW Std Deviation 49.3 H RDW Coeff of Wilfredo 14.4 Plt Count 204 MPV 9.8 PT 21.6 H INR 2.1 H Sodium 143 Potassium 3.7 Chloride 110 H Carbon Dioxide 27 Anion Gap 6 BUN 8 Creatinine 0.70 Est Cr Clr Drug Dosing 67.3 Est GFR ( Amer) 94.2 Est GFR (Non-Af Amer) 81.3 BUN/Creatinine Ratio 11.4 Glucose 82 Calcium 8.3 L Magnesium 1.7 PG Care Time/CCT Total # of Minutes Spent Total Time Spent with Patient: Total time spent is greater than 50% in coordination of care (as documented) at patient's floor/unit and/or counseling patient: Coding Level of Care Code 98812 Subseq Hosp Care Lvl 2 Diagnoses Acute diverticulitis K57.92 Recurrent deep vein thrombosis (DVT) I82.409 Anticoagulant long-term use Z79.01 Esophageal reflux K21.9 Memory loss R41.3 Non-occlusive coronary artery disease I25.10 HTN (hypertension) I10 NSTEMI (non-ST elevated myocardial infarction) I21.4 Seronegative rheumatoid arthritis M06.00 Depression F32.9 Asthma J45.909 Obstructive sleep apnea G47.33
[2021-10-22] MEDS ORDERED: WARFARIN SOD 2 MG TAB PO ONE (16:00)
[2021-10-22] MEDS: DOCUSATE SODIUM 100 MG CAP PO SCH (21:04)
[2021-10-22] MEDS: MELATONIN 3 MG TAB PO SCH (22:04)
[2021-10-23] MEDS: AMPICILLIN/SULBACTAM SOD 3,000 MG in 0.9 % SODIUM CHLORIDE 100 ML IV SCH ×2 (00:13→05:53)
--- NOTE | 2021-10-23 06:45 | Communication Note ---
Date of Service: October 23, 2021 Small amount of blood noted in stool per nursing both at beginning of night and end of night.
[2021-10-23] MEDS: FAMOTIDINE 20 MG in SYRINGE 3 ML IV SCH ×2 (07:51→09:19)
[2021-10-23] MEDS: DOCUSATE SODIUM 100 MG CAP PO SCH (07:55)
[2021-10-23 08:49] LABS: Hematocrit (blood only) 33.7 % (37-47); Hemoglobin 10.9 g/dL (12.0-16.0); INR 2.1 (0.9-1.1); Mean Corpuscular Hemoglobin 29.9 pg (25-34); Mean Corpuscular Hgb Conc 32.3 g/dL (32-36); Mean Corpuscular Volume 92.6 fL (80-100); Platelet Count 226 K/uL (130-400); Prothrombin Time 21.4 Seconds (9.0-12.0); RDW Coefficient of Variation 14.3 % (11.5-14.5); RDW Standard Deviation 48.1 fL (36.4-46.3); Red Blood Count 3.64 M/uL (4.2-5.4); White Blood Count 4.05 K/uL (4.8-10.8)
[2021-10-23 08:58] LABS: BUN Creatinine Ratio 7.7 (10-20); Calcium 8.5 mg/dl (8.5-10.1); Creatinine Clr Calc Pharmacy 72.5 ml/min; Est GFR (African American) 96.5 ml/min; Est GFR (Non-African American) 83.3 ml/min; Potassium 3.5 mmol/L (3.5-5.1)
[2021-10-23] MEDS: AMOXICILLIN/CLAVULANATE 875 MG TAB PO SCH ×2 (12:20→17:28)
[2021-10-23] MEDS: HYDROCORTISONE HC 2.5% CRM 30GM TUBE EXT SCH ×3 (12:20→20:53)
[2021-10-23] MEDS ORDERED: LOSARTAN POTASSIUM 50 MG TAB PO SCH (13:00)
[2021-10-23 16:12] LABS: Hematocrit (blood only) 35.6 % (37-47); Hemoglobin 11.6 g/dL (12.0-16.0)
--- NOTE | 2021-10-23 20:02 | Hospitalist Progress Note ---
Date of Service October 23, 2021 Assessment & Plan (1) Acute diverticulitis: Plan: Uncomplicated descending colon diverticulitis. Continues to improve / resolving. Cont full liquids. Stop IV fluids. Stop IV unasyn -- change to PO augmentin BID. Review of records - this is her 4th episode of radiological-confirmed diverticulitis since 2017. Most recent episode was 03/2021 - 05/2021. Most episodes are descending colon/sigmoid. At minimum, after discharge, should see GI and have consideration for colonoscopy. Also - elective resection given frequency of the episodes?? Mtx use for RA likely contributing to frequency of episodes. (2) Recurrent deep vein thrombosis (DVT): Plan: Recurrent DVT/history of PE/long-term anticoagulant use- Given the blood seen overnight will hold coumadin today to be on safe side. INR am. (3) Anticoagulant long-term use: Plan: hold coumadin today as above for h/o recurrent VTE events (4) Esophageal reflux: Plan: cont PPI (5) Memory loss: Plan: cont donepezil (6) Non-occlusive coronary artery disease: Plan: no evidence of any ACS (7) HTN (hypertension): Plan: BPs starting to rise resumed losartan at 50mg daily titrate back to home dosing as BPs rise (8) NSTEMI (non-ST elevated myocardial infarction): Plan: h/o noted no ACS while here (9) Seronegative rheumatoid arthritis: Plan: On methotrexate as outpatient Hold such this medication on chronic basis certainly will set her up for recurrent episodes of diverticultiis and other infections (10) Depression: Plan: Cont sertraline (11) Asthma: Plan: No exacerbation at this time (12) Obstructive sleep apnea: Plan: CPAP home unit is here and patient used last night (13) Hemorrhoid: Plan: start anusol cream TID scheduled likely cause of blood per rectum overnight I cannot rule out that blood seen wasn't from diverticular disease thus, observe overnight - no discharge today Trend H/H tonight and again in am Plan: updated by phone this evening hopeful for d/c home tomorrow on 10/24 if stable Admission and Anticipated Discharge Date Admission Date: October 19, 2021 Subjective feeling good ambulating in room w/o difficulty asks for ice for R knee tolerating full liquids no abd pain, nausea, or emesis stools are loose, and overnight had several stools with small amount of blood blood is mixed with stool, and present with wiping no rectal pain Review of Systems Review of Systems: gen - no fevers, good energy; chills/cold intolerance resolved cv - no cp, no orthopnea pulm - no dyspnea GI - no bloating or pain - no dysuria Physical Exam Physical Exam: gen - looks good, NAD mouth - MMM neck - no JVD heart - RRR, s1 s2, no murmur lungs - CTA b/l abd - soft, BS+, nontender, nondistended, no HSM, no peritoneal signs rectal - performed in presence of nursing staff computer numerical control operator - external perirectal area wnl; internal - hemorrhoid at 6 o'clock, moderate in size, no gross blood, no masses, no impaction ext - no edema, pulses 2+ b/l musculo - right knee incision c/d/i; nontender to palpation Results & Data Results & [facility] ([facility]) Vital Signs (Past 12 Hours) Vital Signs Pulse Resp BP Pulse Ox 10/23/21 13:49 63 16 149/87 H 98 Laboratory Results Laboratory Results - last 24 hr 10/23/21 10/23/21 10/23/21 08:11 08:11 08:11 WBC 4.05 L RBC 3.64 L Hgb 10.9 L Hct 33.7 L MCV 92.6 MCH 29.9 MCHC 32.3 RDW Std Deviation 48.1 H RDW Coeff of Wilfredo 14.3 Plt Count 226 MPV 10.0 PT 21.4 H INR 2.1 H Sodium 142 Potassium 3.5 Chloride 110 H Carbon Dioxide 25 Anion Gap 7 BUN 5 L Creatinine 0.65 Est Cr Clr Drug Dosing 72.5 Est GFR ( Amer) 96.5 Est GFR (Non-Af Amer) 83.3 BUN/Creatinine Ratio 7.7 L Glucose 95 Calcium 8.5 10/23/21 15:46 WBC RBC Hgb 11.6 L Hct 35.6 L MCV MCH MCHC RDW Std Deviation RDW Coeff of Wilfredo Plt Count MPV PT INR Sodium Potassium Chloride Carbon Dioxide Anion Gap BUN Creatinine Est Cr Clr Drug Dosing Est GFR ( Amer) Est GFR (Non-Af Amer) BUN/Creatinine Ratio Glucose Calcium PG Care Time/CCT Total # of Minutes Spent Total Time Spent with Patient: Total time spent is greater than 50% in coordination of care (as documented) at patient's floor/unit and/or counseling patient: Coding Level of Care Code 30669 Subseq Hosp Care Lvl 2 Diagnoses Acute diverticulitis K57.92 Recurrent deep vein thrombosis (DVT) I82.409 Anticoagulant long-term use Z79.01 Esophageal reflux K21.9 Memory loss R41.3 Non-occlusive coronary artery disease I25.10 HTN (hypertension) I10 NSTEMI (non-ST elevated myocardial infarction) I21.4 Seronegative rheumatoid arthritis M06.00 Depression F32.9 Asthma J45.909 Obstructive sleep apnea G47.33 Hemorrhoid K64.9
[2021-10-23] MEDS: PREGABALIN 75 MG CAP PO SCH (20:50)
[2021-10-23] MEDS ORDERED: FOLIC ACID 1 MG TAB PO SCH (21:00)
[2021-10-23] MEDS ORDERED: DONEPEZIL HCL 10 MG TAB PO SCH (21:00)
[2021-10-23] MEDS ORDERED: SERTRALINE HCL 50 MG TABLET PO SCH (21:00)
[2021-10-23] MEDS: FAMOTIDINE 20 MG TAB PO SCH (21:57)
[2021-10-23] MEDS: MELATONIN 3 MG TAB PO SCH (21:57)
[2021-10-24 06:32] LABS: Hematocrit (blood only) 31.7 % (37-47); Hemoglobin 10.3 g/dL (12.0-16.0); Mean Corpuscular Hgb Conc 32.5 g/dL (32-36); Mean Corpuscular Volume 92.4 fL (80-100); Mean Platelet Volume 10.1 fL (7.4-10.4); Platelet Count 209 K/uL (130-400); RDW Coefficient of Variation 14.4 % (11.5-14.5); RDW Standard Deviation 48.1 fL (36.4-46.3); Red Blood Count 3.43 M/uL (4.2-5.4); White Blood Count 4.18 K/uL (4.8-10.8)
[2021-10-24 07:04] LABS: BUN Creatinine Ratio 7.7 (10-20); Calcium 8.3 mg/dl (8.5-10.1); Creatinine Clr Calc Pharmacy 72.5 ml/min; Est GFR (African American) 96.5 ml/min; Est GFR (Non-African American) 83.3 ml/min
[2021-10-24] MEDS ORDERED: POTASSIUM CHLORIDE CRTAB 20 MEQ TABCR PO STA (07:18)
[2021-10-24 07:42] LABS: INR 1.9 (0.9-1.1); Prothrombin Time 19.3 Seconds (9.0-12.0)
[2021-10-24] MEDS: FAMOTIDINE 20 MG TAB PO SCH (08:41)
[2021-10-24] MEDS: HYDROCORTISONE HC 2.5% CRM 30GM TUBE EXT SCH (08:42)
[2021-10-24] MEDS: AMOXICILLIN/CLAVULANATE 875 MG TAB PO SCH (08:42)
[2021-10-24] MEDS: PREGABALIN 75 MG CAP PO SCH (08:42)
[2021-10-24] MEDS ORDERED: LOSARTAN POTASSIUM 50 MG TAB PO SCH (09:00)
--- NOTE | 2021-10-24 10:43 | Discharge Summary ---
Date of Service October 24, 2021 Admission HPI Per Admitting Provider The patient is an 81-year-old female with a past medical history including osteoporosis, constipation, recurrent DVT, generalized osteoarthritis, primary hypercoagulable state, seronegative RA, GERD, asthma, PE, hypertension, NSTEMI, hyperlipidemia, depression and memory loss. She presents with symptoms as noted above. She is status post total knee arthroplasty by orthopedic surgery at [facility] 1 month ago, and has had less activity recently due to pain caused by overdoing her PT a week or so ago Work-up in the emergency department included a CT scan of abdomen pelvis which showed diverticulitis of descending colon, and was started on Unasyn 3 g IV by the ED. Discharge Exam gen - looks good, NAD mouth - MMM neck - no JVD heart - RRR, s1 s2, no murmur lungs - CTA b/l abd - soft, BS+, nontender, nondistended, no HSM, no peritoneal signs rectal - performed in presence of nursing staff retention specialist - external perirectal area wnl; internal - hemorrhoid at 6 o'clock, moderate in size, no gross blood, no masses, no impaction ext - no edema, pulses 2+ b/l musculo - right knee incision c/d/i; nontender to palpation Discharge Data Allergies Allergy/AdvReac Type Severity Reaction Status Date / Time Lyhmdcw-MEW-GyN Reductase AdvReac Severe Muscle Pain Verified 10/19/21 22:17 Inhibitor [Sgbbsca-Pck-Rli Reductase Inhibitor] sulfamethoxazole AdvReac Intermediate STOMACH Verified 10/19/21 22:17 SICKNESS trimethoprim AdvReac Intermediate STOMACH Verified 10/19/21 22:17 SICKNESS tramadol AdvReac Unknown no pain Verified 10/19/21 22:17 relief Consultations 10/19/21 21:45 ED Decision to Admit Stat Ordered Studies 10/19/21 20:37 CT abd pelvis IV con only Stat Hospital Course (1) Acute diverticulitis: Uncomplicated descending colon diverticulitis. Continues to improve / resolving. Cont full liquids. Stop IV fluids. Stop IV unasyn -- change to PO augmentin BID. Review of records - this is her 4th episode of radiological-confirmed diverticulitis since 2017. Most recent episode was 03/2021 - 05/2021. Most episodes are descending colon/sigmoid. At minimum, after discharge, should see GI and have consideration for colonoscopy. Also - elective resection given frequency of the episodes?? Mtx use for RA likely contributing to frequency of episodes. (2) Recurrent deep vein thrombosis (DVT): Recurrent DVT/history of PE/long-term anticoagulant use- Given the blood seen overnight will hold coumadin today to be on safe side. INR am. (3) Anticoagulant long-term use: hold coumadin today as above for h/o recurrent VTE events (4) Esophageal reflux: cont PPI (5) Memory loss: cont donepezil (6) Non-occlusive coronary artery disease: no evidence of any ACS (7) HTN (hypertension): BPs starting to rise resumed losartan at 50mg daily titrate back to home dosing as BPs rise (8) NSTEMI (non-ST elevated myocardial infarction): h/o noted no ACS while here (9) Seronegative rheumatoid arthritis: On methotrexate as outpatient Hold such this medication on chronic basis certainly will set her up for recurrent episodes of diverticultiis and other infections (10) Depression: Cont sertraline (11) Asthma: No exacerbation at this time (12) Obstructive sleep apnea: CPAP home unit is here and patient used last night (13) Hemorrhoid: start anusol cream TID scheduled likely cause of blood per rectum overnight I cannot rule out that blood seen wasn't from diverticular disease thus, observe overnight - no discharge today Trend H/H tonight and again in am updated by phone this evening hopeful for d/c home tomorrow on 10/24 if stable Discharge Plan Discharge Items Patient Disposition: Home - Self-Care Reason For Visit: ACUTE DIVERTICULITIS Discharge Diagnosis: 1. acute diverticulitis of the left side of your colon - improving 2. recurrent diverticulitis (multiple episodes in the past) - need to see [facility] 3. chronic shortness of breath - recommend discussing a stress test with your family doctor 4. recent right knee replacement - recovering nicely 5. sleep apnea - please continue using your CPAP at home 6. low potassium - due to HCTZ water pill 7. hemorrhoid Activity: As commented below Activity Comment: gradually increase your activities over the next 3-5 days Non-emergency contact: Primary Care Provider and Etcher Apprentice Call non-emergency contact if: you have any medication questions, your symptoms worsen, your pain is not controlled, your pain is worsening and you have a fever Follow-up/Referrals: Bryce Natarajan, DO [Physician] - (2-4 weeks to discuss recurrent diverticulitis & need for colonoscopy ) Ella Esquivel MD [Primary Care Provider] - (see Dr Esquivel THIS WEEK) Diet: Full liquid Addtl Attending Provider Instructions: Mrs Heredia, You were hospitalized for diverticulitis of the left side of your colon. This is at least your 4th episode of diverticulitis over the last several years, and your 2nd spell in the last 6 months. You improved with IV fluids, IV antibiotics, and bowel rest. We resumed a basic diet (Clear liquids) and you did well on this. We slowly advanced you to full liquids and you tolerated this as well. Your abdominal pain resolved. You had some minor bleeding from your rectum - likely due to a small hemorrhoid. Your hemoglobin red blood cell counts have remained stable while hospitalized despite seeing the minor amount of blood. It is also possible you could have had some blood due to your diverticular disease but this is less likely. Recommendations - 1. antibiotics for your diverticulitis - take 7 days of the following starting TONIGHT with your evening meal - * amoxicillin-clavulanate 875mg twice daily with food * also take a probiotic once daily for 10 days; start the probiotic today * both prescriptions called to your pharmacy at [facility] for you 2. diet - it is very important to go slow with your diet as you recover from your diverticulitis. Please follow the step-ramos approach as below - * TODAY - 10/24/21 - continue a FULL LIQUIDS diet at home. This is what you have been receiving over the last 36 hours at [facility]. See handout titled "full liquids" for information. Dairy is part of the full liquids diet but avoid cheese. * TOMORROW - 10/25/21 - start to slowly introduce LOW FIBER foods into your diet. See handout titled "low fiber diet" for more information. Go slow with this step. Stay on a low-fiber diet for about 2 weeks. 3. fiber supplementation - in about TWO WEEKS from now you can start a dedicated fiber supplement like metamucil once daily. Again - please wait at least 2 weeks before starting this. Fiber is one of the things we use to prevent worsening of diverticular disease. 4. blood pressure medication - * please HOLD your combination blood pressure medication called "losartan- hydrochlorothiazide" (or losartan-HCTZ). Again please HOLD this for now. * starting TOMORROW, 10/25/21, take losartan by itself 100mg once daily. new script sent to [facility] for you. 5. hemorrhoids - * anusol cream - apply three times daily to the hemorrhoid (it is just inside the rectum) for about 5 days; start this upon return home this afternoon; script sent to [facility] * the blood you have seen is likely from this hemorrhoid 6. shortness of breath - several years ago you were diagnosed with coronary artery disease which is plaque build-up in the arteries of your heart. If this condition has progressed it will lead to shortness of breath with activities. Sometimes this is the only symptom in women who have coronary disease. Please speak to Dr Esquivel about having a stress test sometime in the near-future to ensure the breathing issue is not from the coronary disease. 7. potassium supplement - * please take the supplement TWICE DAILY for now (previously you were taking it three times daily). Dr Esquivel, when she checks your labs, can you tell if you need to return to the three times daily regimen. But, for now, twice daily only. 8. methotrexate - * please HOLD your methotrexate THIS WEEK ONLY * you can resume your methotrexate the week of November 01 2021 9. please STOP the colace (docusate) for now. Follow-up - see separate section; in addition, keep any scheduled follow-up appointments with your knee surgeon and your president & ceo as previous Return to [facility] if - * you have fever over 100 degrees * you have recurrent abdominal pains * your bleeding from your rectum worsens * you have vomiting * you develop SEVERE diarrhea (you may have irregular stools for several more days as you recover from divercitulitis) * any other concerns It was our pleasure to care for you at [facility]! Continue to feel better, Dr Dinero Pending Studies at Discharge: No Stand-Alone Forms: My [facility] [email or web address], Smoking Cessation Medications and DC Order Prescriptions: New hydrocortisone [Proctosol HC] 2.5 % Cream With Perineal Applicator 1 applic EXT TID 5 Days Qty: 30 RF: 0 amoxicillin-pot clavulanate 875-125 mg tablet 1 tab PO BID Qty: 14 RF: 0 Saccharomyces boulardii 250 mg capsule 250 mg PO DAILY Qty: 10 RF: 0 losartan 100 mg tablet 100 mg PO DAILY Qty: 30 RF: 1 Continued donepezil [Aricept] 10 mg tablet 10 mg PO HS Qty: 90 RF: 3 nitroglycerin 0.4 mg tablet, sublingual 0.4 mg SL Q5M PRN (Reason: Chest Pain) RF: 0 albuterol sulfate [ProAir HFA] 90 mcg/actuation HFA aerosol inhaler 2 puffs INH Q6H PRN (Reason: shortness of breath or wheezing) Qty: 18 RF: 0 methotrexate sodium 2.5 mg tablet 15 mg PO WK RF: 0 sertraline 50 mg tablet 50 mg PO HS Qty: 90 RF: 3 folic acid 1 mg tablet 2 mg PO QPM RF: 0 multivitamin Tablet 1 tab PO DAILY RF: 0 alendronate 70 mg tablet 70 mg PO WK RF: 0 pregabalin 75 mg Capsule 75 mg PO BID RF: 0 polyethylene glycol 3350 [Miralax] 17 gram/dose Powder 17 g PO DAILY RF: 0 vitamin E 400 unit Capsule 1,200 unit PO DAILY RF: 0 warfarin 2 mg tablet See Rx Instructions mg .ROUTE .COMPLEX RF: 0 acetaminophen [Tylenol Arthritis] 650 mg Tablet Extended Release 650 mg PO Q12H PRN (Reason: Pain) RF: 0 Changed potassium chloride 10 mEq capsule, extended release 10 meq PO BID Qty: 360 RF: 3 Discontinued losartan-hydrochlorothiazide 100-25 mg tablet 1 tab PO HS Qty: 90 RF: 3 docusate sodium [Stool Softener] 100 mg Capsule 100 mg PO DAILY RF: 0 Discharge Orders: Discharge Order (Routine); Ordered 10/24/21 Ordered By: Lee Sullivan/Other Patient Handouts: Low-Fiber Diet, Diverticulosis and Diverticulitis, ED Full Liquid Diet Admission Data Admit Date/Time: 10/19/21 22:19 Attending Provider: Lee Dinero Admit Provider: Arden Martin Primary Care Provider: Ella Esquviel Other Providers: Arden Martin Coding Diagnoses Acute diverticulitis K57.92 Recurrent deep vein thrombosis (DVT) I82.409 Anticoagulant long-term use Z79.01 Esophageal reflux K21.9 Memory loss R41.3 Non-occlusive coronary artery disease I25.10 HTN (hypertension) I10 NSTEMI (non-ST elevated myocardial infarction) I21.4 Seronegative rheumatoid arthritis M06.00 Depression F32.9 Asthma J45.909 Obstructive sleep apnea G47.33 Hemorrhoid K64.9
== END 2021-10-24 11:38 | disposition home or self-care (01) | DRG 392 ==
LOC: ED 19:05 → 3W 22:19 → SUATTDRO 22:19 → 3W 22:41

== ENCOUNTER 2022-07-28 18:29 | Inpatient (IN) ==
--- NOTE | 2022-07-28 18:41 | Emergency Department Note ---
Impression & Plan COVID-19 ADMIT ED Provider Note HPI: The patient is an 81-year-old female with history of paroxysmal atrial fibrillation, currently on Coumadin, presents the emergency department with chief complaint of generalized weakness. Patient states she is also had some mild lower abdominal discomfort during the past 2 days. Patient states she feels so weak she does not feel that she can ambulate. On arrival here to the ED the patient is febrile at 38.0, heart rate is within normal limits, blood pressure is stable, patient denies any focal complaint of pain currently but states at times she did get some lower abdominal pain. She states she has a history of diverticulitis and was concerned about possible diverticulitis flare. ROS: - Per HPI *Outpatient medications and allergy history reviewed. *Pertinent external medical records reviewed. PE: General: Alert HEENT: Normocephalic, trachea midline Eyes: Extraocular eye movement is intact, no scleral erythema Pulmonary: Clear to auscultation bilaterally, no wheezing Cardio: Regular rate and rhythm GI: Abdomen is soft to palpation : No suprapubic tenderness MSK: No evidence of trauma or malformation of the extremities, no edema Skin: No evidence of rash Neuro: Alert, no focal deficits Psychiatric: Cooperative monitoring and evaluation advisor: (As interpreted by myself): - An order was placed for continuous cardiac monitoring - Patient was noted to be in sinus rhythm with a rate of 90 EKG: (As interpreted by myself): Rate: 64 Rhythm: Sinus rhythm Intervals: Within normal limits ST changes: No ST elevation Time: 1856 Interventions provided in ED: -IV fluid bolus, Tylenol Differential Diagnosis: Sepsis, urinary tract infection, pneumonia, COVID-19 infection, influenza infection, amongst other potential pathologies. Medical Decision Making: Patient presented to the emergency department with generalized weakness, on arrival here to the ED she does have a fever at 38.0, otherwise hemodynamically stable and saturating well on room air. IV was established and lab work obtained, patient was placed on night monitor. Lab work does not show any leukocytosis, hemoglobin is stable at 12.8, platelet count is within normal limits, CMP shows no critical electrolyte abnormalities, troponin is slightly elevated at 23.3, EKG does not show any acute ischemic changes and patient denies any chest pain. Doubt ACS. Procalcitonin is low. Doubt sepsis/bacterial infection. Urinalysis does not show any evidence of obvious infection. Patient's abdominal exam is benign but she did mention transient abdominal pain and stated she had concern for diverticulitis therefore CT imaging of the abd omen pelvis was obtained, this does not show any evidence of diverticulitis flare or acute surgical pathology. Chest x-ray does not show any pneumonia. COVID-19 testing was obtained and did return positive, patient and her daughters at the bedside are concerned about her living at home with her elderly who is not able to take care of her, patient has had ambulatory issues today, given this in conjunction with her COVID-19 infection and elevated troponin decision was made to admit to the hospital. [facility] hospitalist service was consulted for admission and the patient was placed for admission in stable condition. Consultants: Hospitalist service, Dr. Patel Disposition discussion held by myself with: Patient and daughter at the bedside Diagnosis: 1. COVID-19 infection 2. Ambulatory dysfunction/generalized weakness 3. 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 per records On Coumadin Depression Esophageal reflux Hemorrhoid History of diverticulitis History of pulmonary embolus (PE) "years ago" HTN (hypertension) Hyperlipidemia Hypokalemia Memory loss Non-occlusive coronary artery disease NSTEMI (non-ST elevated myocardial infarction) (~2015) Obstructive sleep apnea uses cpap Osteoporosis Paroxysmal atrial fibrillation Peripheral neuropathy Recurrent deep vein thrombosis (DVT) Rheumatoid arthritis follows w/ Gladis Snell Right flank pain Seronegative rheumatoid arthritis Sleep apnea Stomach ulcer Hx Surgical History History of ankle surgery left History of esophagogastroduodenoscopy (EGD) 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 [facility] July 2016 minimal disease in small distal vessels S/P cataract extraction bilateral S/P colonoscopy Status post mastoidectomy Right Family History Unknown Pulmonary embolism Brother Coronary heart disease Myocardial infarction Stroke Mother Myocardial infarction Father Stroke Family/Other Family history of reaction to anesthesia Denies family history of Ovarian cancer Prostate cancer Breast cancer Lung cancer Colorectal cancer Social History Smoking Status: Former smoker Age Started Using Tobacco: 18; Age Quit Using Tobacco: 28; packs per day: 1; Cigarettes Per Day: only a few cigarettes a day.; Second Hand Exposure: No; Hx Alcohol Use: No Hx Substance Use: No Preferred Language: Bahamian Communication Ability: Effective Visual Impairment: Partially Limited Hearing Ability: Normal [employer] Required: No Beliefs That Will Affect Care: None marital status: Current Living Situation: Spouse current occupational status: retired How many Children do You have: 3 Feels Safe at Home: Yes Childhood Exposure to Second-Hand Smoke: Yes Diet Comment: Regular caffeine: Yes (2 cups of coffee a day) during the past year weight has: remained stable Dental Care, Regularly: Yes Physical Activity Frequency: Does not Exercise Seatbelt Use: always Sunscreen Use: No (Doesn't go out much) Do you think of yourself as: straight/heterosexual Gender Identity: Female Assistive Devices: Brace/Splint/Immobilizer, CPAP, Glasses, Special Shoe, Walker and Wheelchair Allergies Allergies Allergy/AdvReac Type Severity Reaction Status Date / Time Trhiqwg-GMT-DrM Reductase AdvReac Severe Muscle Pain Verified 07/28/22 19:46 Inhibitor [Qerncpw-Mmr-Kaq Reductase Inhibitor] sulfamethoxazole AdvReac Intermediate STOMACH Verified 07/28/22 19:46 SICKNESS trimethoprim AdvReac Intermediate STOMACH Verified 07/28/22 19:46 SICKNESS tramadol AdvReac Unknown no pain Verified 07/28/22 19:46 relief Home Meds Home Medications Medication Instructions Recorded Confirmed nitroglycerin 0.4 mg sublingual 0.4 mg sublingual Q5M PRN Chest 10/28/18 07/28/22 tablet Pain folic acid 1 mg tablet 2 mg PO QPM 02/26/19 07/28/22 methotrexate sodium 2.5 mg tablet 15 mg PO WK 01/20/20 07/28/22 pregabalin 75 mg capsule 75 mg PO BID 03/24/20 07/28/22 acetaminophen 650 mg 650 mg PO Q12H PRN Pain 07/09/21 07/28/22 tablet,extended release alendronate 70 mg tablet 70 mg PO WK 09/14/21 07/28/22 multivitamin 1 tab PO QAM 09/14/21 07/28/22 Previous Rx's Medication Instructions Recorded albuterol sulfate 90 mcg/actuation 2 puffs inhalation Q6H PRN 10/28/18 aerosol inhaler (ProAir HFA) shortness of breath or wheezing #18 grams losartan 100 mg tablet 100 mg PO DAILY #90 tabs 12/13/21 donepezil 10 mg tablet (Aricept) 10 mg PO HS #90 tabs 01/25/22 Saccharomyces boulardii 250 mg 250 mg PO DAILY #100 caps 05/03/22 capsule ondansetron HCl 4 mg tablet 4 mg PO Q8H PRN nausea and 05/03/22 vomiting #30 tabs sertraline 50 mg tablet 75 mg PO HS #90 tabs 05/20/22 warfarin 2 mg tablet See Rx Instructions .Route 07/13/22 .COMPLEX #110 tabs potassium chloride 10 mEq 10 meq PO BID #180 caps 07/14/22 capsule,extended release Results & Data (ED) Vital Signs Vital Signs - 24 hr 07/28/22 18:39 07/28/22 19:00 07/28/22 19:00 Temperature 38.0 C H Temperature Source Oral Pulse Rate 108 H 78 Pulse Rate from SpO2 Sensor 59 L Respiratory Rate 21 Blood Pressure 141/79 H Blood Pressure Mean 99 Pulse Oximetry 92 Sepsis Recent Fever Within 48 Hours Yes Sepsis New/Unexplained Change in Mental Status No Sepsis Action Taken by Nursing No Action Required Laboratory Data 07/28/22 18:45 07/28/22 18:45 Lab Results 07/28/22 07/28/22 07/28/22 Range/Units 18:45 18:45 18:45 WBC 6.03 (4.8-10.8) K/ul RBC 4.18 L (4.20-5.40) M/uL Hgb 12.8 (12.0-16.0) g/dl Hct 38.2 (37.0-47.0) % MCV 91.4 (80.0-100.0) fL MCH 30.6 (25.0-34.0) pg MCHC 33.5 (32.0-36.0) g/dL RDW Std Deviation 47.4 H (36.4-46.3) fL RDW Coeff of Wilfredo 14.4 (11.5-14.5) % Plt Count 170 (130-400) K/uL MPV 10.4 (9.4-12.4) fL Immature Gran % (Auto) 0.3 % Neut % (Auto) 77.8 % Lymph % (Auto) 6.6 % [place] % (Auto) 14.8 % Eos % (Auto) 0.2 % Baso % (Auto) 0.3 % Neut # (Auto) 4.69 (1.40-6.50) K/uL Lymph # (Auto) 0.40 L (1.2-3.4) K/uL [place] # (Auto) 0.89 H (0.11-0.59) K/uL Eos # (Auto) 0.01 (0-0.50) K/uL Baso # (Auto) 0.02 (0-0.2) K/uL Immature Gran # (Auto) 0.02 (0.01-0.20) K/uL PT (9.0-12.0) Seconds INR (0.9-1.1) Sodium 139 (136-145) mmol/L Potassium 3.8 (3.5-5.1) mmol/L Chloride 106 (98-107) mmol/L Carbon Dioxide 25 (21-32) mmol/L Anion Gap 8 (3-11) BUN 11 (6-23) mg/dl Creatinine 0.82 (0.6-1.2) mg/dl Est Cr Clr Drug Dosing 58.1 ml/min Est GFR ( Amer) 77.8 ml/min Est GFR (Non-Af Amer) 67.1 ml/min BUN/Creatinine Ratio 13.4 (10-20) Glucose 108 H (70-99(Fasting)) mg/dl Lactate 0.9 (0.4-2.0) mmol/L Calcium 9.0 (8.6-10.3) mg/dl Magnesium 1.8 (1.7-2.4) mg/dl Total Bilirubin 0.7 (0.2-1.0) mg/dl Direct Bilirubin 0.1 (0-0.2) mg/dl AST 24 (13-39) U/L ALT 16 (7-52) U/L Alkaline Phosphatase 85 (34-104) U/L Troponin I High Sens 23.3 H (0-14) pg/ml Total Protein 6.9 (6.0-8.3) gm/dl Albumin 3.7 (3.4-5.0) gm/dl Procalcitonin (0-0.5) ng/ml Urine Color Urine Appearance (Clear) Urine pH (4.5-7.5) Ur Specific [place] (1.000-1.030) Urine Protein (Negative) Urine Glucose (UA) (Negative) Urine Ketones (Negative) Urine Blood (Negative) Urine Nitrite (Negative) Urine Bilirubin (Negative) Urine Urobilinogen (Negative) Ur Leukocyte Esterase (Negative) Urine WBC (Auto) (0-5) /hpf Urine RBC (Auto) (0-4) /hpf U Hyaline Cast (Auto) (0-5) /lpf U Epithel Cells (Auto) (0-5) /lpf Urine Bacteria (Auto) (Negative) Urine Yeast SARS-CoV-2 (PCR) (Negative) Influenza Type A (PCR) (Neg) Influenza Type B (PCR) (Neg) RSV (RT-PCR) (Neg) 07/28/22 07/28/22 07/28/22 Range/Units 18:45 18:45 22:22 WBC (4.8-10.8) K/ul RBC (4.20-5.40) M/uL Hgb (12.0-16.0) g/dl Hct (37.0-47.0) % MCV (80.0-100.0) fL MCH (25.0-34.0) pg MCHC (32.0-36.0) g/dL RDW Std Deviation (36.4-46.3) fL RDW Coeff of Wilfredo (11.5-14.5) % Plt Count (130-400) K/uL MPV (9.4-12.4) fL Immature Gran % (Auto) % Neut % (Auto) % Lymph % (Auto) % [place] % (Auto) % Eos % (Auto) % Baso % (Auto) % Neut # (Auto) (1.40-6.50) K/uL Lymph # (Auto) (1.2-3.4) K/uL [place] # (Auto) (0.11-0.59) K/uL Eos # (Auto) (0-0.50) K/uL Baso # (Auto) (0-0.2) K/uL Immature Gran # (Auto) (0.01-0.20) K/uL PT 17.2 H (9.0-12.0) Seconds INR 1.7 H (0.9-1.1) Sodium (136-145) mmol/L Potassium (3.5-5.1) mmol/L Chloride (98-107) mmol/L Carbon Dioxide (21-32) mmol/L Anion Gap (3-11) BUN (6-23) mg/dl Creatinine (0.6-1.2) mg/dl Est Cr Clr Drug Dosing ml/min Est GFR ( Amer) ml/min Est GFR (Non-Af Amer) ml/min BUN/Creatinine Ratio (10-20) Glucose (70-99(Fasting)) mg/dl Lactate (0.4-2.0) mmol/L Calcium (8.6-10.3) mg/dl Magnesium (1.7-2.4) mg/dl Total Bilirubin (0.2-1.0) mg/dl Direct Bilirubin (0-0.2) mg/dl AST (13-39) U/L ALT (7-52) U/L Alkaline Phosphatase (34-104) U/L Troponin I High Sens (0-14) pg/ml Total Protein (6.0-8.3) gm/dl Albumin (3.4-5.0) gm/dl Procalcitonin < 0.05 (0-0.5) ng/ml Urine Color Yellow Urine Appearance Cloudy A (Clear) Urine pH 6.5 (4.5-7.5) Ur Specific [place] 1.039 H (1.000-1.030) Urine Protein Negative (Negative) Urine Glucose (UA) Negative (Negative) Urine Ketones Negative (Negative) Urine Blood Trace H (Negative) Urine Nitrite Negative (Negative) Urine Bilirubin Negative (Negative) Urine Urobilinogen Negative (Negative) Ur Leukocyte Esterase 1+ H (Negative) Urine WBC (Auto) 10-30 H (0-5) /hpf Urine RBC (Auto) 5-10 H (0-4) /hpf U Hyaline Cast (Auto) 1-5 (0-5) /lpf U Epithel Cells (Auto) >30 H (0-5) /lpf Urine Bacteria (Auto) Negative (Negative) Urine Yeast Not Reportable SARS-CoV-2 (PCR) (Negative) Influenza Type A (PCR) (Neg) Influenza Type B (PCR) (Neg) RSV (RT-PCR) (Neg) 07/28/22 Range/Units 22:22 WBC (4.8-10.8) K/ul RBC (4.20-5.40) M/uL Hgb (12.0-16.0) g/dl Hct (37.0-47.0) % MCV (80.0-100.0) fL MCH (25.0-34.0) pg MCHC (32.0-36.0) g/dL RDW Std Deviation (36.4-46.3) fL RDW Coeff of Wilfredo (11.5-14.5) % Plt Count (130-400) K/uL MPV (9.4-12.4) fL Immature Gran % (Auto) % Neut % (Auto) % Lymph % (Auto) % [place] % (Auto) % Eos % (Auto) % Baso % (Auto) % Neut # (Auto) (1.40-6.50) K/uL Lymph # (Auto) (1.2-3.4) K/uL [place] # (Auto) (0.11-0.59) K/uL Eos # (Auto) (0-0.50) K/uL Baso # (Auto) (0-0.2) K/uL Immature Gran # (Auto) (0.01-0.20) K/uL PT (9.0-12.0) Seconds INR (0.9-1.1) Sodium (136-145) mmol/L Potassium (3.5-5.1) mmol/L Chloride (98-107) mmol/L Carbon Dioxide (21-32) mmol/L Anion Gap (3-11) BUN (6-23) mg/dl Creatinine (0.6-1.2) mg/dl Est Cr Clr Drug Dosing ml/min Est GFR ( Amer) ml/min Est GFR (Non-Af Amer) ml/min BUN/Creatinine Ratio (10-20) Glucose (70-99(Fasting)) mg/dl Lactate (0.4-2.0) mmol/L Calcium (8.6-10.3) mg/dl Magnesium (1.7-2.4) mg/dl Total Bilirubin (0.2-1.0) mg/dl Direct Bilirubin (0-0.2) mg/dl AST (13-39) U/L ALT (7-52) U/L Alkaline Phosphatase (34-104) U/L Troponin I High Sens (0-14) pg/ml Total Protein (6.0-8.3) gm/dl Albumin (3.4-5.0) gm/dl Procalcitonin (0-0.5) ng/ml Urine Color Urine Appearance (Clear) Urine pH (4.5-7.5) Ur Specific [place] (1.000-1.030) Urine Protein (Negative) Urine Glucose (UA) (Negative) Urine Ketones (Negative) Urine Blood (Negative) Urine Nitrite (Negative) Urine Bilirubin (Negative) Urine Urobilinogen (Negative) Ur Leukocyte Esterase (Negative) Urine WBC (Auto) (0-5) /hpf Urine RBC (Auto) (0-4) /hpf U Hyaline Cast (Auto) (0-5) /lpf U Epithel Cells (Auto) (0-5) /lpf Urine Bacteria (Auto) (Negative) Urine Yeast SARS-CoV-2 (PCR) POSITIVE A* (Negative) Influenza Type A (PCR) Negative (Neg) Influenza Type B (PCR) Negative (Neg) RSV (RT-PCR) Negative (Neg) Administered Medications Discontinued Medications Acetaminophen (Acetaminophen 500 Mg Tab) 1,000 mg PO NOW STA Stop: 07/28/22 22:12 Last Admin: 07/28/22 22:29 Dose: 1,000 mg Documented By: ROBERTO Sodium Chloride (Nss 1000ml) 1,000 mls @ 999 mls/hr IV .Q1H1M KEE Stop: 07/28/22 19:45 Last Infusion: 07/28/22 20:17 Dose: 0 mls/hr Documented By: Admin: 07/28/22 19:09 Dose: 999 mls/hr Documented By: LACHO Dexamethasone 10 mg/ Syringe 2.5 mls @ 1 mls/min IV 0100 ONE Stop: 07/29/22 01:02 Last Admin: 07/29/22 01:13 Dose: 1 mls/min Documented By: ROBERTO Ioversol (Optiray 350 100ml) 77 ml IV ONCE ONE Stop: 07/28/22 21:00 Last Admin: 07/28/22 20:59 Dose: 77 ml Documented By: ELLA Warfarin Sodium (Warfarin Sod 4 Mg Tab) 4 mg PO 0115 ONE Stop: 07/29/22 01:16 Last Admin: 07/29/22 01:13 Dose: 4 mg Documented By: ROBERTO Imaging Data Radiologist's Impression: Chest X-Ray 07/28/22 18:39 XR chest 1V portable HISTORY: Sepsis COMPARISON: Chest 10/20/2021. FINDINGS: No pneumothorax. No pleural effusions. The cardiac silhouette remains mildly enlarged. No focal lung consolidations to suggest a pneumonia. No evidence for pulmonary edema. There are calcifications within the otic knob. IMPRESSION: Mild cardiomegaly. Otherwise, no acute process within the chest. ACT 112: Negative or not required by law. Electronically signed by: Robert Solares M.D. 07/28/2022 7:51 PM Abdomen/Pelvis CT 07/28/22 18:40 Exam(s): CT ABDOMEN + PELVIS With Contrast EXAM: CT Abdomen and Pelvis With Intravenous Contrast CLINICAL HISTORY: Reason for exam: abd pain, hx of diverticulitis. TECHNIQUE: Axial computed tomography images of the abdomen and pelvis with intravenous contrast. CTDI is 14.34 mGy and DLP is 682.49 mGy-cm. Automated exposure control was utilized for the study. A dose lowering technique was utilized adhering to the principles of ALARA. CONTRAST: Contrast must be dictated COMPARISON: No relevant prior studies available. FINDINGS: Lung bases: Unremarkable. No mass. No consolidation. ABDOMEN: Liver: Low attenuation cystic lesions in the right hepatic lobe measures 2.6 x 1.7 cm and 1.4 x 1.1 cm. Gallbladder and bile ducts: Unremarkable. No calcified stones. No ductal dilation. Pancreas: Unremarkable. No mass. No ductal dilation. Spleen: Unremarkable. No splenomegaly. Adrenals: Unremarkable. No mass. Kidneys and ureters: Renal cysts, measuring up to 4.8 cm. No hydronephrosis. Stomach and bowel: Diverticulosis, without acute diverticulitis. No small bowel obstruction. No free intraperitoneal air. PELVIS: Appendix: No findings to suggest acute appendicitis. Bladder: Unremarkable. No mass. Reproductive: Unremarkable as visualized. Normal CT appearance of the uterus. ABDOMEN and PELVIS: Intraperitoneal space: Unremarkable. No free air. No significant fluid collection. Bones/joints: Degenerative changes of the spine. No acute fracture. No dislocation. Soft tissues: Unremarkable. Vasculature: Atherosclerotic changes of the aorta. No abdominal aortic aneurysm. Lymph nodes: Unremarkable. No enlarged lymph nodes. IMPRESSION: Diverticulosis, without acute diverticulitis. No small bowel obstruction. No free intraperitoneal air. Electronically signed by: Edgar Cespedes MD 07/28/22 21:43 PM Discharge Plan Visit Data Chief Complaint: Weakness ED Provider: Gordon Perry Discharge Problem: COVID-19 Forms Stand Alone Forms: [facility] InDeed Prescriptions Prescriptions: No Action losartan 100 mg tablet 100 mg PO DAILY Qty: 90 3RF donepezil [Aricept] 10 mg tablet 10 mg PO HS Qty: 90 3RF sertraline 50 mg tablet 75 mg PO HS Qty: 90 3RF warfarin 2 mg tablet See Rx Instructions .ROUTE .COMPLEX Qty: 110 3RF Protocol: Dose Management Condition: Monday Dose/Route: 2 mg Instruction: 1 x 2 mg tablet Condition: Monday Dose/Route: 2 mg Instruction: 1 x 2 mg tablet Condition: Monday Dose/Route: 2 mg Instruction: 1 x 2 mg tablet Condition: Monday Dose/Route: 2 mg Instruction: 1 x 2 mg tablet Condition: Dose/Route: 2 mg Instruction: 1 x 2 mg tablet Condition: Monday Dose/Route: 4 mg Instruction: 2 x 2 mg tablets Condition: Monday Dose/Route: 2 mg Instruction: 1 x 2 mg tablet Protocol Text: Adjustment Start Date: 07/14/22 INR Value: 2.1 INR Date: 07/14/22 Recheck Date: 08/11/22 Rx Instructions: take 4mg Fridays and 2mg all other days nitroglycerin 0.4 mg tablet, sublingual 0.4 mg SL Q5M PRN (Reason: Chest Pain) Patient Comments: as needed for chest pain x 3 doses, if no relief call 911 albuterol sulfate [ProAir HFA] 90 mcg/actuation HFA aerosol inhaler 2 puffs INH Q6H PRN (Reason: shortness of breath or wheezing) Qty: 18 0RF methotrexate sodium 2.5 mg tablet 15 mg PO WK Rx Instructions: TAKES ON WEDNESDAYS..15 mg PO once weekly; folic acid 1 mg tablet 2 mg PO QPM multivitamin Tablet 1 tab PO QAM alendronate 70 mg tablet 70 mg PO WK Patient Comments: Mondays Rx Instructions: TAKES ON SUNDAYS ondansetron HCl 4 mg tablet 4 mg PO Q8H PRN (Reason: nausea and vomiting) Qty: 30 0RF Saccharomyces boulardii 250 mg capsule 250 mg PO DAILY Qty: 100 1RF potassium chloride 10 mEq capsule, extended release 10 meq PO BID Qty: 180 3RF pregabalin 75 mg Capsule 75 mg PO BID acetaminophen 650 mg Tablet Extended Release 650 mg PO Q12H PRN (Reason: Pain) Referrals Referrals: Ella Esquivel MD [Primary Care Provider] -
[2022-07-28] MEDS ORDERED: SODIUM CHLORIDE 0.9% 1000ML 1,000 ML IV SCH (18:45)
[2022-07-28 19:39] LABS: Basophils # (auto) 0.02 K/uL (0-0.2); Basophils % (auto) 0.3 %; Eosinophils # (auto) 0.01 K/uL (0-0.50); Eosinophils % (auto) 0.2 %; Hematocrit (blood only) 38.2 % (37.0-47.0); Hemoglobin 12.8 g/dl (12.0-16.0); Immature Granulocytes # (auto) 0.02 K/uL (0.01-0.20); Immature Granulocytes % (auto) 0.3 %; Lymphocytes % (auto) 6.6 %; Mean Corpuscular Hemoglobin 30.6 pg (25.0-34.0); Mean Corpuscular Hgb Conc 33.5 g/dL (32.0-36.0); Mean Corpuscular Volume 91.4 fL (80.0-100.0); Mean Platelet Volume 10.4 fL (9.4-12.4); Monocytes # (auto) 0.89 K/uL (0.11-0.59); Monocytes % (auto) 14.8 %; Neutrophils # (auto) 4.69 K/uL (1.40-6.50); Neutrophils % (auto) 77.8 %; Platelet Count 170 K/uL (130-400); RDW Coefficient of Variation 14.4 % (11.5-14.5); RDW Standard Deviation 47.4 fL (36.4-46.3); Red Blood Count 4.18 M/uL (4.20-5.40); White Blood Count 6.03 K/ul (4.8-10.8)
[2022-07-28 19:47] LABS: Albumin Level 3.7 gm/dl (3.4-5.0); BUN Creatinine Ratio 13.4 (10-20); Bilirubin Direct 0.1 mg/dl (0-0.2); Bilirubin,Total 0.7 mg/dl (0.2-1.0); Creatinine Clr Calc Pharmacy 58.1 ml/min; Est GFR (African American) 77.8 ml/min; Est GFR (Non-African American) 67.1 ml/min; Magnesium 1.8 mg/dl (1.7-2.4); Potassium 3.8 mmol/L (3.5-5.1); Total Protein 6.9 gm/dl (6.0-8.3)
--- NOTE | 2022-07-28 19:52 | XRay Report ---
XR chest 1V portable HISTORY: Sepsis COMPARISON: Chest 10/20/2021. FINDINGS: No pneumothorax. No pleural effusions. The cardiac silhouette remains mildly enlarged. No f ocal lung consolidations to suggest a pneumonia. No evidence for pulmonary edema. There are calcifica tions within the otic knob. IMPRESSION: Mild cardiomegaly. Otherwise, no acute process within the chest. ACT 112: Negative or not required by law. Electronically signed by: Robert Solares M.D. 07/28/2022 7:51 PM
[2022-07-28 19:53] LABS: Troponin I High Sensitivity 23.3 pg/ml (0-14)
[2022-07-28 19:58] LABS: INR 1.7 (0.9-1.1); Prothrombin Time 17.2 Seconds (9.0-12.0)
[2022-07-28] MEDS ORDERED: OPTIRAY 350 100ml IV ONE (20:59)
--- NOTE | 2022-07-28 21:43 | CT Scan Report ---
Exam(s): CT ABDOMEN + PELVIS With Contrast EXAM: CT Abdomen and Pelvis With Intravenous Contrast CLINICAL HISTORY: Reason for exam: abd pain, hx of diverticulitis. TECHNIQUE: Axial computed tomography images of the abdomen and pelvis with intravenous contrast. CTDI is 14.34 mGy and DLP is 682.49 mGy-cm. Automated exposure control was utilized for the study. A dose lowering technique was utilized adhering to the principles of ALARA. CONTRAST: Contrast must be dictated COMPARISON: No relevant prior studies available. FINDINGS: Lung bases: Unremarkable. No mass. No consolidation. ABDOMEN: Liver: Low attenuation cystic lesions in the right hepatic lobe measures 2.6 x 1.7 cm and 1.4 x 1.1 cm. Gallbladder and bile ducts: Unremarkable. No calcified stones. No ductal dilation. Pancreas: Unremarkable. No mass. No ductal dilation. Spleen: Unremarkable. No splenomegaly. Adrenals: Unremarkable. No mass. Kidneys and ureters: Renal cysts, measuring up to 4.8 cm. No hydronephrosis. Stomach and bowel: Diverticulosis, without acute diverticulitis. No small bowel obstruction. No free intraperitoneal air. PELVIS: Appendix: No findings to suggest acute appendicitis. Bladder: Unremarkable. No mass. Reproductive: Unremarkable as visualized. Normal CT appearance of the uterus. ABDOMEN and PELVIS: Intraperitoneal space: Unremarkable. No free air. No significant fluid collection. Bones/joints: Degenerative changes of the spine. No acute fracture. No dislocation. Soft tissues: Unremarkable. Vasculature: Atherosclerotic changes of the aorta. No abdominal aortic aneurysm. Lymph nodes: Unremarkable. No enlarged lymph nodes. IMPRESSION: Diverticulosis, without acute diverticulitis. No small bowel obstruction. No free intraperitoneal air. Electronically signed by: Edgar Cespedes MD 07/28/22 21:43 PM
[2022-07-28] MEDS ORDERED: ACETAMINOPHEN 500 MG TAB PO STA (22:11)
[2022-07-28 22:34] LABS: Appearance Urine Cloudy (Clear); Bacteria Urine Automated Negative (Negative); Bilirubin Urine Negative (Negative); Blood Urine Trace (Negative); Color Urine Yellow; Epithelial Cell Urine Auto >30 /lpf (0-5); Glucose Urine UA Negative (Negative); Ketones Urine Negative (Negative); Leukocyte Esterase Urine 1+ (Negative); Nitrite Urine Negative (Negative); Protein Urine Negative (Negative); Specific Gravity Urine 1.039 (1.000-1.030); Urobilinogen Urine Negative (Negative); pH Urine 6.5 (4.5-7.5)
[2022-07-28 23:15] LABS: Influenza A virus by PCR Negative (Neg); Influenza B virus by PCR Negative (Neg); RSV by PCR Negative (Neg)
[2022-07-28 23:29] LABS: SARS CoV2 RNA(COVID-19) Ceph POSITIVE (Negative)
--- NOTE | 2022-07-29 00:48 | History & Physical Report ---
Date of Service July 29, 2022 Assessment & Plan (1) COVID-19: (2) Depression: (3) HTN (hypertension): (4) Primary hypercoagulable state: (5) Peripheral neuropathy: (6) History of pulmonary embolus (PE): Plan COVID-19 infection- Likely cause of her symptoms of generalized weakness and, more recently dyspnea on exertion and shortness of breath Placed on dexamethasone 10 mg IV now and then 6 mg IV every morning Not a candidate for remdesivir Elevated troponin/hypertension/paroxysmal atrial fibrillation Troponin 23.3 on admission, likely supply demand mismatch versus inflammation associated with COVID-19 Continue losartan, potassium chloride and warfarin Pulmonary embolism/primary hypercoagulable state- Continue warfarin follow serial PT/INR Depression/dementia- Continue donepezil/pregabalin and sertraline Arthritis- On methotrexate 15 mg weekly as an outpatient and folic acid 2 mg daily Will likely need PT/OT assessment and possible inpatient rehab prior to discharge History of Present Illness Chief Complaint: The patient presents to the emergency department with complaint of generalized weakness that began about 1 week ago, and some lower abdominal discomfort and shortness of breath that began 1 day ago Primary Care Provider: Ella Esquivel MD The patient is an 81-year-old female with a past medical history including hypertension, depression, primary hypercoagulable state, diverticulitis, PAF, hyperlipidemia, osteoporosis, peripheral neuropathy and history of pulmonary embolism. She presents to the emergency department with symptoms that began 1 week ago of generalized fatigue, and notes 1 day ago she began to have shortness of breath, dyspnea on exertion and some lower abdominal discomfort. Allergies Allergy/AdvReac Type Severity Reaction Status Date / Time [id number]-[id number] Reductase AdvReac Severe Muscle Pain Verified 07/28/22 19:46 Inhibitor [Mnucplu-Pcy-Pay Reductase Inhibitor] sulfamethoxazole AdvReac Intermediate STOMACH Verified 07/28/22 19:46 SICKNESS trimethoprim AdvReac Intermediate STOMACH Verified 07/28/22 19:46 SICKNESS tramadol AdvReac Unknown no pain Verified 07/28/22 19:46 relief Home Medications Medication Instructions Recorded Confirmed Type albuterol sulfate 90 mcg/actuation 2 puffs inhalation Q6H PRN 10/28/18 07/28/22 Rx aerosol inhaler (ProAir HFA) shortness of breath or wheezing #18 grams nitroglycerin 0.4 mg sublingual 0.4 mg sublingual Q5M PRN Chest 10/28/18 07/28/22 History tablet Pain folic acid 1 mg tablet 2 mg PO QPM 02/26/19 07/28/22 History methotrexate sodium 2.5 mg tablet 15 mg PO WK 01/20/20 07/28/22 History pregabalin 75 mg capsule 75 mg PO BID 03/24/20 07/28/22 History acetaminophen 650 mg 650 mg PO Q12H PRN Pain 07/09/21 07/28/22 History tablet,extended release alendronate 70 mg tablet 70 mg PO WK 09/14/21 07/28/22 History multivitamin 1 tab PO QAM 09/14/21 07/28/22 History losartan 100 mg tablet 100 mg PO DAILY #90 tabs 12/13/21 07/28/22 Rx donepezil 10 mg tablet (Aricept) 10 mg PO HS #90 tabs 01/25/22 07/28/22 Rx Saccharomyces boulardii 250 mg 250 mg PO DAILY #100 caps 05/03/22 07/28/22 Rx capsule ondansetron HCl 4 mg tablet 4 mg PO Q8H PRN nausea and 05/03/22 07/28/22 Rx vomiting #30 tabs sertraline 50 mg tablet 75 mg PO HS #90 tabs 05/20/22 07/28/22 Rx warfarin 2 mg tablet See Rx Instructions .Route 07/13/22 07/28/22 Rx .COMPLEX #110 tabs potassium chloride 10 mEq 10 meq PO BID #180 caps 07/14/22 07/28/22 Rx capsule,extended release Past Med/Surg History Medical History (Updated 07/29/22 @ 01:29 by Gordon Perry DO) Allergic rhinitis Anticoagulant long-term use COUMADIN Asthma Blood clotting disorder 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 per records On Coumadin Depression Esophageal reflux Hemorrhoid History of diverticulitis History of pulmonary embolus (PE) "years ago" HTN (hypertension) Hyperlipidemia Hypokalemia Memory loss Non-occlusive coronary artery disease NSTEMI (non-ST elevated myocardial infarction) (~2016) Obstructive sleep apnea uses cpap Osteoporosis Paroxysmal atrial fibrillation Peripheral neuropathy Recurrent deep vein thrombosis (DVT) Rheumatoid arthritis follows w/ Gladis Snell Right flank pain Seronegative rheumatoid arthritis Sleep apnea Stomach ulcer Hx Surgical History History of ankle surgery left History of esophagogastroduodenoscopy (EGD) History of total right knee replacement 09/21/2021 UOC- done at [facility] [place] Hx of hysterectomy with RSO S/P cardiac cath (~2015) no stents. [facility] July 2016 minimal disease in small distal vessels S/P cataract extraction bilateral S/P colonoscopy Status post mastoidectomy Right Family History Unknown Pulmonary embolism Brother Coronary heart disease Myocardial infarction Stroke Mother Myocardial infarction Father Stroke Family/Other Family history of reaction to anesthesia Denies family history of Ovarian cancer Prostate cancer Breast cancer Lung cancer Colorectal cancer Social History Smoking Status: Former smoker Age Started Using Tobacco: 18; Age Quit Using Tobacco: 28; packs per day: 1; Cigarettes Per Day: only a few cigarettes a day.; Second Hand Exposure: No; Hx Alcohol Use: No Hx Substance Use: No Preferred Language: Slovak Communication Ability: Effective Visual Impairment: Partially Limited Hearing Ability: Normal Computer Teacher Required: No Beliefs That Will Affect Care: None marital status: Current Living Situation: Spouse current occupational status: retired How many Children do You have: 3 Feels Safe at Home: Yes Childhood Exposure to Second-Hand Smoke: Yes Diet Comment: Regular caffeine: Yes (2 cups of coffee a day) during the past year weight has: remained stable Dental Care, Regularly: Yes Physical Activity Frequency: Does not Exercise Seatbelt Use: always Sunscreen Use: No (Doesn't go out much) Do you think of yourself as: straight/heterosexual Gender Identity: Female Assistive Devices: Brace/Splint/Immobilizer, CPAP, Glasses, Special Shoe, Walker and Wheelchair Review of Systems Review of Systems: The patient denies chest pain, palpitations, lower extremity swelling, sore throat, fevers, chills, sweats, nausea, vomiting, diarrhea , constipation, blood in urine or stool, dysuria, urinary frequency or urgency, lightheadedness, dizziness, headache, memory loss, loss of consciousness, rash, abnormal bruising or bleeding, imbalance, focal weakness, numbness or tingling in arms or legs, generalized arthralgias or myalgias, back or neck pain, or night sweats. The review of systems is otherwise negative other than for that already noted above, and at least 10 systems have been reviewed. Physical Exam Physical Exam: The patient is awake, alert and oriented 3, well developed and well nourished, normocephalic and atraumatic, lying in bed and in no acute distress. HEENT--PERRL, EOMI, mucous membranes and oropharynx dry. Neck--supple. No JVD. No bruits. Thyroid normal, trachea midline, no adenopathy. Heart--normal S1 and S2. No murmurs, rubs or gallops. Lungs--clear bilaterally, no respiratory distress, no accessory muscle use. Abdomen--normal bowel sounds and soft. Nontender. Nondistended, no hernias or masses, no organomegaly. Extremities--no cyanosis or clubbing. No edema. There are good distal pulses b/l. Dermatologic--normal skin turgor, normal color, no abnormal lymph nodes, no rash. Neurologic--cranial nerves II through XII grossly intact. Rheumatologic--normal range of motion. Psychiatric--normal affect. Results & Data Results & Data Vital Signs (Past 12 Hours) Vital Signs Temp Pulse Resp BP Pulse Ox 07/28/22 19:00 78 07/28/22 19:00 108 H 21 141/79 H 92 07/28/22 18:39 38.0 C H Laboratory Results Laboratory Results WBC 6.03 K/ul (4.8-10.8) 07/28/22 18:45 RBC 4.18 M/uL (4.20-5.40) L 07/28/22 18:45 Hgb 12.8 g/dl (12.0-16.0) 07/28/22 18:45 Hct 38.2 % (37.0-47.0) 07/28/22 18:45 MCV 91.4 fL (80.0-100.0) 07/28/22 18:45 MCH 30.6 pg (25.0-34.0) 07/28/22 18:45 MCHC 33.5 g/dL (32.0-36.0) 07/28/22 18:45 RDW Std Deviation 47.4 fL (36.4-46.3) H 07/28/22 18:45 RDW Coeff of Wilfredo 14.4 % (11.5-14.5) 07/28/22 18:45 Plt Count 170 K/uL (130-400) 07/28/22 18:45 MPV 10.4 fL (9.4-12.4) 07/28/22 18:45 Immature Gran % (Auto) 0.3 % 07/28/22 18:45 Neut % (Auto) 77.8 % 07/28/22 18:45 Lymph % (Auto) 6.6 % 07/28/22 18:45 Slope % (Auto) 14.8 % 07/28/22 18:45 Eos % (Auto) 0.2 % 07/28/22 18:45 Baso % (Auto) 0.3 % 07/28/22 18:45 Neut # (Auto) 4.69 K/uL (1.40-6.50) 07/28/22 18:45 Lymph # (Auto) 0.40 K/uL (1.2-3.4) L 07/28/22 18:45 Slope # (Auto) 0.89 K/uL (0.11-0.59) H 07/28/22 18:45 Eos # (Auto) 0.01 K/uL (0-0.50) 07/28/22 18:45 Baso # (Auto) 0.02 K/uL (0-0.2) 07/28/22 18:45 Immature Gran # (Auto) 0.02 K/uL (0.01-0.20) 07/28/22 18:45 PT 17.2 Seconds (9.0-12.0) H 07/28/22 18:45 INR 1.7 (0.9-1.1) H 07/28/22 18:45 Sodium 139 mmol/L (136-145) 07/28/22 18:45 Potassium 3.8 mmol/L (3.5-5.1) 07/28/22 18:45 Chloride 106 mmol/L (98-107) 07/28/22 18:45 Carbon Dioxide 25 mmol/L (21-32) 07/28/22 18:45 Anion Gap 8 (3-11) 07/28/22 18:45 BUN 11 mg/dl (6-23) 07/28/22 18:45 Creatinine 0.82 mg/dl (0.6-1.2) 07/28/22 18:45 Est Cr Clr Drug Dosing 58.1 ml/min 07/28/22 18:45 Est GFR ( Amer) 77.8 ml/min 07/28/22 18:45 Est GFR (Non-Af Amer) 67.1 ml/min 07/28/22 18:45 BUN/Creatinine Ratio 13.4 (10-20) 07/28/22 18:45 Glucose 108 mg/dl (70-99(Fasting)) H 07/28/22 18:45 Lactate 0.9 mmol/L (0.4-2.0) 07/28/22 18:45 Calcium 9.0 mg/dl (8.6-10.3) 07/28/22 18:45 Magnesium 1.8 mg/dl (1.7-2.4) 07/28/22 18:45 Total Bilirubin 0.7 mg/dl (0.2-1.0) 07/28/22 18:45 Direct Bilirubin 0.1 mg/dl (0-0.2) 07/28/22 18:45 AST 24 U/L (13-39) 07/28/22 18:45 ALT 16 U/L (7-52) 07/28/22 18:45 Alkaline Phosphatase 85 U/L (34-104) 07/28/22 18:45 Troponin I High Sens 23.3 pg/ml (0-14) H 07/28/22 18:45 Total Protein 6.9 gm/dl (6.0-8.3) 07/28/22 18:45 Albumin 3.7 gm/dl (3.4-5.0) 07/28/22 18:45 Procalcitonin < 0.05 ng/ml (0-0.5) 07/28/22 18:45 Urine Color Yellow 07/28/22 22:22 Urine Appearance Cloudy (Clear) A 07/28/22 22:22 Urine pH 6.5 (4.5-7.5) 07/28/22 22:22 Ur Specific [place] 1.039 (1.000-1.030) H 07/28/22 22:22 Urine Protein Negative (Negative) 07/28/22 22:22 Urine Glucose (UA) Negative (Negative) 07/28/22 22:22 Urine Ketones Negative (Negative) 07/28/22 22:22 Urine Blood Trace (Negative) H 07/28/22 22:22 Urine Nitrite Negative (Negative) 07/28/22 22:22 Urine Bilirubin Negative (Negative) 07/28/22 22:22 Urine Urobilinogen Negative (Negative) 07/28/22 22:22 Ur Leukocyte Esterase 1+ (Negative) H 07/28/22 22:22 Urine WBC (Auto) 10-30 /hpf (0-5) H 07/28/22 22:22 Urine RBC (Auto) 5-10 /hpf (0-4) H 07/28/22 22:22 U Hyaline Cast (Auto) 1-5 /lpf (0-5) 07/28/22 22:22 U Epithel Cells (Auto) >30 /lpf (0-5) H 07/28/22 22:22 Urine Bacteria (Auto) Negative (Negative) 07/28/22 22:22 Urine Yeast Not Reportable 07/28/22 22:22 SARS-CoV-2 (PCR) POSITIVE (Negative) A* 07/28/22 22:22 Influenza Type A (PCR) Negative (Neg) 07/28/22 22:22 Influenza Type B (PCR) Negative (Neg) 07/28/22 22:22 RSV (RT-PCR) Negative (Neg) 07/28/22 22:22 Impressions Chest X-Ray 07/28/22 18:39 XR chest 1V portable HISTORY: Sepsis COMPARISON: Chest 10/20/2021. FINDINGS: No pneumothorax. No pleural effusions. The cardiac silhouette remains mildly enlarged. No focal lung consolidations to suggest a pneumonia. No evidence for pulmonary edema. There are calcifications within the otic knob. IMPRESSION: Mild cardiomegaly. Otherwise, no acute process within the chest. ACT 112: Negative or not required by law. Electronically signed by: Robert Solares M.D. 07/28/2022 7:51 PM Abdomen/Pelvis CT 07/28/22 18:40 Exam(s): CT ABDOMEN + PELVIS With Contrast EXAM: CT Abdomen and Pelvis With Intravenous Contrast CLINICAL HISTORY: Reason for exam: abd pain, hx of diverticulitis. TECHNIQUE: Axial computed tomography images of the abdomen and pelvis with intravenous contrast. CTDI is 14.34 mGy and DLP is 682.49 mGy-cm. Automated exposure control was utilized for the study. A dose lowering technique was utilized adhering to the principles of ALARA. CONTRAST: Contrast must be dictated COMPARISON: No relevant prior studies available. FINDINGS: Lung bases: Unremarkable. No mass. No consolidation. ABDOMEN: Liver: Low attenuation cystic lesions in the right hepatic lobe measures 2.6 x 1.7 cm and 1.4 x 1.1 cm. Gallbladder and bile ducts: Unremarkable. No calcified stones. No ductal dilation. Pancreas: Unremarkable. No mass. No ductal dilation. Spleen: Unremarkable. No splenomegaly. Adrenals: Unremarkable. No mass. Kidneys and ureters: Renal cysts, measuring up to 4.8 cm. No hydronephrosis. Stomach and bowel: Diverticulosis, without acute diverticulitis. No small bowel obstruction. No free intraperitoneal air. PELVIS: Appendix: No findings to suggest acute appendicitis. Bladder: Unremarkable. No mass. Reproductive: Unremarkable as visualized. Normal CT appearance of the uterus. ABDOMEN and PELVIS: Intraperitoneal space: Unremarkable. No free air. No significant fluid collection. Bones/joints: Degenerative changes of the spine. No acute fracture. No dislocation. Soft tissues: Unremarkable. Vasculature: Atherosclerotic changes of the aorta. No abdominal aortic aneurysm. Lymph nodes: Unremarkable. No enlarged lymph nodes. IMPRESSION: Diverticulosis, without acute diverticulitis. No small bowel obstruction. No free intraperitoneal air. Electronically signed by: Edgar Cespedes MD 07/28/22 21:43 PM Code Status & VTE Plan Code Status Full code VTE Prophylaxis Plan VTE Prophylaxis will be ordered: Yes PG Care Time/CCT Total # of Minutes Spent Total Time Spent with Patient: Total time spent is greater than 50% in coordination of care (as documented) at patient's floor/unit and/or counseling patient: Coding Level of Care Code 18730 INT INP/OBS CARE 3/75MIN Diagnoses COVID-19 U07.1 Depression F32.9 HTN (hypertension) I10 Primary hypercoagulable state D68.59 Peripheral neuropathy G62.9 History of pulmonary embolus (PE) Z86.711
[2022-07-29] MEDS ORDERED: dexAMETHasone 10 MG in SYRINGE 0 ML IV ONE (01:00)
[2022-07-29] MEDS ORDERED: WARFARIN SOD 4 MG TAB PO ONE (01:15)
[2022-07-29] MEDS ORDERED: ALBUTEROL HFA 8 GM INHALER INH PRN (02:51)
[2022-07-29] MEDS ORDERED: NITROGLYCERIN SL 0.4 MG/TAB TAB SL PRN (02:51)
[2022-07-29] MEDS ORDERED: ONDANSETRON INJ 2 MG/ML 2 ML VIAL IV PRN (02:51)
[2022-07-29] MEDS ORDERED: ACETAMINOPHEN 325 MG TAB PO PRN ×2 (02:51→02:58)
[2022-07-29] MEDS ORDERED: ONDANSETRON 4 MG OD TAB PO PRN (03:01)
[2022-07-29] MEDS: PREGABALIN 75 MG CAP PO SCH ×3 (03:52→20:47)
[2022-07-29] MEDS: POTASSIUM CHLORIDE 10 MEQ TABCR PO SCH ×3 (03:52→20:48)
[2022-07-29 08:51] LABS: Basophils # (auto) 0.01 K/uL (0-0.2); Basophils % (auto) 0.3 %; Hematocrit (blood only) 41.7 % (37.0-47.0); Hemoglobin 13.7 g/dl (12.0-16.0); Immature Granulocytes # (auto) 0.01 K/uL (0.01-0.20); Immature Granulocytes % (auto) 0.3 %; Lymphocytes # (auto) 0.28 K/uL (1.2-3.4); Lymphocytes % (auto) 7.8 %; Mean Corpuscular Hemoglobin 30.5 pg (25.0-34.0); Mean Corpuscular Hgb Conc 32.9 g/dL (32.0-36.0); Mean Corpuscular Volume 92.9 fL (80.0-100.0); Mean Platelet Volume 10.3 fL (9.4-12.4); Monocytes # (auto) 0.13 K/uL (0.11-0.59); Monocytes % (auto) 3.6 %; Neutrophils # (auto) 3.15 K/uL (1.40-6.50); Platelet Count 181 K/uL (130-400); RDW Coefficient of Variation 14.6 % (11.5-14.5); RDW Standard Deviation 49.1 fL (36.4-46.3); Red Blood Count 4.49 M/uL (4.20-5.40); White Blood Count 3.58 K/ul (4.8-10.8)
[2022-07-29 09:03] LABS: BUN Creatinine Ratio 14.5 (10-20); Calcium 8.8 mg/dl (8.6-10.3); Creatinine Clr Calc Pharmacy 61.1 ml/min; Est GFR (African American) 85.3 ml/min; Est GFR (Non-African American) 73.6 ml/min; Phosphorus 3.1 mg/dl (2.5-4.9); Potassium 3.9 mmol/L (3.5-5.1)
--- NOTE | 2022-07-29 09:03 | Hospitalist Progress Note ---
Date of Service July 29, 2022 Assessment & Plan (1) COVID-19: Plan: Subacute COVID infection with metabolic encephalopathy and severe weakness, moderate risk COVID-pneumonia was ruled out patient is not hypoxic. Therefore does not qualify for remdesivir. Initiating dexamethasone therapy by admitting Patient was abdominal pain on presentation with negative CT scan abdomen pelvis Outstanding urine culture pending (2) Paroxysmal atrial fibrillation: Plan: Chronic unclear if stable due to elevated troponin on presentation. 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 Previous venous thromboembolism with pulmonary embolism confirmed remains on warfarin therapy Plan Rheumatoid Arthritis-chronic and stable On methotrexate 15 mg weekly as an outpatient and folic acid 2 mg daily, will hold methotrexate with acute infection Admission and Anticipated Discharge Date Admission Date: July 29, 2022 Subjective pt looks younger than stated age, she feels much better maybe from steroids Physical Exam Physical Exam: Patient awake alert and oriented she is without significant plaints except for profound weakness she gets deconditioning tired when she walks around the room Cardiac exam is regular without murmur Lungs sound coarse but no focal air loss no decreased at the bases Abdomen NABS soft nontender Results & Data Results & Data Vital Signs (Past 12 Hours) Vital Signs Temp Pulse Pulse Resp BP Pulse Ox O2 Del Method 07/29/22 08:06 53 L 07/29/22 08:01 Room Air 07/29/22 07:30 97.7 F 60 18 154/88 H 93 Room Air 07/29/22 03:10 59 L 07/29/22 02:50 Room Air 07/29/22 02:50 98.1 F 68 18 152/83 H 95 Room Air 07/29/22 02:57 98.1 F 68 18 152/83 H 94 Room Air 07/29/22 02:17 84 18 95 07/29/22 02:17 84 18 98 Room Air 07/29/22 01:21 87 Laboratory Results Reviewed CBC reviewed PRP Reviewed INR Reviewed troponin trend PG Care Time/CCT Total # of Minutes Spent Total Time Spent with Patient: Total time spent is greater than 50% in coordination of care (as documented) at patient's floor/unit and/or counseling patient: Coding Level of Care Code 99766 SUB INP/OBS CARE 235MIN Diagnoses COVID-19 U07.1 Paroxysmal atrial fibrillation I48.0 Depression F32.9 Primary hypercoagulable state D68.59
[2022-07-29 09:26] LABS: INR 1.5 (0.9-1.1); Prothrombin Time 16.1 Seconds (9.0-12.0)
[2022-07-29] MEDS: LOSARTAN POTASSIUM 50 MG TAB PO SCH (09:40)
[2022-07-29] MEDS: MULTIVITAMIN TAB PO SCH (09:40)
[2022-07-29] MEDS: dexAMETHasone 6 MG in SYRINGE 0 ML IV SCH (09:41)
[2022-07-29] MEDS: SACCHAROMYCES BOULARDII 250 MG CAP PO SCH (09:41)
--- NOTE | 2022-07-29 14:39 | Electrocardiogram Report ---
Test Reason : Blood Pressure : / mmHG Vent. Rate : 064 BPM Atrial Rate : 064 BPM P-R Int : 150 ms QRS Dur : 100 ms QT Int : 396 ms P-R-T Axes : 064 -12 028 degrees QTc Int : 408 ms Sinus rhythm with Premature atrial complexes Otherwise normal ECG When compared with ECG of 19-OCT-2021 19:22, No significant change was found Confirmed by Marlon Duque ([id number]) on 07/29/2022 2:38:46 PM Referred By: REFERRED SELF Confirmed By:Marlon Duque
--- NOTE | 2022-07-29 14:49 | Electrocardiogram Report ---
Test Reason : Blood Pressure : / mmHG Vent. Rate : 055 BPM Atrial Rate : 055 BPM P-R Int : 168 ms QRS Dur : 100 ms QT Int : 444 ms P-R-T Axes : 083 -03 030 degrees QTc Int : 424 ms Sinus bradycardia Otherwise normal ECG When compared with ECG of 28-JUL-2022 18:56, (unconfirmed) Premature atrial complexes are no longer Present Confirmed by Marlon Duque ([id number]) on 07/29/2022 2:48:59 PM Referred By: REFERRED SELF Confirmed By:Marlon Duque
[2022-07-29] MEDS ORDERED: WARFARIN SOD 4 MG TAB PO SCH (16:00)
[2022-07-29] MEDS: DONEPEZIL HCL 10 MG TAB PO SCH (20:48)
[2022-07-29] MEDS: SERTRALINE HCL 50 MG TABLET PO SCH (20:48)
[2022-07-29] MEDS: FOLIC ACID 1 MG TAB PO SCH (20:49)
[2022-07-30 08:03] LABS: Basophils # (auto) 0.01 K/uL (0-0.2); Basophils % (auto) 0.2 %; Hemoglobin 12.5 g/dl (12.0-16.0); Immature Granulocytes # (auto) 0.01 K/uL (0.01-0.20); Immature Granulocytes % (auto) 0.2 %; Lymphocytes # (auto) 0.94 K/uL (1.2-3.4); Lymphocytes % (auto) 20.5 %; Mean Corpuscular Hemoglobin 30.5 pg (25.0-34.0); Mean Corpuscular Hgb Conc 33.8 g/dL (32.0-36.0); Mean Corpuscular Volume 90.2 fL (80.0-100.0); Mean Platelet Volume 10.3 fL (9.4-12.4); Monocytes # (auto) 0.78 K/uL (0.11-0.59); Neutrophils # (auto) 2.84 K/uL (1.40-6.50); Neutrophils % (auto) 62.1 %; Platelet Count 172 K/uL (130-400); RDW Coefficient of Variation 14.6 % (11.5-14.5); RDW Standard Deviation 47.5 fL (36.4-46.3); White Blood Count 4.58 K/ul (4.8-10.8)
[2022-07-30 08:09] LABS: Albumin Level 3.3 gm/dl (3.4-5.0); BUN Creatinine Ratio 21.2 (10-20); Calcium 8.5 mg/dl (8.6-10.3); Est GFR (African American) 74.5 ml/min; Est GFR (Non-African American) 64.3 ml/min; Magnesium 1.8 mg/dl (1.7-2.4); Phosphorus 2.6 mg/dl (2.5-4.9); Potassium 3.8 mmol/L (3.5-5.1)
[2022-07-30] MEDS: POTASSIUM CHLORIDE 10 MEQ TABCR PO SCH ×2 (08:21→21:13)
[2022-07-30] MEDS: LOSARTAN POTASSIUM 50 MG TAB PO SCH (08:22)
[2022-07-30] MEDS: MULTIVITAMIN TAB PO SCH (08:22)
[2022-07-30] MEDS: SACCHAROMYCES BOULARDII 250 MG CAP PO SCH (08:22)
[2022-07-30 08:26] LABS: INR 2.3 (0.9-1.1); Prothrombin Time 23.5 Seconds (9.0-12.0)
--- NOTE | 2022-07-30 08:26 | Electrocardiogram Report ---
Test Reason : Blood Pressure : / mmHG Vent. Rate : 063 BPM Atrial Rate : 063 BPM P-R Int : 154 ms QRS Dur : 102 ms QT Int : 428 ms P-R-T Axes : 068 -10 040 degrees QTc Int : 437 ms Sinus rhythm with occasional Premature ventricular complexes Otherwise normal ECG When compared with ECG of 29-JUL-2022 06:19, Premature ventricular complexes are now Present Confirmed by Donald Clemente ([id number]) on 07/30/2022 8:26:39 AM Referred By: REFERRED SELF Confirmed By:Donald Clemente
[2022-07-30] MEDS: PREGABALIN 75 MG CAP PO SCH ×2 (08:31→21:12)
[2022-07-30] MEDS: dexAMETHasone 6 MG in SYRINGE 0 ML IV SCH (10:16)
[2022-07-30] MEDS: WARFARIN SOD 2 MG TAB PO SCH (16:09)
[2022-07-30] MEDS: SERTRALINE HCL 50 MG TABLET PO SCH (21:12)
[2022-07-30] MEDS: FOLIC ACID 1 MG TAB PO SCH (21:12)
[2022-07-30] MEDS: DONEPEZIL HCL 10 MG TAB PO SCH (21:12)
--- NOTE | 2022-07-30 21:17 | Hospitalist Progress Note ---
Date of Service July 30, 2022 Assessment & Plan (1) COVID-19: Plan: Subacute COVID infection with metabolic encephalopathy and severe weakness, moderate risk COVID-pneumonia was ruled out patient is not hypoxic. Therefore does not qualify for remdesivir. Initiating dexamethasone therapy by admitting Patient has recovered quite well medically as this point --> vitals are stable and breathing on room air. While she no longer feels sick --> she does feel substantially weak. I did place PT/OT orders for this reason. (2) Paroxysmal atrial fibrillation: Plan: Chronic unclear if stable due to elevated troponin on presentation. 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 Previous venous thromboembolism with pulmonary embolism confirmed remains on warfarin therapy Plan Rheumatoid Arthritis-chronic and stable On methotrexate 15 mg weekly as an outpatient and folic acid 2 mg daily, will hold methotrexate with acute infection DVT: on coumadin Diet: heart healthy Code: full Dispo: downgraded to med/surg today. PT/OT evals ordered given report of weakness Admission and Anticipated Discharge Date Admission Date: July 29, 2022 Subjective Patient says she actually feels weaker today than she did yesterday Review of Systems Review of Systems: All systems reviewed & are unremarkable except as noted in HPI & below Physical Exam Physical Exam: General Appearance: well-developed, well-nourished older adult woman in no acute distress HEENT: NC/AT. Sclera anicteric. CV: RRR. S1 and S2 appreciated. No murmurs, clicks, gallops or rubs. Lungs: CTA in all lung hoskins bilaterally with equal air movement. No wheezes, rales, rhonchi or crackles Skin: warm, dry, and intact Neuro: AAO x 3. No focal deficits. Psych: Appropriate mood and affect. Results & Data Results & Data Vital Signs (Past 12 Hours) Vital Signs Temp Pulse Resp BP Pulse Ox O2 Del Method 07/30/22 13:57 Room Air 07/30/22 13:48 36.7 C 54 L 16 135/69 95 Room Air 07/30/22 11:35 36.5 C 55 L 18 130/70 94 Room Air PG Care Time/CCT Total # of Minutes Spent Total Time Spent with Patient: Total time spent is greater than 50% in coordination of care (as documented) at patient's floor/unit and/or counseling patient: Coding [place] [address] SUB INP/OBS CARE 2/35MIN Patient Type Established Diagnoses COVID-19 U07.1 Paroxysmal atrial fibrillation I48.0 Depression F32.9 Primary hypercoagulable state D68.59
[2022-07-31 06:50] LABS: Basophils # (auto) 0.01 K/uL (0-0.2); Basophils % (auto) 0.2 %; Hematocrit (blood only) 37.8 % (37.0-47.0); Hemoglobin 12.7 g/dl (12.0-16.0); Immature Granulocytes # (auto) 0.01 K/uL (0.01-0.20); Immature Granulocytes % (auto) 0.2 %; Lymphocytes # (auto) 1.02 K/uL (1.2-3.4); Lymphocytes % (auto) 23.8 %; Mean Corpuscular Hemoglobin 30.6 pg (25.0-34.0); Mean Corpuscular Hgb Conc 33.6 g/dL (32.0-36.0); Mean Corpuscular Volume 91.1 fL (80.0-100.0); Mean Platelet Volume 10.4 fL (9.4-12.4); Monocytes # (auto) 0.78 K/uL (0.11-0.59); Monocytes % (auto) 18.2 %; Neutrophils # (auto) 2.47 K/uL (1.40-6.50); Neutrophils % (auto) 57.6 %; Platelet Count 182 K/uL (130-400); RDW Coefficient of Variation 14.5 % (11.5-14.5); Red Blood Count 4.15 M/uL (4.20-5.40); White Blood Count 4.29 K/ul (4.8-10.8)
[2022-07-31 07:05] LABS: Albumin Level 3.5 gm/dl (3.4-5.0); BUN Creatinine Ratio 29.2 (10-20); Calcium 8.4 mg/dl (8.6-10.3); Creatinine Clr Calc Pharmacy 64.7 ml/min; Est GFR (Non-African American) 78.5 ml/min; Magnesium 1.9 mg/dl (1.7-2.4); Phosphorus 2.5 mg/dl (2.5-4.9); Potassium 3.7 mmol/L (3.5-5.1)
[2022-07-31 07:31] LABS: INR 2.5 (0.9-1.1); Prothrombin Time 25.4 Seconds (9.0-12.0)
[2022-07-31] MEDS: LOSARTAN POTASSIUM 50 MG TAB PO SCH (08:43)
[2022-07-31] MEDS: MULTIVITAMIN TAB PO SCH (08:43)
[2022-07-31] MEDS: POTASSIUM CHLORIDE 10 MEQ TABCR PO SCH ×2 (08:43→20:05)
[2022-07-31] MEDS: SACCHAROMYCES BOULARDII 250 MG CAP PO SCH (08:44)
--- NOTE | 2022-07-31 10:00 | Hospitalist Progress Note ---
Date of Service July 31, 2022 Assessment & Plan (1) COVID-19: Plan: Subacute COVID infection with metabolic encephalopathy and severe weakness, moderate risk COVID-pneumonia was ruled out patient is not hypoxic. Therefore does not qualify for remdesivir. 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 Previous venous thromboembolism with pulmonary embolism confirmed remains on warfarin therapy Plan Rheumatoid Arthritis-chronic and stable On methotrexate 15 mg weekly as an outpatient and folic acid 2 mg daily, will hold methotrexate with acute infection DVT: on coumadin Code: full . PT/OT evals ordered given report of weakness Admission and Anticipated Discharge Date Admission Date: July 29, 2022 Subjective Patient is improved from her initial presentation however still has a dry nonproductive cough. Oxygen saturations good on room air but weakness is her biggest issue Physical Exam Physical Exam: Awake alert appropriate. Cardiac exam is regular lungs are clear without wheezes or crackles good air movement no focal neurological deficits are seen Results & Data Results & Data Vital Signs (Past 12 Hours) Vital Signs Temp Pulse Resp BP BP Pulse Ox Pulse Ox 07/31/22 08:49 97.5 F L 50 L 18 185/80 H 95 07/31/22 02:12 96 07/30/22 23:18 97.5 F L 57 L 18 168/92 H 178/93 H 96 O2 Del Method O2 Del Method 07/31/22 08:49 Room Air 07/31/22 02:12 Room Air 07/30/22 23:18 Room Air Laboratory Results Reviewed CBC Reviewed PRP Reviewed INR PG Care Time/CCT Total # of Minutes Spent Total Time Spent with Patient: Total time spent is greater than 50% in coordination of care (as documented) at patient's floor/unit and/or counseling patient: Coding Level of Care Code 29636 SUB INP/OBS CARE 2/35MIN Diagnoses COVID-19 U07.1 Paroxysmal atrial fibrillation I48.0 Depression F32.9 Primary hypercoagulable state D68.59
[2022-07-31] MEDS: dexAMETHasone 6 MG in SYRINGE 0 ML IV SCH (10:24)
[2022-07-31] MEDS: PREGABALIN 75 MG CAP PO SCH ×2 (10:24→20:05)
[2022-07-31] MEDS: WARFARIN SOD 2 MG TAB PO SCH (16:03)
[2022-07-31] MEDS: FOLIC ACID 1 MG TAB PO SCH (20:05)
[2022-07-31] MEDS: SERTRALINE HCL 50 MG TABLET PO SCH (20:05)
[2022-07-31] MEDS: DONEPEZIL HCL 10 MG TAB PO SCH (20:05)
[2022-07-31] MEDS ORDERED: MELATONIN 3 MG TAB PO PRN (20:31)
--- NOTE | 2022-08-01 08:18 | Electrocardiogram Report ---
Test Reason : Blood Pressure : / mmHG Vent. Rate : 058 BPM Atrial Rate : 058 BPM P-R Int : 154 ms QRS Dur : 096 ms QT Int : 432 ms P-R-T Axes : 082 022 058 degrees QTc Int : 424 ms Sinus bradycardia Prominent U waves(consider hypokalemia,drug effect, etc.) Borderline ECG When compared with ECG of 30-JUL-2022 05:34, Premature ventricular complexes are no longer Present Confirmed by Donald Clemente ([id number]) on 08/01/2022 8:17:56 AM Referred By: REFERRED SELF Confirmed By:Donald Clemente
[2022-08-01 08:43] LABS: INR 2.6 (0.9-1.1); Prothrombin Time 26.6 Seconds (9.0-12.0)
[2022-08-01] MEDS: POTASSIUM CHLORIDE 10 MEQ TABCR PO SCH (08:45)
[2022-08-01] MEDS: LOSARTAN POTASSIUM 50 MG TAB PO SCH (08:45)
[2022-08-01] MEDS: MULTIVITAMIN TAB PO SCH (08:45)
[2022-08-01] MEDS: dexAMETHasone 6 MG in SYRINGE 0 ML IV SCH (08:45)
[2022-08-01] MEDS: SACCHAROMYCES BOULARDII 250 MG CAP PO SCH (08:45)
[2022-08-01] MEDS: PREGABALIN 75 MG CAP PO SCH (08:48)
--- NOTE | 2022-08-01 13:32 | Discharge Summary ---
Date of Service August 01, 2022 Admission HPI Per Admitting Provider The patient is an 81-year-old female with a past medical history including hypertension, depression, primary hypercoagulable state, diverticulitis, PAF, hyperlipidemia, osteoporosis, peripheral neuropathy and history of pulmonary embolism. She presents to the emergency department with symptoms that began 1 week ago of generalized fatigue, and notes 1 day ago she began to have shortness of breath, dyspnea on exertion and some lower abdominal discomfort. Principal Diagnosis covid 19 infection , bronchitis weakness Discharge Exam pts lungs are clear but she has nonproductive cough during exam Discharge Data Allergies Allergy/AdvReac Type Severity Reaction Status Date / Time Uqokmxs-ZFE-ZbG Reductase AdvReac Severe Muscle Pain Verified 07/28/22 19:46 Inhibitor [Nzgpnuj-Ata-Omi Reductase Inhibitor] sulfamethoxazole AdvReac Intermediate STOMACH Verified 07/28/22 19:46 SICKNESS trimethoprim AdvReac Intermediate STOMACH Verified 07/28/22 19:46 SICKNESS tramadol AdvReac Unknown no pain Verified 07/28/22 19:46 relief Consultations 07/28/22 23:55 ED Decision to Admit Stat 07/29/22 02:04 ED Decision to Admit Stat 07/29/22 02:05 ED Decision to Admit Stat Ordered Studies 07/28/22 18:40 CT abd pelvis IV con only Stat Hospital Course (1) COVID-19: Subacute COVID infection with metabolic encephalopathy and severe weakness, moderate risk COVID-pneumonia was ruled out patient is not hypoxic. Therefore does not qualify for remdesivir. 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 Previous venous thromboembolism with pulmonary embolism confirmed remains on warfarin therapy Plan Rheumatoid Arthritis-chronic and stable On methotrexate 15 mg weekly as an outpatient and folic acid 2 mg daily, will hold methotrexate with acute infection DVT: on coumadin Code: full . Total Time Total Time Spent Total Time Spent (In Minutes): It required greater than 30 minutes to prepare this patient for discharge Discharge Plan Discharge Items Patient Disposition: Home - Self-Care Reason For Visit: ACUTE RESP FAILURE WITH HYPOXIA, COVID-19, NSTEMI Discharge Diagnosis: covid 19 infection with bronchitis covid metabolic myopathy Activity: Per Instructions section Activity Comment: slowly increase activity Non-emergency contact: Primary Care Provider Call non-emergency contact if: your symptoms worsen Follow-up/Referrals: Ella Esquivel MD [Primary Care Provider] - Diet: Regular Addtl Attending Provider Instructions: You have been diagnosed with covid infection, it would be recommended that you quarantine yourself for 10 days from your first test or first symptoms, and if at the 10th day you have no symptoms the you can come off quarantine but use common sense precautions. Quarantine means attempting to stay away from people who have not had an active covid infection in the past, and if you have to be around others to wear a mask even if you are indoors, do not share a room to sleep in with others until you are out of quarantine. If you still have symptoms at the 10th day, continue to quarantine until you are symptom free for 48 hours please rest and recover complete your steroids and antibiotics resume your methotrexate when you are done your dexamethasone use your sleep aid carefully, if you need more please discuss with your family doctor Pending Studies at Discharge: No Stand-Alone Forms: [employer] [place], Smoking Cessation Medications and DC Order Prescriptions: New melatonin 3 mg Tablet 3 mg PO HS PRN (Reason: sleep) Qty: 30 0RF dexamethasone 6 mg tablet 6 mg PO DAILY Qty: 6 0RF azithromycin 250 mg tablet See Rx Instructions .ROUTE .COMPLEX Qty: 6 0RF Rx Instructions: For 250 mg dose pack: take 500 mg today (day 1), then 250 mg for 4 days (days 2-5) Continued losartan 100 mg tablet 100 mg PO DAILY Qty: 90 3RF donepezil [Aricept] 10 mg tablet 10 mg PO HS Qty: 90 3RF sertraline 50 mg tablet 75 mg PO HS Qty: 90 3RF warfarin 2 mg tablet See Rx Instructions .ROUTE .COMPLEX Qty: 110 3RF Protocol: Dose Management Condition: Monday Dose/Route: 2 mg Instruction: 1 x 2 mg tablet Condition: Monday Dose/Route: 2 mg Instruction: 1 x 2 mg tablet Condition: Monday Dose/Route: 2 mg Instruction: 1 x 2 mg tablet Condition: Monday Dose/Route: 2 mg Instruction: 1 x 2 mg tablet Condition: Dose/Route: 2 mg Instruction: 1 x 2 mg tablet Condition: Monday Dose/Route: 4 mg Instruction: 2 x 2 mg tablets Condition: Monday Dose/Route: 2 mg Instruction: 1 x 2 mg tablet Protocol Text: Adjustment Start Date: 07/14/22 INR Value: 2.1 INR Date: 07/14/22 Recheck Date: 08/11/22 Rx Instructions: take 4mg Fridays and 2mg all other days nitroglycerin 0.4 mg tablet, sublingual 0.4 mg SL Q5M PRN (Reason: Chest Pain) Patient Comments: as needed for chest pain x 3 doses, if no relief call 911 albuterol sulfate [ProAir HFA] 90 mcg/actuation HFA aerosol inhaler 2 puffs INH Q6H PRN (Reason: shortness of breath or wheezing) Qty: 18 0RF methotrexate sodium 2.5 mg tablet 15 mg PO WK Rx Instructions: TAKES ON WEDNESDAYS..15 mg PO once weekly; folic acid 1 mg tablet 2 mg PO QPM multivitamin Tablet 1 tab PO QAM alendronate 70 mg tablet 70 mg PO WK Patient Comments: Mondays Rx Instructions: TAKES ON SUNDAYS ondansetron HCl 4 mg tablet 4 mg PO Q8H PRN (Reason: nausea and vomiting) Qty: 30 0RF Saccharomyces boulardii 250 mg capsule 250 mg PO DAILY Qty: 100 1RF potassium chloride 10 mEq capsule, extended release 10 meq PO BID Qty: 180 3RF pregabalin 75 mg Capsule 75 mg PO BID acetaminophen 650 mg Tablet Extended Release 650 mg PO Q12H PRN (Reason: Pain) Discharge Orders: Discharge Order (Routine); Ordered 08/01/22 Ordered By: Carlin Garcia Admission Data Admit Date/Time: 07/29/22 00:45 Attending Provider: Carlin Garcia Admit Provider: Arden Martin Primary Care Provider: Ella Esquivel Coding Level of Care Code 10175 INP/OBS DISCH >30 MIN Diagnoses COVID-19 U07.1 Paroxysmal atrial fibrillation I48.0 Depression F32.9 Primary hypercoagulable state D68.59
== END 2022-08-01 16:25 | disposition home or self-care (01) | DRG 177 ==
LOC: ED 18:29 → 2S 07-29 00:45 → SUATTDRO 07-29 00:45 → 2S 07-29 04:07 → 3N 07-30 13:43

== ENCOUNTER 2022-08-10 13:03 | Inpatient (IN) ==
--- NOTE | 2022-08-10 13:29 | XRay Report ---
SINGLE VIEW CHEST CLINICAL HISTORY: Atypical chest pain. Cough FINDINGS: 2 AP, portable, upright chest radiographs are compared to study dated 07/28/2022 and correla shwetha with chest CT dated 09/15/2021. The heart is enlarged noting atherosclerotic calcification of the thoracic aorta. The pulmonary vasculature is noncongested. Chronic interstitial thickening is similar to previous. There is bibasilar scarring/atelectasis. The lungs and pleural spaces are otherwise daniella ar. No pneumothorax is seen. The skeletal structures are osteopenic. The bony thorax is grossly intac t. Arthritic change is noted in the shoulders. IMPRESSION: Cardiomegaly with no active disease in the chest. ACT 112: Negative or not required by law. Electronically signed by: Adolfo Odell M.D. 08/10/2022 1:28 PM
[2022-08-10] MEDS ORDERED: ALBUT/IPRATROP 3MG/0.5MG NEB 3 ML VIAL NEB ONE (13:31)
[2022-08-10 14:07] LABS: Basophils # (auto) 0.03 K/uL (0-0.2); Basophils % (auto) 0.3 %; Eosinophils # (auto) 0.01 K/uL (0-0.50); Eosinophils % (auto) 0.1 %; Hemoglobin 15.9 g/dl (12.0-16.0); Immature Granulocytes # (auto) 0.07 K/uL (0.01-0.20); Immature Granulocytes % (auto) 0.7 %; Lymphocytes # (auto) 0.75 K/uL (1.2-3.4); Mean Corpuscular Hemoglobin 30.6 pg (25.0-34.0); Mean Corpuscular Hgb Conc 33.1 g/dL (32.0-36.0); Mean Corpuscular Volume 92.3 fL (80.0-100.0); Mean Platelet Volume 10.4 fL (9.4-12.4); Monocytes # (auto) 0.19 K/uL (0.11-0.59); Neutrophils # (auto) 8.37 K/uL (1.40-6.50); Neutrophils % (auto) 88.9 %; Platelet Count 237 K/uL (130-400); RDW Coefficient of Variation 14.7 % (11.5-14.5); RDW Standard Deviation 49.7 fL (36.4-46.3); White Blood Count 9.42 K/ul (4.8-10.8)
[2022-08-10 14:11] LABS: Albumin Globulin Ratio 1.2 (0.9-2); Albumin Level 4.1 gm/dl (3.4-5.0); BUN Creatinine Ratio 21.8 (10-20); Bilirubin,Total 0.8 mg/dl (0.2-1.0); Calcium 9.5 mg/dl (8.6-10.3); Est GFR (African American) 72.4 ml/min; Est GFR (Non-African American) 62.5 ml/min; Globulin 3.5 gm/dl (2.5-4.0); Potassium 4.3 mmol/L (3.5-5.1); Total Protein 7.6 gm/dl (6.0-8.3)
[2022-08-10 14:20] LABS: INR 2.9 (0.9-1.1); Prothrombin Time 29.5 Seconds (9.0-12.0)
[2022-08-10] MEDS ORDERED: ALBUTEROL 0.083% NEBU SOLN 3 ML VIAL NEB STA (14:53)
[2022-08-10] MEDS ORDERED: MAGNESIUM SULFATE / D5W 1 GM/100 ML BAG IV STA (15:40)
--- NOTE | 2022-08-10 15:41 | History & Physical Report ---
Date of Service August 10, 2022 Assessment & Plan (1) Asthma: Plan: Shortness of breath and dyspnea,? Asthma exacerbation versus secondary pneumonia Patient recently hospitalized for COVID and discharged 2 weeks ago on dexamethasone 10 mg course. Initially improved, but then significantly worsened 7 days ago. Did not improve with outpatient treatment, 2 days of prednisone. Near continuous wheezing and exercise limitation. In ER has improved, but still sig nificantly wheezy and dyspneic following hour-long neb and additional 40 mg Methylpred and magnesium CXR without acute findings. Methylpred continued, adjusted to 40 mg twice daily. Bio fire pending, Pro-Reynaldo pending. Patient is at increased risk of secondary pneumonia due to her history of RA and methotrexate use, methotrexate was held last week due to COVID. No leukocytosis - hs-trop normal. No ischemic EKG changes. Defer antibiotics on admission pending viral panel and additional work-up above, recently completed azithromycin and no signs of lobar pneumonia on CXR Magnesium levels pending, received 1 g in ER (2) Paroxysmal atrial fibrillation: Plan: Anticoagulated, adequately rate controlled No chest pain Continue warfarin, INR therapeutic on admission (3) History of total right knee replacement: Plan: Noted. Patient also pending a left knee replacement, has severe pain with weightbearing for which she uses a left leg brace. (4) S/P cardiac cath: Plan: 2017, minimal small vessel disease noted on cath. No history of stents. No chest pain on admission (5) History of pulmonary embolus (PE): Plan: Continue warfarin, patient is therapeutic on admission (6) COVID-19: Plan: Noted (7) HTN (hypertension): Plan: Continue losartan Plan DVT prophylaxis: Anticoagulated Disposition: Medical/surgical Diet: Heart healthy CODE STATUS: Full History of Present Illness Primary Care Provider: Ella Esquivel MD Carmen is an 81-year-old female with a past medical history of paroxysmal A-fib on warfarin, CAD, past PE, hypertension, hyperlipidemia who presents with shortness of breath, severe wheezing, exertional dyspnea which has not improved on outpatient prednisone. She reports she was admitted and discharged 08/28 due to shortness of breath due to COVID pneumonia, did not qualify for remdesivir as was not hypoxic but was treated with dexamethasone for 10 days and p.o. azithromycin for bronchitis. She reports she did clinically improve, felt well for about 1 week, and then about 1 week ago rapidly worsened. She reports that she has been wheezing and short of breath nearly continuously, albuterol has not helped. She was seen as an outpatient 2 days ago and was placed on prednisone. She reports the last 2 days her breathing has not improved, she has been wheezing near continuously, and is not able to get around at home due to her symptoms. He has not had fever, chills, nausea, vomiting, diarrhea, constipation. No chest pain or chest pressure, but does feel like her breathing is tight. Still feels poorly after an hour-long nebulizer in ER, 40 mg IV methylprednisolone which was given in addition to the 40 mg of prednisone she took this morning, and 1 g of magnesium. She is very concerned about secondary superimposed pneumonia given her history of rheumatoid arthritis on methotrexate, this was held last week due to COVID. She is not on DMARDs at this time, was on 1 in the past but patient is not sure which but notes that this was held many months ago in anticipation of having knee replacement. No leukocytosis Hemoglobin 15.9 Creatinine is normal at baseline, 0.87 on admission No transaminitis High-sensitivity troponin is normal Lipase is normal CXR: No acute disease Medical History: Reviewed Medications: Reviewed Surgical History: Reviewed Family history: Reviewed Allergies: Reviewed Social History: Reviewed, no tobacco use Code Status: Full Allergies Allergy/AdvReac Type Severity Reaction Status Date / Time Liulooo-HAI-AtV Reductase AdvReac Severe Muscle Pain Verified 08/10/22 14:53 Inhibitor [Duddwur-Eql-Aai Reductase Inhibitor] sulfamethoxazole AdvReac Intermediate STOMACH Verified 08/10/22 14:53 SICKNESS trimethoprim AdvReac Intermediate STOMACH Verified 08/10/22 14:53 SICKNESS tramadol AdvReac Unknown no pain Verified 08/10/22 14:53 relief Home Medications Medication Instructions Recorded Confirmed Type folic acid 1 mg tablet 2 mg PO QPM 02/26/19 08/10/22 History methotrexate sodium 2.5 mg tablet 15 mg PO WK 01/20/20 08/10/22 History acetaminophen 650 mg 650 mg PO Q12H PRN Pain 07/09/21 08/10/22 History tablet,extended release alendronate 70 mg tablet 70 mg PO WK 09/14/21 08/10/22 History multivitamin 1 tab PO QAM 09/14/21 08/10/22 History losartan 100 mg tablet 100 mg PO DAILY #90 tabs 12/13/21 08/10/22 Rx donepezil 10 mg tablet (Aricept) 10 mg PO HS #90 tabs 01/25/22 08/10/22 Rx Saccharomyces boulardii 250 mg 250 mg PO DAILY #100 caps 05/03/22 08/10/22 Rx capsule ondansetron HCl 4 mg tablet 4 mg PO Q8H PRN nausea and 05/03/22 08/10/22 Rx vomiting #30 tabs sertraline 50 mg tablet 75 mg PO HS #90 tabs 05/20/22 08/10/22 Rx warfarin 2 mg tablet See Rx Instructions .Route 07/13/22 08/10/22 Rx .COMPLEX #110 tabs potassium chloride 10 mEq 10 meq PO BID #180 caps 07/14/22 08/10/22 Rx capsule,extended release melatonin 3 mg tablet 3 mg PO HS PRN sleep #30 tabs 08/01/22 08/10/22 Rx pregabalin 75 mg capsule 150 mg PO HS 08/02/22 08/10/22 History albuterol sulfate 90 mcg/actuation 2 puff inhalation QID PRN 08/04/22 08/10/22 Rx aerosol inhaler (Ventolin HFA) shortness of breath or wheezing #8.5 grams prednisone 10 mg tablet 10 mg PO .COMPLEX #20 tabs 08/08/22 08/10/22 Rx turmeric 400 mg capsule 0 mg PO DAILY 08/10/22 08/10/22 History Past Med/Surg History Medical History (Updated 08/10/22 @ 16:11 by Bernardo Younger MD) Allergic rhinitis Anticoagulant long-term use COUMADIN Asthma Blood clotting disorder 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 per records On Coumadin Depression Esophageal reflux Hemorrhoid History of diverticulitis History of pulmonary embolus (PE) "years ago" HTN (hypertension) Hyperlipidemia Hypokalemia Memory loss Non-occlusive coronary artery disease NSTEMI (non-ST elevated myocardial infarction) (~2015) Obstructive sleep apnea uses cpap Osteoporosis Paroxysmal atrial fibrillation Peripheral neuropathy Recurrent deep vein thrombosis (DVT) Rheumatoid arthritis follows w/ Gladis Snell Right flank pain Seronegative rheumatoid arthritis Sleep apnea Stomach ulcer Hx Surgical History History of ankle surgery left History of esophagogastroduodenoscopy (EGD) History of total right knee replacement 09/21/2021 [facility]OC- done at [facility] [place] Hx of hysterectomy with RSO S/P cardiac cath (~2015) no stents. [facility] July 2016 minimal disease in small distal vessels S/P cataract extraction bilateral S/P colonoscopy Status post mastoidectomy Right Family History Unknown Pulmonary embolism Brother Coronary heart disease Myocardial infarction Stroke Mother Myocardial infarction Father Stroke Family/Other Family history of reaction to anesthesia 40yrs ago cousin had lump removed on her breast and during surgery, was told "she was given too much anesthesia and never woke up" Denies family history of Ovarian cancer Prostate cancer Breast cancer Lung cancer Colorectal cancer Social History Smoking Status: Never smoker Age Started Using Tobacco: 18; Age Quit Using Tobacco: 28; packs per day: 1; Cigarettes Per Day: only a few cigarettes a day.; Second Hand Exposure: No; Hx Alcohol Use: No Hx Substance Use: No Preferred Language: Wallisian Communication Ability: Effective Visual Impairment: Partially Limited Hearing Ability: Normal Angular Developer Required: No Beliefs That Will Affect Care: None marital status: Current Living Situation: Spouse current occupational status: retired How many Children do You have: 3 Feels Safe at Home: Yes Childhood Exposure to Second-Hand Smoke: Yes Diet Comment: Regular caffeine: Yes (2 cups of coffee a day) during the past year weight has: remained stable Dental Care, Regularly: Yes Physical Activity Frequency: Does not Exercise Seatbelt Use: always Sunscreen Use: No (Doesn't go out much) Do you think of yourself as: straight/heterosexual Gender Identity: Female Assistive Devices: Cane, CPAP and Walker Review of Systems Review of Systems: All systems reviewed & are unremarkable except as noted in HPI & below Physical Exam Physical Exam: General: A&Ox3. NAD. Cooperative. Appears fatigued but nontoxic HEENT: Atraumatic, normocephalic. Vision/hearing grossly intact Pulm: Diffusely wheezy, coarse in the bases. No tachypnea. No accessory muscle use. Cardiac: RRR, -mrg. Radial pulses intact and symmetrical. Abdominal: Nontender, nondistended, soft. BS present. Extremities: Warm, dry. No edema. Left foot in braced shoe. Ankle dorsiflexion/plantarflexion 5/5 bilaterally. Sensation of soft touch intact in hands and feet bilaterally. Results & Data Results & Data Vital Signs (Past 12 Hours) Vital Signs Temp Pulse Pulse Pulse Pulse Pulse Resp 08/10/22 15:10 74 22 08/10/22 14:32 68 78 76 08/10/22 13:57 63 08/10/22 13:56 72 20 08/10/22 13:24 77 22 08/10/22 13:04 36.6 C 71 16 Resp Resp Resp BP BP Pulse Ox Pulse Ox 08/10/22 15:10 135/55 L 94 08/10/22 14:32 24 20 20 94 08/10/22 13:57 08/10/22 13:56 96 08/10/22 13:24 95 08/10/22 13:04 122/72 93 Pulse Ox Pulse Ox O2 Del Method 08/10/22 15:10 Room Air 08/10/22 14:32 96 96 Room Air 08/10/22 13:57 08/10/22 13:56 Room Air 08/10/22 13:24 Room Air 08/10/22 13:04 PG Care Time/CCT Total # of Minutes Spent Total Time Spent with Patient: Total time spent is greater than 50% in coordination of care (as documented) at patient's floor/unit and/or counseling patient: Coding Level of Care Code 72670 INT INP/OBS CARE 3/75MIN Diagnoses Asthma J45.909 Paroxysmal atrial fibrillation I48.0 History of total right knee replacement Z96.651 S/P cardiac cath Z98.890 History of pulmonary embolus (PE) Z86.711 COVID-19 U07.1 HTN (hypertension) I10
[2022-08-10 16:08] LABS: Influenza A virus by PCR Negative (Neg); Influenza B virus by PCR Negative (Neg); RSV by PCR Negative (Neg)
[2022-08-10 16:11] LABS: Magnesium 1.9 mg/dl (1.7-2.4)
[2022-08-10 16:21] LABS: SARS CoV2 RNA(COVID-19) Ceph POSITIVE (Negative)
--- NOTE | 2022-08-10 16:39 | Emergency Department Note ---
Impression & Plan Asthma exacerbation, Shortness of breath ED Provider Note NAME: TIA ALONZO AGE: 81 SEX: F : 1940 ARRIVES VIA: Walk-In INFORMANT: Patient ED PROVIDER(S): Isaias Goyal DO CHIEF COMPLAINT: Shortness of breath HPI: Patient is an 81-year-old female with a past medical history of asthma, hypertension who presents the ER for shortness of breath which started about a week ago. She notes she was diagnosed with COVID about 2 months ago and has been struggling with her breathing. It got worse a week ago and has been gradually deteriorating. She was placed on steroids about 2 days ago and has been using her inhaler much more frequently. She is having trouble getting around as she is much more short of breath. She denies any fevers. No belly pain nausea vomiting or diarrhea. No dysuria urgency or frequency. Minimal improvement with nebs at home. Has not missed any doses of her Coumadin. PAST MEDICAL HISTORY:See Below PAST SURGICAL HISTORY:See Below FAMILY HISTORY:See Below SOCIAL HISTORY:See Below HOME MEDICATIONS:See Below ALLERGIES:See Below VITALS:See Below PHYSICAL EXAMINATION: GENERAL: Sitting up in bed, alert, dyspneic with conversation EYE EXAM: normal conjunctiva. OROPHARYNX: mucous membranes are moist LUNGS: Diffuse wheezing throughout. Normal chest wall mechanics HEART: no murmurs, S1 normal and S2 normal ABDOMEN: abdomen soft, non-tender, normo-active bowel sounds, no masses, no rebound or guarding. UPPER EXTREMITIES: upper extremities are grossly normal. LOWER EXTREMITIES: No pitting edema. Calf cervical NEURO EXAM: Normal sensorium, cranial nerves II-XII grossly intact, normal speech, no gross weakness of arms, no gross weakness of legs. MEDICAL DECISION MAKING: Patient is an 81-year-old female who presents ER for above-stated complaint. IV was established blood work was obtained. She is dyspneic with conversation. Diffuse wheezing throughout. Labs show no significant leukocytosis or anemia. INR therapeutic at 2.9. No additional consideration to PE with a therapeutic INR. BMP along with LFTs bilirubin and lipase was unremarkable. COVID was still positive. Troponin was negative. Patient was given an hour-long DuoNeb followed by an hour-long albuterol. She was given an additional dose of predn isone. No signs of infection/infiltrate on chest x-ray. She is updated bedside. Discussed with hospitalist for further evaluation management treatment. Patient was also given 1 g of IV magnesium over 20minutes. Triage Nursing notes reviewed. Limited review of prior medical records performed Vital Signs: reviewed and remarkable for no significant abnormalities Differential diagnosis: Differential diagnoses includes but is not limited to pneumonia, bronchitis, COPD/Asthma exacerbation, pneumothorax, pulmonary embolism, congestive heart fa ilure, acute coronary syndrome ER treatment provided: See below Diagnostics interpreted by me include EKG and cardiac monitoring as listed below: -Cardiac Monitoring: An order was placed for continuous cardiac monitoring. The monitor shows a rate of 70 with sinus rhythm. -ECG: Sinus rhythm rate of 70 Left axis No PVCs QTc 412 Poor baseline -Laboratory studies:Interpreted by me as stated above in MDM and shown below. Imaging studies: Xrays: As interpreted by me: Portable AP upright 1 view of the chest shows no pneumonia CTs show: none Consultation(s): As described in MDM discussed with Dr. 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 per records On Coumadin Depression Esophageal reflux Hemorrhoid History of diverticulitis History of pulmonary embolus (PE) "years ago" HTN (hypertension) Hyperlipidemia Hypokalemia Memory loss Non-occlusive coronary artery disease NSTEMI (non-ST elevated myocardial infarction) (~2015) Obstructive sleep apnea uses cpap Osteoporosis Paroxysmal atrial fibrillation Peripheral neuropathy Recurrent deep vein thrombosis (DVT) Rheumatoid arthritis follows w/ Gladis Snell Right flank pain Seronegative rheumatoid arthritis Sleep apnea Stomach ulcer Hx Surgical History History of ankle surgery left History of esophagogastroduodenoscopy (EGD) 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 [facility] July 2016 minimal disease in small distal vessels S/P cataract extraction bilateral S/P colonoscopy Status post mastoidectomy Right Family History Unknown Pulmonary embolism Brother Coronary heart disease Myocardial infarction Stroke Mother Myocardial infarction Father Stroke Family/Other Family history of reaction to anesthesia 40yrs ago cousin had lump removed on her breast and during surgery, was told "she was given too much anesthesia and never woke up" Denies family history of Ovarian cancer Prostate cancer Breast cancer Lung cancer Colorectal cancer Social History Smoking Status: Never smoker Age Started Using Tobacco: 18; Age Quit Using Tobacco: 28; packs per day: 1; Cigarettes Per Day: only a few cigarettes a day.; Second Hand Exposure: No; Hx Alcohol Use: No Hx Substance Use: No Preferred Language: Kyrgyz Communication Ability: Effective Visual Impairment: Partially Limited Hearing Ability: Normal Roll Off Driver Required: No Beliefs That Will Affect Care: None marital status: Current Living Situation: Spouse current occupational status: retired How many Children do You have: 3 Feels Safe at Home: Yes Childhood Exposure to Second-Hand Smoke: Yes Diet Comment: Regular caffeine: Yes (2 cups of coffee a day) during the past year weight has: remained stable Dental Care, Regularly: Yes Physical Activity Frequency: Does not Exercise Seatbelt Use: always Sunscreen Use: No (Doesn't go out much) Do you think of yourself as: straight/heterosexual Gender Identity: Female Assistive Devices: Cane, CPAP and Walker Allergies Allergies Allergy/AdvReac Type Severity Reaction Status Date / Time Guttdvp-[id number]-[id number] Reductase AdvReac Severe Muscle Pain Verified 08/10/22 14:53 Inhibitor [Yhhjovu-Lkx-Xlk Reductase Inhibitor] sulfamethoxazole AdvReac Intermediate STOMACH Verified 08/10/22 14:53 SICKNESS trimethoprim AdvReac Intermediate STOMACH Verified 08/10/22 14:53 SICKNESS tramadol AdvReac Unknown no pain Verified 08/10/22 14:53 relief Home Meds Home Medications Medication Instructions Recorded Confirmed folic acid 1 mg tablet 2 mg PO QPM 02/26/19 08/10/22 methotrexate sodium 2.5 mg tablet 15 mg PO WK 01/20/20 08/10/22 acetaminophen 650 mg 650 mg PO Q12H PRN Pain 07/09/21 08/10/22 tablet,extended release alendronate 70 mg tablet 70 mg PO WK 09/14/21 08/10/22 multivitamin 1 tab PO QAM 09/14/21 08/10/22 pregabalin 75 mg capsule 150 mg PO HS 08/02/22 08/10/22 turmeric 400 mg capsule 0 mg PO DAILY 08/10/22 08/10/22 Previous Rx's Medication Instructions Recorded losartan 100 mg tablet 100 mg PO DAILY #90 tabs 12/13/21 donepezil 10 mg tablet (Aricept) 10 mg PO HS #90 tabs 01/25/22 Saccharomyces boulardii 250 mg 250 mg PO DAILY #100 caps 05/03/22 capsule ondansetron HCl 4 mg tablet 4 mg PO Q8H PRN nausea and 05/03/22 vomiting #30 tabs sertraline 50 mg tablet 75 mg PO HS #90 tabs 05/20/22 warfarin 2 mg tablet See Rx Instructions .Route 07/13/22 .COMPLEX #110 tabs potassium chloride 10 mEq 10 meq PO BID #180 caps 07/14/22 capsule,extended release melatonin 3 mg tablet 3 mg PO HS PRN sleep #30 tabs 08/01/22 albuterol sulfate 90 mcg/actuation 2 puff inhalation QID PRN 08/04/22 aerosol inhaler (Ventolin HFA) shortness of breath or wheezing #8.5 grams prednisone 10 mg tablet 10 mg PO .COMPLEX #20 tabs 08/08/22 Results & Data (ED) Vital Signs Vital Signs - 24 hr 08/10/22 13:04 08/10/22 13:24 08/10/22 13:56 Temperature 36.6 C Temperature Source Temporal Artery Scan Pulse Rate 71 77 Pulse Rate [Exercises] Pulse Rate [Recovery] Pulse Rate [Resting] Pulse Rate [Right Finger] 72 Respiratory Rate 16 22 20 Respiratory Rate [Exercises] Respiratory Rate [Recovery] Respiratory Rate [Resting] Respiratory Effort / Characteristics Spontaneous Blood Pressure 122/72 Blood Pressure [Left Arm] Blood Pressure Mean 88 Blood Pressure Mean [Left Arm] Blood Pressure Position [Left Arm] Pulse Oximetry 93 95 96 Pulse Oximetry [Exercises] Pulse Oximetry [Recovery] Pulse Oximetry [Resting] Oxygen Delivery Method Room Air Room Air Sepsis Recent Fever Within 48 Hours No Sepsis New/Unexplained Change in Mental Status N/A Sepsis Action Taken by Nursing No Action Required 08/10/22 13:57 08/10/22 14:32 08/10/22 15:10 Temperature Temperature Source Pulse Rate 63 Pulse Rate [Exercises] 68 Pulse Rate [Recovery] 78 Pulse Rate [Resting] 76 Pulse Rate [Right Finger] 74 Respiratory Rate 22 Respiratory Rate [Exercises] 24 Respiratory Rate [Recovery] 20 Respiratory Rate [Resting] 20 Respiratory Effort / Characteristics Blood Pressure Blood Pressure [Left Arm] 135/55 L Blood Pressure Mean Blood Pressure Mean [Left Arm] 81 Blood Pressure Position [Left Arm] Sitting Pulse Oximetry 94 Pulse Oximetry [Exercises] 94 Pulse Oximetry [Recovery] 96 Pulse Oximetry [Resting] 96 Oxygen Delivery Method Room Air Room Air Sepsis Recent Fever Within 48 Hours Sepsis New/Unexplained Change in Mental Status Sepsis Action Taken by Nursing 08/10/22 16:29 Temperature Temperature Source Pulse Rate Pulse Rate [Exercises] Pulse Rate [Recovery] Pulse Rate [Resting] Pulse Rate [Right Finger] 71 Respiratory Rate 18 Respiratory Rate [Exercises] Respiratory Rate [Recovery] Respiratory Rate [Resting] Respiratory Effort / Characteristics Non-Labored Spontaneous Blood Pressure Blood Pressure [Left Arm] Blood Pressure Mean Blood Pressure Mean [Left Arm] Blood Pressure Position [Left Arm] Pulse Oximetry 96 Pulse Oximetry [Exercises] Pulse Oximetry [Recovery] Pulse Oximetry [Resting] Oxygen Delivery Method Room Air Sepsis Recent Fever Within 48 Hours Sepsis New/Unexplained Change in Mental Status Sepsis Action Taken by Nursing Laboratory Data 08/10/22 13:24 08/10/22 13:24 Lab Results 08/10/22 08/10/22 08/10/22 Range/Units 13:24 13:24 13:33 WBC 9.42 (4.8-10.8) K/ul RBC 5.20 (4.20-5.40) M/uL Hgb 15.9 (12.0-16.0) g/dl Hct 48.0 H (37.0-47.0) % MCV 92.3 (80.0-100.0) fL MCH 30.6 (25.0-34.0) pg MCHC 33.1 (32.0-36.0) g/dL RDW Std Deviation 49.7 H (36.4-46.3) fL RDW Coeff of Wilfredo 14.7 H (11.5-14.5) % Plt Count 237 (130-400) K/uL MPV 10.4 (9.4-12.4) fL Immature Gran % (Auto) 0.7 % Neut % (Auto) 88.9 % Lymph % (Auto) 8.0 % [place] % (Auto) 2.0 % Eos % (Auto) 0.1 % Baso % (Auto) 0.3 % Neut # (Auto) 8.37 H (1.40-6.50) K/uL Lymph # (Auto) 0.75 L (1.2-3.4) K/uL [place] # (Auto) 0.19 (0.11-0.59) K/uL Eos # (Auto) 0.01 (0-0.50) K/uL Baso # (Auto) 0.03 (0-0.2) K/uL Immature Gran # (Auto) 0.07 (0.01-0.20) K/uL PT 29.5 H (9.0-12.0) Seconds INR 2.9 H (0.9-1.1) Sodium 139 (136-145) mmol/L Potassium 4.3 (3.5-5.1) mmol/L Chloride 103 (98-107) mmol/L Carbon Dioxide 27 (21-32) mmol/L Anion Gap 9 (3-11) BUN 19 (6-23) mg/dl Creatinine 0.87 (0.6-1.2) mg/dl Est Cr Clr Drug Dosing 54.0 ml/min Est GFR ( Amer) 72.4 ml/min Est GFR (Non-Af Amer) 62.5 ml/min BUN/Creatinine Ratio 21.8 H (10-20) Glucose 233 H (70-99(Fasting)) mg/dl Calcium 9.5 (8.6-10.3) mg/dl Magnesium 1.9 (1.7-2.4) mg/dl Total Bilirubin 0.8 (0.2-1.0) mg/dl AST 20 (13-39) U/L ALT 18 (7-52) U/L Alkaline Phosphatase 86 (34-104) U/L Troponin I High Sens 8.0 (0-14) pg/ml Total Protein 7.6 (6.0-8.3) gm/dl Albumin 4.1 (3.4-5.0) gm/dl Globulin 3.5 (2.5-4.0) gm/dl Albumin/Globulin Ratio 1.2 (0.9-2) Lipase 30 (11-82) U/L SARS-CoV-2 (PCR) (Negative) Influenza Type A (PCR) (Neg) Influenza Type B (PCR) (Neg) RSV (RT-PCR) (Neg) 08/10/22 08/10/22 Range/Units 15:08 15:40 WBC (4.8-10.8) K/ul RBC (4.20-5.40) M/uL Hgb (12.0-16.0) g/dl Hct (37.0-47.0) % MCV (80.0-100.0) fL MCH (25.0-34.0) pg MCHC (32.0-36.0) g/dL RDW Std Deviation (36.4-46.3) fL RDW Coeff of Wilfredo (11.5-14.5) % Plt Count (130-400) K/uL MPV (9.4-12.4) fL Immature Gran % (Auto) % Neut % (Auto) % Lymph % (Auto) % [place] % (Auto) % Eos % (Auto) % Baso % (Auto) % Neut # (Auto) (1.40-6.50) K/uL Lymph # (Auto) (1.2-3.4) K/uL [place] # (Auto) (0.11-0.59) K/uL Eos # (Auto) (0-0.50) K/uL Baso # (Auto) (0-0.2) K/uL Immature Gran # (Auto) (0.01-0.20) K/uL PT (9.0-12.0) Seconds INR (0.9-1.1) Sodium (136-145) mmol/L Potassium (3.5-5.1) mmol/L Chloride (98-107) mmol/L Carbon Dioxide (21-32) mmol/L Anion Gap (3-11) BUN (6-23) mg/dl Creatinine (0.6-1.2) mg/dl Est Cr Clr Drug Dosing ml/min Est GFR ( Amer) ml/min Est GFR (Non-Af Amer) ml/min BUN/Creatinine Ratio (10-20) Glucose (70-99(Fasting)) mg/dl Calcium (8.6-10.3) mg/dl Magnesium Cancelled (1.7-2.4) mg/dl Total Bilirubin (0.2-1.0) mg/dl AST (13-39) U/L ALT (7-52) U/L Alkaline Phosphatase (34-104) U/L Troponin I High Sens (0-14) pg/ml Total Protein (6.0-8.3) gm/dl Albumin (3.4-5.0) gm/dl Globulin (2.5-4.0) gm/dl Albumin/Globulin Ratio (0.9-2) Lipase (11-82) U/L SARS-CoV-2 (PCR) POSITIVE A* (Negative) Influenza Type A (PCR) Negative (Neg) Influenza Type B (PCR) Negative (Neg) RSV (RT-PCR) Negative (Neg) Administered Medications Discontinued Medications Albuterol (Albut/Ipratrop 3mg/0.5mg Neb 3 Ml Vial) 12 ml NEB ONE ONE; Protocol Stop: 08/10/22 13:32 Last Admin: 08/10/22 13:54 Dose: 12 ml Documented By: MARGRET Albuterol (Albuterol 0.083% Nebu Soln 3 Ml Vial) 10 mg NEB NOW STA; Protocol Stop: 08/10/22 14:54 Last Admin: 08/10/22 16:27 Dose: 10 mg Documented By: MARGRET Methylprednisolone (Methylprednisolone 40 Mg/Ml Vial) 40 mg IV NOW STA Stop: 08/10/22 14:55 Last Admin: 08/10/22 15:06 Dose: 40 mg Documented By: QGV Imaging Data Radiologist's Impression: Chest X-Ray 08/10/22 13:14 SINGLE VIEW CHEST CLINICAL HISTORY: Atypical chest pain. Cough FINDINGS: 2 AP, portable, upright chest radiographs are compared to study dated 07/28/2022 and correlated with chest CT dated 09/15/2021. The heart is enlarged noting atherosclerotic calcification of the thoracic aorta. The pulmonary vasculature is noncongested. Chronic interstitial thickening is similar to previous. There is bibasilar scarring/atelectasis. The lungs and pleural spaces are otherwise clear. No pneumothorax is seen. The skeletal structures are osteopenic. The bony thorax is grossly intact. Arthritic change is noted in the shoulders. IMPRESSION: Cardiomegaly with no active disease in the chest. ACT 112: Negative or not required by law. Electronically signed by: Adolfo Odell M.D. 08/10/2022 1:28 PM Discharge Plan Visit Data Chief Complaint: Cough Stated Complaint: COUGH, POSITIVE COVID + ED Provider: Isaias Goyal Discharge Problem: Asthma exacerbation, Shortness of breath Forms Stand Alone Forms: My [facility] Prescriptions Prescriptions: No Action losartan 100 mg tablet 100 mg PO DAILY Qty: 90 3RF donepezil [Aricept] 10 mg tablet 10 mg PO HS Qty: 90 3RF sertraline 50 mg tablet 75 mg PO HS Qty: 90 3RF warfarin 2 mg tablet See Rx Instructions .ROUTE .COMPLEX Qty: 110 3RF Protocol: Dose Management Condition: Monday Dose/Route: 2 mg Instruction: 1 x 2 mg tablet Condition: Monday Dose/Route: 2 mg Instruction: 1 x 2 mg tablet Condition: Monday Dose/Route: 2 mg Instruction: 1 x 2 mg tablet Condition: Monday Dose/Route: 2 mg Instruction: 1 x 2 mg tablet Condition: Dose/Route: 2 mg Instruction: 1 x 2 mg tablet Condition: Monday Dose/Route: 4 mg Instruction: 2 x 2 mg tablets Condition: Monday Dose/Route: 2 mg Instruction: 1 x 2 mg tablet Protocol Text: Adjustment Start Date: 07/14/22 INR Value: 2.1 INR Date: 07/14/22 Recheck Date: 08/11/22 Rx Instructions: take 4mg Fridays and 2mg all other days pregabalin 75 mg capsule 150 mg PO HS albuterol sulfate [Ventolin HFA] 90 mcg/actuation HFA aerosol inhaler 2 puff inhalation QID PRN (Reason: shortness of breath or wheezing) Qty: 8.5 1RF methotrexate sodium 2.5 mg tablet 15 mg PO WK Rx Instructions: TAKES ON WEDNESDAYS..15 mg PO once weekly; prednisone 10 mg tablet 10 mg PO .COMPLEX Qty: 20 0RF Rx Instructions: Take 4 pills by mouth x 2 days, then 3x2,2x2,1x2 folic acid 1 mg tablet 2 mg PO QPM multivitamin Tablet 1 tab PO QAM alendronate 70 mg tablet 70 mg PO WK Patient Comments: Mondays Rx Instructions: TAKES ON SUNDAYS ondansetron HCl 4 mg tablet 4 mg PO Q8H PRN (Reason: nausea and vomiting) Qty: 30 0RF Saccharomyces boulardii 250 mg capsule 250 mg PO DAILY Qty: 100 1RF potassium chloride 10 mEq capsule, extended release 10 meq PO BID Qty: 180 3RF melatonin 3 mg Tablet 3 mg PO HS PRN (Reason: sleep) Qty: 30 0RF acetaminophen 650 mg Tablet Extended Release 650 mg PO Q12H PRN (Reason: Pain) turmeric 400 mg Capsule 0 mg PO DAILY Referrals Referrals: Ella Esquivel MD [Primary Care Provider] -
[2022-08-10] MEDS ORDERED: ALBUTEROL 0.083% NEBU SOLN 3 ML VIAL NEB PRN (18:23)
[2022-08-10] MEDS ORDERED: metHOTREXate sodium 2.5 MG TAB PO SCH (18:23)
[2022-08-10] MEDS ORDERED: MELATONIN 3 MG TAB PO PRN (18:23)
[2022-08-10] MEDS ORDERED: WARFARIN SOD 2 MG TAB PO SCH (18:23)
[2022-08-10] MEDS ORDERED: ACETAMINOPHEN 325 MG TAB PO PRN (18:23)
[2022-08-10] MEDS ORDERED: METOPROLOL TARTRATE 1 MG/ML VIAL IV STA (18:51)
[2022-08-10 19:05] LABS: Adenovirus PCR Not Detected (NotDetected); Bordetella parapertussis PCR Not Detected (NotDetected); Bordetella pertussis PCR Not Detected (NotDetected); Chlamydia pneumoniae PCR Not Detected (NotDetected); Coronavirus 229E PCR Not Detected (NotDetected); Coronavirus HKU1 PCR Not Detected (NotDetected); Coronavirus NL63 PCR Not Detected (NotDetected); Coronavirus OC43PCR Not Detected (NotDetected); Human Metapneumovirus PCR Not Detected (NotDetected); Influenza A PCR Not Detected (NotDetected); Influenza B PCR Not Detected (NotDetected); Mycoplasma pneumoniae PCR Not Detected (NotDetected); Parainfluenza Virus 1 PCR Not Detected (NotDetected); Parainfluenza Virus 2 PCR Not Detected (NotDetected); Parainfluenza Virus 3 PCR Not Detected (NotDetected); Parainfluenza Virus 4 PCR Not Detected (NotDetected); Respiratory Syncytial VirusPCR Not Detected (NotDetected); Rhinovirus/Enterovirus PCR Not Detected (NotDetected)
[2022-08-10 19:06] LABS: Coronavirus CoV-2 (COVID19)PCR DETECTED (NotDetected)
[2022-08-10] MEDS: DONEPEZIL HCL 10 MG TAB PO SCH (20:46)
[2022-08-10] MEDS: SERTRALINE HCL 50 MG TABLET PO SCH (20:46)
[2022-08-10] MEDS: FOLIC ACID 1 MG TAB PO SCH (20:46)
[2022-08-10] MEDS: guaiFENesin 600 MG TABCR PO SCH (20:46)
[2022-08-10] MEDS: MAGNESIUM OXIDE 400 MG TAB PO SCH (20:47)
[2022-08-10] MEDS: PREGABALIN 150 MG CAP PO SCH (20:53)
[2022-08-10] MEDS ORDERED: METOPROLOL TARTRATE 25 MG TAB PO SCH (21:00)
[2022-08-11 07:38] LABS: Basophils # (auto) 0.02 K/uL (0-0.2); Basophils % (auto) 0.2 %; Eosinophils # (auto) 0.01 K/uL (0-0.50); Eosinophils % (auto) 0.1 %; Hematocrit (blood only) 44.2 % (37.0-47.0); Hemoglobin 14.4 g/dl (12.0-16.0); Immature Granulocytes # (auto) 0.08 K/uL (0.01-0.20); Immature Granulocytes % (auto) 0.6 %; Lymphocytes # (auto) 1.42 K/uL (1.2-3.4); Lymphocytes % (auto) 10.7 %; Mean Corpuscular Hemoglobin 30.3 pg (25.0-34.0); Mean Corpuscular Hgb Conc 32.6 g/dL (32.0-36.0); Mean Corpuscular Volume 93.1 fL (80.0-100.0); Monocytes # (auto) 1.08 K/uL (0.11-0.59); Monocytes % (auto) 8.2 %; Neutrophils # (auto) 10.64 K/uL (1.40-6.50); Neutrophils % (auto) 80.2 %; Platelet Count 244 K/uL (130-400); RDW Coefficient of Variation 14.8 % (11.5-14.5); RDW Standard Deviation 50.5 fL (36.4-46.3); Red Blood Count 4.75 M/uL (4.20-5.40); White Blood Count 13.25 K/ul (4.8-10.8)
[2022-08-11 07:59] LABS: BUN Creatinine Ratio 21.1 (10-20); Creatinine Clr Calc Pharmacy 50.4 ml/min; Est GFR (African American) 69.5 ml/min; Potassium 4.3 mmol/L (3.5-5.1)
[2022-08-11 08:10] LABS: INR 3.1 (0.9-1.1); Prothrombin Time 30.8 Seconds (9.0-12.0)
[2022-08-11] MEDS: methylPREDNISolone 40 MG in SYRINGE 0 ML IV SCH ×2 (09:49→20:21)
[2022-08-11] MEDS: LOSARTAN POTASSIUM 50 MG TAB PO SCH (09:49)
[2022-08-11] MEDS: guaiFENesin 600 MG TABCR PO SCH ×2 (09:49→20:19)
[2022-08-11] MEDS: MAGNESIUM OXIDE 400 MG TAB PO SCH (09:49)
[2022-08-11] MEDS: LEVALBUTEROL HCL 0.63 MG/3 ML NEB NEB SCH ×2 (12:17→20:36)
--- NOTE | 2022-08-11 15:56 | Hospitalist Progress Note ---
Date of Service August 11, 2022 Assessment & Plan (1) Asthma: Plan: Asthma exacerbation secondary to prolonged bout of COVID-19 for which she was hospitalized and discharged recently Chest x-ray without pneumonia. Diffuse wheezing on arrival and is now improving. Not requiring supplemental oxygen. Procalcitonin negative. No need for antibiotics. No fevers or leukocytosis on presentation. Responding to IV steroids Patient is at increased risk of secondary pneumonia due to her history of RA and methotrexate use, methotrexate was held last week due to COVID. -Continue IV steroids and plan for prolonged 1 to 2-week taper of steroids after discharge -Supportive care -Change nebs to Xopenex to avoid tachycardia -Likely discharged home tomorrow (2) Paroxysmal atrial fibrillation: Plan: Had rapid atrial fibrillation after receiving an hour-long bronchodilator nebulizer on admission She now converted to sinus rhythm again has normal rates Is on Coumadin but will hold today for elevated INR Follow on telemetry Keep electrolytes replete Discontinue metoprolol started last evening for bradycardia in the 50s and sinus (3) History of pulmonary embolus (PE): Plan: Is on warfarin but hold today for elevated INR Steroids may be increasing the INR Follow level in the morning (4) COVID-19: Plan: As above (5) HTN (hypertension): Plan: Blood pressures are controlled Continue losartan Mood disorder-continue sertraline, donepezil (6) Seronegative rheumatoid arthritis: Plan: Holding home methotrexate Continue folic acid Continue pregabalin Plan DVT prophylaxis: Anticoagulated Disposition: Continued stay on telemetry, COVID precautions. Possible discharge to home tomorrow if continues to improve CODE STATUS: Full Admission and Anticipated Discharge Date Admission Date: August 11, 2022 Subjective Feeling better, still coughing. Feels her wheezing is improved. Telemetry with rapid atrial fibrillation on arrival which converted to normal sinus rhythm at 0650 this morning. Now rates are in the 50s Physical Exam Constitutional: WD/WN, vitals as above Respiratory: normal respiratory effort and + cough Auscultation: + wheezes (A few faint bilateral expiratory wheezes); no crackles and no rhonchi Cardiovascular: Rate/Rhythm: regular rate and regular rhythm Heart Sounds: no murmur Extremities: no edema Gastrointestinal (Abdomen): normal bowel sounds, soft, nontender, no hepatosplenomegaly Psychiatric: A+Ox3, euthymic affect Results & Data Results & Data Vital Signs (Past 12 Hours) Vital Signs Temp Pulse Pulse Pulse Resp BP Pulse Ox 08/11/22 14:16 57 L 08/11/22 12:17 68 16 94 08/11/22 09:40 08/11/22 06:31 56 L 08/11/22 08:03 36.7 C 52 L 20 158/90 H 96 O2 Del Method 08/11/22 14:16 08/11/22 12:17 Room Air 08/11/22 09:40 Room Air 08/11/22 06:31 08/11/22 08:03 Room Air Laboratory Results CBC, BMP, procalcitonin, INR all reviewed PG Care Time/CCT Total # of Minutes Spent Total Time Spent with Patient: Total time spent is greater than 50% in coordination of care (as documented) at patient's floor/unit and/or counseling patient: Coding Level of Care Code 75842 SUB INP/OBS CARE 3/50MIN Diagnoses Asthma J45.909 Paroxysmal atrial fibrillation I48.0 History of pulmonary embolus (PE) Z86.711 COVID-19 U07.1 HTN (hypertension) I10 Seronegative rheumatoid arthritis M06.00
[2022-08-11] MEDS: PREGABALIN 150 MG CAP PO SCH (20:19)
[2022-08-11] MEDS: SERTRALINE HCL 50 MG TABLET PO SCH (20:20)
[2022-08-11] MEDS: FOLIC ACID 1 MG TAB PO SCH (20:20)
[2022-08-11] MEDS: DONEPEZIL HCL 10 MG TAB PO SCH (20:21)
[2022-08-12] MEDS: LEVALBUTEROL HCL 0.63 MG/3 ML NEB NEB SCH ×3 (00:58→13:29)
--- NOTE | 2022-08-12 05:51 | Electrocardiogram Report ---
Test Reason : Blood Pressure : / mmHG Vent. Rate : 070 BPM Atrial Rate : 068 BPM P-R Int : 000 ms QRS Dur : 082 ms QT Int : 382 ms P-R-T Axes : 000 -10 035 degrees QTc Int : 412 ms Poor data quality, interpretation may be adversely affected Normal sinus rhythm Low voltage QRS When compared with ECG of 31-JUL-2022 20:15, No significant change Confirmed by Flash Richardson ([id number]) on 08/12/2022 5:50:45 AM Referred By: SELF Confirmed By:Flash Richardson
[2022-08-12] MEDS: LOSARTAN POTASSIUM 50 MG TAB PO SCH (09:06)
[2022-08-12] MEDS: methylPREDNISolone 40 MG in SYRINGE 0 ML IV SCH (09:06)
[2022-08-12] MEDS: MAGNESIUM OXIDE 400 MG TAB PO SCH (09:06)
[2022-08-12] MEDS: guaiFENesin 600 MG TABCR PO SCH (09:06)
[2022-08-12 10:04] LABS: BUN Creatinine Ratio 26.1 (10-20); Calcium 8.7 mg/dl (8.6-10.3); Creatinine Clr Calc Pharmacy 49.4 ml/min; Est GFR (African American) 67.7 ml/min; Est GFR (Non-African American) 58.4 ml/min; Magnesium 1.9 mg/dl (1.7-2.4); Potassium 3.5 mmol/L (3.5-5.1)
[2022-08-12 10:32] LABS: INR 2.2 (0.9-1.1); Prothrombin Time 22.2 Seconds (9.0-12.0)
--- NOTE | 2022-08-12 11:21 | Discharge Summary ---
Date of Service August 12, 2022 Admission HPI Per Admitting Provider Carmen is an 81-year-old female with a past medical history of paroxysmal A-fib on warfarin, CAD, past PE, hypertension, hyperlipidemia who presents with shortness of breath, severe wheezing, exertional dyspnea which has not improved on outpatient prednisone. She reports she was admitted and discharged 08/28 due to shortness of breath due to COVID pneumonia, did not qualify for remdesivir as was not hypoxic but was treated with dexamethasone for 10 days and p.o. azithromycin for bronchitis. She reports she did clinically improve, felt well for about 1 week, and then about 1 week ago rapidly worsened. She reports that she has been wheezing and short of breath nearly continuously, albuterol has not helped. She was seen as an outpatient 2 days ago and was placed on prednisone. She reports the last 2 days her breathing has not improved, she has been wheezing near continuously, and is not able to get around at home due to her symptoms. He has not had fever, chills, nausea, vomiting, diarrhea, constipation. No chest pain or chest pressure, but does feel like her breathing is tight. Still feels poorly after an hour-long nebulizer in ER, 40 mg IV methylprednisolone which was given in addition to the 40 mg of prednisone she took this morning, and 1 g of magnesium. She is very concerned about secondary superimposed pneumonia given her history of rheumatoid arthritis on methotrexate, this was held last week due to COVID. She is not on DMARDs at this time, was on 1 in the past but patient is not sure which but notes that this was held many months ago in anticipation of having knee replacement. No leukocytosis Hemoglobin 15.9 Creatinine is normal at baseline, 0.87 on admission No transaminitis High-sensitivity troponin is normal Lipase is normal CXR: No acute disease Medical History: Reviewed Medications: Reviewed Surgical History: Reviewed Family history: Reviewed Allergies: Reviewed Social History: Reviewed, no tobacco use Code Status: Full Principal Diagnosis Acute asthma exacerbation, COVID-19 bronchitis Discharge Exam Constitutional WD/WN, vitals as above Respiratory normal respiratory effort and + cough Auscultation: no crackles, no rhonchi and no wheezes Cardiovascular Rate/Rhythm: regular rate and regular rhythm Heart Sounds: no murmur Extremities: no edema Gastrointestinal (Abdomen) normal bowel sounds, soft, nontender, no hepatosplenomegaly Psychiatric A+Ox3, euthymic affect Discharge Data Allergies Allergy/AdvReac Type Severity Reaction Status Date / Time Kedpuyr-MIY-WbU Reductase AdvReac Severe Muscle Pain Verified 08/10/22 14:53 Inhibitor [Zjmuxvs-Qsz-Ktu Reductase Inhibitor] sulfamethoxazole AdvReac Intermediate STOMACH Verified 08/10/22 14:53 SICKNESS trimethoprim AdvReac Intermediate STOMACH Verified 08/10/22 14:53 SICKNESS tramadol AdvReac Unknown no pain Verified 08/10/22 14:53 relief Consultations 08/10/22 14:54 ED Decision to Admit Stat Hospital Course (1) Asthma: Asthma exacerbation secondary to prolonged bout of COVID-19 for which she was hospitalized and discharged recently Chest x-ray without pneumonia. Diffuse wheezing on arrival and is now resolved. Not requiring supplemental oxygen and passed a 2 step walk test prior to discharge Procalcitonin negative. No need for antibiotics. No fevers or leukocytosis on presentation. Responding to IV steroids Patient is at increased risk of secondary pneumonia due to her history of RA and methotrexate use, but no PNA on CXR. Methotrexate was held last week due to COVID and should continue to be held for 2 more weeks -dc to home on longer taper of prednisone after discharge -ordered new nebulizer machine and albuterol nebreyes, cody ross -continue mucinex -stable for dc to home (2) Paroxysmal atrial fibrillation: Had rapid atrial fibrillation after receiving an hour-long bronchodilator nebulizer on admission She now converted to sinus rhythm again has normal rates, does have some occasional paroxysms of Afib Is on Coumadin-held one dose for INR 3.1 and on steroids--> INR 2.2 on day of discharge -continue home coumadin dose and check INR on Mon-Monday next week (3) History of pulmonary embolus (PE): Is on warfarin Steroids may increase the INR (4) COVID-19: As above (5) HTN (hypertension): Blood pressures are controlled Continue losartan Mood disorder-continue sertraline, donepezil (6) Seronegative rheumatoid arthritis: Holding home methotrexate for 2 more weeks Continue folic acid Continue pregabalin Plan DVT prophylaxis: Anticoagulated Disposition: much improved, discharge to home CODE STATUS: Full Total Time Total Time Spent Total Time Spent (In Minutes): 35 min Discharge Plan Discharge Items Patient Disposition: Home - Self-Care Reason For Visit: DYSPNEA, WHEEZING Discharge Diagnosis: COVID-19 Bronchitis Condition on Discharge: Good Activity: As commented below Bathing: No limitations Exercise/Sports: Gradually increase as tolerated Non-emergency contact: Primary Care Provider Call non-emergency contact if: you have any medication questions and your symptoms worsen Follow-up/Referrals: Ella Esquivel MD [Primary Care Provider] - (Follow up within 1 week.) Diet: Heart Healthy Addtl Attending Provider Instructions: You were admitted with an asthma exacerbation from COVID-bronchitis. Please continue the steroid taper and remain off your methotrexate for 2 more weeks. You can use the nebulizer machine as needed for cough and shortness of breath. You were tested prior to discharge and you did not need any supplemental oxygen. Your INR was 2.2 on the day of discharge. Please have your INR checked on Mon- Monday of next week as the prednisone can make the INR go up. Pending Studies at Discharge: No Stand-Alone Forms: My [employer], Smoking Cessation Medications and DC Order Prescriptions: New guaifenesin [Mucinex] 600 mg Tablet Extended Release 12hr 1,200 mg PO Q12 Qty: 60 0RF Rx Instructions: OTC albuterol sulfate 2.5 mg /3 mL (0.083 %) solution for nebulization 2.5 mg inhalation Q6H PRN (Reason: shortness of breath or wheezing) Qty: 90 0RF benzonatate 200 mg capsule 200 mg PO TID PRN (Reason: cough) Qty: 30 0RF Continued losartan 100 mg tablet 100 mg PO DAILY Qty: 90 3RF donepezil [Aricept] 10 mg tablet 10 mg PO HS Qty: 90 3RF sertraline 50 mg tablet 75 mg PO HS Qty: 90 3RF warfarin 2 mg tablet See Rx Instructions .ROUTE .COMPLEX Qty: 110 3RF Protocol: Dose Management Condition: Monday Dose/Route: 2 mg Instruction: 1 x 2 mg tablet Condition: Monday Dose/Route: 2 mg Instruction: 1 x 2 mg tablet Condition: Monday Dose/Route: 2 mg Instruction: 1 x 2 mg tablet Condition: Monday Dose/Route: 2 mg Instruction: 1 x 2 mg tablet Condition: Dose/Route: 2 mg Instruction: 1 x 2 mg tablet Condition: Monday Dose/Route: 4 mg Instruction: 2 x 2 mg tablets Condition: Monday Dose/Route: 2 mg Instruction: 1 x 2 mg tablet Protocol Text: Adjustment Start Date: 07/14/22 INR Value: 2.1 INR Date: 07/14/22 Recheck Date: 08/11/22 Rx Instructions: take 4mg Fridays and 2mg all other days pregabalin 75 mg capsule 150 mg PO HS albuterol sulfate [Ventolin HFA] 90 mcg/actuation HFA aerosol inhaler 2 puff inhalation QID PRN (Reason: shortness of breath or wheezing) Qty: 8.5 1RF folic acid 1 mg tablet 2 mg PO QPM multivitamin Tablet 1 tab PO QAM alendronate 70 mg tablet 70 mg PO WK Patient Comments: Mondays Rx Instructions: TAKES ON SUNDAYS ondansetron HCl 4 mg tablet 4 mg PO Q8H PRN (Reason: nausea and vomiting) Qty: 30 0RF Saccharomyces boulardii 250 mg capsule 250 mg PO DAILY Qty: 100 1RF potassium chloride 10 mEq capsule, extended release 10 meq PO BID Qty: 180 3RF melatonin 3 mg Tablet 3 mg PO HS PRN (Reason: sleep) Qty: 30 0RF acetaminophen 650 mg Tablet Extended Release 650 mg PO Q12H PRN (Reason: Pain) turmeric 400 mg Capsule 0 mg PO DAILY methotrexate sodium 2.5 mg tablet 15 mg PO WK Qty: 30 0RF Rx Instructions: TAKES ON WEDNESDAYS..15 mg PO once weekly; HOLD until done with your prednisone Changed prednisone 10 mg tablet 40 mg PO DAILY Qty: 30 0RF Rx Instructions: x 3 days then decrease by 10mg every 3 days until gone Discharge Orders: Discharge Order (Routine); Ordered 08/12/22 Ordered By: Alejandrina Kent Admission Data Admit Date/Time: 08/11/22 11:58 Attending Provider: Alejandrina Kent Admit Provider: Bernardo Younger Primary Care Provider: Ella Esquivel Other Providers: Bernardo Younger Coding Level of Care Code 90605 INP/OBS DISCH >30 MIN Diagnoses Asthma J45.909 Paroxysmal atrial fibrillation I48.0 History of pulmonary embolus (PE) Z86.711 COVID-19 U07.1 HTN (hypertension) I10 Seronegative rheumatoid arthritis M06.00
[2022-08-12] MEDS ORDERED: WARFARIN SOD 4 MG TAB PO SCH (16:00)
--- NOTE | 2022-08-12 19:09 | Electrocardiogram Report ---
Test Reason : Blood Pressure : / mmHG Vent. Rate : 143 BPM Atrial Rate : 107 BPM P-R Int : 000 ms QRS Dur : 098 ms QT Int : 294 ms P-R-T Axes : 000 -41 078 degrees QTc Int : 453 ms Atrial fibrillation with rapid ventricular response Left axis deviation Abnormal ECG When compared with ECG of 10-AUG-2022 13:24, Atrial fibrillation has replaced Sinus rhythm Vent. rate has increased BY 73 BPM QRS axis Shifted left ST now depressed in Lateral leads Confirmed by Flash Richardson ([id number]) on 08/12/2022 7:08:30 PM Referred By: Ella Esquivle Confirmed By:Flash Richardson
== END 2022-08-12 13:37 | disposition home or self-care (01) | DRG 178 ==
LOC: ED 13:03 → 3W 13:03 → SUATTDRO 16:21 → 2S 17:33